=== PATIENT | male | born 1945 | race Caucasian/White ===

== ENCOUNTER 2024-01-11 08:04 | Outpatient (RCR) | payer MEDICARE, OTHER, SELFPAY | END 2024-02-11 10:26 | disposition home or self-care (01) | LOC: HO.WCC 08:04 | PROVIDERS: PCP Internal Medicine; Visit Provider Physician Assistant | DX: L97.811 Non-pressure chronic ulcer of other part of right lower leg limited to breakdown of skin (principal); I73.9 Peripheral vascular disease, unspecified; R73.03 Prediabetes; Z79.84 Long term (current) use of oral hypoglycemic drugs; Z92.3 Personal history of irradiation; Z87.891 Personal history of nicotine dependence; Z85.46 Personal history of malignant neoplasm of prostate | CPT/HCPCS: 97597; 97598; 97602; 99212 ==

== ENCOUNTER 2024-07-20 14:12 | Outpatient (AMB) | payer MEDICARE, OTHER, SELFPAY ==
--- NOTE | 2024-07-20 14:13 | MHC.OFFVIS ---
Intake Visit Reasons: Re-Ref for PAD Intake Note: Patient presents for PAD. He has left leg pain. No cramping , swelling or numbness. Accompanied by: Spouse Allergies No Known Allergies Allergy (Verified 07/20/24 14:15) [facility] HPI Re-Ref for PAD: Details: Very pleasant 71-year-old gentleman presents to us for follow-up regarding peripheral vascular disease. He would actually seen us back in 2018 in 2019. He had undergone an angiogram with us on 11/17/2017. At that time he had reasonable flow. He has been doing relatively well since that time in the interim he has been undergoing treatment for metastatic prostate carcinoma. In addition he has a history of a GI bleed. He was initially treated with brachytherapy. He has been now started on a chemo regimen by Dr. Conte. He is developed left lower extremity pain. He can barely walk about 100-200 feet and he notices pain in the left leg radiating down from his hip to the posterior aspect of his thigh. Of note he had this prior pain and it was treated with the brachytherapy and it appeared that the pain resolved. He does report on occasion the pain does improve with gabapentin. He has undergone noninvasive arterial testing at [facility] along with venous testing. Now presents to us for vascular follow-up. Review of Systems Const All systems reviewed & are unremarkable except as noted in HPI and below Reports no additional complaints ENT Reports Normal hearing present Card Denies chest pain, Denies chest pain at rest, Denies chest pain with activity and Denies pedal edema Resp Denies cough GI Denies abdominal pain Musc Denies abnormal gait, Denies muscle cramps and Denies radiating pain into limb Skin/Breast Denies skin ulcer and Denies wounds Neuro Reports Normal hearing present and Denies abnormal gait Psych Reports no additional complaints Physical Exam Const General: cooperative, healthy appearing and comfortable Orientation/consciousness: oriented to person, oriented to place and oriented to time HEENT Head: Yes normal to inspection Neck Neck: Yes normal visual inspection Carotids: no bruits Chest Chest palpation & inspection: normal inspection of the chest Resp Effort & Inspection: normal respiratory effort and able to speak in complete sentences Auscultation: clear to auscultation bilaterally, no crackles, no rales, no rhonchi and no wheezes Cardio Other: Right side palpable posterior tibial pulse left side DP signal only Rate: regular rate Rhythm: regular rhythm Heart sounds: S1 normal heart sound present and S2 normal heart sound present Bruits: no carotid bruits GI Inspection: Yes normal to inspection Skin Wounds: no wounds Hair: normal Neuro General: oriented to person, oriented to place and oriented to time Cranial nerves: Yes CN's II-XII intact bilaterally and Yes Normal hearing present Cognition (Neuro): normal cognition Motor exam (neuro): 5/5 motor strength present throughout Extrem Other: venous exam: No significant superficial varicosities or spider telangiectasias, minimal edema General: No clubbing, No cyanosis and No edema Psych Appearance: grossly normal Mental Status: mental status grossly normal Speech and movement: Normal speech and movement present Results Reviewed Results Reviewed: Arterial testing dated 07/05/2018 demonstrated an MAKSIM on the right of 1.01 and on the left of 0.69 done at [facility] written report and images were reviewed. Arterial testing dated 05/23/2024 demonstrates right leg popliteal disease. Written report reviewed from [facility] Venous testing dated 05/19/2024 was negative for DVT. Written report reviewed from [facility] Assessment & Plan Assessment & Plan (1) PAD (peripheral artery disease): Comment: 11/17/2017 - diagnostic angiogram Code(s): I73.9 - Peripheral vascular disease, unspecified Category: Medical Plan: In short patient has left leg claudication. I did review the pathophysiology of peripheral vascular disease with the patient. In addition we did discuss routine conservative measures including a healthy diet and the importance of exercise and ambulation. We did discuss risk factor modification. We will scheduled for a more detailed left leg arterial study.. Thank you for allowing us to participate in this patient's care. If there are any questions or concerns please do not hesitate to contact us. Orders: Orders US arterial duplex LE BI 1 Week I73.9 - Peripheral vascular disease, unspecified Coding Level of Care Code Est Pt Level 4 (75838) Diagnoses PAD (peripheral artery disease) I73.9
--- OUTSIDE RECORDS SUMMARY | 2024-07-20 17:59 | XMS_ITS ---
Author Organization [facility] Address [address] [place] [address] Care Team Providers Care Media Theorist And Author Of Name Role Phone Júnior Crawley MD Primary Care Provider Active Problems Problem Noted Date Diagnosed Date Prostate cancer 05/12/2017 Iron deficiency anemia due to chronic blood loss 05/12/2017 Current Oncology Plans [facility] LEUPROLIDE 22.5MG (ELIGARD) EVERY 3 MONTHS* Plan Start Date:02/08/2024 Plan Provider:Jeffrey Conte MD Linked Problems Prostate cancer (HCC)Iron de ficiency anemia due to chronic blood loss Treatment Medications leuprolide (ELIGARD) Past Plans ONCOLOGY INFUSION THERAPY Plan Name Start Date Discontinue Date Treatment Medications Discontinue Reason Plan Provider [facility] LE[facility]PR[facility] 22.5MG (ELIGARD) EVERY 3 MONTHS & [facility] DENOSUMAB 120MG (XGEVA) 02/24/2023 02/07/2024 denosumab (XGEVA)iron sucrose (VENOFER)leuprol walter (ELIGARD) Therapy Complete Jeffrey Conte MD Radiation Treatments * No radiation treatments are documented for this patient in [facility]. Treatments may have been administered in another system.
--- OUTSIDE RECORDS SUMMARY | 2024-07-20 17:59 | XMS_ITS | Clinical Summary ---
Author Organization [facility] Address [address] [place] [address] Care Team Providers Care Automation And Control Engineer Name Role Phone Júnior Crawley MD Primary Care Provider Allergies No known active allergies Medications Medication Sig Dispensed Refills Start Date End Date Status fenofibrate (TRIGLIDE) 160 MG tablet Take 1 tablet (160 mg total) by mouth daily. 0 Active lisinopril (PRINIVIL,ZESTRIL ) tablet 20 mg Take 1 tablet (20 mg total) by mouth daily. 0 Active METFORMIN HCL PO Take 250 mg by mouth daily. 0 Active omeprazole (PRILOSEC) 40 MG capsule Take 1 capsule (40 mg total) by mouth 2 (two) times a day. 0 Active simvastatin (ZOCOR) tablet 20 mg Take 1 tablet (20 mg total) by mouth every night at bedtime. 0 Active terazosin (HYTRIN) 5 MG capsule Take 1 capsule (5 mg total) by mouth every night at bedtime. 0 Active leuprolide (ELIGARD) 45 MG injection Inject 45 mg under the skin every 6 (six) months. 0 Active aspirin 81 MG tablet Take 1 tablet (81 mg total) by mouth daily. 0 Active oxyCODONE (ROXICODONE) 5 MG immediate release tablet Take 1 tablet (5 mg total) by mouth every 4 (four) hours as needed for pain. 30 tablet 0 02/03/2022 Active oxyCODONE HCl ER (OxyCONTIN) 10 MG T12A controlled release tablet Take 1 tablet (10 mg total) by mouth every 12 (twelve) hours. No Substitution 60 tablet 0 02/06/2022 Active enzalutamide (Xtandi) 40 MG capsuleIndication s:Malignant Neoplasm of Prostate Take 4 capsules (160 mg total) by mouth daily 120 capsule 11 11/02/2022 Active Calcium Carbonate-Vitamin D 600-5 MG-MCG TABS Take by mouth daily. 0 Active rosuvastatin (CRESTOR) tablet 20 mg Take 1 tablet (20 mg total) by mouth daily. 0 Active gabapentin (NEURONTIN) 300 MG capsule TAKE ONE CAPSULE BY MOUTH THREE TIMES A DAY 90 capsule 2 03/22/2024 Active Xtandi 80 MG TABSIndications:M alignant Neoplasm of Prostate Take 2 tablets by mouth daily. 1 tablet 0 04/17/2024 Active Active Problems Problem Noted Date Diagnosed Date Prostate cancer 05/12/2017 Iron deficiency anemia due to chronic blood loss 05/12/2017 Immunizations Name Administration Dates Next Due Covid-19 (Moderna 12+) 100mcg/0.5mL dosage 04/01 Influenza Quad (Afluria/Fluz one) 0.5mL >=6mon Vial (SD-IIV4) 04/01/2023 Pneumococcal Conjugate PCV20 03/31/2019 Zoster, Unspecified formulation 04/25/2021,01/16 Social History Tobacco Use Types Packs/Day Years Used Date Smoking Tobacco: Former Smokeless Tobacco: Never Alcohol Use Standard Drinks/Week Comments No 0 (1 standard drink = 0.6 oz pur e alcohol) Sex and Gender Information Value Date Recorded Sex Assigned at Male 03/30/2022 10:22 AM EDT Gender Identity Not on file Sexual Orientation Not on file Job Start Date Occupation Industry Not on file Not on file Not on file Last Filed Vital Signs Vital Sign Reading Time Taken Comments Blood Pressure 139/58 04/12/2024 2:44 PM EDT Pulse 71 04/12/2024 2:44 PM EDT Temperature 37 ??C (98.6 ??F) 04/12/2024 2:44 PM EDT Respiratory Rate 18 04/12/2024 2:44 PM EDT Oxygen Saturation 99% 04/12/2024 9:42 AM EDT Inhaled Oxygen Concentration - - Weight 88 kg (194 lb) 04/12/2024 9:42 AM EDT Height 165.1 cm (5' 5 ) 04/12/2024 9:42 AM EDT Body Mass Index 32.28 04/12/2024 9:42 AM EDT Plan of Treatment Health Maintenance Due Date Last Done Comments Hepatitis C Screening 1945 Depression Screening 1958 BMI Counseling 1964 Preventative Health Evaluation 1964 DTap / Tdap / Td (1 - Tdap) 1965 Shingrix-Zoster Vaccine (1 o f 2) 1965 04/25/2021, 01/16/2021 Fall Risk Assessment 2011 RSV Adult > 60+ Yrs or (1 - 1-dose 75+ series) 2021 COVID-19 Vaccine (2 - Modern a risk series) 04/29/2023 04/01/2023 Influenza Vaccine (#1) 2024 04/01/2023 Pneumococcal Vaccine Completed 03/31/2019 Hepatitis B Vaccines Aged Out No long er eligible based on patient's age to complete this topic RSV Ped < 20 months Aged Out No longe r eligible based on patient's age to complete this topic Care Teams Automation And Control Engineer Relationship Specialty Start Date End Date Júnior Crawley MD PCP - General Internal Medicine 05/12/17
--- OUTSIDE RECORDS SUMMARY | 2024-07-20 17:59 | XMS_ITS | Encounter Summary ---
Author Organization [facility] Address [address] [place] [address] Care Team Providers Care Trade Show Coordinator Name Role Phone Júnior Crawley MD Primary Care Provider [phone] Encounter Details Date Type Department Care Team Description 04/10/2024 Nurse Only [facility] Oncology Services [address] [place] [address] Lori Syed RN Social History Tobacco Use Types Packs/Day Years [...] file Not on file Not on file documented as of this encounter Progress Notes * Lori Syed RN - 04/10/2024 2:25 PM EDT Images from the original note were not included. - full report has been uploaded under media documented in this encounter Plan of Treatment Not on file documented as of this encounter Visit Diagnoses Not on filedocumented in this encounter Care Teams Trade Show Coordinator Relationship Specialty Start Date End Date Júnior Crawley MD PCP - General Internal Medicine 05/12/17 documented as of this encounter
--- OUTSIDE RECORDS SUMMARY | 2024-07-20 17:59 | XMS_ITS | Encounter Summary ---
Author Organization [facility] Address [address] [place] [address] Care Team Providers Care Planting Material Remover Name Role Phone Júnior Crawley MD Primary Care Provider [phone] Encounter Details Date Type Department Care Team Description 11/26/2021 Nurse Only [facility] Oncology Services [address] [place] [address] Lori Syed RN Social History Tobacco Use [...] file Not on file Not on file COVID-19 Exposure Response Date Recorded In the last 10 days, have yo u been in contact with someone who was confirmed or suspected to have Coronavirus/COVID-19? No / Unsure 11/27/2021 11:29 AM EDT documented as of this encounter Progress Notes * Lori Syed RN - 11/26/2021 1:57 PM EDT Order: [facility] Molecular Tumor Profiling on SP# [id number] Test request and clinicals submitted for processing. Testing Turnaround Time on average is 14 days but may take longer. Final Report will be scanned into [employer] when completed. documented in this encounter Plan of Treatment Not on file documented as of this encounter Visit Diagnoses Not on filedocumented in this encounter Care Teams Planting Material Remover Relationship Specialty Start Date End Date Júnior Crawley MD PCP - General Internal Medicine 05/12/17 documented as of this encounter
== END 2024-07-20 14:33 | disposition home or self-care (01) ==
PROVIDERS: PCP Internal Medicine; Visit Provider Surgery Vascular Surgery
DX: I73.9 Peripheral vascular disease, unspecified (principal)
CPT/HCPCS: 99214

== ENCOUNTER → 2024-07-20 14:12 | Outpatient (BNVA) | payer MEDICARE, OTHER, SELFPAY | PROVIDERS: PCP Internal Medicine; Visit Provider Surgery Vascular Surgery | DX: I73.9 Peripheral vascular disease, unspecified (principal) | CPT/HCPCS: 99212 ==

== ENCOUNTER 2024-09-07 14:06 | Outpatient (REF) | payer MEDICARE, OTHER, SELFPAY ==
--- NOTE | ~2024-09-07 | US_ITS ---
EXAMINATION: Noninvasive assessment of the bilateral lower extremities with ARTERIAL DUPLEX, ANKLE BRACHIAL INDICES (ABIs), and PULSE VOLUME RECORDINGS (PVRs). CLINICAL INFORMATION: Peripheral vascular disease. TECHNIQUE: Duplex Doppler techniques with waveform analysis and measurement of velocities in the bilateral common femoral, profunda femoris, superficial femoral, popliteal and tibial arteries were performed. Additionally, ankle pulse volume recordings, ankle pressure measurements and ankle brachial indices were obtained of the lower extremity arterial system bilaterally. The study was performed only at rest. COMPARISON: None FINDINGS: DIRECT DUPLEX DOPPLER FINDINGS: Calcified plaques throughout the interrogated vessels. Arrhythmic episodes. RIGHT LEG: Common femoral artery: 116 cm/s, phasicity: Biphasic. Profunda femoris artery: 87 cm/s, phasicity: Monophasic. Spectral broadening. Superficial femoral artery (proximal): 167 cm/s, phasicity: Triphasic. Superficial femoral artery (mid): 84 cm/s, phasicity: Triphasic. Superficial femoral artery (distal): 63 cm/s, phasicity: Triphasic. Popliteal artery: 78 cm/s, phasicity: Triphasic. Posterior tibial artery: 130 cm/s, phasicity: Triphasic. Peroneal artery: 49 cm/s, phasicity: Triphasic. Spectral broadening. Anterior tibial artery: 72 cm/s, phasicity: Triphasic. Spectral broadening. Dorsalis pedis artery: 56 cm/s, phasicity:Triphasic. Spectral broadening. LEFT LEG: Common femoral artery: 128 cm/s, phasicity: Biphasic. Profunda femoris artery: 121 cm/s, phasicity: Biphasic. Spectral broadening. Superficial femoral artery (proximal): 92 cm/s, phasicity: Biphasic. Superficial femoral artery (mid): 50 cm/s, phasicity: Triphasic. Superficial femoral artery (distal): 34 cm/s, phasicity: Triphasic. Popliteal artery: 141 cm/s, phasicity: Monophasic. Spectral broadening. Posterior tibial artery: 89 cm/s, phasicity: Monophasic. Spectral broadening. Peroneal artery: 23 cm/s, phasicity: Monophasic. Anterior tibial artery: 55 cm/s, phasicity: Monophasic. Spectral broadening. Dorsalis pedis artery: 36 cm/s, phasicity: Monophasic. Spectral broadening. BRACHIAL PRESSURES: Right: Disease proximal profundal artery. Left: popliteal, posterior and anterior tibialis arteries and dorsalis pedis artery. ANKLE PRESSURES: Right: PT , DP Left: PT , DP ANKLE-BRACHIAL INDEX: Right: Left: ANKLE PVR WAVEFORMS: Right: Left: US/US arterial duplex BI w/ MAKSIM IMPRESSION: Right leg: Left leg: MAKSIM Reference: - >1.4 = calcified vessels - 0.9 - 1.4 = normal - no significant arterial disease - 0.7 - 0.89 = mild peripheral arterial disease - 0.51 - 0.69 = moderate peripheral arterial disease - d 0.50 = severe peripheral arterial disease - < .30 = critical arterial disease Electronically signed by: Jeanmarie Kinsey MD 09/08/2024 11:07 AM EDT
--- OUTSIDE RECORDS SUMMARY | 2024-09-07 16:48 | XMS_ITS | Encounter Summary ---
Author Organization [facility] [address] Address [address] [place] [address] Care Team Providers Care Portrait Photographer Name Role Phone Júnior Crawley MD Primary Care Provider Encounter Details Date Type Department Care Team (Late st Contact Info) Description 08/29/2024 Telephone [facility] [address] [place] [address] [address] [place] [address] Layne Stauffer, NICOLE Social History Tobacco Use Types Packs/Day Years Used Date Smoking Tobacco: Former Cigarettes Q uit: 06/21/2012 Smokeless Tobacco: Never Alcohol Use Standard Drinks/Week Comments No 0 (1 standard drink = 0.6 oz pur e alcohol) Housing Instability Answer Date Recorde d Are you worried that in the next 2 months you may not have stable housing? No 08/05/2024 Food Access & Nutrition Answer Date Rec orded Do you have access to a vari ety of food including fruits and vegetables? Yes 08/05/2024 Health Literacy Answer Date Recorded How often do you need to hav e someone help you when you read instructions, pamphlets, or other written material from your doctor or pharmacy? Never 08/05/2024 Caregiver: How often do you need to have someone help you when you read instructions, pamphlets, or other written material from your doctor or pharmacy? Not on file 08/05/2024 Financial Risk Answer Date Recorded How hard is it for you to pa y for the very basics like food, housing, medical care, and air conditioning / heating? Not very hard 08/05/2024 Transportation Answer Date Recorded Has the lack of transportati on kept you from meetings, work, or from getting things needed for daily living? No Has the lack of transportati on kept you from medical appointments or from getting medications? No 08/05/2024 Social Isolation Answer Date Recorded How often do you feel lonely or isolated from th ose around you? Rarely 08/05/2024 Food Risk Answer Date Recorded Within the past 12 months we worried whether our food would run out before we got money to buy more. Never true 08/05/2024 Within the past 12 months th e food we bought just didn? t last and we didn? t have money to get more. Not on file 08/05/2024 Dependent Care Answer Date Recorded Do you need help finding or paying for care for your loved ones. For example, early childhood associate or elderly care for an older adult? No 08/05/2024 Education Answer Date Recorded Do you think completing more education or training, like finishing a GED, going to college, or learning a trade, would be helpful for you? No 08/05/2024 Employment and Income Answer Date Recor ded During the last four weeks, have you been actively looking for work? No 08/05/2024 Living Situation Answer Date Recorded What is your living situation? 0 08/05/2024 Interpersonal Safety Answer Date Record ed Physical Abuse 08/05/2024 Verbal Abuse 08/05/2024 Sex and Gender Information Value Date Recorded Sex Assigned at Male 07/03/2024 10:21 AM EST Legal Sex Male 1:21 AM EST Gender Identity Male 07/03/2024 10:21 AM EST Sexual Orientation Straight 07/03/2024 10 :21 AM EST documented as of this encounter Progress Notes * Layne Stauffer RN - 08/29/2024 12:00 PM EDT This RN received critical lab result on [place]er[place]. Lutz from hematology called this RN at 1146 to report critical WBC: 0.7. Obtained additional lab results- prelim anc: 0.16, hgb: 7.1, plts: 211. Critical WBC and hgb reported to Dr. Conte. Dr. Conte called this RN with orders to call pt and discuss neutropenic precautions. Orders obtained to transfuse 1 unit PRBCs tomorrow after MD ROBERTSON. This RN called and spoke to spouse, Sondra. Sondra denies that pt has experienced any fevers, chills,etc. She does however state that he has been tired and thinking he would need blood. Explained to spouse that pt will see Dr. Conte tomorrow and then come upstairs for a blood transfusion. Pt and spouse should monitor pt for any signs of fevers, chills, shaking, etc. If any symptoms arise before tomorrow's appt, pt is to go to ER. Encouraged spouse to be sure he performs good hand hygiene and stays away from anyone who may be sick. Spouse verbalized understanding and agrees to plan. documented in this encounter Plan of Treatment Upcoming Encounters Date Type Department Care Team (Late st Contact Info) Description 09/08/2024 8:00 AM EDT Appointment [facility] [address] [place] [phone] Jeffrey Conte MD [address] [place] [phone] 09/13/2024 9:30 AM EDT Office Visit [facility] On[facility] [address] [place] [phone] Jeffrey Conte MD [address] [place] [phone] 10/19/2024 9:00 AM EDT Appointment [facility] [address] [place] [phone] 02/20/2025 8:00 AM EDT Ancillary Procedure [facility] Cardiology [facility] [address] [place] [address] 03/01/2025 8:40 AM EDT Office Visit [facility] Cardiology [facility] [address] [facility] [address] [place] [phone] Marcela Chris NP [address] [place] [address] [address] [place] [address] documented as of this encounter Visit Diagnoses Not on filedocumented in this encounter Care Teams Portrait Photographer Relationship Specialty Start Date End Date Júnior Crawley MD [address] [place] [address] PCP - General Internal Medicine 05/02/24 documented as of this encounter
--- OUTSIDE RECORDS SUMMARY | 2024-09-07 16:48 | XMS_ITS | Encounter Summary ---
Author Organization [facility] Address [address] [place] [address] Care Team Providers Care Order Editor Name Role Phone Júnior Crawley MD Primary Care Provider Reason for Visit * Reason Comments Abdominal Pain Black or Bloody Stool * Auth/Cert Specialty Diagnoses / Procedures Referred By Contcamron t Referred To Contact Diagnoses Neutropenic sepsis (CMS/HCC) Procedures . Davin Madrid MD [address] [place] [address] Phone: tel: fax: [facility] [address] [place] [phone] Phone: tel: Referral ID Status Reason Start Date Expiration Date Visits Re quested Visits Authorized [id number] 1 1 Encounter Details Date Type Department Care Team (Latest Contact Info) Description 09/01/2024 3:36 PM EDT - 09/04/2024 12:33 PM EDT Hospital Encounter [facility] [address] [place] [address] Noemy Bergman DO [address] [place] [address] Davin Madrid MD [address] [place] [address] Carson Rodriguez MD [address] [place] [address] Axel Samson MD [address] [facility] [address] [place] [address] Neutropenic fever (CMS/HCC) (Primary Dx); Acute respiratory failure with hypoxia (CMS/HCC) Discharge Disposition: Home or Self Care Social History Tobacco Use Types Packs/Day Years Used Date Smoking Tobacco: Former Cigarettes Q uit: 06/21/2012 Smokeless Tobacco: Never Alcohol Use Standard Drinks/Week Comments No 0 (1 standard drink = 0.6 oz pur e alcohol) Housing Instability Answer Date Recorde d Are you worried that in the next 2 months you may not have stable housing? No 09/02/2024 Food Access & Nutrition Answer Date Rec orded Do you have access to a vari ety of food including fruits and vegetables? Yes 09/02/2024 Health Literacy Answer Date Recorded How often do you need to hav e someone help you when you read instructions, pamphlets, or other written material from your doctor or pharmacy? Never 09/02/2024 Caregiver: How often do you need to have someone help you when you read instructions, pamphlets, or other written material from your doctor or pharmacy? Not on file 09/02/2024 Financial Risk Answer Date Recorded How hard is it for you to pa y for the very basics like food, housing, medical care, and air conditioning / heating? Not very hard 09/02/2024 Transportation Answer Date Recorded Has the lack of transportati on kept you from meetings, work, or from getting things needed for daily living? No Has the lack of transportati on kept you from medical appointments or from getting medications? No 09/02/2024 Social Isolation Answer Date Recorded How often do you feel lonely or isolated from th ose around you? Rarely 09/02/2024 Food Risk Answer Date Recorded Within the past 12 months we worried whether our food would run out before we got money to buy more. Never true 09/02/2024 Within the past 12 months th e food we bought just didn't last and we didn't have money to get more. Never true 09/02/2024 Dependent Care Answer Date Recorded Do you need help finding or paying for care for your loved ones. For example, director of early childhood or elderly care for an older adult? No 09/02/2024 Education Answer Date Recorded Do you think completing more education or training, like finishing a GED, going to college, or learning a trade, would be helpful for you? No 09/02/2024 Employment and Income Answer Date Recor ded During the last four weeks, have you been actively looking for work? No 09/02/2024 Living Situation Answer Date Recorded What is your living situation? 0 09/02/2024 Interpersonal Safety Answer Date Record ed Physical Abuse 09/02/2024 Verbal Abuse 09/02/2024 Sex and Gender Information Value Date Recorded Sex Assigned at Male 07/03/2024 10:21 AM EST Legal Sex Male 1:21 AM EST Gender Identity Male 07/03/2024 10:21 AM EST Sexual Orientation Straight 07/03/2024 10 :21 AM EST documented as of this encounter Last Filed Vital Signs Vital Sign Reading Time Taken Comments Blood Pressure 112/52 09/04/2024 8:00 AM EDT Pulse 83 09/04/2024 8:00 AM EDT Temperature 36.5 ??C (97.7 ??F) 09/04/2024 8:00 AM ED T Respiratory Rate 18 09/04/2024 8:00 AM EDT Oxygen Saturation 93% 09/04/2024 8:00 AM EDT Inhaled Oxygen Concentration - - Weight 81.6 kg (180 lb) 09/01/2024 2:48 PM EDT Height 165.1 cm (5' 5 ) 09/01/2024 2:48 PM EDT Body Mass Index 29.95 09/01/2024 2:48 PM EDT documented in this encounter Discharge Summaries * Axel Samson MD - 09/04/2024 9:25 AM EDT Images from the original note were not included. [place] DISCHARGE SUMMARY Patient Information Luke Turpin : 1945 [79 y.o.] Admitting Provider Davin Madrid MD Discharge Provider Axel Samson MD, Axel Samson MD Primary Care Physician Júnior Crawley MD Admission Date 09/01/2024 Discharge Date 09/04/2024 Summary of Hospital Problems Primary Discharge Diagnosis: Neutropenic sepsis (CMS/HCC) Neutropenic fever without any clear etiology Discharge Destination: Home Code Status at Discharge: Full Code - Confirmed Hospital Course Summary 79-year-old gentleman with history of hypertension prostate gland followed by Dr. De Anda came in forfever was found to have neutropenia. Sepsis secondary to possibly neutropenic fever Temperature 100.4, blood pressure 85/48 on admission O2 sat of 85% on room air and 94 on 2 L. Currently on room air, no evidence of any pneumonia, UA negative blood cultures negative. Viral panel negative Blood cultures negative as of yet Chest x-ray shows bibasilar opacities versus atelectasis Received cefepime, discharged switch to Levaquin 500 mg daily for another 5 days to complete total course. 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 Conte, on docetaxel, with next infusion on 09/07 Spoke oncology patient will follow-up with their office in 1 week. Anemia of chronic disease History of AVM of gastrointestinal tract H&H dropped from 9.4/->7.2/23 Currently 8.0 at the time of discharge. Hyperlipidemia PAD continue fenofibrate, statin Severe aortic stenosis follows with Dr. Elizabeth Follow-Up Instructions and Recommendations Jeffrey Conte MD [address] [place] [phone] Discharge Procedure Orders Discharge Diet: Return to previous diet Order Specific Question Answer Comments General Instructions for your diet at home Return to previous diet No restrictions, resume your usual activities Provider: Order Specific Question Answer Comments Follow-Up in: 5 Follow-Up in: Days There are no outpatient Patient Instructions on file for this admission. Discharge Medications Your medication list START taking these medications Instructions Last Dose Given Next Dose Due levoFLOXacin 500 mg tablet Commonly known as: LEVAQUIN Take 1 tablet (500 mg total) by mouth 1 (one) time each day for 5 days. CONTINUE taking these medications Instructions Last Dose Given Next Dose Due cholecalciferol 25 mcg (1,000 unit) tablet Commonly known as: VITAMIN D-3 Take 1 tablet (1,000 Units total) by mouth 1 (one) time each day. DOCETAXEL IV Infuse into a venous catheter. Every 22 days ELIALEXIAD SUBQ Inject into the skin Every 3 Months. fenofibrate micronized 134 mg capsule Commonly known as: LOFIBRA Take 1 Capsule by mouth daily. folic acid 400 mcg tablet Commonly known as: FOLVITE Take 1 tablet (400 mcg total) by mouth 1 (one) time each day. gabapentin 600 mg tablet Commonly known as: NEURONTIN Take 1 tablet (600 mg total) by mouth 3 (three) times a day. lisinopriL 20 mg tablet Commonly known as: PRINIVIL,ZESTRIL Take 1 Tablet by mouth daily. metFORMIN 500 mg tablet Commonly known as: GLUCOPHAGE Take 0.5 tablets (250 mg total) by mouth 1 (one) time each day with breakfast. omeprazole [address] capsule Commonly known as: PriLOSEC Take 1 capsule (40 mg total) by mouth 2 (two) times a day. Do not crush or chew. predniSONE 5 mg tablet Commonly known as: DELTASONE Take 2 tablets (10 mg total) by mouth 1 (one) time each day. Start the day after IV chemotherapy. Take on days 2-21 of each cycle with food. prochlorperazine 10 mg tablet Commonly known as: COMPAZINE Take 1 tablet (10 mg total) by mouth every 6 (six) hours if needed for nausea or vomiting. rosuvastatin 20 mg tablet Commonly known as: CRESTOR Take 1 Tablet by mouth daily. terazosin 5 mg capsule Commonly known as: HYTRIN Take 1 Capsule by mouth at bedtime. Vitron-C 65 mg iron- 125 mg tablet,delayed release (DR/EC) Generic drug: iron,carbonyl-vitamin C Take 1 tablet by mouth 1 (one) time each day. STOP taking these medications trimethoprim-polymyxin b ophthalmic solution Commonly known as: POLYTRIM ASK your doctor about these medications Instructions Last Dose Given Next Dose Due Clenpiq 10 mg-3.5 gram- 12 gram/175 mL solution Generic drug: sod picosulf-mag ox-citric ac Take 175 mL by mouth 2 (two) times a day. Where to Get Your Medications These medications were sent to [id number] [place] [id number] levoFLOXacin 500 mg tablet Physical Exam at time of Discharge Physical Exam Constitutional: Appearance: Normal appearance. HENT: Head: Normocephalic and atraumatic. Mouth/Throat: Mouth: Mucous membranes are moist. Pharynx: Oropharynx is clear. Eyes: Extraocular Movements: Extraocular movements intact. Pupils: Pupils are equal, round, and reactive to light. Cardiovascular: Rate and Rhythm: Normal rate and regular rhythm. Pulses: Normal pulses. Heart sounds: Murmur heard. Pulmonary: Effort: Pulmonary effort is normal. Breath sounds: Normal breath sounds. Abdominal: General: Abdomen is flat. Bowel sounds are normal. There is no distension. Palpations: Abdomen is soft. Tenderness: There is no abdominal tenderness. Musculoskeletal: General: Normal range of motion. Cervical back: Normal range of motion and neck supple. Right lower leg: No edema. Left lower leg: No edema. Skin: Capillary Refill: Capillary refill takes less than 2 seconds. Neurological: General: No focal deficit present. Mental Status: He is alert and oriented to person, place, and time. Mental status is at baseline. Motor: No weakness. Gait: Gait normal. Psychiatric: Mood and Affect: Mood normal. Behavior: Behavior normal. Vitals Visit Vitals BP 112/52 Pulse 83 Temp 36.5 ??C (97.7 ??F) Resp 18 Temp (24hrs), Av.7 ??C (98 ??F), Min:36.3 ??C (97.3 ??F), Max:36.9 ??C (98.4 ??F) Body mass index is 29.95 kg/m??. No results found for: PTWT , PTHT Addendum lisinopril has been discontinued due to low blood pressure documented in this encounter Medications at Time of Discharge cholecalciferol (VITAMIN D-3) 25 mcg (1,000 unit) tablet Take 1 tablet (1,000 Units total) by mouth 1 (one) time each day. DOCETAXEL IV Infuse into a venous catheter. Every 22 days fenofibrate micronized (LOFIBRA) 134 mg capsule Take 1 Capsule by mouth daily. folic acid (FOLVITE) 400 mcg tablet Take 1 tablet (400 mcg total) by mouth 1 (one) time each day. gabapentin (NEURONTIN) 600 mg tablet Take 1 tablet (600 mg total) by mouth 3 (three) times a day. 90 each 2 07/13/2024 iron,carbonyl-vit bonilla C (Vitron-C) 65 mg iron- 125 mg tablet,delayed release (DR/EC) Take 1 tablet by mouth 1 (one) time each day. leuprolide acetate (ELIGARD SUBQ) Inject into the skin Every 3 Months. levoFLOXacin (LEVAQUIN) 500 mg tablet Take 1 tablet (500 mg total) by mouth 1 (one) time each day for 5 days. 5 each 09/04/2024 09/09/2024 metFORMIN (GLUCOPHAGE) 500 mg tablet Take 0.5 tablets (250 mg total) by mouth 1 (one) time each day with breakfast. omeprazole (PriLOSEC) [address] capsuleIndication s:Melena Take 1 capsule (40 mg total) by mouth 2 (two) times a day. Do not crush or chew. 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 Start the day after IV chemotherapy. Take on days 2-21 of each cycle with food. 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 60 tablet 3 07/06/2024 rosuvastatin (CRESTOR) 20 mg tablet Take 1 Tablet by mouth daily. sod picosulf-mag ox-citric ac (Clenpiq) 10 mg-3.5 gram- 12 gram/175 mL solutionIndicatio ns:Gastrointestin al bleeding,Melena,P roctitis Take 175 mL by mouth 2 (two) times a day. 350 mL 07/20/2024 terazosin (HYTRIN) 5 mg capsule Take 1 Capsule by mouth at bedtime. documented as of this encounter Ordered Prescriptions Prescription Sig Dispense Quantity Refills Last Filled Start Date End Date levoFLOXacin (LEVAQUIN) 500 mg tablet Take 1 tablet (500 mg total) by mouth 1 (one) time each day for 5 days. 5 each 09/04/2024 09/09/2024 documented in this encounter Discharge Disposition Disposition Code Departure Means Destination Comment s Home or Self Care Car documented in this encounter Progress Notes * Radha Herrera RN - 09/04/2024 12:34 PM EDT Medications and follow up appointments reviewed with patient and spouse. Port de-accessed. All questions answered at this time. Transport requested. * Axel Samson MD - 09/04/2024 12:33 PM EDT [facility] Provider Response Note PATIENT: LUKE TURPIN : 1945 ADMIT DATE: 09/01/2024 7:50 PM DISCH DATE: 09/04/2024 12:33 PM RESPONDING PROVIDER #: [id number] PROVIDER RESPONSE TEXT: The two conditions are due to or associated. QUERY TEXT: Please clarify in documentation the relationship, if any, between sepsis and OBEY. Such as: ED Provider Notes 09/01/24 Dr. Bergman 1944 Lab work was significant elevated creatinine of 1.92. Lactic acid is not elevated at this time. Patient does have signs of neutropenia. Patient does have a fever of 100.4 rectally. Vancomycin and IV cefepime given for his neutropenic fever. History 09/01/24 LIO Romero Sepsis Neutropenic fever He meets severe sepsis criteria with wbcc, temperature 100.4, bp <90,although no clear source at this time, awaiting ua Hypotension -became hypotensive after gave lisinopril and gabapentin, instructed to bring medication home,will avoid further gabapentin tonight, lisinopril on hold given obey, bp is improving after ivf OBEY -baseline cr 1, today is 1.92 -hold nephrotoxic agents/renally dose medication Thank you for your attention to this matter. 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 Reason for Visit: Spiritual/Emotional Support and Spiritual Assessment Time Spent: 20 Minutes Location: [address] [place] [address] Sacramental Encounters: Communion Given Indicator: Yes Sacrament of Sick-Anointing: Anointed Spiritual Distress Assessment: Spiritual Distress Assessment at beginning of visit Meaning - Overall Life Balance: No evidence of unmet spiritual need Transcendence: No evidence of unmet spiritual need Values - Acknowledgement: No evidence of unmet spiritual need Values - Control: No evidence of unmet spiritual need Spiritual Distress Assessment at end of visit Meaning - Overall Life Balance: No evidence of unmet spiritual need Transcendence: No evidence of unmet spiritual need Values - Acknowledgement: No evidence of unmet spiritual need Values - Control: No evidence of unmet spiritual need Psycho-Social Identity: No evidence of unmet spiritual need SDAT End of Visit Average Score: 0 Spiritual Assessment/Distress Spiritual Care Assessment: Assessment: Luke, was awake, alert, sitting and resting in the chair at the time of visit. His was present in the room. Shared health condition prior to admission. Happy and thankful for the progress and improvement. Looking forward to being discharged, returning home to normal daily. Drawing from his [place] origin, shared importance of [employer] [place]'s day celebration and how they celebrate as a family. Lara hindu is Mosque, expressed desire to receive anointing of the sick and Holy communion. His also received Holy communion. Prayed for good health. They voiced appreciationfor the visit and support. Intervention: NE Spiritual Care Interventions : provided support, explored hope, facilitate storytelling, listened empathically, and provided prayer Outcomes: expressed gratitude and expressed peace Plan of Care: Visit as needed *Reference: Spiritual Distress Assessment Tool: The SDAT is a clinical tool used by chaplains to identify unmet spiritual and emotional needs that can impact Goals of Care in the following categories: Spiritual Distress Assessment Legend Spiritual Needs Related Questions Meaning Are you having difficulties coping with what is happening to your now? Does your hospitalization have any repercussions on the way you live usually? Transcendence Do you have a particular hindu, lara, or spirituality? Is your hindu/spirituality/lara challenged by what is happening to you now? Values Do you think that the health professionals caring for you know you well enough? Do you feel that you are participating in the decisions made about your care? Psycho-Social Identity Do you have any worries or difficulties regarding your family or other persons close to you? Do you feel lonely? Do you have links to your lara community? SCALE 0= no evidence of unmet spiritual needs 1= some evidence of unmet spiritual needs 2= substantial evidence of unmet spiritual needs 3= evidence of severe unmet spiritual needs * Sandy Joseph RN - 09/04/2024 12:22 PM EDT 09/04/24 1222 Medication Coverage Has Med Coverage Under Insurance Plan Yes Medication Affordability No concerns related to payment for meds Anticipated Discharge Needs Discipline following for SNF placement [employer] Informed Choice Informed Choice Given? Yes Transportation Transportation at discharge Family What day is the transport expected? 09/04/24 Final Discharge Disposition Home or Self Care * Larry Espinal RN - 09/04/2024 7:50 AM EDT Goals: Identify possible barriers to meeting goals/advancing plan of care: + blood cultures results Stability of the patient: Moderately Stable - Low risk of patient condition declining or worsening End of Shift Summary: Pt rested and slept appropriately. VSS. Did not report any pain or discomfort. Pt is expecting to be d/c today in the morning but understands why they need to wait for the bloodculture results; so far the blood and urine cultures have shown no growth. * Santiago Mcrae RN - 09/03/2024 4:55 PM EDT Goals: Identify possible barriers to meeting goals/advancing plan of care: Dr. Rodriguez want's to wait to seethe results of the patient's blood cultures to be resulted on 09/04/2024. Stability of the patient: Moderately Stable - Low risk of patient condition declining or worsening End of Shift Summary: * Carson Rodriguez MD - 09/03/2024 11:10 AM EDT Images from the original note were not included. [facility] PROGRESS NOTE Date: 09/03/2024 Author: Carson Rodriguez MD Patient ID: Luke Turpin is a 79 y.o. male : 1945 MR#: [id number] SUBJECTIVE Subjective Patient seen and examined by bedside Vitals labs and images reviewed AFebrile overnight Creatinine improved to 1.45 (1.92 previously) Blood cultures negative as of yet, urine culture pending, respiratory viral panel negative H&H stable post PRBC transfusion Continue IV cefepime. Will downgrade from telemetry Allergies Patient has no known allergies. Current Medications: atorvastatin, 80 mg, oral, Nightly cefepime, 2 g, intravenous, q12h doxazosin, 4 mg, oral, Nightly fenofibrate, 145 mg, oral, Daily folic acid, 1,000 mcg, oral, Daily gabapentin, 300 mg, oral, q8h CHANG insulin lispro, 1-6 Units, subcutaneous, TID AC pantoprazole, 40 mg, intravenous, q12h sodium chloride, 10 mL, intravenous, BID PRN medications: acetaminophen, dextrose 50%, dextrose 50%, dextrose, dextrose, glucagon injection,ondansetron (ZOFRAN-ODT) disintegrating tablet OR ondansetron, prochlorperazine OR prochlorperazine OR prochlorperazine, [COMPLETED] Insert peripheral IV AND Maintain IV access AND [COMPLETED] Saline lock IV AND sodium chloride AND sodium chloride, sodium chloride OBJECTIVE Vitals: 09/02/24201009/03/24 0101 09/03/24 0346 09/03/24 0751 BP: 108/57 101/63 (!) 113/49 111/56 BP Location: Left arm Right arm Left arm Patient Position: Lying Sitting Lying Pulse: 86 89 92 89 Resp: 18 18 18 Temp: 37.3 ??C (99.1 ??F) 37.1 ??C (98.7 ??F) 37.1 ??C (98.7 ??F) 36.8 ??C (98.3 ??F) TempSrc: Temporal Temporal Temporal SpO2: 94% 92% 94% 93% Weight: Height: Physical Exam General : Pt lying in bed in no acute distress Head : NC/AT Resp : CTA B/L CVS : RRR, no audible murmurs GI : Abd Soft, NT, ND, +BS Neuro : Alert and oriented x 3, follows commands LABS HEMATOLOGY Lab Results Component Value Date WBC 3.8 (L) 09/03/2024 HGB 7.9 (L) 09/03/2024 HCT 25.0 (L) 09/03/2024 MCV 100.4 (H) 09/03/2024 PLT 193 09/03/2024 CHEMISTRY Lab Results Component Value Date GLUCOSE 88 09/03/2024 NA 140 09/03/2024 K 4.3 09/03/2024 CO2 24 09/03/2024 CL 107 09/03/2024 BUN 31 (H) 09/03/2024 CREATININE 1.45 (H) 09/03/2024 EGFR 49 (L) 09/03/2024 CALCIUM 8.0 (L) 09/03/2024 MG 2.3 08/06/2024 ANIONGAP 9 09/03/2024 Imaging: XR Chest 2 Views Narrative: EXAMINATION: CHEST CLINICAL INFORMATION: Shortness of breath. Pain. COMPARISON: Frontal view 08/05/2024 TECHNIQUE: Sitting frontal and lateral views of the chest FINDINGS: Right-sided vascular catheter with an associated reservoir. Calcified aortic arch. No change in cardiac size. The left hilum is within normal limits. No definite change in the right hilum with a few reticular opacities in the right infrahilar region. There isvolume loss in the left retrocardiac region and there is some vague density in the left lateral cost ophrenic sulcus region. Lung volumes are low. There is no pneumothorax. There are some rib irregularities laterally on the left. Impression: Hypoinflation with bibasilar opacities which could be atelectasis. There is no pneumothorax or definite evidence of pneumoperitoneum -------- FINAL REPORT -------- Dictated By: Albino Haines Dictated Date: 09/01/2024 17:30 ET Assigned Physician: Albino Haines Reviewed and Electronically Signed By: Albino Haines Signed Date: 09/01/2024 17:34 ET Workstation ID: [id number] Transcribed By: Self Edit Transcribed Date: 09/01/2024 17:[address] Abdomen Pelvis w Contrast Narrative: INDICATION: Abdominal pain, acute, nonlocalized CT abdomen and pelvis with contrast Comparison: None Findings: Heart is enlarged. Small bilateral pleural effusion. The liver is normal in size without suspicious focal hepatic lesions. There is a cyst in the caudate lobe. No intrahepatic or extrahepatic ductal dilatation is seen. The hepatic and portal veins are patent. No calcified gallstones in the gallbladder. The spleen is unremarkable. There is a hypodense lesion in the tail of the pancreas with calcification. 5.6 x 6.2 cm right adrenal mass. There are multiple small left adrenal nodules. No suspicious focal lesion of the kidneys. There are multiple bilateral renal cysts. No hydronephrosis or calculi. The abdominal aorta demonstrates no evidence of aneurysmal dilatation or dissection. Severe Atherosclerosis calcification of the aorta and at the origin of the major branches. The colon is normal in appearance and without wall thickening or inflammatory change. Colonic diverticulosis. No evidence of bowel obstruction. Appendix is normal. Bladder is unremarkable. Status post seed implant of the prostate gland. Small ascites. Loculated fluid along the greater curvature of the stomach. 4.3 x 3.4 cm left pelvic lymph node axial image 152. Lytic bony lesion of the left acetabulum and sacrum. Impression: Large mass of the right adrenal gland and enlarged left pelvic lymph node are concerning for metastasis. 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 Indeterminate hypodense lesion in the tail of the pancreas. Severe Atherosclerosis calcification of the aorta and at the origin of the major branches. Stenoses cannot be excluded. Small ascites. Additional findings as above. This document has been electronically signed by: Reji Monsivais MD on 09/01/2024 17:36:51 ASSESSMENT & PLAN Sepsis secondary to possibly neutropenic fever Temperature 100.4, blood pressure 85/48 on admission O2 sat of 85% on room air and 94 on 2 L. 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 Conte, on docetaxel, with next infusion on 09/07 Oncology evaluation pending Anemia of chronic disease History of AVM of gastrointestinal tract H&H dropped from 9.4/29->7.2/ Continue IV PPI twice daily Monitor H&H and transfuse if hemoglobin falls below 8 Type 2 diabetes mellitus ISS Hyperlipidemia PAD continue fenofibrate, statin Severe aortic stenosis He was seen by Dr. Elizabeth in March, he has been relatively asymptomatic, there was plan for echo 6 months after his visit DAILY CARE CHECKLIST Length of Stay: 01d 09h 35m VTE Prophylaxis: SCD Resuscitation: Full Code - Confirmed PCP: Júnior Crawley MD Disposition: Possible discharge 09/04 if blood cultures remain negative and no febrile episode health care proxy with phone number : dominique Amaro, This dictation was performed using voice recognition software. Word substitution may have occurred and may have gone unnoticed and uncorrected. * Santiago Mcrae RN - 09/02/2024 7:57 PM EDT Goals: Identify possible barriers to meeting goals/advancing plan of care: Patient's hgb dropped to 7.2. Received 1 unit of PRBC. Stability of the patient: Moderately Stable - Low risk of patient condition declining or worsening End of Shift Summary: Patient received blood transfusion. Patient was taken off of oxygen and is currently on room air. * Carson Rodriguez MD - 09/02/2024 3:23 PM EDT Images from the original note were not included. SANIYA PROGRESS NOTE Date: 09/02/2024 Author: Carson Rodriguez MD Patient ID: Luke Turpin is a 79 y.o. male : 1945 MR#: [id number] SUBJECTIVE Subjective Patient seen and examined by bedside Vitals labs and images reviewed H&H dropped to 7. 2/23. Will transfuse PRBC Continue IV cefepime. Blood cultures negative as of yet Allergies Patient has no known allergies. Current Medications: atorvastatin, 80 mg, oral, Nightly cefepime, 2 g, intravenous, q12h doxazosin, 4 mg, oral, Nightly fenofibrate, 145 mg, oral, Daily folic acid, 1,000 mcg, oral, Daily gabapentin, 300 mg, oral, q8h CHANG insulin lispro, 1-6 Units, subcutaneous, TID AC pantoprazole, 40 mg, intravenous, q12h sodium chloride, 10 mL, intravenous, BID lactated Ringer's, 100 mL/hr, Last Rate: 100 mL/hr (09/02/24 0534) PRN medications: acetaminophen, dextrose 50%, dextrose 50%, dextrose, dextrose, glucagon injection,ondansetron (ZOFRAN-ODT) disintegrating tablet OR ondansetron, prochlorperazine OR prochlorperazine OR prochlorperazine, [COMPLETED] Insert peripheral IV AND Maintain IV access AND [COMPLETED] Saline lock IV AND sodium chloride AND sodium chloride, sodium chloride OBJECTIVE Vitals: 09/02/24 1021 09/02/24 1048 09/02/24 1124 09/02/24 1250 BP: 115/62 119/59 123/58 BP Location: Right arm Patient Position: Lying Pulse: 95 92 99 Resp: 20 18 18 18 Temp: 37.1 ??C (98.7 ??F) 36.9 ??C (98.5 ??F) 37.3 ??C (99.2 ??F) TempSrc: Temporal Temporal SpO2: 95% 98% 96% Weight: Height: Physical Exam General : Pt lying in bed in no acute distress Head : NC/AT Resp : CTA B/L, no audible wheezing CVS : RRR, no audible murmurs GI : Abd Soft, NT, ND, +BS Neuro : Alert and oriented x 3, follows commands LABS HEMATOLOGY Lab Results Component Value Date WBC 1.8 (LL) 09/02/2024 HGB 7.2 (L) 09/02/2024 HCT 23.0 (L) 09/02/2024 MCV 100.9 (H) 09/02/2024 PLT 181 09/02/2024 CHEMISTRY Lab Results Component Value Date GLUCOSE 110 (H) 09/02/2024 NA 138 09/02/2024 K 4.4 09/02/2024 CO2 25 09/02/2024 CL 108 09/02/2024 BUN 34 (H) 09/02/2024 CREATININE 1.59 (H) 09/02/2024 EGFR 44 (L) 09/02/2024 CALCIUM 7.6 (L) 09/02/2024 MG 2.3 08/06/2024 ANIONGAP 5 09/02/2024 Imaging: XR Chest 2 Views Narrative: EXAMINATION: CHEST CLINICAL INFORMATION: Shortness of breath. Pain. COMPARISON: Frontal view 08/05/2024 TECHNIQUE: Sitting frontal and lateral views of the chest FINDINGS: Right-sided vascular catheter with an associated reservoir. Calcified aortic arch. No change in cardiac size. The left hilum is within normal limits. No definite change in the right hilum with a few reticular opacities in the right infrahilar region. There isvolume loss in the left retrocardiac region and there is some vague density in the left lateral cost ophrenic sulcus region. Lung volumes are low. There is no pneumothorax. There are some rib irregularities laterally on the left. Impression: Hypoinflation with bibasilar opacities which could be atelectasis. There is no pneumothorax or definite evidence of pneumoperitoneum -------- FINAL REPORT -------- Dictated By: Albino Haines Dictated Date: 09/01/2024 17:30 ET Assigned Physician: Albino Haines Reviewed and Electronically Signed By: Albino Haines Signed Date: 09/01/2024 17:34 ET Workstation ID: [id number] Transcribed By: Self Edit Transcribed Date: 09/01/2024 17:[address] Abdomen Pelvis w Contrast Narrative: INDICATION: Abdominal pain, acute, nonlocalized CT abdomen and pelvis with contrast Comparison: None Findings: Heart is enlarged. Small bilateral pleural effusion. The liver is normal in size without suspicious focal hepatic lesions. There is a cyst in the caudate lobe. No intrahepatic or extrahepatic ductal dilatation is seen. The hepatic and portal veins are patent. No calcified gallstones in the gallbladder. The spleen is unremarkable. There is a hypodense lesion in the tail of the pancreas with calcification. 5.6 x 6.2 cm right adrenal mass. There are multiple small left adrenal nodules. No suspicious focal lesion of the kidneys. There are multiple bilateral renal cysts. No hydronephrosis or calculi. The abdominal aorta demonstrates no evidence of aneurysmal dilatation or dissection. Severe Atherosclerosis calcification of the aorta and at the origin of the major branches. The colon is normal in appearance and without wall thickening or inflammatory change. Colonic diverticulosis. No evidence of bowel obstruction. Appendix is normal. Bladder is unremarkable. Status post seed implant of the prostate gland. Small ascites. Loculated fluid along the greater curvature of the stomach. 4.3 x 3.4 cm left pelvic lymph node axial image 152. Lytic bony lesion of the left acetabulum and sacrum. Impression: Large mass of the right adrenal gland and enlarged left pelvic lymph node are concerning for metastasis. 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 Indeterminate hypodense lesion in the tail of the pancreas. Severe Atherosclerosis calcification of the aorta and at the origin of the major branches. Stenoses cannot be excluded. Small ascites. Additional findings as above. This document has been electronically signed by: Reji Monsivais MD on 09/01/2024 17:36:51 ASSESSMENT & PLAN Sepsis secondary to neutropenic fever Vitals are notable for temperature of 100.4, blood pressure in the 80s systolic and repeat 104/45, O2 sat of 85% on room air and 94 on 2 L. 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 Conte, on docetaxel, with next infusion on 09/07 Oncology evaluation pending Anemia of chronic disease History of AVM of gastrointestinal tract H&H dropped from 9.4/29-7.2/ Continue IV PPI twice daily Monitor H&H and transfuse if hemoglobin falls below 8 Type 2 diabetes mellitus ISS Hyperlipidemia PAD continue fenofibrate, statin Severe aortic stenosis He was seen by Dr. Elizabeth in March, he has been relatively asymptomatic, there was plan for echo 6 months after his visit DAILY CARE CHECKLIST Length of Stay: 13h 48m VTE Prophylaxis: SCD Resuscitation: Full Code - Confirmed PCP: Júnior Crawley MD Disposition: Pending clinical improvement Health care proxy with phone number : dominique Amaro, * Sandy Joseph RN - 09/02/2024 2:45 PM EDT 09/02/24 1444 Initial Transition Plan Initial Transition Plan Home Discharge Planning Living Arrangements Spouse/significant other Type of Residence Private residence Assistive Devices None Support Systems Spouse/significant other Medication Coverage Has Med Coverage Under Insurance Plan Yes Medication Affordability No concerns related to payment for meds Anticipated Discharge Needs Discipline following for SNF placement [employer] Informed Choice Informed Choice Given? Yes ICC met with patient and girlfriend at bedside, discharge plan is to home with no services when medically ready for discharge * Jimy Perez RN - 09/01/2024 10:37 PM EDT Patient's spouse stated that she gave him his home medications at the bedside. Stated that she gavethe patient his Omeprazole, Rosuvastatin, fenofibrate, tarazosyn, and lisinopril at 6pm. Patient's spouse stated that she also gave him his gabapentin at 9pm tonight. This RN educated the spouse thatshe should not be administering patient's home medication while in the hospital because we administer them for him. Patient also educated on risks of continuing home medications without RN/Provider approval due to potential status changes that require hospitalization. * Jimy Perez RN - 09/01/2024 10:07 PM EDT ED RN HANDOFF (All [place] Below Must Be Completed) Reason/Diagnosis for Admission: Neutropenic fever with positive GUIAC Type of Admission: [] Medsurg, [x] Telemetry Already in a Hospital Bed: [] Yes / [x] No Room Considerations/Precautions (ex: fever, diarrhea, or any infectious concerns): [x] Yes / [] No Neutropenic Melter Assistant: [x] Yes / [] No If YES, Cardiac Rhythm: [x] NSR, [] SB, [] ST, [] A-FIB, [] A-Flutter, [] Pacemaker, [] 1st Degree HB, [] 2nd Degree HB, [] 3rd Degree HB Reason for Melter Assistant: Sepsis VS: Visit Vitals BP (!) 104/45 Pulse 92 Temp 37.1 ??C (98.8 ??F) (Oral) Resp 20 Ht 1.651 m (65 ) Wt 81.6 kg (180 lb) SpO2 94% BMI 29.95 kg/m?? Smoking Status Former BSA 1.89 m?? Current Mental Status: A/O x [x]4, []3, []2, []1 Current Ambulation Status: Independent at baseline IV Access: [x] Yes / [] No Port on the right chest Field IV present: [] Yes / [x] No Hx of Violence: [] Yes / [x] No / [] Unknown Fall Risk:[x] Yes / [] No Yellow Bracelet Applied [x] Yes / [] No Yellow Socks Applied [x] Yes / [] No Patient Belongings inventoried and BL completed: [x] Yes / [] No Patient belongings stored in the security closet: [] Yes (If Yes please supply Security bag #): [x] No Patient Medications stored in Pharmacy: [] Yes (If Yes please supply Medication Security bag #): [x] No ED Summary of Care: Patient came into the Ed with complaints of lower abdominal pain, dark stools since yesterday. Does take an iron supplement. Denies any thinners. GUIAC test was positive. Patient placed on the monitor. Temperature in the ED was 100.4 and was given Tylennol. Temperature came downto 98.8. Medications given and bladder scan showed >294. Patient used urinal and peed about 50cc. States he does not feel as though he has to pee. Patient was 85-88% RA and has been placed on NC at 2L. Patient not on oxygen at baseline. WBC count 1.4 and on neutropenic precautions. Patient states he feels well sitting on the edge of the bed. Patient's blood pressure has been low, so we began to give more fluids and started albumin to bring up his blood pressure. Spouse is at the bedside. Submitted by and Phone Extension: [phone] * Sheyla Mcclain RN - 09/01/2024 2:47 PM EDT Pt presents from home, reported lower abdominal pain, onset yesterday - symptoms unchanged per. + Dry Heaves. Reported dark stools, denies blood thinners. Pale appearing in triage. Alert and orientedx 3 * Noemy Bergman DO - 09/01/2024 2:42 PM EDT Emergency Medicine Note Patient Name: Luke Turpin Initial Evaluation: 09/01/2024 : 1945 Patient's PCP: Júnior Crawley MD Emergency Physician: Noemy Bergman DO History of Present Illness Chief Complaint: Chief Complaint Patient presents with Abdominal Pain Black or Bloody Stool HPI: This is a 79-year-old male past medical history of metastatic carcinoma of the prostate with metastases to adrenal gland and spine presented ER today for evaluation of possible GI bleed. Patientis also complaining of cramping lower abdominal pain that started yesterday. Started spontaneously when he was driving yesterday. Denies any dysuria denies any signs of hematuria. He is not currently on any blood thinners at thistime. Patient is currently undergoing chemotherapy. He has been tolerating it well. Patient states that he does get frequent blood transfusion due to his anemia. Patient state he has EGD and colonoscopy performed in the past where bleeding vessels were addressed. He does take omeprazole twice a day. He denies any hematemesis. Does endorse some dark GI stool. He does take iron currently. ROS: I have performed a ROS with the pertinent positives and negatives documented in the history ofpresent illness. Previous History Past Medical History: Diagnosis Date Anemia DX:Anemia GERD (gastroesophageal reflux disease) DX:GERD (gastroesophageal reflux disease) Osteoarthritis DX:Osteoarthritis; COMMENT: INVOLVING MULTIPLE JOINTS Prostate cancer (CMS/HCC) DX:Prostate cancer (HCC) Prostate cancer (CMS/HCC) DX:Prostate cancer (HCC) Type 2 diabetes mellitus (CMS/HCC) DX:Type 2 diabetes mellitus (HCC) Past Surgical History: Procedure Laterality Date CHOLECYSTECTOMY COLONOSCOPY 07/06/2023 multiple large patchy angiobysplastic lesions-cauterized. COLONOSCOPY 05/10/2024 multiple non-bleeding colonic angioectasias, treated with bipolar cautery. TAx1 ESOPHAGOGASTRODUODENOSCOPY 07/06/2023 nonbleeding gastric ulcer ESOPHAGOGASTRODUODENOSCOPY 05/10/2024 erosive gastropathy without evidence of recent bleeding OTHER SURGICAL HISTORY 05/11/2023 capsule endoscopy. angioectasias OTHER SURGICAL HISTORY 05/11/2023 capsule endoscopy: angioectasias Social History Tobacco Use Smoking status: Former Current packs/day: 0.00 Types: Cigarettes Quit date: 06/21/2012 Years since quittin.2 Smokeless tobacco: Never Substance Use Topics Alcohol use: No Drug use: No No family history on file. has No Known Allergies. No current facility-administered medications on file prior to encounter. Current Outpatient Medications on File Prior to Encounter Medication Sig Dispense Refill cholecalciferol (VITAMIN D-3) 25 mcg (1,000 unit) tablet Take 1 tablet (1,000 Units total) by mouth1 (one) time each day. DOCETAXEL IV Infuse into a venous catheter. Every 22 days fenofibrate micronized (LOFIBRA) 134 mg capsule Take 1 Capsule by mouth daily. folic acid (FOLVITE) 400 mcg tablet Take 1 tablet (400 mcg total) by mouth 1 (one) time each day. gabapentin (NEURONTIN) 600 mg tablet Take 1 tablet (600 mg total) by mouth 3 (three) times a day. 90 each 2 iron,carbonyl-vitamin C (Vitron-C) 65 mg iron- 125 mg tablet,delayed release (DR/EC) Take 1 tablet by mouth 1 (one) time each day. leuprolide acetate (ELIGARD SUBQ) Inject into the skin Every 3 Months. lisinopriL (PRINIVIL,ZESTRIL) 20 mg tablet Take 1 Tablet by mouth daily. metFORMIN (GLUCOPHAGE) 500 mg tablet Take 0.5 tablets (250 mg total) by mouth 1 (one) time each daywith breakfast. omeprazole (PriLOSEC) [address] capsule Take 1 capsule (40 mg total) by mouth 2 (two) times a day. Do not crush or chew. 60 each 11 predniSONE (DELTASONE) 5 mg tablet Take 2 tablets (10 mg total) by mouth 1 (one) time each day. Start the day after IV chemotherapy. Take on days 2-21 of each cycle with food. 60 each 11 prochlorperazine (COMPAZINE) 10 mg tablet Take 1 tablet (10 mg total) by mouth every 6 (six) hours if needed for nausea or vomiting. 60 tablet 3 rosuvastatin (CRESTOR) 20 mg tablet Take 1 Tablet by mouth daily. sod picosulf-mag ox-citric ac (Clenpiq) 10 mg-3.5 gram- 12 gram/175 mL solution Take 175 mL by mouth 2 (two) times a day. 350 mL 0 terazosin (HYTRIN) 5 mg capsule Take 1 Capsule by mouth at bedtime. [] trimethoprim-polymyxin b (POLYTRIM) ophthalmic solution Administer 1 drop into both eyes 4 (four) times a day for 7 days. 10 mL 0 Physical Exam ED Triage Vitals [09/01/24 1448] Temp Heart Rate Resp BP 36.8 ??C (98.2 ??F) 103 20 (!) 120/41 SpO2 Temp Source Heart Rate Source Patient Position 93 % Oral -- Sitting BP Location FiO2 (%) Right arm -- General: Pleasant, no distress, interacting appropriately Head: Normacephalic, atraumatic ENT: oral mucosa moist, neck supple, no tracheal deviation Cardiovascular: regular rate, regular rhythm, no murmurs, rubbing, gallops Respiratory: CTAB, no wheeze, rales, rhonchi Gastrointestinal: Soft, non distended, patient has diffuse abdominal pain. More so in the epigastric area on palpation. : On rectal exam patient does have signs of external hemorrhoid. Patient does have dark stool. Fecal occult blood test was positive. Extremities: No limb pain or swelling, no calf tenderness Neurological: Awake and alert, no facial droop noted Skin: Warm and dry Psychiatric: Appropriate mood and thoughts Results Labs Reviewed COMPREHENSIVE METABOLIC PANEL - Abnormal Result Value Sodium 137 Potassium 4.6 Chloride 104 CO2 25 Anion Gap 8 Glucose 113 (*) BUN 34 (*) Creatinine 1.92 (*) eGFR 35 (*) BUN/Creatinine Ratio 17.7 Calcium 8.2 (*) AST (SGOT) 19 ALT (SGPT) 13 Alkaline Phosphatase 28 (*) Total Protein 5.6 (*) Albumin 2.5 (*) Total Bilirubin 0.9 CBC WITH AUTO DIFFERENTIAL - Abnormal WBC 1.4 (*) RBC 3.00 (*) Hemoglobin 9.4 (*) Hematocrit 29.5 (*) MCV 98.7 (*) MCH 31.4 MCHC 31.9 (*) RDW 20.5 (*) Platelets 235 MPV 10.4 NRBC 1.5 (*) NRBC Absolute 0.02 MANUAL DIFFERENTIAL - INSTRUMENT DIFFERENTIAL - Abnormal Neutrophils % 23.0 Bands % 11.0 Lymphocytes % 39.0 Monocytes % 22.0 Eosinophils % 0.0 Basophils % 4.0 Myelocytes % 1.0 (*) Neutrophils Absolute Manual 0.32 (*) Bands Absolute Manual 0.15 (*) Lymphocytes Absolute 0.55 (*) Monocytes Absolute Manual 0.31 Eosinophils Absolute Manual 0.00 Basophils Absolute Manual 0.06 Myelocytes Absolute Manual 0.01 (*) Rbc Morphology Consistent with indices Platelet Morphology - W[facility] Giant Platelets Seen (*) Polychromasia Present Present (*) Ovalocytes Present 5 - 10% (*) Pappenheimer Bodies Present Present (*) Schistocytes Present < 5% (*) Dohle Body Present Present (*) ACTIVATED PARTIAL THROMBOPLASTIN TIME - Normal aPTT 34.8 PROTHROMBIN TIME WITH INR - Normal Protime 13.6 INR 1.1 LACTATE - Normal Lactate 0.8 CULTURE BLOOD Culture, Blood Culture in progress CULTURE BLOOD Culture, Blood Culture in progress RESPIRATORY VIRUS PANEL MOLECULAR STUDY CBC AND DIFFERENTIAL Narrative: The following orders were created for panel order CBC and differential. Procedure Abnormality Status --------- ------ CBC auto differential[[id number]] Abnormal Final result Please view results for these tests on the individual orders. TYPE AND SCREEN ABO Group O Rh Type Positive Antibody Screen Negative URINALYSIS WITH REFLEX MICROSCOPIC AND CULTURE Narrative: The following orders were created for panel order Urinalysis with reflex microscopic and culture. Procedure Abnormality Status --------- ------ Urinalysis with reflex ...[[id number]] Carpenter urine culture tube[[id number]] Please view results for these tests on the individual orders. URINALYSIS WITH REFLEX MICROSCOPIC AND CULTURE Abnormal Labs Reviewed COMPREHENSIVE METABOLIC PANEL - Abnormal; Notable for the following components: Result Value Glucose 113 (*) BUN 34 (*) Creatinine 1.92 (*) eGFR 35 (*) Calcium 8.2 (*) Alkaline Phosphatase 28 (*) Total Protein 5.6 (*) Albumin 2.5 (*) All other components within normal limits CBC WITH AUTO DIFFERENTIAL - Abnormal; Notable for the following components: WBC 1.4 (*) RBC 3.00 (*) Hemoglobin 9.4 (*) Hematocrit 29.5 (*) MCV 98.7 (*) MCHC 31.9 (*) RDW 20.5 (*) NRBC 1.5 (*) All other components within normal limits MANUAL DIFFERENTIAL - INSTRUMENT DIFFERENTIAL - Abnormal; Notable for the following components: Myelocytes % 1.0 (*) Neutrophils Absolute Manual 0.32 (*) Bands Absolute Manual 0.15 (*) Lymphocytes Absolute 0.55 (*) Myelocytes Absolute Manual 0.01 (*) Platelet Morphology - WAM Giant Platelets Seen (*) Polychromasia Present Present (*) Ovalocytes Present 5 - 10% (*) Pappenheimer Bodies Present Present (*) Schistocytes Present < 5% (*) Dohle Body Present Present (*) All other components within normal limits XR Chest 2 Views Final Result Hypoinflation with bibasilar opacities which could be atelectasis. There is no pneumothorax or definite evidence of pneumoperitoneum -------- FINAL REPORT -------- Dictated By: Albino Haines Dictated Date: 09/01/2024 17:30 ET Assigned Physician: Albino Haines Reviewed and Electronically Signed By: Albino Haines Signed Date: 09/01/2024 17:34 ET Workstation ID: [id number] Transcribed By: Self Edit Transcribed Date: 09/01/2024 17:[address] Abdomen Pelvis w Contrast Final Result Large mass of the right adrenal gland and enlarged left pelvic lymph node are concerning for metastasis. 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 Indeterminate hypodense lesion in the tail of the pancreas. Severe Atherosclerosis calcification of the aorta and at the origin of the major branches. Stenoses cannot be excluded. Small ascites. Additional findings as above. This document has been electronically signed by: Reji Monsivais MD on 09/01/2024 17:36:51 I have discussed the incidental/abnormal imaging and/or lab abnormalities with the patient and haveinstructed them the need for further evaluation and workup with their primary care doctor. I have provided the patient with a paper copy of the abnormality. The laboratory results, imaging results and other diagnostic exam results were reviewed in the EMR. EKG Interpretation Critical Care Time None ? Medical Decision Making Medications vancomycin (VANCOCIN) 1,000 mg in sodium chloride 0.9 % 250 mL IVPB (1,000 mg intravenous New Bag 09/01/24 190) sodium chloride 0.9 % bolus 1,000 mL (has no administration in time range) ipratropium-albuteroL (DUONEB) 0.5-2.5 mg/3 mL nebulizer solution 3 mL (has no administration in time range) pantoprazole (PROTONIX) injection 80 mg (80 mg intravenous Given 09/01/24 164) sodium chloride 0.9 % bolus 1,000 mL (1,000 mL intravenous New Bag 09/01/24 164) sodium chloride 0.9 % flush 10 mL (10 mL intravenous Given 09/01/241657) iopamidoL (ISOVUE-370) 370 mg iodine /mL (76 %) injection 100 mL (90 mL intravenous Given 09/01/241657) cefepime (MAXIPIME) 2 g in sterile water 20 mL IV syringe (2 g intravenous Given 09/01/24 182) acetaminophen (TYLENOL) tablet 1,000 mg (1,000 mg oral Given 09/01/24 184) ED Course as of 09/01/241947Sep 01, 2024 1634 This is a 79-year-old male history of metastatic prostate cancer presented ER today for evaluation of abdominal pain and signs of GI bleed. Will plan to give patient some IV Protonix here for GI bleed. Patient fecal occult blood test was positive. Will plan to check his hemoglobin status and blood level. Patient chart. Patient does have signs of neutropenia. Will obtain lactic acid and blood culture atthis time assess for any signs of sepsis. Will obtain a UA for the patient as well. CT abdomen pelvis will be obtained to assess for any other occult cause of his abdominal pain. Will plan to give patient IV fluid as well. [TC] 1944 Lab work was significant elevated creatinine of 1.92. Lactic acid is not elevated at this time. Patient does have signs of neutropenia. Patient does have a fever of 100.4 rectally. Patient does have signs of hypoxia 88% on room air. Placed on supplemental O2. DuoNeb will be givento the patient at this time. I reviewed patient CT imaging he does have a right adrenal mass that is known to home with no signs of metastases. And severe atherosclerosis of the aorta. This was notedon his previous imaging as well. Patient also has trace ascites on his CT imaging. UA is currently pending at this time. Vancomycin and IV cefepime given for his neutropenic fever. Patient will be admitted to the hospital [TC] ED Course User Index [TC] Noemy Bergman DO Clinical Impressions as of 09/01/241947 Neutropenic fever (CMS/HCC) Acute respiratory failure with hypoxia (CMS/HCC) Procedures Procedures Diagnosis 1. Neutropenic fever (CMS/HCC) 2. Acute respiratory failure with hypoxia (CMS/HCC) Disposition Admit to Inpatient ED Prescriptions None Physician Attestation Noemy Bergman, 09/01/24 1557 Noemy Bergman DO 09/01/24 1634 Noemy Bergman DO 09/01/241947 documented in this encounter H&P Notes * LIO Anderson - 09/01/2024 8:05 PM EDT Images from the original note were not included. [facility]ISTORY [facility] PHYS[facility] Please contact author [LIO Anderson] via [employer]. Patient: Luke Turpin Admission Date/Time: 09/01/2024 3:36 PM : 1945 [79 y.o.] Patient's PCP: Júnior Crawley MD Attending Provider: Davin Madrid MD CHIEF COMPLAINT Abdominal pain, dark stool HISTORY OF PRESENT ILLNESS Mr. 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 Patient reports this started earlier yesterday. He states that he was in the car driving when he experienced sudden abdominal pain. His states that he had such severe pain he started dry heaving. He denied any chest pain, shortness of breath, Productive cough,nausea, vomiting, dysuria or increased frequency, leg swelling or pain. He does endorse that he had melena earlier today. He did have endoscopy/colonoscopy on 08/03 which showed angioectasias which were treated with APC. He is on iron supplementation. He is not on blood thinners currently. He has had blood transfusion before due to his anemia. In review of patient's record he had hemoglobin as low as 6 in the beginning of July but on average was 7-8. He is on omeprazole and outpatient. He has close follow-up with Dr. Conte and reports they touch base with the infusion center earlier today and was referred to the ER. He is on docetaxel with next dose due on 09/07. Of note patient's blood pressure dropped to 80 systolic and endorse that she gave the patient has omeprazole rosuvastatin fenofibrate terazosin and lisinopril at 6 PM. The nurse instructed the not to give him his home medications in the hospital. She proceeded to give him gabapentin from home at 9 PM and his blood pressure dropped again to 80s systolic. Vitals are as follows: temperature of 36.8, pulse of 103, rr 20, bp 120/41, 93%ra, and following 85% and 94 on 2L. Repeat blood pressure in 80s systolic. Labs are notable for Creatinine of 1.92, BUN of 34, lactic of 0.8, white blood cell count of 1.4, hemoglobin of 9.4, hematocrit 29.5, platelets of 235, absolute neutrophil count of 320. INR of 1.1. CT of the abdomen pelvis showed large mass of the right adrenal gland and enlarged left pelvic lymph node are concerning for mets with lytic bony lesion of the left acetabulum and sacrum concerning for bony mets, indeterminant hypodense lesions inthe tail of the pancreas, severe atherosclerotic calcification of the aorta and the origin of the major branches, stenosis cannot be excluded, small ascites, additional findings as described above. Chest x-ray showed hypoinflation with bibasilar opacities which could be atelectasis, there is no pneumothorax or definite evidence of pneumoperitoneum. Blood cultures ordered and pending. EKG was 95 bpm normal sinus rhythm. Patient was given Tylenol, cefepime, DuoNeb, pantoprazole, 2 L of normal saline and vancomycin in the ED. Patient will be transferred to the care of [facility] staff for further management of their neutropenic fever. Review of Systems Review of Systems 10 point review of systems negative as otherwise stated in the HPI MEDICAL HISTORY Past Medical History Past Medical History: Diagnosis Date Anemia DX:Anemia GERD (gastroesophageal reflux disease) DX:GERD (gastroesophageal reflux disease) Osteoarthritis DX:Osteoarthritis; COMMENT: INVOLVING MULTIPLE JOINTS Prostate cancer (CMS/HCC) DX:Prostate cancer (HCC) Prostate cancer (CMS/HCC) DX:Prostate cancer (HCC) Type 2 diabetes mellitus (CMS/HCC) DX:Type 2 diabetes mellitus (HCC) Past Surgical History Past Surgical History: Procedure Laterality Date CHOLECYSTECTOMY COLONOSCOPY 07/06/2023 multiple large patchy angiobysplastic lesions-cauterized. COLONOSCOPY 05/10/2024 multiple non-bleeding colonic angioectasias, treated with bipolar cautery. TAx1 ESOPHAGOGASTRODUODENOSCOPY 07/06/2023 nonbleeding gastric ulcer ESOPHAGOGASTRODUODENOSCOPY 05/10/2024 erosive gastropathy without evidence of recent bleeding OTHER SURGICAL HISTORY 05/11/2023 capsule endoscopy. angioectasias OTHER SURGICAL HISTORY 05/11/2023 capsule endoscopy: angioectasias Social History reports that he quit smoking about 12 years ago. His smoking use included cigarettes. He has never used smokeless tobacco. He reports that he does not drink alcohol and does not use drugs. Ambulates with walker. Family History family history is not on file. Allergies has No Known Allergies. Home Medications No current facility-administered medications on file prior to encounter. Current Outpatient Medications on File Prior to Encounter Medication Sig Dispense Refill cholecalciferol (VITAMIN D-3) 25 mcg (1,000 unit) tablet Take 1 tablet (1,000 Units total) by mouth1 (one) time each day. DOCETAXEL IV Infuse into a venous catheter. Every 22 days fenofibrate micronized (LOFIBRA) 134 mg capsule Take 1 Capsule by mouth daily. folic acid (FOLVITE) 400 mcg tablet Take 1 tablet (400 mcg total) by mouth 1 (one) time each day. gabapentin (NEURONTIN) 600 mg tablet Take 1 tablet (600 mg total) by mouth 3 (three) times a day. 90 each 2 iron,carbonyl-vitamin C (Vitron-C) 65 mg iron- 125 mg tablet,delayed release (DR/EC) Take 1 tablet by mouth 1 (one) time each day. leuprolide acetate (ELIGARD SUBQ) Inject into the skin Every 3 Months. lisinopriL (PRINIVIL,ZESTRIL) 20 mg tablet Take 1 Tablet by mouth daily. metFORMIN (GLUCOPHAGE) 500 mg tablet Take 0.5 tablets (250 mg total) by mouth 1 (one) time each daywith breakfast. omeprazole (PriLOSEC) [address] capsule Take 1 capsule (40 mg total) by mouth 2 (two) times a day. Do not crush or chew. 60 each 11 predniSONE (DELTASONE) 5 mg tablet Take 2 tablets (10 mg total) by mouth 1 (one) time each day. Start the day after IV chemotherapy. Take on days 2-21 of each cycle with food. 60 each 11 prochlorperazine (COMPAZINE) 10 mg tablet Take 1 tablet (10 mg total) by mouth every 6 (six) hours if needed for nausea or vomiting. 60 tablet 3 rosuvastatin (CRESTOR) 20 mg tablet Take 1 Tablet by mouth daily. sod picosulf-mag ox-citric ac (Clenpiq) 10 mg-3.5 gram- 12 gram/175 mL solution Take 175 mL by mouth 2 (two) times a day. (Patient not taking: Reported on 09/01/2024) 350 mL 0 terazosin (HYTRIN) 5 mg capsule Take 1 Capsule by mouth at bedtime. [] trimethoprim-polymyxin b (POLYTRIM) ophthalmic solution Administer 1 drop into both eyes 4 (four) times a day for 7 days. 10 mL 0 OBJECTIVE Vitals Visit Vitals BP (!) 103/45 Pulse 92 Temp 37.1 ??C (98.8 ??F) (Oral) Resp 20 Temp (24hrs), Av.3 ??C (99.1 ??F), Min:36.8 ??C (98.2 ??F), Max:38 ??C (100.4 ??F) Body mass index is 29.95 kg/m??. No results found for: PTWT , PTHT Physical Examination Physical Exam General: older gentleman sitting upright in the stretcher, in no acute distress, calm Skin: Appropriate tone for ethnicity, warm, dry, no rashes or wounds HEENT: normocephalic, atraumatic, sclera nonicteric, EOMI CESAR,tongue protrudes midline, moist mucous membranes, uvula midline, Pulmonary: Lungs clear to auscultation in all lung escalona bilaterally. No wheezes railes or rhonchiappreciated, no respiratory distress, no accessory muscle use. Cardiac: S1 and S2 appreciated, 4/5 systolic murmur best heard at the sternal border, no rubs or gallops, no peripheral edema Abdomen: Soft, mild tenderness to palpation, nondistended, no guarding or rebound tenderness appreciated. Bowel sounds normoactive. MSK: Full range of motion in upper and lower extremities with strength 5/5 and equal bilaterally handgrip strength, dorsiflexion, plantar flexion. no drift noted to the extremities bilaterally. Neuro: Alert and oriented x4. Cranial nerves 2-12 intact. No focal neurological deficits appreciated. No facial droop. Psych: Normal affect. ECG: Was ECG Performed? Yes . Sinus Rhythm? Yes. Signs of acute ischemia? No Further Interpretation: 95bpm NSR LAB RESULTS (most recent) HEMATOLOGY Lab Results Component Value Date WBC 1.4 (LL) 09/01/2024 HGB 9.4 (L) 09/01/2024 HCT 29.5 (L) 09/01/2024 MCV 98.7 (H) 09/01/2024 PLT 235 09/01/2024 CHEMISTRY Lab Results Component Value Date GLUCOSE 113 (H) 09/01/2024 NA 137 09/01/2024 K 4.6 09/01/2024 CO2 25 09/01/2024 CL 104 09/01/2024 BUN 34 (H) 09/01/2024 CREATININE 1.92 (H) 09/01/2024 EGFR 35 (L) 09/01/2024 CALCIUM 8.2 (L) 09/01/2024 MG 2.3 08/06/2024 ANIONGAP 8 09/01/2024 Radiology XR Chest 2 Views Final Result Hypoinflation with bibasilar opacities which could be atelectasis. There is no pneumothorax or definite evidence of pneumoperitoneum -------- FINAL REPORT -------- Dictated By: Albino Haines Dictated Date: 09/01/2024 17:30 ET Assigned Physician: Albino Haines Reviewed and Electronically Signed By: Albino Haines Signed Date: 09/01/2024 17:34 ET Workstation ID: [id number] Transcribed By: Self Edit Transcribed Date: 09/01/2024 17:[address] Abdomen Pelvis w Contrast Final Result Large mass of the right adrenal gland and enlarged left pelvic lymph node are concerning for metastasis. 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 Indeterminate hypodense lesion in the tail of the pancreas. Severe Atherosclerosis calcification of the aorta and at the origin of the major branches. Stenoses cannot be excluded. Small ascites. Additional findings as above. This document has been electronically signed by: Reji Monsivais MD on 09/01/2024 17:36:51 ASSESSMENT & PLAN Sepsis Neutropenic fever -Patient was seen today for abdominal pain, melena -Vitals are notable for temperature of 100.4, blood pressure in the 80s systolic and repeat 104/45,O2 sat of 85% on room air and 94 on 2 L. - Labs are notable for Creatinine of 1.92, BUN of 34, lactic of 0.8, white blood cell count of 1.4,hemoglobin of 9.4, hematocrit 29.5, platelets of 235, absolute neutrophil count of 320. INR of 1.1. -CT of the abdomen pelvis showed large mass of the right adrenal gland and enlarged left pelvic lymph node are concerning for mets with lytic bony lesion of the left acetabulum and sacrum concerning for bony mets, indeterminant hypodense lesions in the tail of the pancreas, severe atherosclerotic ca lcification of the aorta and the origin of the major branches, stenosis cannot be excluded, small ascites, additional findings as described above. -Chest x-ray showed hypoinflation with bibasilar opacities which could be atelectasis, there is no pneumothorax or definite evidence of pneumoperitoneum. -Patient was given Tylenol, cefepime, DuoNeb, pantoprazole, 2 L of normal saline and vancomycin in the ED. -Continue with cefepime -Blood cultures ordered and pending. -He meets severe sepsis criteria with wbcc, temperature 100.4, bp <90,although no clear source at this time, awaiting ua -am labs Hypotension -became hypotensive after gave lisinopril and gabapentin, instructed to bring medication home,will avoid further gabapentin tonight, lisinopril on hold given obey, bp is improving after ivf OBEY -baseline cr 1, today is 1.92 -hold nephrotoxic agents/renally dose medication -recheck labs in am Prostate cancer with mets to adrenal gland and spine -follows with Dr. Conte, on docetaxel, with next infusion on 09/07 -I reached out to commercial production editor, Dr. Parikh via [facility] to see if he recommended filgrastim awaiting input Acute on chronic anemia Melena History of AVM of gastrointestinal tract -He just recently underwent colonoscopy and endoscopy with Dr. Zelaya and July and was found tohave angioectasias which were treated with APC -guaiac positive, dark stool, continue with IV ppi, trend H&H currently 9.4 above his baseline in jul 28 -d/w attending will hold off on GI consult given his sepsis/neutropenic fever Type 2 diabetes mellitus -hold metformin -low dose sliding scale -poc ac, diabetic neutropenic diet Hypertension -hold lisinopril given obey Hyperlipidemia -continue fenofibrate, statin Severe aortic stenosis -He was seen by Dr. Elizabeth in March, he has been relatively asymptomatic, there was plan for echo6 months after his visit PVD -scheduled to see Dr. Ott, continue with statin Admission checklist [x] Code status: Full Code - Confirmed [x] VTE Prophylaxis: SCD, hold lovenox given melena [x] Diet order on admission: Dietary Orders (From admission, onward) Start Ordered 09/01/241952 Adult diet [facility]; General; Neutropenic Diet effective now Question Answer Comment Location [facility] Diet Type (req) General General Diet Neutropenic 09/01/241951 [x] Lines, tubes, drains: IV access [x] Medication reconciliation Health Care proxy with Phone number His Sondra, Cosigned by Davin Madrid MD at 09/02/2024 7:36 AM EDT Associated attestation - Davin Madrid MD - 09/02/2024 7:36 AM EDT This is a split/shared visit with LIO Anderson. I personally performed the medical decision making (MDM) for the care of this patient on 09/01/2024 as documented below 79-year-old male with history of prostate carcinoma metastatic to the bone and adrenal glands on docetaxel + prednisone, peripheral artery disease, hypertension, hyperlipidemia, and recurrent gastrointestinal bleeding secondary to multiple AVMs presents with neutropenic sepsis complicated by acute kidney failure. After discussion with the ER provider, the patient will be admitted to the hospital. The patient isseverely neutropenic with an ANC of 320 /uL. He has received vancomycin and cefepime. His MRSA swabis negative. We will continue to treat him empirically with cefepime. Chest x-ray did not endorse pneumonia. CT of the abdomen pelvis did not show any nidus of infection. Urinalysis did not endorse urinary tract infection. We will follow his blood cultures. On review of his available records it is unclear if he receives colony-stimulating factors with his cycles of chemotherapy as he has been severely neutropenic previously. We will discuss administration of filgrastim with oncology. The patient's creatinine has risen to 1.92 mg/dL from his baseline of 0.9-1.2 mg/dL. We will fluid resuscitate the patient and follow his renal function expectantly. Electrolytes will be replaced as needed. The patient has a chronic anemia secondary to chronic gastrointestinal losses from multiple AVMs inhis gastrointestinal tract. While he does report some dark stool, he he does not appear to be overtly bleeding. He is currently not a good candidate for endoscopy until his sepsis is adequately treated. Management of additional chronic medical problems as below. Davin Madrid MD 09/02/24 7:31 AM EDT documented in this encounter Plan of Treatment Upcoming Encounters Date Type Department Care Team (Late st Contact Info) Description 09/08/2024 8:00 AM EDT Appointment [facility] [address] [place] [phone] Jeffrey Conte MD [address] [place] [phone] 09/13/2024 9:30 AM EDT Office Visit [facility] Hemat[facility] Oncology [address] [place] [phone] Jeffrey Conte MD [address] [place] [address] [place] [phone] 10/19/2024 9:00 AM EDT Appointment [facility] [address] [facility] [address] [place] [phone] 02/20/2025 8:00 AM EDT Ancillary Procedure [facility] [address] [place] [phone] 03/01/2025 8:40 AM EDT Office Visit [facility] [address] [place] [phone] Marcela Chris NP [address] [facility] [address] [place] [address] documented as of this encounter Procedures Procedure Name Priority Date/Time Associated Diagnosis Comments ECG ANNOTATED 09/05/2024 POCT GLUCOSE BLOOD Routine 09/04/2024 10 :53 AM EDT POCT GLUCOSE BLOOD Routine 09/04/2024 8: 22 AM EDT CBC WITH AUTO DIFFERENTIAL Timed 09/04/2024 6:32 AM EDT CBC AND DIFFERENTIAL Timed 09/04/2024 6:32 AM EDT BASIC METABOLIC PANEL Timed 09/04/2024 6:32 AM EDT POCT GLUCOSE BLOOD Routine 09/03/2024 4: 40 PM EDT OXYGEN THERAPY, ADULT Routine 09/03/2024 8:01 AM EDT POCT GLUCOSE BLOOD Routine 09/03/2024 7: 51 AM EDT CBC WITH AUTO DIFFERENTIAL Timed 09/03/2024 5:57 AM EDT CBC AND DIFFERENTIAL Timed 09/03/2024 5:57 AM EDT BASIC METABOLIC PANEL Timed 09/03/2024 5:57 AM EDT POCT GLUCOSE BLOOD Routine 09/02/2024 8: 12 PM EDT OXYGEN THERAPY, ADULT Routine 09/02/2024 8:01 PM EDT POCT GLUCOSE BLOOD Routine 09/02/2024 3: 40 PM EDT POCT GLUCOSE BLOOD Routine 09/02/2024 11 :25 AM EDT OXYGEN THERAPY, ADULT Routine 09/02/2024 11:07 AM EDT OXYGEN THERAPY, ADULT Routine 09/02/2024 11:07 AM EDT TRANSFUSE RED BLOOD CELLS Routine 09/02/2024 10:21 AM EDT PREPARE RBC Routine 09/02/2024 8:18 AM EDT POCT GLUCOSE BLOOD Routine 09/02/2024 7: 58 AM EDT CBC WITH AUTO DIFFERENTIAL Routine 09/02/2024 5:20 AM EDT CBC AND DIFFERENTIAL Routine 09/02/2024 5:20 AM EDT BASIC METABOLIC PANEL Routine 09/02/2024 5:20 AM EDT COMPLETE BLOOD COUNT Routine 09/01/2024 11:46 PM EDT URINALYSIS WITH REFLEX MICROSCOPIC AND CULTURE STAT 09/01/2024 9:49 PM EDT CARPENTER URINE CULTURE TUBE STAT 09/02/19 9:49 PM EDT URINALYSIS WITH REFLEX MICROSCOPIC AND CULTURE STAT 09/01/2024 9:49 PM EDT CULTURE URINE STAT 09/01/2024 9:49 PM EDT MRSA PCR STAT 09/01/2024 8:08 PM EDT RESPIRATORY VIRUS PANEL MOLECULAR STUDY STAT 09/01/2024 6:40 PM EDT CULTURE BLOOD STAT 09/01/2024 6:01 PM EDT ECG 12-LEAD STAT 09/01/2024 5:16 PM EDT XR CHEST 2 VIEWS STAT 09/01/2024 5:[address] ABDOMEN PELVIS W CONTRAST STAT 09/01/2024 5:00 PM EDT CULTURE BLOOD STAT 09/01/2024 4:47 PM EDT LACTATE STAT 09/01/2024 4:47 PM EDT MANUAL DIFFERENTIAL - SYSMEX WAM STAT 09/01/2024 3:57 PM EDT CBC WITH AUTO DIFFERENTIAL STAT 09/01/2024 3:57 PM EDT ACTIVATED PARTIAL THROMBOPLASTIN TIME STAT 09/01/2024 3:57 PM EDT PROTHROMBIN TIME WITH INR STAT 09/01/2024 3:57 PM EDT CBC AND DIFFERENTIAL STAT 09/01/2024 3:57 PM EDT TYPE AND SCREEN STAT 09/01/2024 3:57 PM EDT COMPREHENSIVE METABOLIC PANEL STAT 09/01/2024 3:57 PM EDT documented in this encounter Results * ECG-Annotated (09/05/2024) us Provider Onbase MD ECG ORDERABLES Final Result * (ABNORMAL) POCT Glucose, blood (09/04/2024 10:53 AM EDT) [facility] Signature Glucose POCT 107(H) 70 - 100 mg/dL 09/04/2024 10:53 AM EDT [facility] Blood Capillary blood specimen / Unknown 09/04/2024 10:53 AM EDT 09/04/2024 10:54 AM EDT us Axel Samson MD LAB POINT OF CARE TE ST DOCKED DEVICE UNSOLICITED RESULTS Final Result Performing Organization Address City/[facility]/ZIP Co de Phone Number [facility] [address] [place] [address], [place] [phone] * (ABNORMAL) POCT Glucose, blood (09/04/2024 8:22 AM EDT) [facility] Glucose POCT 106(H) 70 - 100 mg/dL 09/04/2024 8:22 AM EDT [facility] Blood Capillary blood specimen / Unknown 09/04/2024 8:22 AM EDT 09/04/2024 8:24 AM EDT us Axel Samson MD LAB POINT OF CARE TE ST DOCKED DEVICE UNSOLICITED RESULTS Final Result Performing Organization Address [facility] de Phone Number [facility] [address] [place] [address], [place] [phone] * (ABNORMAL) CBC auto differential (09/04/2024 6:32 AM EDT) [facility] WBC 3.6(L) 4.8 - 10.8 K/mcL LAB HEMETOLOGY METHOD 09/04/2024 7:35 AM EDT [facility] RBC 2.50(L) 4.50 - 5.50 M/mcL LAB HEMETOLOGY METHOD 09/04/2024 7:35 AM EDT [facility] Hemoglobin 8.0(L) 13.5 - 17.5 g/dL LAB HEMETOLOGY METHOD 09/04/2024 7:35 AM EDT [facility] Hematocrit 25.2(L) 42.0 - 54.0 % LAB HEMETOLOGY METHOD 09/04/2024 7:35 AM T [facility] MCV 99.2(H) 79.0 - 98.0 FL LAB HEMETOLOGY METHOD 09/04/2024 7:35 AM [facility] MCH 31.5 27.0 - 32.0 pcg LAB HEMETOLOGY METHOD 09/04/2024 7:35 AM [facility] MCHC 31.7(L) 32.0 - 37.0 g/dL LAB HEMETOLOGY METHOD 09/04/2024 7:35 AM [facility] RDW 20.2(H) 11.0 - 15.0 % LAB HEMETOLOGY METHOD 09/04/2024 7:35 AM [facility] Platelets 231 130 - 400 K/mcL LAB HEMETOLOGY METHOD 09/04/2024 7:35 AM [facility] MPV 11.1(H) 7.0 - 11.0 FL LAB HEMETOLOGY METHOD 09/04/2024 7:35 AM [facility] NRBC 0.0 <1.0 % LAB HEMETOLOGY METHOD 09/04/2024 7:35 AM [facility] NRBC Absolute 0.00 <0.10 K/mcL LAB HEMETOLOGY METHOD 09/04/2024 7:35 AM [facility] Neutrophils Relative 72.1 % LAB HEMETOLOGY METHOD 09/04/2024 7:35 AM [facility] Lymphocytes Relative 14.2 % LAB HEMETOLOGY METHOD 09/04/2024 7:35 AM [facility] Monocytes Relative 10.3 % LAB HEMETOLOGY METHOD 09/04/2024 7:35 AM [facility] Eosinophils Relative 0.3 % LAB HEMETOLOGY METHOD 09/04/2024 7:35 AM EDT [facility] Basophils Relative 1.7 % LAB HEMETOLOGY METHOD 09/04/2024 7:35 AM EDT [facility] Immature Granulocytes Relative 1.4 % LAB HEMETOLOGY METHOD 09/04/2024 7:35 AM EDT [facility] Neutrophils Absolute 2.60 1.50 - 7.00 K/mcL LAB HEMETOLOGY METHOD 09/04/2024 7:35 AM EDT [facility] Lymphocytes Absolute 0.51(L) 1.00 - 5.00 K/mcL LAB HEMETOLOGY METHOD 09/04/2024 7:35 AM EDT [facility] Monocytes Absolute 0.37 0.20 - 1.00 K/mcL LAB HEMETOLOGY METHOD 09/04/2024 7:35 AM EDT [facility] Eosinophils Absolute 0.01 0.00 - 0.50 K/mcL LAB HEMETOLOGY METHOD 09/04/2024 7:35 AM EDT [facility] Basophils Absolute 0.06 0.00 - 0.20 K/mcL LAB HEMETOLOGY METHOD 09/04/2024 7:35 AM EDT [facility] Immature Granulocytes Absolute 0.05(H) 0.00 - 0.03 K/mcL LAB HEMETOLOGY METHOD 09/04/2024 7:35 AM EDT [facility] Blood Venous blood specimen / Unknown Venipuncture / Unknown 09/04/2024 6:32 AM EDT 09/04/2024 6:52 AM EDT us Carson Rodriguez MD LAB BLOOD ORDERABLES Final Resul t [facility] [address] [place] [address], * (ABNORMAL) Basic metabolic panel (09/04/2024 6:32 AM EDT) Sodium 141 133 - 145 mmol/L LAB CHEMISTRY METHOD 09/04/2024 7:31 AM [facility] Potassium 3.8 3.5 - 5.5 mmol/L LAB CHEMISTRY METHOD 09/04/2024 7:31 AM [facility] Chloride 110 96 - 110 mmol/L LAB CHEMISTRY METHOD 09/04/2024 7:31 AM [facility] CO2 26 21 - 32 mmol/L LAB CHEMISTRY METHOD 09/04/2024 7:31 AM [facility] Anion Gap 5 3 - 11 LAB CHEMISTRY METHOD 09/04/2024 7:31 AM [facility] Glucose 89 70 - 100 mg/dL LAB CHEMISTRY METHOD 09/04/2024 7:31 AM [facility] BUN 25 5 - 25 mg/dL LAB CHEMISTRY METHOD 09/04/2024 7:31 AM [facility] Creatinine 1.28 0.70 - 1.30 mg/dL LAB CHEMISTRY METHOD 09/04/2024 7:31 AM [facility] eGFR 57(L) >=60 mL/min/1. 73m2 LAB CHEMISTRY METHOD 09/04/2024 7:31 AM [facility] Comment:Calculation based on the??Chronic Kidney Disease Epidemiology Collaboration (CKD-EPI) equation refit??without adjustment for race. BUN/Creatinine Ratio 19.5 LAB CHEMISTRY METHOD 09/04/2024 7:31 AM [facility] Calcium 8.3(L) 8.5 - 10.5 mg/dL LAB CHEMISTRY METHOD 09/04/2024 7:31 AM [facility] Blood Venous blood specimen / Unknown Venipuncture / Unknown 09/04/2024 6:32 AM EDT 09/04/2024 6:53 AM EDT us Casron Rodriguez MD LAB BLOOD ORDERABLES Final Resul t Performing Organization Address [facility]/ZIP Co de Phone Number [facility] [address] [place] [address], [place] [phone] * POCT Glucose, blood (09/03/2024 4:40 PM EDT) Glucose POCT 97 70 - 100 mg/dL 09/03/2024 4:40 PM EDT [facility] Blood Capillary blood specimen / Unknown 09/03/2024 4:40 PM EDT 09/03/2024 4:41 PM EDT us Carson Rodriguez MD LAB POINT OF CARE TE ST DOCKED DEVICE UNSOLICITED RESULTS Final Result Performing Organization Address [facility]/ZIP Co de Phone Number [facility] [address] [place] [address], [place] [phone] * POCT Glucose, blood (09/03/2024 7:51 AM EDT) Glucose POCT 88 70 - 100 mg/dL 09/03/2024 7:52 AM EDT [facility] Blood Capillary blood specimen / Unknown 09/03/2024 7:51 AM EDT 09/03/2024 7:53 AM EDT us Carson Rodriguez MD LAB POINT OF CARE TE ST DOCKED DEVICE UNSOLICITED RESULTS Final Result Performing Organization Address [facility]/ZIP Co de Phone Number [facility] [address] [place] [address], [place] [phone] * (ABNORMAL) CBC auto differential (09/03/2024 5:57 AM EDT) WBC 3.8(L) 4.8 - 10.8 K/mcL LAB HEMETOLOGY METHOD 09/03/2024 7:10 AM [facility] RBC 2.50(L) 4.50 - 5.50 M/mcL LAB HEMETOLOGY METHOD 09/03/2024 7:10 AM [facility] Hemoglobin 7.9(L) 13.5 - 17.5 g/dL LAB HEMETOLOGY METHOD 09/03/2024 7:10 AM [facility] Hematocrit 25.0(L) 42.0 - 54.0 % LAB HEMETOLOGY METHOD 09/03/2024 7:10 AM [facility] MCV 100.4(H) 79.0 - 98.0 FL LAB HEMETOLOGY METHOD 09/03/2024 7:10 AM [facility] MCH 31.7 27.0 - 32.0 pcg LAB HEMETOLOGY METHOD 09/03/2024 7:10 AM [facility] MCHC 31.6(L) 32.0 - 37.0 g/dL LAB HEMETOLOGY METHOD 09/03/2024 7:10 AM [facility] RDW 20.5(H) 11.0 - 15.0 % LAB HEMETOLOGY METHOD 09/03/2024 7:10 AM [facility] Platelets 193 130 - 400 K/mcL LAB HEMETOLOGY METHOD 09/03/2024 7:10 AM [facility] MPV 11.4(H) 7.0 - 11.0 FL LAB HEMETOLOGY METHOD 09/03/2024 7:10 AM [facility] NRBC 0.0 <1.0 % LAB HEMETOLOGY METHOD 09/03/2024 7:10 AM [facility] NRBC Absolute 0.00 <0.10 K/mcL LAB HEMETOLOGY METHOD 09/03/2024 7:10 AM [facility] Neutrophils Relative 72.0 % LAB HEMETOLOGY METHOD 09/03/2024 7:10 AM [facility] Lymphocytes Relative 11.8 % LAB HEMETOLOGY METHOD 09/03/2024 7:10 AM [facility] Monocytes Relative 14.1 % LAB HEMETOLOGY METHOD 09/03/2024 7:10 AM [facility] Eosinophils Relative 0.0 % LAB HEMETOLOGY METHOD 09/03/2024 7:10 AM [facility] Basophils Relative 1.6 % LAB HEMETOLOGY METHOD 09/03/2024 7:10 AM [facility] Immature Granulocytes Relative 0.5 % LAB HEMETOLOGY METHOD 09/03/2024 7:10 AM [facility] Neutrophils Absolute 2.75 1.50 - 7.00 K/mcL LAB HEMETOLOGY METHOD 09/03/2024 7:10 AM [facility] Lymphocytes Absolute 0.45(L) 1.00 - 5.00 K/mcL LAB HEMETOLOGY METHOD 09/03/2024 7:10 AM [facility] Monocytes Absolute 0.54 0.20 - 1.00 K/mcL LAB HEMETOLOGY METHOD 09/03/2024 7:10 AM [facility] Eosinophils Absolute 0.00 0.00 - 0.50 K/mcL LAB HEMETOLOGY METHOD 09/03/2024 7:10 AM [facility] Basophils Absolute 0.06 0.00 - 0.20 K/mcL LAB HEMETOLOGY METHOD 09/03/2024 7:10 AM [facility] Immature Granulocytes Absolute 0.02 0.00 - 0.03 K/mcL LAB HEMETOLOGY METHOD 09/03/2024 7:10 AM [facility] Blood Venous blood specimen / Unknown Venipuncture / Unknown 09/03/2024 5:57 AM EDT 09/03/2024 6:50 AM EDT us Carson Rodriguez MD LAB BLOOD ORDERABLES Final Resul t [facility] [address] [place] [address], [place] [phone] * (ABNORMAL) Basic metabolic panel (09/03/2024 5:57 AM EDT) Sodium 140 133 - 145 mmol/L LAB CHEMISTRY METHOD 09/03/2024 7:39 AM [facility] Potassium 4.3 3.5 - 5.5 mmol/L LAB CHEMISTRY METHOD 09/03/2024 7:39 AM [facility] Comment:Hemolysis present Chloride 107 96 - 110 mmol/L LAB CHEMISTRY METHOD 09/03/2024 7:39 AM [facility] CO2 24 21 - 32 mmol/L LAB CHEMISTRY METHOD 09/03/2024 7:39 AM [facility] Anion Gap 9 3 - 11 LAB CHEMISTRY METHOD 09/03/2024 7:39 AM [facility] Glucose 85 70 - 100 mg/dL LAB CHEMISTRY METHOD 09/03/2024 7:39 AM [facility] BUN 31(H) 5 - 25 mg/dL LAB CHEMISTRY METHOD 09/03/2024 7:39 AM [facility] Creatinine 1.45(H) 0.70 - 1.30 mg/dL LAB CHEMISTRY METHOD 09/03/2024 7:39 AM [facility] eGFR 49(L) >=60 mL/min/1. 73m2 LAB CHEMISTRY METHOD 09/03/2024 7:39 AM [facility] Comment:Calculation based on the??Chronic Kidney Disease Epidemiology Collaboration (CKD-EPI) equation refit??without adjustment for race. BUN/Creatinine Ratio 21.4 LAB CHEMISTRY METHOD 09/03/2024 7:39 AM [facility] Calcium 8.0(L) 8.5 - 10.5 mg/dL LAB CHEMISTRY METHOD 09/03/2024 7:39 AM EDT [facility] Blood Venous blood specimen / Unknown Venipuncture / Unknown 09/03/2024 5:57 AM EDT 09/03/2024 6:49 AM EDT us Carson Rodriguez MD LAB BLOOD ORDERABLES Final Resul t [facility] [address] [place] [address], [place] [phone] * POCT Glucose, blood (09/02/2024 8:12 PM EDT) Glucose POCT 99 70 - 100 mg/dL 09/02/2024 8:13 PM EDT [facility] Blood Capillary blood specimen / Unknown 09/02/2024 8:12 PM EDT 09/02/2024 8:14 PM EDT us Carson Rodriguez MD LAB POINT OF CARE TE ST DOCKED DEVICE UNSOLICITED RESULTS Final Result Performing Organization Address [facility]/ZIP Co de Phone Number [facility] [address] [place] [address], [place] [phone] * (ABNORMAL) POCT Glucose, blood (09/02/2024 3:40 PM EDT) Glucose POCT 101(H) 70 - 100 mg/dL 09/02/2024 3:40 PM EDT [facility] Blood Capillary blood specimen / Unknown 09/02/2024 3:40 PM EDT 09/02/2024 3:42 PM EDT us Carson Rodriguez MD LAB POINT OF CARE TE ST DOCKED DEVICE UNSOLICITED RESULTS Final Result [facility] [address] [place] [address], [place] [phone] * Transfuse RBC, Leukoreduced (09/02/2024 12:47 PM EDT) us Carson Rodriguez MD BLOOD TRANSFUSION ORDERABLES Fin al Result * Transfuse RBC: 1 Units, Leukoreduced (09/02/2024 12:47 PM EDT) us Carson Rodriugez MD BLOOD TRANSFUSION ORDERABLES Fin al Result * (ABNORMAL) POCT Glucose, blood (09/02/2024 11:25 AM EDT) Glucose POCT 110(H) 70 - 100 mg/dL 09/02/2024 11:25 AM EDT [facility] Blood Capillary blood specimen / Unknown 09/02/2024 11:25 AM EDT 09/02/2024 11:27 AM EDT us Carson Rodriguez MD LAB POINT OF CARE TE ST DOCKED DEVICE UNSOLICITED RESULTS Final Result Performing Organization Address [facility]/ZIP Co de Phone Number [facility] [address] [place] [address], [place] [phone] * Prepare RBC: 1 Units, Leukoreduced (09/02/2024 8:18 AM EDT) Product Code [id number] 09/02/2024 10:23 AM EDT [facility] Unit Number [id number] 09/03/19 10:23 AM EDT [facility] Crossmatch Compatible 09/02/2024 8:24 AM EDT [facility] Dispense Status Transfused 09/02/2024 10:23 AM EDT [facility] Unit ABO Rh ONEG 09/02/2024 10:23 AM EDT [facility] Unit Expiration Date Time [id number] 09/02/2024 10:23 AM EDT [facility] Unit Blood Type 9500 09/02/2024 10:23 AM EDT [facility] Blood Venous blood specimen / Unknown 09/02/2024 8:18 AM EDT 09/01/2024 4:08 PM EDT us Carson Rodriguez MD BLOOD BANK PRODUCT ORDERABLES Fi nal Result Performing Organization Address [facility]/State/ZIP Co de Phone Number [facility] [address] [place] [address], [place] [phone] * POCT Glucose, blood (09/02/2024 7:58 AM EDT) Glucose POCT 83 70 - 100 mg/dL 09/02/2024 7:59 AM EDT [facility] Blood Capillary blood specimen / Unknown 09/02/2024 7:58 AM EDT 09/02/2024 8:00 AM EDT us Carson Rodriguez MD LAB POINT OF CARE TE ST DOCKED DEVICE UNSOLICITED RESULTS Final Result Performing Organization Address [facility]/ZIP Co de Phone Number [facility] [address] [place] [address], [place] [phone] * (ABNORMAL) CBC auto differential (09/02/2024 5:20 AM EDT) WBC 1.8(LL) 4.8 - 10.8 K/mcL LAB HEMETOLOGY METHOD 09/02/2024 6:39 AM EDT [facility] RBC 2.30(L) 4.50 - 5.50 M/mcL LAB HEMETOLOGY METHOD 09/02/2024 6:39 AM EDT [facility] Hemoglobin 7.2(L) 13.5 - 17.5 g/dL LAB HEMETOLOGY METHOD 09/02/2024 6:39 AM [facility] Hematocrit 23.0(L) 42.0 - 54.0 % LAB HEMETOLOGY METHOD 09/02/2024 6:39 AM [facility] MCV 100.9(H) 79.0 - 98.0 FL LAB HEMETOLOGY METHOD 09/02/2024 6:39 AM [facility] MCH 31.6 27.0 - 32.0 pcg LAB HEMETOLOGY METHOD 09/02/2024 6:39 AM [facility] MCHC 31.3(L) 32.0 - 37.0 g/dL LAB HEMETOLOGY METHOD 09/02/2024 6:39 AM [facility] RDW 20.4(H) 11.0 - 15.0 % LAB HEMETOLOGY METHOD 09/02/2024 6:39 AM [facility] Platelets 181 130 - 400 K/mcL LAB HEMETOLOGY METHOD 09/02/2024 6:39 AM [facility] MPV 11.4(H) 7.0 - 11.0 FL LAB HEMETOLOGY METHOD 09/02/2024 6:39 AM [facility] NRBC 0.0 <1.0 % LAB HEMETOLOGY METHOD 09/02/2024 6:39 AM [facility] NRBC Absolute 0.00 <0.10 K/mcL LAB HEMETOLOGY METHOD 09/02/2024 6:39 AM [facility] Neutrophils Relative 59.1 % LAB HEMETOLOGY METHOD 09/02/2024 6:39 AM [facility] Lymphocytes Relative 19.0 % LAB HEMETOLOGY METHOD 09/02/2024 6:39 AM [facility] Monocytes Relative 19.6 % LAB HEMETOLOGY METHOD 09/02/2024 6:39 AM EDT [facility] Eosinophils Relative 0.0 % LAB HEMETOLOGY METHOD 09/02/2024 6:39 AM EDT [facility] Basophils Relative 1.7 % LAB HEMETOLOGY METHOD 09/02/2024 6:39 AM EDT [facility] Immature Granulocytes Relative 0.6 % LAB HEMETOLOGY METHOD 09/02/2024 6:39 AM EDT [facility] Neutrophils Absolute 1.06(L) 1.50 - 7.00 K/mcL LAB HEMETOLOGY METHOD 09/02/2024 6:39 AM EDT [facility] Lymphocytes Absolute 0.34(L) 1.00 - 5.00 K/mcL LAB HEMETOLOGY METHOD 09/02/2024 6:39 AM EDT [facility] Monocytes Absolute 0.35 0.20 - 1.00 K/mcL LAB HEMETOLOGY METHOD 09/02/2024 6:39 AM EDT [facility] Eosinophils Absolute 0.00 0.00 - 0.50 K/mcL LAB HEMETOLOGY METHOD 09/02/2024 6:39 AM EDT [facility] Basophils Absolute 0.03 0.00 - 0.20 K/mcL LAB HEMETOLOGY METHOD 09/02/2024 6:39 AM EDT [facility] Immature Granulocytes Absolute 0.01 0.00 - 0.03 K/mcL LAB HEMETOLOGY METHOD 09/02/2024 6:39 AM EDT [facility] Blood Venous blood specimen / Unknown Venipuncture / Unknown 09/02/2024 5:20 AM EDT 09/02/2024 6:07 AM EDT us Davin Madrid MD LAB BLOOD ORDERABLES Final Result [facility] [address] [place] [address], * (ABNORMAL) Basic metabolic panel (09/02/2024 5:20 AM EDT) Sodium 138 133 - 145 mmol/L LAB CHEMISTRY METHOD 09/02/2024 6:48 AM [facility] Potassium 4.4 3.5 - 5.5 mmol/L LAB CHEMISTRY METHOD 09/02/2024 6:48 AM [facility] Comment:Hemolysis present Chloride 108 96 - 110 mmol/L LAB CHEMISTRY METHOD 09/02/2024 6:48 AM [facility] CO2 25 21 - 32 mmol/L LAB CHEMISTRY METHOD 09/02/2024 6:48 AM [facility] Anion Gap 5 3 - 11 LAB CHEMISTRY METHOD 09/02/2024 6:48 AM [facility] Glucose 88 70 - 100 mg/dL LAB CHEMISTRY METHOD 09/02/2024 6:48 AM [facility] BUN 34(H) 5 - 25 mg/dL LAB CHEMISTRY METHOD 09/02/2024 6:48 AM [facility] Creatinine 1.59(H) 0.70 - 1.30 mg/dL LAB CHEMISTRY METHOD 09/02/2024 6:48 AM [facility] eGFR 44(L) >=60 mL/min/1. 73m2 LAB CHEMISTRY METHOD 09/02/2024 6:48 AM [facility] Comment:Calculation based on the??Chronic Kidney Disease Epidemiology Collaboration (CKD-EPI) equation refit??without adjustment for race. BUN/Creatinine Ratio 21.4 LAB CHEMISTRY METHOD 09/02/2024 6:48 AM [facility] Calcium 7.6(L) 8.5 - 10.5 mg/dL LAB CHEMISTRY METHOD 09/02/2024 6:48 AM [facility] Blood Venous blood specimen / Unknown Venipuncture / Unknown 09/02/2024 5:20 AM EDT 09/02/2024 6:07 AM EDT us Davin Madrid MD LAB BLOOD ORDERABLES Final Result [facility] [address] [place] [address], * (ABNORMAL) Complete blood count (09/01/2024 11:46 PM EDT) WBC 1.9(LL) 4.8 - 10.8 K/mcL LAB HEMETOLOGY METHOD 09/02/2024 12:38 AM EDT [facility] RBC 2.60(L) 4.50 - 5.50 M/mcL LAB HEMETOLOGY METHOD 09/02/2024 12:38 AM [facility] Hemoglobin 8.2(L) 13.5 - 17.5 g/dL LAB HEMETOLOGY METHOD 09/02/2024 12:38 AM [facility] Hematocrit 26.4(L) 42.0 - 54.0 % LAB HEMETOLOGY METHOD 09/02/2024 12:38 AM [facility] MCV 100.8(H) 79.0 - 98.0 FL LAB HEMETOLOGY METHOD 09/02/2024 12:38 AM [facility] MCH 31.3 27.0 - 32.0 pcg LAB HEMETOLOGY METHOD 09/02/2024 12:38 AM EDT [facility] MCHC 31.1(L) 32.0 - 37.0 g/dL LAB HEMETOLOGY METHOD 09/02/2024 12:38 AM [facility] RDW 20.7(H) 11.0 - 15.0 % LAB HEMETOLOGY METHOD 09/02/2024 12:38 AM [facility] Platelets 201 130 - 400 K/mcL LAB HEMETOLOGY METHOD 09/02/2024 12:38 AM EDT [facility] MPV 10.7 7.0 - 11.0 FL LAB HEMETOLOGY METHOD 09/02/2024 12:38 AM EDT [facility] NRBC 0.0 <1.0 % LAB HEMETOLOGY METHOD 09/02/2024 12:38 AM EDT [facility] NRBC Absolute 0.00 <0.10 K/mcL LAB HEMETOLOGY METHOD 09/02/2024 12:38 AM EDT [facility] Blood Venous blood specimen / Unknown Venipuncture / Unknown 09/01/2024 11:46 PM EDT 09/02/2024 12:15 AM EDT us Beatriz VACA LAB BLOOD ORDERABLES Final Re sult [facility] [address] [place] [address], [place] [phone] * Culture urine (09/01/2024 9:49 PM EDT) Culture, Urine No growth 09/03/2024 9:42 AM EDT [facility] Urine Urine specimen obtained by clean catch procedure / Unknown Non-blood Collection / Unknown 09/01/2024 9:49 PM EDT 09/01/2024 10:23 PM EDT us Noemy Bergman DO LAB MICROBIOLOGY - GENERA L ORDERABLES Final Result [facility] [address] [place] [address], [place] [phone] * Carpenter urine culture tube (09/01/2024 9:49 PM EDT) Extra Tube Hold for add-ons. 09/02/2024 12:02 AM EDT [facility] Comment:Auto resulted. Urine Urine specimen obtained by clean catch procedure / Unknown Non-blood Collection / Unknown 09/01/2024 9:49 PM EDT 09/01/2024 10:15 PM EDT us Noemy Bergman DO LAB URINE ORDERABLES Stefany l Result [facility] [address] [place] [address], [place] [phone] * (ABNORMAL) Urinalysis with reflex microscopic and culture (09/01/2024 9:49 PM EDT) Specific [place] Urine >1.045(H) 1.003 - 1.030 LAB URINALYSIS - AUTOMATED METHOD 09/01/2024 10:23 PM EDT [facility] pH, Urine 5.5 5.0 - 8.0 pH LAB URINALYSIS - AUTOMATED METHOD 09/01/2024 10:23 PM [facility] Leukocytes, Urine Trace(A) Negative LAB URINALYSIS - AUTOMATED METHOD 09/01/2024 10:23 PM [facility] Nitrite, Urine Negative Negative LAB URINALYSIS - AUTOMATED METHOD 09/01/2024 10:23 PM [facility] Protein, Urine Negative <=Trace mg/dL LAB URINALYSIS - AUTOMATED METHOD 09/01/2024 10:23 PM [facility] Glucose, Urine Negative Negative mg/dL LAB URINALYSIS - AUTOMATED METHOD 09/01/2024 10:23 PM [facility] Ketones, Urine Negative Negative mg/dL LAB URINALYSIS - AUTOMATED METHOD 09/01/2024 10:23 PM [facility] Urobilinogen , Urine 0.2 0.2 - 1.0 mg/dL LAB URINALYSIS - AUTOMATED METHOD 09/01/2024 10:23 PM [facility] Bilirubin, Urine Negative Negative LAB URINALYSIS - AUTOMATED METHOD 09/01/2024 10:23 PM EDT [facility] Blood, Urine Negative Negative LAB URINALYSIS - AUTOMATED METHOD 09/01/2024 10:23 PM T [facility] RBC, Urine 3.0 0 - 4 /HPF LAB URINALYSIS - AUTOMATED METHOD 09/01/2024 10:23 PM EDT [facility] WBC, Urine 5.0(H) 0 - 4 /HPF LAB URINALYSIS - AUTOMATED METHOD 09/01/2024 10:23 PM EDT [facility] Squamous Epithelial, Urine 35 0 - 60 /LPF LAB URINALYSIS - AUTOMATED METHOD 09/01/2024 10:23 PM [facility] Bacteria, Urine Negative Negative /HPF LAB URINALYSIS - AUTOMATED METHOD 09/01/2024 10:23 PM T [facility] Hyaline Casts, Urine 4.4(H) 0 - 3 /LPF LAB URINALYSIS - AUTOMATED METHOD 09/01/2024 10:23 PM T [facility] Urine Urine specimen obtained by clean catch procedure / Unknown Non-blood Collection / Unknown 09/01/2024 9:49 PM EDT 09/01/2024 10:15 PM EDT Rajiv Tommy Bergman DO LAB URINE ORDERABLES Stefany l Result [facility] [address] [place] [address], * MRSA molecular study (09/01/2024 8:08 PM EDT) [facility] MRSA Screen PCR Not Detected Not Detected LAB MICROBIOLOGY METHOD 09/01/2024 10:47 PM EDT [facility] Swab Both anterior nares / Unknown Non-blood Collection / Unknown 09/01/2024 8:08 PM EDT 09/01/2024 8:29 PM EDT us Davin Madrid MD LAB MICROBIOLOGY - GENERAL ORDERABLES Final Result [facility] [address] [place] [address], [place] [phone] * Respiratory virus panel molecular study (09/01/2024 6:40 PM EDT) Adenovirus Detection by PCR Not Detected Not Detected LAB MICROBIOLOGY METHOD 09/01/2024 8:03 PM EDT [facility] Influenza A PCR Not Detected Not Detected LAB MICROBIOLOGY METHOD 09/01/2024 8:03 PM EDT [facility] Influenza B PCR Not Detected Not Detected LAB MICROBIOLOGY METHOD 09/01/2024 8:03 PM EDT [facility] Coronavirus 229E Not Detected Not Detected LAB MICROBIOLOGY METHOD 09/01/2024 8:03 PM EDT [facility] Coronavirus HKU1 Not Detected Not Detected LAB MICROBIOLOGY METHOD 09/01/2024 8:03 PM EDT [facility] Coronavirus OC43 Not Detected Not Detected LAB MICROBIOLOGY METHOD 09/01/2024 8:03 PM EDT [facility] Coronavirus NL63 Not Detected Not Detected LAB MICROBIOLOGY METHOD 09/01/2024 8:03 PM EDT [facility] Parainfluenza Virus 1 Not Detected Not Detected LAB MICROBIOLOGY METHOD 09/01/2024 8:03 PM EDT [facility] Parainfluenza Virus 2 Not Detected Not Detected LAB MICROBIOLOGY METHOD 09/01/2024 8:03 PM EDT [facility] Parainfluenza Virus 3 Not Detected Not Detected LAB MICROBIOLOGY METHOD 09/01/2024 8:03 PM EDT [facility] Parainfluenza Virus 4 Not Detected Not Detected LAB MICROBIOLOGY METHOD 09/01/2024 8:03 PM EDT [facility] RSV PCR Not Detected Not Detected LAB MICROBIOLOGY METHOD 09/01/2024 8:03 PM EDT [facility] Human Metapneumovirus A and B Not Detected Not Detected LAB MICROBIOLOGY METHOD 09/01/2024 8:03 PM EDT [facility] Rhinovirus/Entero virus Not Detected Not Detected LAB MICROBIOLOGY METHOD 09/01/2024 8:03 PM EDT [facility] Bordetella pertussis Not Detected Not Detected LAB MICROBIOLOGY METHOD 09/01/2024 8:03 PM EDT [facility] Bordetella parapertussis Not Detected Not Detected LAB MICROBIOLOGY METHOD 09/01/2024 8:03 PM EDT [facility] Mycoplasma pneumo by PCR Not Detected Not Detected LAB MICROBIOLOGY METHOD 09/01/2024 8:03 PM EDT [facility] Chlamydia pneumoniae Not Detected Not Detected LAB MICROBIOLOGY METHOD 09/01/2024 8:03 PM EDT [facility] SARS COV-2 Not Detected Not Detected LAB MICROBIOLOGY METHOD 09/01/2024 8:03 PM EDT [facility] Swab Nasopharyngeal structure / Unknown Non-blood Collection / Unknown 09/01/2024 6:40 PM EDT 09/01/2024 7:04 PM EDT Narrative [facility] - 09/01/2024 8:03 PM EDT Testing was performed using the fos4Xe Respiratory Pathogen PCR Assay. All results must be correlated with the clinical findings. Results should not be used as the sole basis for diagnosis. False Negative results may occur from the presence of sequence variants in the region targeted by the assay or the presence of inhibitors. Results may be affected by concurrent antiviral/antimicrobial therapy or levels of organisms that are below the limit of detection. us Noemy Bergman DO LAB MICROBIOLOGY - GENERA L ORDERABLES Final Result [facility] [address] [place] [address], [place] [phone] * Blood culture (09/01/2024 6:01 PM EDT) Culture, Blood No growth at 5 days 09/06/2024 7:01 PM EDT [facility] Blood Venous blood specimen / Unknown Venipuncture / Unknown 09/01/2024 6:01 PM EDT 09/01/2024 6:16 PM EDT Rajivflori Sanders Miguel Bergman DO LAB MICROBIOLOGY - GENERA L ORDERABLES Final Result Performing Organization Address City/[facility]/ZIP Co de Phone Number [facility] [address] [place] [address], [place] [phone] * ECG 12 lead (09/01/2024 5:16 PM EDT) Ventricular Rate ECG 95 BPM GEMUSE Atrial Rate 95 BPM GEMUSE P-R Interval 160 ms GEMUSE QRS Duration 86 ms GEMUSE Q-T Interval 360 ms GEMUSE QTc 452 ms GEMUSE P Wave [place] 39 degrees GEMUSE R [place] -17 degrees GEMUSE T [place] 48 degrees GEMUSE ECG Interpretation Normal sinus rhythm Normal ECG When compared with ECG of 05-AUG-2024 09:08, No significant change was found Confirmed by Lisseth MONSIVAIS YUFENG ([id number]) on 09/01/2024 8:02:40 PM GEMUSE 09/01/2024 5:16 PM EDT 09/01/2024 8:02 PM EDT Noemy Sanders Miguel Bergman DO ECG ORDERABLES Final Res ult GEMUSE * XR Chest 2 Views (09/01/2024 5:10 PM EDT) Anatomical Region Laterality Modality Body Radiographic Luci ging 09/01/2024 5:30 PM EDT Impressions 09/01/2024 5:34 PM EDT Hypoinflation with bibasilar opacities which could be atelectasis. ??There is no pneumothorax or definite evidence of pneumoperitoneum -------- FINAL REPORT -------- Dictated By: Albino Haines Dictated Date: 09/01/2024 17:30 ET Assigned Physician: Albino Haines Reviewed and Electronically Signed By: Albino Haines Signed Date: 09/01/2024 17:34 ET Workstation ID: [id number] Transcribed By: Self Edit Transcribed Date: 09/01/2024 17:30 ET Narrative 09/01/2024 5:34 PM EDT EXAMINATION: CHEST CLINICAL INFORMATION: Shortness of breath. ??Pain. COMPARISON: Frontal view 08/05/2024 TECHNIQUE: Sitting frontal and lateral views of the chest FINDINGS: Right-sided vascular catheter with an associated reservoir. Calcified aortic arch. ??No change in cardiac size. ??The left hilum is within normal limits. ??No definite change in the right hilum with a few reticular opacities in the right infrahilar region. ??There is volume loss in the left retrocardiac region and there is some vague density in the left lateral costophrenic sulcus region. Lung volumes are low. ??There is no pneumothorax. There are some rib irregularities laterally on the left. Procedure Note Albino Haines MD - 09/01/2024 EXAMINATION: CHEST CLINICAL INFORMATION: Shortness of breath. Pain. COMPARISON: Frontal view 08/05/2024 TECHNIQUE: Sitting frontal and lateral views of the chest FINDINGS: Right-sided vascular catheter with an associated reservoir. Calcified aortic arch. No change in cardiac size. The left hilum iswithin normal limits. No definite change in the right hilum with a fewreticular opacities in the right infrahilar region. There is volume lossin the left retrocardiac region and there is some vague density in theleft lateral costophrenic sulcus region. Lung volumes are low. There is no pneumothorax. There are some rib irregularities laterally on the left. IMPRESSION: Hypoinflation with bibasilar opacities which could be atelectasis. Thereis no pneumothorax or definite evidence of pneumoperitoneum -------- FINAL REPORT -------- Dictated By: Albino Haines Dictated Date: 09/01/2024 17:30 ET Assigned Physician: Albino Haines Reviewed and Electronically Signed By: Albino Haines Signed Date: 09/01/2024 17:34 ET Workstation ID: [id number] Transcribed By: Self Edit Transcribed Date: 09/01/2024 17:30 ET us Noemy Bergman DO IMG XR PROCEDURES Final R esult * CT Abdomen Pelvis w Contrast (09/01/2024 5:00 PM EDT) Anatomical Region Laterality Modality Body Computed Tomogra phy 09/01/2024 5:36 PM EDT Impressions 09/01/2024 5:36 PM EDT Large mass of the right adrenal gland and enlarged left pelvic lymph node are concerning for metastasis. 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 Indeterminate hypodense lesion in the tail of the pancreas. Severe Atherosclerosis calcification of the aorta and at the origin of the major branches. Stenoses cannot be excluded. Small ascites. Additional findings as above. This document has been electronically signed by: Reji Monsivais MD on 09/01/2024 17:36:51 Narrative 09/01/2024 5:36 PM EDT INDICATION: Abdominal pain, acute, nonlocalized CT abdomen and pelvis with contrast Comparison: None Findings: Heart is enlarged. Small bilateral pleural effusion. The liver is normal in size without suspicious focal hepatic lesions. There is a cyst in the caudate lobe. No intrahepatic or extrahepatic ductal dilatation is seen. The hepatic and portal veins are patent. No calcified gallstones in the gallbladder. The spleen is unremarkable. There is a hypodense lesion in the tail of the pancreas with calcification. 5.6 x 6.2 cm right adrenal mass. There are multiple small left adrenal nodules. No suspicious focal lesion of the kidneys. There are multiple bilateral renal cysts. No hydronephrosis or calculi. The abdominal aorta demonstrates no evidence of aneurysmal dilatation or dissection. Severe Atherosclerosis calcification of the aorta and at the origin of the major branches. The colon is normal in appearance and without wall thickening or inflammatory change. Colonic diverticulosis. No evidence of bowel obstruction. Appendix is normal. Bladder is unremarkable. Status post seed implant of the prostate gland. Small ascites. Loculated fluid along the greater curvature of the stomach. 4.3 x 3.4 cm left pelvic lymph node axial image 152. Lytic bony lesion of the left acetabulum and sacrum. Procedure Note Reji Monsivais MD - 09/01/2024 INDICATION: Abdominal pain, acute, nonlocalized CT abdomen and pelvis with contrast Comparison: None Findings: Heart is enlarged. Small bilateral pleural effusion. The liver is normal in size without suspicious focal hepatic lesions. There is a cyst in the caudate lobe. No intrahepatic or extrahepatic ductal dilatation is seen. The hepatic and portal veins are patent. No calcified gallstones in the gallbladder. The spleen is unremarkable. There is a hypodense lesion in the tail ofthe pancreas with calcification. 5.6 x 6.2 cm right adrenal mass. There are multiple small left adrenal nodules. No suspicious focal lesion of the kidneys. There are multiple bilateral renal cysts. No hydronephrosis or calculi. The abdominal aorta demonstrates no evidence of aneurysmal dilatation or dissection. Severe Atherosclerosis calcification of the aorta and at the origin of the major branches. The colon is normal in appearance and without wall thickening or inflammatory change. Colonic diverticulosis. No evidence of bowel obstruction. Appendix is normal. Bladder is unremarkable. Status post seed implant of the prostate gland. Small ascites. Loculated fluid along the greater curvature of thestomach. 4.3 x 3.4 cm left pelvic lymph node axial image 152. Lytic bony lesion of the left acetabulum and sacrum. IMPRESSION: Large mass of the right adrenal gland and enlarged left pelvic lymphnode are concerning for metastasis. 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 Indeterminate hypodense lesion in the tail of the pancreas. Severe Atherosclerosis calcification of the aorta and at the origin ofthe major branches. Stenoses cannot be excluded. Small ascites. Additional findings as above. This document has been electronically signed by: Reji Monsivais MD on 09/01/2024 17:36:51 us Noemy Bergman DO IMG CT PROCEDURES Final R esult * Blood culture (09/01/2024 4:47 PM EDT) Culture, Blood No growth at 5 days 09/06/2024 6:01 PM EDT [facility] Blood Venous blood specimen / Unknown Venipuncture / Unknown 09/01/2024 4:47 PM EDT 09/01/2024 5:01 PM EDT Rajivflori Sanders Miguel Bergman DO LAB MICROBIOLOGY - GENERA L ORDERABLES Final Result Performing Organization Address [facility]/ZIP Co de Phone Number [facility] [address] [place] [address], [place] [phone] * Lactate (09/01/2024 4:47 PM EDT) [facility] Lactate 0.8 0.4 - 2.0 mmol/L LAB CHEMISTRY METHOD 09/01/2024 5:33 PM EDT [facility] Blood Venous blood specimen / Unknown Venipuncture / Unknown 09/01/2024 4:47 PM EDT 09/01/2024 5:00 PM EDT Noemy Bergman DO LAB BLOOD ORDERABLES Stefany l Result Performing Organization Address [facility] Co de Phone Number [facility] [address] [place] [address], [place] [phone] * (ABNORMAL) Manual differential (09/01/2024 3:57 PM EDT) [facility] Neutrophils % 23.0 % LAB HEMETOLOGY METHOD 09/01/2024 5:51 PM EDT [facility] Bands % 11.0 % LAB HEMETOLOGY METHOD 09/01/2024 5:51 PM EDT [facility] Lymphocytes % 39.0 % LAB HEMETOLOGY METHOD 09/01/2024 5:51 PM EDT [facility] Monocytes % 22.0 % LAB HEMETOLOGY METHOD 09/01/2024 5:51 PM EDT [facility] Eosinophils % 0.0 % LAB HEMETOLOGY METHOD 09/01/2024 5:51 PM EDT [facility] Basophils % 4.0 % LAB HEMETOLOGY METHOD 09/01/2024 5:51 PM [facility] Myelocytes % 1.0(H) % LAB HEMETOLOGY METHOD 09/01/2024 5:51 PM EDT [facility] Neutrophils Absolute Manual 0.32(L) 1.50 - 7.00 K/mcL LAB HEMETOLOGY METHOD 09/01/2024 5:51 PM [facility] Bands Absolute Manual 0.15(H) 0.00 - 0.00 K/mcL LAB HEMETOLOGY METHOD 09/01/2024 5:51 PM [facility] Lymphocytes Absolute 0.55(L) 1.00 - 5.00 K/mcL LAB HEMETOLOGY METHOD 09/01/2024 5:51 PM [facility] Monocytes Absolute Manual 0.31 0.20 - 1.00 K/mcL LAB HEMETOLOGY METHOD 09/01/2024 5:51 PM [facility] Eosinophils Absolute Manual 0.00 0.00 - 0.50 K/mcL LAB HEMETOLOGY METHOD 09/01/2024 5:51 PM [facility] Basophils Absolute Manual 0.06 0.00 - 0.20 K/mcL LAB HEMETOLOGY METHOD 09/01/2024 5:51 PM [facility] Myelocytes Absolute Manual 0.01(H) 0.00 - 0.00 K/mcL LAB HEMETOLOGY METHOD 09/01/2024 5:51 PM [facility] Rbc Morphology Consistent with indices Consistent with indices, Normal for [place] LAB HEMETOLOGY METHOD 09/01/2024 5:51 PM [facility] Platelet Morphology - WAM Giant Platelets Seen(A) Normal LAB HEMETOLOGY METHOD 09/01/2024 5:51 PM EDT [facility] Polychromasia Present Present(A) (none) LAB HEMETOLOGY METHOD 09/01/2024 5:51 PM EDT [facility] Ovalocytes Present 5 - 10%(A) (none) LAB HEMETOLOGY METHOD 09/01/2024 5:51 PM EDT [facility] Pappenheimer Bodies Present Present(A) (none) LAB HEMETOLOGY METHOD 09/01/2024 5:51 PM EDT [facility] Schistocytes Present < 5%(A) (none) LAB HEMETOLOGY METHOD 09/01/2024 5:51 PM EDT [facility] Dohle Body Present Present(A) (none) LAB HEMETOLOGY METHOD 09/01/2024 5:51 PM EDT [facility] Blood Venous blood specimen / Unknown Venipuncture / Unknown 09/01/2024 3:57 PM EDT 09/01/2024 4:08 PM EDT us Noemy Bergman DO LAB BLOOD ORDERABLES Stefany l Result [facility] [address] [place] [address], [place] [phone] * (ABNORMAL) CBC auto differential (09/01/2024 3:57 PM EDT) WBC 1.4(LL) 4.8 - 10.8 K/mcL LAB HEMETOLOGY METHOD 09/01/2024 5:51 PM EDT [facility] RBC 3.00(L) 4.50 - 5.50 M/mcL LAB HEMETOLOGY METHOD 09/01/2024 5:51 PM EDT [facility] Hemoglobin 9.4(L) 13.5 - 17.5 g/dL LAB HEMETOLOGY METHOD 09/01/2024 5:51 PM EDT [facility] Hematocrit 29.5(L) 42.0 - 54.0 % LAB HEMETOLOGY METHOD 09/01/2024 5:51 PM EDT [facility] MCV 98.7(H) 79.0 - 98.0 FL LAB HEMETOLOGY METHOD 09/01/2024 5:51 PM EDT [facility] MCH 31.4 27.0 - 32.0 pcg LAB HEMETOLOGY METHOD 09/01/2024 5:51 PM EDT [facility] MCHC 31.9(L) 32.0 - 37.0 g/dL LAB HEMETOLOGY METHOD 09/01/2024 5:51 PM EDT [facility] RDW 20.5(H) 11.0 - 15.0 % LAB HEMETOLOGY METHOD 09/01/2024 5:51 PM EDT [facility] Platelets 235 130 - 400 K/mcL LAB HEMETOLOGY METHOD 09/01/2024 5:51 PM EDT [facility] MPV 10.4 7.0 - 11.0 FL LAB HEMETOLOGY METHOD 09/01/2024 5:51 PM EDT [facility] NRBC 1.5(H) <1.0 % LAB HEMETOLOGY METHOD 09/01/2024 5:51 PM EDT [facility] NRBC Absolute 0.02 <0.10 K/mcL LAB HEMETOLOGY METHOD 09/01/2024 5:51 PM EDT [facility] Blood Venous blood specimen / Unknown Venipuncture / Unknown 09/01/2024 3:57 PM EDT 09/01/2024 4:08 PM EDT us Noemy Bergman DO LAB BLOOD ORDERABLES Stefany l Result [facility] [address] [place] [address], [place] [phone] * Protime-INR (09/01/2024 3:57 PM EDT) Pathologist [facility] Protime 13.6 10.6 - 13.9 sec LAB COAGULATION METHOD 09/01/2024 4:24 PM EDT [facility] INR 1.1 LAB COAGULATION METHOD 09/01/2024 4:24 PM EDT [facility] Blood Venous blood specimen / Unknown Venipuncture / Unknown 09/01/2024 3:57 PM EDT 09/01/2024 4:08 PM EDT Noemy Bergman LAB BLOOD ORDERABLES Stefany l Result Performing Organization Address [facility]/ZIP Co de Phone Number [facility] [address] [place] [address], [place] [phone] * APTT (09/01/2024 3:57 PM EDT) [facility] aPTT 34.8 24.1 - 39.3 sec LAB COAGULATION METHOD 09/01/2024 4:24 PM EDT [facility] Blood Venous blood specimen / Unknown Venipuncture / Unknown 09/01/2024 3:57 PM EDT 09/01/2024 4:08 PM EDT Noemy Bergman LAB BLOOD ORDERABLES Stefany l Result [facility] [address] [place] [address], [place] [phone] * Type and screen (09/01/2024 3:57 PM EDT) Pathologist [facility] ABO Group O 09/01/2024 4:58 PM EDT [facility] Rh Type Positive 09/01/2024 4:58 PM EDT [facility] Antibody Screen Negative 09/01/2024 4:58 PM EDT [facility] Blood Venous blood specimen / Unknown Venipuncture / Unknown 09/01/2024 3:57 PM EDT 09/01/2024 4:08 PM EDT Noemy Rivera Pacheco DO LAB BLOOD BANK TEST ORDER JUWAN Final Result [facility] [address] [place] [address], [place] [phone] * (ABNORMAL) Comprehensive metabolic panel (09/01/2024 3:57 PM EDT) Sodium 137 133 - 145 mmol/L LAB CHEMISTRY METHOD 09/01/2024 4:46 PM [facility] Potassium 4.6 3.5 - 5.5 mmol/L LAB CHEMISTRY METHOD 09/01/2024 4:46 PM [facility] Chloride 104 96 - 110 mmol/L LAB CHEMISTRY METHOD 09/01/2024 4:46 PM [facility] CO2 25 21 - 32 mmol/L LAB CHEMISTRY METHOD 09/01/2024 4:46 PM [facility] Anion Gap 8 3 - 11 LAB CHEMISTRY METHOD 09/01/2024 4:46 PM [facility] Glucose 113(H) 70 - 100 mg/dL LAB CHEMISTRY METHOD 09/01/2024 4:46 PM [facility] BUN 34(H) 5 - 25 mg/dL LAB CHEMISTRY METHOD 09/01/2024 4:46 PM [facility] Creatinine 1.92(H) 0.70 - 1.30 mg/dL LAB CHEMISTRY METHOD 09/01/2024 4:46 PM [facility] eGFR 35(L) >=60 mL/min/1. 73m2 LAB CHEMISTRY METHOD 09/01/2024 4:46 PM EDT [facility] Comment:Calculation based on the??Chronic Kidney Disease Epidemiology Collaboration (CKD-EPI) equation refit??without adjustment for race. BUN/Creatinine Ratio 17.7 LAB CHEMISTRY METHOD 09/01/2024 4:46 PM EDT [facility] Calcium 8.2(L) 8.5 - 10.5 mg/dL LAB CHEMISTRY METHOD 09/01/2024 4:46 PM EDT [facility] AST (SGOT) 19 10 - 42 unit/L LAB CHEMISTRY METHOD 09/01/2024 4:46 PM T [facility] ALT (SGPT) 13 10 - 60 unit/L LAB CHEMISTRY METHOD 09/01/2024 4:46 PM EDT [facility] Alkaline Phosphatase 28(L) 42 - 121 unit/L LAB CHEMISTRY METHOD 09/01/2024 4:46 PM EDT [facility] Total Protein 5.6(L) 6.0 - 8.0 g/dL LAB CHEMISTRY METHOD 09/01/2024 4:46 PM EDT [facility] Albumin 2.5(L) 3.2 - 5.0 g/dL LAB CHEMISTRY METHOD 09/01/2024 4:46 PM EDT [facility] Total Bilirubin 0.9 0.0 - 1.4 mg/dL LAB CHEMISTRY METHOD 09/01/2024 4:46 PM EDT [facility] Blood Venous blood specimen / Unknown Venipuncture / Unknown 09/01/2024 3:57 PM EDT 09/01/2024 4:08 PM EDT us Noemy Bergman DO LAB BLOOD ORDERABLES Stefany l Result [facility] [address] [place] [address], [place] [phone] documented in this encounter Visit Diagnoses Diagnosis Neutropenic sepsis (CMS/HCC)- Primary Neutropenic fever (CMS/HCC) Acute respiratory failure with hypoxia documented in this encounter Admitting Diagnoses Diagnosis Neutropenic sepsis (CMS/HCC) documented in this encounter Administered Medications Inactive Administered Medications - up to 3 most recent administrations Medication Order MAR Action Action Date Dose Rate Site acetaminophen (TYLENOL) tablet 1,000 mg 1,000 mg, oral, Once, On Wed09/01/24 at 1827, For 1 dose Given 09/01/2024 6:42 PM EDT 1,000 mg albumin human 25 % infusion 25 g 25 g, intravenous, Every 1 hour, First dose on Wed09/01/24 at 2236, For 3 doses, FOR HYPOVOLEMIC SHOCK: Infuse 5% Albumin as rapidly as tolerated (500 mL over 1 - 2 hr) or (250 mL over 30 - 60 min), as blood volume approaches normal then infusion rate should not exceed 1 mL/min. Infusing too rapidly may cause vascular overload which may lead to pulmonary edema or cardiac failure. ROUTINE REPLACEMENT: (non-critical) Infuse 5% or 25% Albumin @ 100 mL/hr for routine albumin replacement in non-critical situations. Faster infusion rates are appropriate for hypovolemic shock (see above). ADMINISTRATION NOTE: A 15-micron filter is only required for Buminate; however, filters are NOT required for all other brands (Albuked, Albuminar, Albuminex, AlbuRx, Albutein, Flexbumin, Kedbumin, Plasbumin). Do not exceed 1 mL/minute in patients with normal plasma volume; 3 mL/minute in patients with hypoproteinemia., Indications: hypotensionIndications:hypotensi on New Bag 09/01/2024 10:56 PM EDT 25 g albumin human 25 % infusion 25 g 25 g, intravenous, Once, On Wed09/02/24 at 0014, For 1 dose, FOR HYPOVOLEMIC SHOCK: Infuse 5% Albumin as rapidly as tolerated (500 mL over 1 - 2 hr) or (250 mL over 30 - 60 min), as blood volume approaches normal then infusion rate should not exceed 1 mL/min. Infusing too rapidly may cause vascular overload which may lead to pulmonary edema or cardiac failure. ROUTINE REPLACEMENT: (non-critical) Infuse 5% or 25% Albumin @ 100 mL/hr for routine albumin replacement in non-critical situations. Faster infusion rates are appropriate for hypovolemic shock (see above). ADMINISTRATION NOTE: A 15-micron filter is only required for Buminate; however, filters are NOT required for all other brands (Albuked, Albuminar, Albuminex, AlbuRx, Albutein, Flexbumin, Kedbumin, Plasbumin). Do not exceed 1 mL/minute in patients with normal plasma volume; 3 mL/minute in patients with hypoproteinemia., Indications: hypotensionIndications:hypotensi on New Bag 09/02/2024 12:26 AM EDT 25 g atorvastatin (LIPITOR) tablet 80 mg 80 mg, oral, Nightly, First dose on Wed09/01/24 at 2206 Given 09/03/2024 9:01 PM EDT 80 mg Given 09/02/2024 9:37 PM EDT 80 mg cefepime (MAXIPIME) 2 g in sterile water 20 mL IV syringe 2 g, intravenous, at 240 mL/hr, Administer over 5 Minutes, Once, On Wed09/01/24 at 1813, For 1 dose, Indication: Sepsis, Suspected source: urine Given 09/01/2024 6:29 PM EDT 2 g 240 mL/hr cefepime (MAXIPIME) 2 g in sterile water 20 mL IV syringe 2 g, intravenous, at 240 mL/hr, Administer over 5 Minutes, Every 12 hours, First dose (after last modification) on Wed09/02/24 at 0630, For 13 doses, Indication: Febrile Neutropenia Given 09/04/2024 6:37 AM EDT 2 g 240 mL/hr Given 09/03/2024 6:33 PM EDT 2 g 240 mL/hr Given 09/03/2024 5:48 AM EDT 2 g 240 mL/hr dextrose (D50W) 50% injection 12.5 g 12.5 g, intravenous, Every 15 min PRN, low blood sugar, moderate hypoglycemia *Patient is Unconscious, NPO, unable to swallow: BG 54 - 69 mg/dl*, Starting on Wed09/01/24 at 2311 dextrose (D50W) 50% injection 25 g 25 g, intravenous, Every 15 min PRN, low blood sugar, severe hypoglycemia *Patient is Unconscious, NPO, unable to swallow: BG LESS than 54 mg/dL*, Starting on Wed09/01/24 at 2311 dextrose 15 gram/60 mL oral solution 15 g 15 g, oral, Every 15 min PRN, low blood sugar, hypoglycemia *Patient conscious AND able to drink and swallow safely*, Starting on Wed09/01/24 at 2311 dextrose 15 gram/60 mL oral solution 30 g 30 g, oral, Every 15 min PRN, low blood sugar, hypoglycemia *Patient conscious AND able to drink and swallow safely*, Starting on Wed09/01/24 at 2311 doxazosin (CARDURA) tablet 4 mg 4 mg, oral, Nightly, First dose on Wed09/02/24 at 2100 Given 09/03/2024 9:02 PM EDT 4 mg Given 09/02/2024 11:30 PM EDT 4 mg enoxaparin (LOVENOX) injection 40 mg 40 mg, subcutaneous, Every 24 hours scheduled, First dose on Wed09/01/24 at 1953, Indication: VTE/PE Prophylaxis, On hold since Wed09/01/2024 at 2302 until manually unheld Given 09/01/2024 8:47 PM EDT 40 mg Ri ght Upper Abdomen fenofibrate (TRICOR) tablet 145 mg 145 mg, oral, Daily, First dose on Wed09/02/24 at 0900 Given 09/04/2024 9:26 AM EDT 145 mg Given 09/03/2024 8:47 AM EDT 145 mg Given 09/02/2024 8:55 AM EDT 145 mg folic acid (FOLVITE) tablet 1,000 mcg 1,000 mcg, oral, Daily, First dose on Wed09/02/24 at 0900 Given 09/04/2024 9:26 AM EDT 1,000 mcg Given 09/03/2024 8:48 AM EDT 1,000 mcg Given 09/02/2024 8:55 AM EDT 1,000 mcg gabapentin (NEURONTIN) capsule 300 mg 300 mg, oral, Every 8 hours scheduled, First dose on Wed09/01/24 at 2206 Given 09/04/2024 6:37 AM EDT 300 mg Given 09/03/2024 9:02 PM EDT 300 mg Given 09/03/2024 2:49 PM EDT 300 mg Glucagon HCl (rDNA) injection 1 mg 1 mg, intramuscular, Once as needed, low blood sugar, severe hypoglycemia, Starting on Wed09/01/24 at 2311, For 1 dose insulin lispro injection 1-6 Units 1-6 Units, subcutaneous, 3 times daily before meals, First dose on Wed09/02/24 at 0730, Indication: Total Daily Dose (TDD) LESS than 40 units Correction Scale: Low Dose Administer with meal and/or mealtime dose of insulin to correct high blood glucose If mealtime insulin dose not given (e.g. patient NPO or not eating), still administer correction factor for high blood glucose iopamidoL (ISOVUE-370) 370 mg iodine /mL (76 %) injection 100 mL 100 mL, intravenous, Once in imaging, Starting on Wed09/01/24 at 1654, For 1 dose Given 09/01/2024 4:58 PM EDT 90 mL ipratropium-albuteroL (DUONEB) 0.5-2.5 mg/3 mL nebulizer solution 3 mL 3 mL, nebulization, Once, On Wed09/01/24 at 1943, For 1 dose Given 09/01/2024 8:47 PM EDT 3 mL lactated Ringer's infusion 100 mL/hr, intravenous, Continuous, Starting on Wed09/01/24 at 1953, For 20 hours New Bag 09/02/2024 5:34 AM EDT 100 mL/hr 100 mL/hr Rate/Dose Verify 09/02/2024 12:12 AM EDT 100 mL/hr 100 mL /hr New Bag 09/01/2024 8:50 PM EDT 100 mL/hr 100 mL/hr ondansetron (PF) (ZOFRAN) injection 4 mg 4 mg, intravenous, Every 8 hours PRN, vomiting, nausea, Starting on Wed09/01/24 at 1952, -ONLY give IV if patient is unable to take orally. -If inadequate response within 30 minutes, proceed to next-line agent or contact provider if no further options ordered. ondansetron ODT (ZOFRAN-ODT) disintegrating tablet 4 mg 4 mg, oral, Every 8 hours PRN, vomiting, nausea, Starting on Wed09/01/24 at 1952, -Give IV if patient is unable to take orally. -If inadequate response within 30 minutes, proceed to next-line agent or contact provider if no further options ordered. For ODT tablets: -Do not remove from blister pack until just before administering. -Patient should allow tablet to dissolve on tongue. pantoprazole (PROTONIX) injection 40 mg 40 mg, intravenous, Administer over 2 Minutes, Every 12 hours, First dose on Wed09/02/24 at 0900, For 72 hours, Pantroprazole - IV push: Reconstitute powder for injection with 10 mL NS; final concentration: 4 mg/mL., Indication for IV Push Pantoprazole? EGD evidence of PUD with stigmata or Upper G.I. Bleed Given 09/04/2024 9:26 AM EDT 40 mg Given 09/03/2024 9:01 PM EDT 40 mg Given 09/03/2024 8:48 AM EDT 40 mg pantoprazole (PROTONIX) injection 80 mg 80 mg, intravenous, Administer over 2 Minutes, Once, On Wed09/01/24 at 1621, For 1 dose, Pantroprazole - IV push: Reconstitute powder for injection with 10 mL NS; final concentration: 4 mg/mL., Indication for IV Push Pantoprazole? EGD evidence of PUD with stigmata or Upper G.I. Bleed Given 09/01/2024 4:44 PM EDT 80 mg prochlorperazine (COMPAZINE) injection 10 mg 10 mg, intravenous, Every 6 hours PRN, nausea, vomiting, Starting on Wed09/01/24 at 195, 2nd Line Option: -ONLY give IV if patient is unable to take orally. -Give IM if patient does not have IV Access -If inadequate response within 30 minutes, proceed to next-line agent or contact provider if no further options ordered. prochlorperazine (COMPAZINE) suppository 25 mg 25 mg, rectal, Every 12 hours PRN, nausea, vomiting, Starting on Wed09/01/24 at 1952, 2nd Line Option: -ONLY give DC if patient is unable to take orally and cannot receive IV/IM. -If inadequate response within 30 minutes, proceed to next-line agent or contact provider if no further options ordered. prochlorperazine (COMPAZINE) tablet 10 mg 10 mg, oral, Every 6 hours PRN, nausea, vomiting, Starting on Wed09/01/24 at 1952, 2nd Line Option: -Give IV or IM if patient is unable to take orally. -If inadequate response within 30 minutes, proceed to next-line agent or contact provider if no further options ordered. sodium chloride 0.9 % bolus 1,000 mL 1,000 mL, intravenous, at 2,000 mL/hr, Administer over 30 Minutes, Once, On Wed09/01/24 at 1625, For 1 dose New Bag 09/01/2024 4:44 PM EDT 1,000 mL 2000 mL/hr sodium chloride 0.9 % bolus 1,000 mL 1,000 mL, intravenous, at 2,000 mL/hr, Administer over 30 Minutes, Once, On Wed09/01/24 at 1916, For 1 dose New Bag 09/01/2024 7:48 PM EDT 1,000 mL 2000 mL/hr sodium chloride 0.9 % bolus 500 mL 500 mL, intravenous, Once, On Wed09/01/24 at 2224, For 1 dose New Bag 09/01/2024 10:20 PM EDT 500 mL sodium chloride 0.9 % flush 10 mL 10 mL, intravenous, Once, On Wed09/01/24 at 1655, For 1 dose Given 09/01/2024 4:58 PM EDT 10 mL sodium chloride 0.9 % flush 10 mL 10 mL, intravenous, 2 times daily, First dose on Wed09/01/24 at 2100 Given 09/04/2024 9:26 AM EDT 10 mL Given 09/03/2024 9:02 PM EDT 10 mL Given 09/03/2024 8:48 AM EDT 10 mL sodium chloride 0.9 % flush 10 mL 10 mL, intravenous, As needed, line care, Starting on Wed09/01/24 at 1952 sodium chloride 0.9 % infusion 42 mL/hr, intravenous, As needed, pre-, and post- transfusion as needed for line flush purposes, in conjunction with blood product transfusion only, Starting on Wed09/02/24 at 0817, -Use only the amount required from a 250 mL bag of NS to adequately flush -A new NS bag is required with each new unit of blood administered vancomycin (VANCOCIN) 1,000 mg in sodium chloride 0.9 % 250 mL IVPB 1,000 mg, intravenous, at 250 mL/hr, Administer over 60 Minutes, Once, On Wed09/01/24 at 1813, For 1 dose, Indication: Sepsis, Suspected source: urine New Bag 09/01/2024 7:01 PM EDT 1,000 mg 250 mL/hr documented in this encounter Discontinued Medications Medication Sig Discontinue Reason Start Date End Da te lisinopriL (PRINIVIL,ZESTRIL) 20 mg tablet Take 1 Tablet by mouth daily. Stop Taking at Discharge 09/04/2024 trimethoprim-polymyxi n b (POLYTRIM) ophthalmic solution Administer 1 drop into both eyes 4 (four) times a day for 7 days. Stop Taking at Discharge 08/18/2024 09/04/2024 documented as of this encounter Active and Recently Administered Medications Times are shown in EDT. Scheduled Medication Order 09/02/2024 09/03/2024 09/04/2024 albumin human 25 % infusion 25 g (COMPLETED) 25 g, intravenous, Once, On 09/02/24 at 0014, For 1 dose, FOR HYPOVOLEMIC SHOCK: Infuse 5% Albumin as rapidly as tolerated (500 mL over 1 - 2 hr) or (250 mL over 30 - 60 min), as blood volume approaches normal then infusion rate should not exceed 1 mL/min. Infusing too rapidly may cause vascular overload which may lead to pulmonary edema or cardiac failure. ROUTINE REPLACEMENT: (non-critical) Infuse 5% or 25% Albumin @ 100 mL/hr for routine albumin replacement in non-critical situations. Faster infusion rates are appropriate for hypovolemic shock (see above). ADMINISTRATION NOTE: A 15-micron filter is only required for Buminate; however, filters are NOT required for all other brands (Albuked, Albuminar, Albuminex, AlbuRx, Albutein, Flexbumin, Kedbumin, Plasbumin). Do not exceed 1 mL/minute in patients with normal plasma volume; 3 mL/minute in patients with hypoproteinemia., Indications: hypotension 0026 (New Bag - Provider: Jimy Perez RN) atorvastatin (LIPITOR) tablet 80 mg 80 mg, oral, Nightly, First dose on Wed09/01/24 at 2206 2137 (Given - Provider: Lis Ruby, NICOLE) 2100 (Given - Provider: Larry Espinal RN) cefepime (MAXIPIME) 2 g in sterile water 20 mL IV syringe 2 g, intravenous, at 240 mL/hr, Administer over 5 Minutes, Every 12 hours, First dose (after last modification) on 09/02/24 at 0630, For 13 doses, Indication: Febrile Neutropenia 0530 (Given - Provider: Lis Ruby RN)1829 (Given - Provider: Lis Ruby RN) 0548 (Given - Provider: Lis Ruby RN)1833 (Given - Provider: Rosibel Devlin RN) 0637 (Given - Provider: Larry Espinal, NICOLE) doxazosin (CARDURA) tablet 4 mg 4 mg, oral, Nightly, First dose on 09/02/24 at 2100 2330 (Given - Provider: Lis Ruby RN - Comment: not loaded in pixes) 210 (Given - Provider: Larry Espinal, NICOLE) fenofibrate (TRICOR) tablet 145 mg 145 mg, oral, Daily, First dose on 09/02/24 at 0900 0855 (Given - Provider: Santiago Mcrae RN) 0847 (Given - Provider: Santiago Mcrae RN) 0926 (Given - Provider: Radha Herrera RN) folic acid (FOLVITE) tablet 1,000 mcg 1,000 mcg, oral, Daily, First dose on 09/02/24 at 0900 0855 (Given - Provider: Santiago Mcrae RN) 0848 (Given - Provider: Santiago Mcrae RN) 0926 (Given - Provider: Radha Herrera RN) gabapentin (NEURONTIN) capsule 300 mg 300 mg, oral, Every 8 hours scheduled, First dose on Wed09/01/24 at 2206 0531 (Given - Provider: Lis Ruby RN)1443 (Given - Provider: Santiago Mcrae RN)2137 (Given - Provider: Lis Ruby RN) 0548 (Given - Provider: Lis Ruby RN)1449 (Given - Provider: Santiago Mcrae RN)2102 (Given - Provider: Larry Espinal RN) 0637 (Given - Provider: Larry Espinal RN)1400 (Canceled Entry - Provider: Automatic Discharge Provider - Comment: Automatically canceled at discontinue of medication order) insulin lispro injection 1-6 Units 1-6 Units, subcutaneous, 3 times daily before meals, First dose on 09/02/24 at 0730, Indication: Total Daily Dose (TDD) LESS than 40 units Correction Scale: Low Dose Administer with meal and/or mealtime dose of insulin to correct high blood glucose If mealtime insulin dose not given (e.g. patient NPO or not eating), still administer correction factor for high blood glucose 0730 (Canceled Entry - Provider: Automatic Discharge Provider - Comment: Automatically canceled at discontinue of medication order)1302 (Not Given - Provider: Santiago Mcrae RN - Reason: Order parameters not met)1713 (Not Given - Provider: Santiago Mcrae RN - Reason: Order parameters not met) 0818 (Not Given - Provider: Santiago Mcrae RN - Reason: Order parameters not met)1226 (Not Given - Provider: Santiago Mcrae RN - Reason: Order parameters not met)1704 (Not Given - Provider: Santiago Mcrae RN - Reason: Order parameters not met) 0828 (Not Given - Provider: Radha Herrera RN - Reason: Order parameters not met)1139 (Not Given - Provider: Radha Herrera RN - Reason: Order parameters not met) pantoprazole (PROTONIX) injection 40 mg 40 mg, intravenous, Administer over 2 Minutes, Every 12 hours, First dose on 09/02/24 at 0900, For 72 hours, Pantroprazole - IV push: Reconstitute powder for injection with 10 mL NS; final concentration: 4 mg/mL., Indication for IV Push Pantoprazole? EGD evidence of PUD with stigmata or Upper G.I. Bleed 0855 (Given - Provider: Santiago Mcrae RN)2137 (Given - Provider: Lis Ruby RN) 0848 (Given - Provider: Santiago Mcrae RN)210 (Given - Provider: Larry Espinal RN) 0926 (Given - Provider: Radha Herrera RN) sodium chloride 0.9 % flush 10 mL(Linked Group 1) 10 mL, intravenous, 2 times daily, First dose on Wed09/01/24 at 2100 0855 (Given - Provider: Santiago Mcrae RN)213 (Given - Provider: Lis Ruby RN) 0848 (Given - Provider: Santiago Mcrae RN)210 (Given - Provider: Larry Espinal, RN) 0905 (Given - Provider: Radha Herrera RN) Continuous Medication Order 09/02/2024 09/03/2024 09/04/2024 lactated Ringer's infusion () 100 mL/hr, intravenous, Continuous, Starting on Wed09/01/24 at 1953, For 20 hours 0012 (Rate/Dose Verify - Provider: Maria C Vidal, NICOLE)0534 (New Bag - Provider: Lis Ruby RN) PRN Medication Order 09/02/2024 09/03/2024 09/04/2024 acetaminophen (TYLENOL) tablet 650 mg 650 mg, oral, Every 4 hours PRN, mild pain, headaches, fever - temperature GREATER than 38 C (100.4 F), Starting on Wed09/01/24 at 1952 dextrose (D50W) 50% injection 12.5 g 12.5 g, intravenous, Every 15 min PRN, low blood sugar, moderate hypoglycemia *Patient is Unconscious, NPO, unable to swallow: BG 54 - 69 mg/dl*, Starting on Wed09/01/24 at 2311 dextrose (D50W) 50% injection 25 g 25 g, intravenous, Every 15 min PRN, low blood sugar, severe hypoglycemia *Patient is Unconscious, NPO, unable to swallow: BG LESS than 54 mg/dL*, Starting on Wed09/01/24 at 2311 dextrose 15 gram/60 mL oral solution 15 g 15 g, oral, Every 15 min PRN, low blood sugar, hypoglycemia *Patient conscious AND able to drink and swallow safely*, Starting on Wed09/01/24 at 2311 dextrose 15 gram/60 mL oral solution 30 g 30 g, oral, Every 15 min PRN, low blood sugar, hypoglycemia *Patient conscious AND able to drink and swallow safely*, Starting on Wed09/01/24 at 2311 Glucagon HCl (rDNA) injection 1 mg 1 mg, intramuscular, Once as needed, low blood sugar, severe hypoglycemia, Starting on Wed09/01/24 at 2311, For 1 dose ondansetron (PF) (ZOFRAN) injection 4 mg(Linked Group 2) 4 mg, intravenous, Every 8 hours PRN, vomiting, nausea, Starting on Wed09/01/24 at 1951, -ONLY give IV if patient is unable to take orally. -If inadequate response within 30 minutes, proceed to next-line agent or contact provider if no further options ordered. ondansetron ODT (ZOFRAN-ODT) disintegrating tablet 4 mg(Linked Group 2) 4 mg, oral, Every 8 hours PRN, vomiting, nausea, Starting on Wed09/01/24 at 1951, -Give IV if patient is unable to take orally. -If inadequate response within 30 minutes, proceed to next-line agent or contact provider if no further options ordered. For ODT tablets: -Do not remove from blister pack until just before administering. -Patient should allow tablet to dissolve on tongue. prochlorperazine (COMPAZINE) injection 10 mg(Linked Group 3) 10 mg, intravenous, Every 6 hours PRN, nausea, vomiting, Starting on Wed09/01/24 at 1951, 2nd Line Option: -ONLY give IV if patient is unable to take orally. -Give IM if patient does not have IV Access -If inadequate response within 30 minutes, proceed to next-line agent or contact provider if no further options ordered. prochlorperazine (COMPAZINE) suppository 25 mg(Linked Group 3) 25 mg, rectal, Every 12 hours PRN, nausea, vomiting, Starting on Wed09/01/24 at 1951, 2nd Line Option: -ONLY give DC if patient is unable to take orally and cannot receive IV/IM. -If inadequate response within 30 minutes, proceed to next-line agent or contact provider if no further options ordered. prochlorperazine (COMPAZINE) tablet 10 mg(Linked Group 3) 10 mg, oral, Every 6 hours PRN, nausea, vomiting, Starting on Wed09/01/24 at 1951, 2nd Line Option: -Give IV or IM if patient is unable to take orally. -If inadequate response within 30 minutes, proceed to next-line agent or contact provider if no further options ordered. sodium chloride 0.9 % flush 10 mL(Linked Group 1) 10 mL, intravenous, As needed, line care, Starting on Wed09/01/24 at 1951 sodium chloride 0.9 % infusion 42 mL/hr, intravenous, As needed, pre-, and post- transfusion as needed for line flush purposes, in conjunction with blood product transfusion only, Starting on Wed09/02/24 at 0817, -Use only the amount required from a 250 mL bag of NS to adequately flush -A new NS bag is required with each new unit of blood administered Linked Groups Order Group 1: Insert peripheral IV (COMPLETED) STAT, Once, On Wed09/01/24 at 195, For 1 occurrence And Maintain IV access (CANCELED) Until discontinued, Starting on Wed09/01/24 at 1952, Until Specified And Saline lock IV (COMPLETED) Routine, Once, On Wed09/01/24 at 1952, For 1 occurrence And sodium chloride 0.9 % flush 10 mLJump to med 10 mL, intravenous, 2 times daily, First dose on Wed09/01/24 at 2100 And sodium chloride 0.9 % flush 10 mLJump to med 10 mL, intravenous, As needed, line care, Starting on Wed09/01/24 at 2 Group 2: ondansetron ODT (ZOFRAN-ODT) disintegrating tablet 4 mgJump to med 4 mg, oral, Every 8 hours PRN, vomiting, nausea, Starting on Wed09/01/24 at 1951, -Give IV if patient is unable to take orally. -If inadequate response within 30 minutes, proceed to next-line agent or contact provider if no further options ordered. For ODT tablets: -Do not remove from blister pack until just before administering. -Patient should allow tablet to dissolve on tongue. Or ondansetron (PF) (ZOFRAN) injection 4 mgJump to med 4 mg, intravenous, Every 8 hours PRN, vomiting, nausea, Starting on Wed09/01/24 at 1951, -ONLY give IV if patient is unable to take orally. -If inadequate response within 30 minutes, proceed to next-line agent or contact provider if no further options ordered. Group 3: prochlorperazine (COMPAZINE) tablet 10 mgJump to med 10 mg, oral, Every 6 hours PRN, nausea, vomiting, Starting on Wed09/01/24 at 1951, 2nd Line Option: -Give IV or IM if patient is unable to take orally. -If inadequate response within 30 minutes, proceed to next-line agent or contact provider if no further options ordered. Or prochlorperazine (COMPAZINE) injection 10 mgJump to med 10 mg, intravenous, Every 6 hours PRN, nausea, vomiting, Starting on Wed09/01/24 at 1951, 2nd Line Option: -ONLY give IV if patient is unable to take orally. -Give IM if patient does not have IV Access -If inadequate response within 30 minutes, proceed to next-line agent or contact provider if no further options ordered. Or prochlorperazine (COMPAZINE) suppository 25 mgJump to med 25 mg, rectal, Every 12 hours PRN, nausea, vomiting, Starting on Wed09/01/24 at 1952, 2nd Line Option: -ONLY give DC if patient is unable to take orally and cannot receive IV/IM. -If inadequate response within 30 minutes, proceed to next-line agent or contact provider if no further options ordered. documented in this encounter Orders Medications Ordered That Casa ht Not Have Been Administered Count Last Ordered Date First Ordered Date sodium chloride 0.9 % infusion 1 09/02/2024 acetaminophen (TYLENOL) tablet 650 mg 1 cefepime (MAXIPIME) 2 g in s terile water 20 mL IV syringe 1 09/01/2024 dextrose (D50W) 50% injection 12.5 g 1 08/19 dextrose (D50W) 50% injection 25 g 1 2024 dextrose 15 gram/60 mL oral solution 15 g 09/01/2024 dextrose 15 gram/60 mL oral solution 30 g 1 09/01/2024 Glucagon HCl (rDNA) injection 1 mg 1 2024 insulin lispro injection 1-6 Units 1 2024 ondansetron (PF) (ZOFRAN) injection 4 mg 1 09/01/2024 ondansetron ODT (ZOFRAN-ODT) disintegrating tablet 4 mg 1 09/01/2024 prochlorperazine (COMPAZINE) injection 10 mg 1 09/01/2024 prochlorperazine (COMPAZINE) suppository 25 mg 1 09/01/2024 prochlorperazine (COMPAZINE) tablet 10 mg 1 09/01/2024 sodium chloride 0.9 % flush 10 mL 1 025 Lab Orders Without Results Count Last Ordered D ate First Ordered Date POCT GLUCOSE, BLOOD 10 09/04/2024 09/03/19 Diet Count Last Ordered Date First Orde red Date ADULT DISCHARGE DIET 1 09/04/2024 Nursing Count Last Ordered Date First Orde red Date ACTIVITY 1 09/04/2024 FOLLOW UP WITH PROVIDER 1 09/04/2024 STRAIGHT CATH 1 09/01/2024 VITAL SIGNS 1 09/01/2024 Respiratory Care Count Last Ordered Date First Ordered Date OXYGEN THERAPY, ADULT 4 09/03/20242024 IV Count Last Ordered Date First Orde red Date INSERT PERIPHERAL IV 1 09/01/2024 SALINE LOCK IV 1 09/01/2024 Admission Count Last Ordered Date First Orde red Date ADMIT TO INPATIENT 1 09/01/2024 Transfer Count Last Ordered Date First Orde red Date TRANSFER PATIENT TO NEW UNIT 1 09/03/2024 ED TO FLOOR BED REQUEST 1 09/01/2024 Discharge Count Last Ordered Date First Orde red Date DISCHARGE PATIENT 1 09/04/2024 documented in this encounter Additional Health Concerns Infection Onset Date Last Indicated Resolved Time Respiratory Rule-Out 09/01/2024 09/01/2024 025 8:03 PM EDT COVID-19 Rule-Out 09/01/2024 09/01/2024 09/01/2024 8:03 PM EDT documented as of this encounter Care Teams Order Editor Relationship Specialty Start Date End Date Júnior Crawley MD [address] [place] [address] PCP - General Internal Medicine 05/02/24 documented as of this encounter
--- OUTSIDE RECORDS SUMMARY | 2024-09-07 16:48 | XMS_ITS | Encounter Summary ---
Author Organization [facility] Address [address] [place] [address] Care Team Providers Care Community Health Advocate Name Role Phone Júnior Crawley MD Primary Care Provider [phone] Encounter Details Date Type Department Care Team (Late st Contact Info) Description 08/29/2024 11:10 AM EDT Lab Draw Station - [facility] [place] [address] [facility] [address] [place] [phone] Malignant neoplasm of prostate (CMS/HCC); Iron deficiency anemia secondary to blood loss (chronic); Iron deficiency anemia due to chronic blood loss; Elevated prostate specific antigen (PSA) Social History Tobacco Use Types Packs/Day Years [...] care for your loved ones. For example, child and adolescent psychiatrist or elderly care for an older adult? [...] as of this encounter Progress Notes * LIO Ramirez - 08/29/2024 11:10 [address]. Dr. Conte's labs today. documented in this encounter Plan of Treatment Upcoming Encounters Date Type Department Care Team (Late st Contact Info) Description 09/08/2024 8:00 AM EDT Appointment [facility] [address] [place] [phone] Jeffrey Conte MD [address] [place] [phone] 09/13/2024 9:30 AM EDT Office Visit [facility] Hematology Oncology [address] [place] [phone] Jeffrey Conte MD [address] [place] [phone] 10/19/2024 9:00 AM EDT Appointment [facility] [address] [place] [phone] 02/20/2025 8:00 AM EDT Ancillary Procedure [facility] Cardiology [facility] [address] [place] [address] 03/01/2025 8:40 AM EDT Office Visit [facility] Cardiology [facility] [address] [place] [phone] Marcela Chris NP [address] [place] [address] [place] [address] documented as of this encounter Procedures Procedure Name Priority Date/Time Associated Diagnosis Comments PROSTATE SPECIFIC ANTIGEN DIAGNOSTIC Routine 08/29/2024 11:06 AM EDT Iron deficiency anemia due to chronic blood loss Elevated prostate specific antigen (PSA) CBC WITH AUTO DIFFERENTIAL Routine 08/29/2024 11:06 AM EDT Iron deficiency anemia due to chronic blood loss IRON AND TIBC Routine 08/29/2024 11:06 AM EDT Malignant neoplasm of prostate (CMS/HCC) Iron deficiency anemia secondary to blood loss (chronic) CBC AND DIFFERENTIAL Routine 08/29/2024 11:06 AM EDT Iron deficiency anemia due to chronic blood loss TYPE AND SCREEN Routine 08/29/2024 11:06 AM EDT Malignant neoplasm of prostate (CMS/HCC) Iron deficiency anemia secondary to blood loss (chronic) FERRITIN Routine 08/29/2024 11:06 AM EDT Malignant neoplasm of prostate (CMS/HCC) Iron deficiency anemia secondary to blood loss (chronic) COMPREHENSIVE METABOLIC PANEL Routine 08/29/2024 11:06 AM EDT Iron deficiency anemia due to chronic blood loss documented in this encounter Results * (ABNORMAL) CBC auto differential (08/29/2024 11:06 AM EDT) WBC 0.7(LL) 4.8 - 10.8 K/mcL LAB HEMETOLOGY METHOD 08/29/2024 12:22 PM [facility] RBC 2.20(L) 4.50 - 5.50 M/mcL LAB HEMETOLOGY METHOD 08/29/2024 12:22 PM [facility] Hemoglobin 7.1(L) 13.5 - 17.5 g/dL LAB HEMETOLOGY METHOD 08/29/2024 12:22 PM [facility] Hematocrit 22.8(L) 42.0 - 54.0 % LAB HEMETOLOGY METHOD 08/29/2024 12:22 PM [facility] MCV 101.8(H) 79.0 - 98.0 FL LAB HEMETOLOGY METHOD 08/29/2024 12:22 PM [facility] MCH 31.7 27.0 - 32.0 pcg LAB HEMETOLOGY METHOD 08/29/2024 12:22 PM [facility] MCHC 31.1(L) 32.0 - 37.0 g/dL LAB HEMETOLOGY METHOD 08/29/2024 12:22 PM [facility] RDW 18.9(H) 11.0 - 15.0 % LAB HEMETOLOGY METHOD 08/29/2024 12:22 PM [facility] Platelets 211 130 - 400 K/mcL LAB HEMETOLOGY METHOD 08/29/2024 12:22 PM [facility] MPV 11.0 7.0 - 11.0 FL LAB HEMETOLOGY METHOD 08/29/2024 12:22 PM [facility] NRBC 0.0 <1.0 % LAB HEMETOLOGY METHOD 08/29/2024 12:22 PM [facility] NRBC Absolute 0.00 <0.10 K/mcL LAB HEMETOLOGY METHOD 08/29/2024 12:22 PM [facility] Neutrophils Relative 22.5 % LAB HEMETOLOGY METHOD 08/29/2024 12:22 PM [facility] Comment:This is an appended report. These results have been appended to a previously preliminary verified report. Lymphocytes Relative 47.9 % LAB HEMETOLOGY METHOD 08/29/2024 12:22 PM [facility] Comment:This is an appended report. These results have been appended to a previously preliminary verified report. Monocytes Relative 25.4 % LAB HEMETOLOGY METHOD 08/29/2024 12:22 PM [facility] Comment:This is an appended report. These results have been appended to a previously preliminary verified report. Eosinophils Relative 1.4 % LAB HEMETOLOGY METHOD 08/29/2024 12:22 PM [facility] Comment:This is an appended report. These results have been appended to a previously preliminary verified report. Basophils Relative 1.4 % LAB HEMETOLOGY METHOD 08/29/2024 12:22 PM [facility] Comment:This is an appended report. These results have been appended to a previously preliminary verified report. Immature Granulocytes Relative 1.4 % LAB HEMETOLOGY METHOD 08/29/2024 12:22 PM [facility] Comment:This is an appended report. These results have been appended to a previously preliminary verified report. Neutrophils Absolute 0.16(L) 1.50 - 7.00 K/mcL LAB HEMETOLOGY METHOD 08/29/2024 12:22 PM [facility] Comment:This is an appended report. These results have been appended to a previously preliminary verified report. Lymphocytes Absolute 0.34(L) 1.00 - 5.00 K/mcL LAB HEMETOLOGY METHOD 08/29/2024 12:22 PM [facility] Comment:This is an appended report. These results have been appended to a previously preliminary verified report. Monocytes Absolute 0.18(L) 0.20 - 1.00 K/mcL LAB HEMETOLOGY METHOD 08/29/2024 12:22 PM [facility] Comment:This is an appended report. These results have been appended to a previously preliminary verified report. Eosinophils Absolute 0.01 0.00 - 0.50 K/mcL LAB HEMETOLOGY METHOD 08/29/2024 12:22 PM [facility] Comment:This is an appended report. These results have been appended to a previously preliminary verified report. Basophils Absolute 0.01 0.00 - 0.20 K/mcL LAB HEMETOLOGY METHOD 08/29/2024 12:22 PM [facility] Comment:This is an appended report. These results have been appended to a previously preliminary verified report. Immature Granulocytes Absolute 0.01 0.00 - 0.03 K/mcL LAB HEMETOLOGY METHOD 08/29/2024 12:22 PM [facility] Comment:This is an appended report. These results have been appended to a previously preliminary verified report. Blood Venous blood specimen / Unknown Venipuncture / Unknown 08/29/2024 11:06 AM EDT 08/29/2024 11:27 AM EDT us Jeffrey Conte MD LAB BLOOD ORDERABLES Final Res ult [facility] [address] [place] [address], * (ABNORMAL) Comprehensive metabolic panel (08/29/2024 11:06 AM EDT) Sodium 146(H) 133 - 145 mmol/L LAB CHEMISTRY METHOD 08/29/2024 12:23 PM [facility] Potassium 3.9 3.5 - 5.5 mmol/L LAB CHEMISTRY METHOD 08/29/2024 12:23 PM [facility] Chloride 112(H) 96 - 110 mmol/L LAB CHEMISTRY METHOD 08/29/2024 12:23 PM [facility] CO2 26 21 - 32 mmol/L LAB CHEMISTRY METHOD 08/29/2024 12:23 PM [facility] Anion Gap 8 3 - 11 LAB CHEMISTRY METHOD 08/29/2024 12:23 PM [facility] Glucose 138(H) 70 - 100 mg/dL LAB CHEMISTRY METHOD 08/29/2024 12:23 PM [facility] BUN 21 5 - 25 mg/dL LAB CHEMISTRY METHOD 08/29/2024 12:23 PM [facility] Creatinine 1.06 0.70 - 1.30 mg/dL LAB CHEMISTRY METHOD 08/29/2024 12:23 PM [facility] eGFR 72 >=60 mL/min/1. 73m2 LAB CHEMISTRY METHOD 08/29/2024 12:23 PM [facility] Comment:Calculation based on the??Chronic Kidney Disease Epidemiology Collaboration (CKD-EPI) equation refit??without adjustment for race. BUN/Creatinine Ratio 19.8 LAB CHEMISTRY METHOD 08/29/2024 12:23 PM EDT [facility] Calcium 8.2(L) 8.5 - 10.5 mg/dL LAB CHEMISTRY METHOD 08/29/2024 12:23 PM [facility] AST (SGOT) 20 10 - 42 unit/L LAB CHEMISTRY METHOD 08/29/2024 12:23 PM [facility] ALT (SGPT) 15 10 - 60 unit/L LAB CHEMISTRY METHOD 08/29/2024 12:23 PM [facility] Alkaline Phosphatase 35(L) 42 - 121 unit/L LAB CHEMISTRY METHOD 08/29/2024 12:23 PM [facility] Total Protein 5.8(L) 6.0 - 8.0 g/dL LAB CHEMISTRY METHOD 08/29/2024 12:23 PM [facility] Albumin 2.6(L) 3.2 - 5.0 g/dL LAB CHEMISTRY METHOD 08/29/2024 12:23 PM [facility] Total Bilirubin 0.4 0.0 - 1.4 mg/dL LAB CHEMISTRY METHOD 08/29/2024 12:23 PM [facility] Blood Venous blood specimen / Unknown Venipuncture / Unknown 08/29/2024 11:06 AM EDT 08/29/2024 11:27 AM EDT us Jeffrey Conte MD LAB BLOOD ORDERABLES Final Res ult [facility] [address] [place] [address], * (ABNORMAL) Prostate specific antigen diagnostic (08/29/2024 11:06 AM EDT) PSA 20.52(H) 0.00 - 4.00 ng/mL LAB CHEMISTRY METHOD 08/29/2024 12:17 PM EDT [facility] Blood Venous blood specimen / Unknown Venipuncture / Unknown 08/29/2024 11:06 AM EDT 08/29/2024 11:27 AM EDT Narrative [facility] - 08/29/2024 12:17 PM EDT The Siemens Advia Centaur Chemiluminescent Immunoassay is used. Results obtained with different assay methods or kits cannot be used interchangeably. Results cannot be interpreted as absolute evidence of the presence or absence of malignant disease. us Jeffrey Conte MD LAB BLOOD ORDERABLES Final Res ult Performing Organization Address [facility] Co de Phone Number [facility] [address] [place] [address], [place] [phone] * Type and screen (08/29/2024 11:06 AM EDT) ABO Group O 08/29/2024 12:44 PM EDT [facility] Rh Type Positive 08/29/2024 12:44 PM EDT [facility] Antibody Screen Negative 08/29/2024 12:44 PM EDT [facility] Blood Venous blood specimen / Unknown Venipuncture / Unknown 08/29/2024 11:06 AM EDT 08/29/2024 11:26 AM EDT us Jeffrey Conte MD LAB BLOOD BANK TEST ORDERABLES Final Result Performing Organization Address [facility]/ZIP Co de Phone Number [facility] [address] [place] [address], [place] [phone] * (ABNORMAL) Iron and TIBC (08/29/2024 11:06 AM EDT) Iron 65 50 - 160 mcg/dL LAB CHEMISTRY METHOD 08/29/2024 12:23 PM EDT [facility] TIBC 243(L) 250 - 450 mcg/dL LAB CHEMISTRY METHOD 08/29/2024 12:23 PM EDT [facility] Iron Saturation 27 20 - 50 % LAB CHEMISTRY METHOD 08/29/2024 12:23 PM EDT [facility] Blood Venous blood specimen / Unknown Venipuncture / Unknown 08/29/2024 11:06 AM EDT 08/29/2024 11:27 AM EDT us Jeffrey Conte MD LAB BLOOD ORDERABLES Final Res ult Performing Organization Address City/[facility]/ZIP Co de Phone Number [facility] [address] [place] [address], [place] [phone] * (ABNORMAL) Ferritin (08/29/2024 11:06 AM EDT) Ferritin 893(H) 26 - 388 ng/mL LAB CHEMISTRY METHOD 08/29/2024 12:23 PM EDT [facility] Blood Venous blood specimen / Unknown Venipuncture / Unknown 08/29/2024 11:06 AM EDT 08/29/2024 11:27 AM EDT us Jeffrey Conte MD LAB BLOOD ORDERABLES Final Res ult Performing Organization Address City/[facility]/ZIP Co de Phone Number [facility] [address] [place] [address], [place] [phone] documented in this encounter Visit Diagnoses Diagnosis Malignant neoplasm of prostate (CMS/HCC) Malignant neoplasm of prostate 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
--- OUTSIDE RECORDS SUMMARY | 2024-09-07 16:48 | XMS_ITS | Encounter Summary ---
Author Organization [facility] Address [address] [place] [address] Care Team Providers Care Tape Fastener Machine Operator Name Role Phone Júnior Crawley MD Primary Care Provider [phone] Reason for Visit * Reason Comments OP Infusion Blood transfusion Encounter Details Date Type Department Care Team (Latest Contact Info) Description 08/30/2024 10:08 AM EDT - 08/30/2024 11:59 PM EDT Hospital Encounter 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 For example, child welfare manager or elderly care for an older adult? [...] Sign Reading Time Taken Comments Blood Pressure 119/46 08/30/2024 1:55 PM EDT Pulse 72 08/30/2024 1:55 PM EDT Temperature 37.1 ??C (98.8 ??F) 08/30/2024 1:55 PM ED T Respiratory Rate 18 08/30/2024 1:55 PM EDT Oxygen Saturation 98% 08/30/2024 10:34 AM EDT Inhaled Oxygen Concentration - - Weight 83.9 kg (185 lb) 08/30/2024 10:34 AM EDT Height 165.1 cm (5' 5 ) 08/30/2024 10:34 AM EDT Body Mass Index 30.79 08/30/2024 10:34 AM EDT documented in this encounter Medications at Time [...] times a day. 90 each 2 07/13/2024 iron,carbonyl-vi tamin C (Vitron-C) 65 mg iron- 125 mg tablet,delayed release (DR/EC) Take 1 tablet by mouth 1 (one) time each day. leuprolide acetate (ELIGARD SUBQ) Inject into the skin Every 3 Months. metFORMIN (GLUCOPHAGE) 500 mg tablet Take 0.5 tablets (250 mg total) by mouth 1 (one) time each day with breakfast. omeprazole (PriLOSEC) [address] capsuleIndicatio ns:Melena Take 1 capsule (40 mg total) by mouth 2 (two) times a day. Do not crush or chew. 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 Start the day after IV chemotherapy. Take on days 2-21 of each cycle with food. 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 60 tablet 3 07/06/2024 rosuvastatin (CRESTOR) 20 mg tablet Take 1 Tablet by mouth daily. sod picosulf-mag ox-citric ac (Clenpiq) 10 mg-3.5 gram- 12 gram/175 mL solutionIndicati ons:Gastrointest inal bleeding,Melena, Proctitis Take 175 mL by mouth 2 (two) times a day. 350 mL 07/20/2024 terazosin (HYTRIN) 5 mg capsule Take 1 Capsule by mouth at bedtime. lisinopriL (PRINIVIL,ZESTRI L) 20 mg tablet Take 1 Tablet by mouth daily. 5 trimethoprim-swathi ymyxin b (POLYTRIM) ophthalmic solution Administer 1 drop into both eyes 4 (four) times a day for 7 days. 10 mL 08/18/2024 5 documented as of this encounter Discharge Disposition Disposition Code Departure Means Destination Home or Self Care documented in this encounter Progress Notes * Monet Huber RN - 08/30/2024 10:15 AM EDT Pat arrives ambulatory with steady gait for today's scheduled blood transfusion with Nara - he has been feeling - stable assessment completed. Today he will receive 1 unit PRBC for hgb 7.1. Consent signed - port in right chest accessed per protocol with no dificulty, +brisk blood return noted. Blood requested from blood bank. Patient resting comfortably in recliner with call singh in reach - no voiced needs currently - given hot coffee. 1143- 1 unit PRBC up on pump - verified with Claribel RIVERA. 1158 - 15 min vitals stable - no voiced needs. CTM. 1355 - Infusion completed - well tolerated - good appetite for lunch. Port flushed and deaccessed per protocol. Patient has next appt in place. Stable upon discharge. documented in this encounter Plan of Treatment Upcoming Encounters Date Type Department Care Team (Late st Contact Info) Description 09/08/2024 8:00 AM EDT Appointment [address] [phone] Jeffrey Conte MD [address] [place] [phone] 09/13/2024 9:30 AM EDT Office Visit [facility] Hematology Oncology [address] [place] [phone] Jeffrey Conte MD [address] [place] [phone] 10/19/2024 9:00 AM EDT Appointment [address] [phone] 02/20/2025 8:00 AM EDT Ancillary Procedure [facility] Cardiology [facility] [address] [facility] [address] [place] [phone] 03/01/2025 8:40 AM EDT Office Visit [facility] Cardiology [facility] [address] [place] [address] [address] [place] [phone] Marcela Chris NP [address] [place] [address] [address] [place] [address] documented as of this encounter Procedures Procedure Name Priority Date/Time Associated Diagnosis Comments TRANSFUSE RED BLOOD CELLS Routine 08/30/2024 11:43 AM EDT 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) Prostate cancer (CMS/HCC) PREPARE RBC Routine 08/30/2024 10:37 AM EDT 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) Prostate cancer (CMS/HCC) documented in this encounter Results * Transfuse RBC (08/30/2024 1:59 PM EDT) us Jeffrey Conte MD BLOOD TRANSFUSION ORDERABLES F inal Result * Transfuse RBC: 1 Units (08/30/2024 1:59 PM EDT) us Jeffrey Conte MD BLOOD TRANSFUSION ORDERABLES F inal Result * Prepare RBC: 1 Units (08/30/2024 10:37 AM EDT) Product Code [id number] 08/30/2024 11:45 AM EDT [facility] Unit Number [id number] 08/31/19 11:45 AM EDT [facility] Crossmatch Compatible 08/30/2024 10:38 AM EDT [facility] Dispense Status Transfused 08/30/2024 11:45 AM EDT [facility] Unit ABO Rh OPOS 08/30/2024 11:45 AM EDT [facility] Unit Expiration Date Time [id number] 08/30/2024 11:45 AM EDT [facility] Unit Blood Type 5100 08/30/2024 11:45 AM EDT [facility] Blood Venous blood specimen / Unknown 08/30/2024 10:37 AM EDT 08/29/2024 11:26 AM EDT us Jeffrey Conte MD BLOOD BANK PRODUCT ORDERABLES Final Result [facility] [address] [place] [address], documented in this encounter Visit Diagnoses Diagnosis 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
--- OUTSIDE RECORDS SUMMARY | 2024-09-07 16:48 | XMS_ITS | Encounter Summary ---
Author Organization [facility] Address [address] [place] [address] Care Team Providers Care Sustainability Communicator Name Role Phone Júnior Crawley MD Primary Care Provider [phone] Reason for Visit * Reason Comments Follow-up Encounter Details Date Type Department Care Team (Late st Contact Info) Description 08/30/2024 9:45 AM EDT Office Visit [facility] Hematology Oncology [address] [place] [address] Jeffrey Conte MD [address] [place] [address] Prostate cancer (CMS/HCC) (Primary Dx) Social History Tobacco Use Types Packs/Day Years Used Date Smoking Tobacco: Former Cigarettes Q uit: 06/21/2012 Smokeless Tobacco: Never Tobacco Cessation:Counseling Given: Not Answered Alcohol Use Standard Drinks/Week Comments No 0 [...] care for your loved ones. For example, children's court magistrate or elderly care for an older adult? [...] Sign Reading Time Taken Comments Blood Pressure 136/45 08/30/2024 9:33 AM EDT Pulse - - Temperature 36.5 ??C (97.7 ??F) 08/30/2024 9:33 AM ED T Respiratory Rate - - Oxygen Saturation 98% 08/30/2024 9:33 AM EDT Inhaled Oxygen Concentration - - Weight 83.9 kg (185 lb) 08/30/2024 9:33 AM EDT Height - - Body Mass Index 30.79 08/25/2024 9:54 AM EST documented in this encounter Progress Notes * Jeffrey Conte MD - 08/30/2024 9:45 AM EDT CHIEF COMPLAINT: Follow-up IDENTIFIER:Luke Turpin is a 79 y.o. male. HPI:Metastatic carcinoma prostate transitioning to docetaxel/prednisone with very good tolerance oftreatment. Metastatic carcinoma the prostate previously on Eligard enzalutamide.. Colonic AVM GI bleed Metastatic carcinoma the prostate currently on Eligard abiraterone prednisone.. Colonic AVM GI bleed Transition to therapy of docetaxel prednisone June 2024 Prior testing from [facility] demonstrates no tumor related somatic alterations MSI high not detected Clinically patient is doing well no ongoing acute complaints of pain appetite energy functional status all quite good. Demonstrates hemoglobin 9.3 PSA is at 30. 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 Kim Patient remains on ADT with Eligard per urology Originally seen in this clinic in August 2016 for iron deficiency anemia, now returns for evaluationof rising PSA. Mr. Turpin was initially identified on screening PSA in 1999 with biopsy demonstrating [place] 7; he was successfully treated with brachytherapy. More recently he is been on androgen deprivation therapy with leuprolide but no oral agent and his PSA has been rising. In May 2015 the PSA was 7.4 over the succeeding 2 years by 04/20/2017 the PSA was 13.7. In October 2018 patient had a PSA of 58 was subsequently started on therapy with enzalutamide continuing on Eligard PSA dropped to 30 over the course of next several months and thereafter has remained stable between 17 and 19. Subsequently patient had PSA approximately 30 which subsequently galen to 40 as of 05/13/2021. He was asymptomatic did not wish to transition treatment plan. He has routine follow-up with GI regardinghis prior AVM Prior GI evaluation opted to hold off on colonoscopy iron studies have been normal. Tolerated initiation of enzalutamide and Lupron. He had no constitutional difficulties he had recently returned from [place]. His laboratory data shows hemoglobin of 8.1 at this time. PSA 77. No acute complaints at the moment biopsy of soft tissue lesion taken from left acetabulum consistent with metastatic prostate cancer. As previously reviewed with radiology is considered to be some unusual metastatic pattern 11/04/2021 hemoglobin 8.4, PSA 87.5. There had been several days patient did not take any treatmentAs of 12/29/2021 WBC is 6.0 hemoglobin 7.5 platelet count 312,000 creatinine 1.07 PSA 67.9 normal LFTs. No actionable biomarker was noted on [facility] evaluation. MRI from 01/24/2022 metastatic disease involving left acetabulum as well as sacrum heterogeneous massleft pelvis enhancement of nerve roots neural foramina S2 soft tissue mass involving acetabular roof posterior aspect of left acetabulum. Reviewed laboratory data patient tolerated enzalutamide without difficulty. He has also tolerated RT his PSA was 22 he had no symptomatic complaints referable to his prior diagnosis of metastatic prostate cancer. Patient has had prior CBC with hemoglobin 7.3. He has known history of angiodysplasia of the colon.He has been followed closely by GI. He has intermittent need for intravenous iron as well as periodically transfusion of RBC. Tolerated colonoscopy. Demonstration of angiodysplasia Patient states he did not have capsule study He did have prior hemorrhoidal bleed and he has had prior cauterization of AVMs. He is followed by GI service Radiographic studies reviewed extensively with radiology. Adrenal lesion is prominent on PET. Adrenal biopsy ultimately demonstrating metastatic prostate cancer No ongoing difficulties of severe pain syndrome intermittent discomfort particularly involving lefthip. WBC 5.3 hemoglobin 7.1 platelet count 249,000 iron 123 ferritin 238 creatinine 1.2 PSA 22.6 no significant abnormality regarding LFTs. CT scan chest abdomen pelvis right adrenal metastasis [id number] mm 43 mm otherwise unchanged lesions within L4 and pelvis. Left hip pain improved no ongoing acute complaints with regard to respiratory status. No localizingsign or symptom of infection. Radiographically patient noted to have calcific tendinitis involving left hip. Patient states that he is feeling well. We have had lengthy discussion regarding his prior radiographic findings decision was made to hold off on further intervention pending repeat CT scan in November. Patient also had recent CBC 7.3 requiring transfusional therapy. He has been followed by Dr. Zelaya GI service. He has had prior cautery of vascular lesions. Tolerating therapy well. Intermittent difficulties of left-sided musculoskeletal discomfort. No weakness. Radiographic assessment stable pelvic disease, slight progression of adrenal lesion. PSA remains stable lytic metastasis left acetabulum mixed lytic blastic lesion left sacrum similar to prior studies soft tissue mass tracks into epidural space along sacral foramina. CT laboratory data reviewed concern regarding new lesions within the ribs on the left. Pain syndrome improved with gabapentin No acute complaints at the moment. Did have some gastrointestinal distress after Wednesday evening meal this is isolated episode. No persistent difficulties of febrile problems no difficulties of further diarrhea no nausea or vomiting. Patient has had weight loss of some 20+ pounds over the course of the last several months but this is with discontinuation of alcohol. Appetite remains intact otherwise. Previously reviewed radiographic findings from February. Patient candidate for institution of therapy docetaxel. 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 Following up with GI persistent difficulties of the occult GI blood loss with AVM. Transfused today. He did have prior difficulty with oral iron therapy. Overall doing well recent cautery with GI. Laboratory data most recent PSA 33, hemoglobin 7.3, LFTswithin normal limits. Patient is in good spirits he has no difficulty of pain no respiratory compromise. We have discussed the role of transitioning therapy he has had prior treatment of abiraterone as well as enzalutamide. CT scan reviewed further progression of disease. Follow-up evaluation repeat CBC hemoglobin less than 7 patient to be transfused 2 units. He is fully ambulatory symptomatic difficulties of left-sided musculoskeletal discomfort initiated with ambulation relieved at rest. Also discussed issue regarding L4. Difficulties of anemia. Patient followed by GI service noted to have vascular malformations with prior cautery. Overall doing reasonably well no acute complaints. States that he is feeling much better after transfusional therapy. He has had evaluation with Dr. Zelaya upper lower endoscopy. Evidence of AVM Tolerating docetaxel Overall doing well did have some neutropenia with current treatment. Repeat counts pending. Anticipate transfusional therapy today. PSA down to 20. Tolerating therapy remarkably well otherwise PAST MEDICAL HISTORY: Past Medical History: Diagnosis Date Anemia DX:Anemia [...] OTHER SURGICAL HISTORY 05/11/2023 capsule endoscopy: angioectasias SOCIAL HISTORY: Social History Tobacco Use Smoking status: Former Current packs/day: 0.00 Types: Cigarettes Quit date: 06/21/2012 Years since quittin.2 Smokeless tobacco: Never Substance Use Topics Alcohol use: No FAMILY HISTORY: No family history on file. No family status information on file. Current Outpatient Medications: cholecalciferol (VITAMIN D-3) 25 mcg (1,000 unit) tablet, Take 1 tablet (1,000 Units total) by mouth 1 (one) time each day., Disp: , Rfl: DOCETAXEL IV, Infuse into a venous catheter. Every 22 days, Disp: , Rfl: fenofibrate micronized (LOFIBRA) 134 mg capsule, Take 1 Capsule by mouth daily., Disp: , Rfl: folic acid (FOLVITE) 400 mcg tablet, Take 1 tablet (400 mcg total) by mouth 1 (one) time each day.,Disp: , Rfl: gabapentin (NEURONTIN) 600 mg tablet, Take 1 tablet (600 mg total) by mouth 3 (three) times a day.,Disp: 90 each, Rfl: 2 iron,carbonyl-vitamin C (Vitron-C) 65 mg iron- 125 mg tablet,delayed release (DR/EC), Take 1 tabletby mouth 1 (one) time each day., Disp: , Rfl: leuprolide acetate (ELIGARD SUBQ), Inject into the skin Every 3 Months., Disp: , Rfl: lisinopriL (PRINIVIL,ZESTRIL) 20 mg tablet, Take 1 Tablet by mouth daily., Disp: , Rfl: metFORMIN (GLUCOPHAGE) 500 mg tablet, Take 0.5 tablets (250 mg total) by mouth 1 (one) time each day with breakfast., Disp: , Rfl: omeprazole (PriLOSEC) [address] capsule, Take 1 capsule (40 mg total) by mouth 2 (two) times a day. Do not crush or chew., Disp: 60 each, Rfl: 11 predniSONE (DELTASONE) 5 mg tablet, Take 2 tablets (10 mg total) by mouth 1 (one) time each day. Start the day after IV chemotherapy. Take on days 2-21 of each cycle with food., Disp: 60 each, Rfl: 11 prochlorperazine (COMPAZINE) 10 mg tablet, Take 1 tablet (10 mg total) by mouth every 6 (six) hoursif needed for nausea or vomiting., Disp: 60 tablet, Rfl: 3 rosuvastatin (CRESTOR) 20 mg tablet, Take 1 Tablet by mouth daily., Disp: , Rfl: sod picosulf-mag ox-citric ac (Clenpiq) 10 mg-3.5 gram- 12 gram/175 mL solution, Take 175 mL by mouth 2 (two) times a day., Disp: 350 mL, Rfl: 0 terazosin (HYTRIN) 5 mg capsule, Take 1 Capsule by mouth at bedtime., Disp: , Rfl: No Known Allergies ROS: GENERAL: No malaise, significant weight loss or fever NECK: No lumps, goiter, pain or significant neck swelling RESPIRATORY: No cough, wheezing or shortness of breath CARDIOVASCULAR: No chest pain, leg swelling or palpitations GI: No abdominal discomfort, blood in stools or black stools MUSCULOSKELETAL: No joint pain or swelling, back pain, or muscle pain. HEMATOLOGY/LYMPHOLOGY No prolonged bleeding, easy bruisability or swollen nodes Other Systems review is non contributory PHYSICAL EXAM: Visit Vitals BP (!) 136/45 (BP Location: Left arm, Patient Position: Sitting, BP Cuff Size: Adult) Temp 36.5 ??C (97.7 ??F) (Temporal) Wt 83.9 kg (185 lb) SpO2 98% BMI 30.79 kg/m?? Smoking Status Former BSA 1.91 m?? @PAINSCOREFLOW@ APPEARANCE: Alert and in no acute distress EYES: PERRL, conjunctiva pink and sclera are Normal without icterus ORAL CAVITY: No erythema or exudates NECK: Neck supple, no adenopathy HEART: 3/6 systolic murmur LUNG: clear to auscultation bilaterally LYMPH NODES: No palpable superficial adenopathy ABDOMEN: Soft nontender no organomegaly EXTREMITIES: Extremities warm and well perfused without clubbing, cyanosis, rash or edema NEURO: Oriented X 3, no focal weakness; sensation is normal IMPRESSION: No diagnosis found. PLAN: Problem List Items Addressed This Visit None Reviewed neutropenic precautions discussed current tolerance of therapy PSA down to 20. Anticipate repeat CT scan in the next 6 weeks or so Transfuse RBC today Jeffrey Conte MD documented in this encounter Plan of Treatment Upcoming Encounters Date Type Department Care Team (Late st Contact Info) Description 09/08/2024 8:00 AM EDT Appointment [facility] [address] [place] [phone] Jeffrey Conte MD [address] [place] [phone] 09/13/2024 9:30 AM EDT Office Visit [facility] Hematology Oncology [address] [place] [phone] Jeffrey Conte MD [address] [place] [phone] 10/19/2024 9:00 AM EDT Appointment [facility] [address] [place] [phone] 02/20/2025 8:00 AM EDT Ancillary Procedure [facility] Cardiology [facility] [address] [place] [phone] 03/01/2025 8:40 AM EDT Office Visit [facility] [address] [place] [phone] Marcela Chris, SAL [address] [place] [address] [place] [address] documented as of this encounter Visit Diagnoses Diagnosis Prostate cancer (CMS/HCC)- Primary Malignant neoplasm of prostate documented in this encounter Care Teams Sustainability Communicator Relationship Specialty Start Date End Date Júnior Crawley MD [address] [place] [id number] PCP - General Internal Medicine 05/02/24 documented as of this encounter
--- OUTSIDE RECORDS SUMMARY | 2024-09-07 16:49 | XMS_ITS ---
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 There are 2 issues involved with this patient 1 is the fact that there may be metastatic prostate cancer which may limit his lifespan and he has had some significant anemia of unknown etiology. Initially a bit. They thought he might of had an ulcer but now it seems to be less of an issue. PET scan did show metabolic activity throughout the pelvis. And since he was not all that symptomatic the TAVR docs felt it was too soon to consider the possibility of a TAVR in TAVR may not be an indicated procedure in this patient or even open chest surgery given his problems. He is not can be a surgical candidate if the cause of his anemia is not found. Granted AV malformations can occur in patients with severe aortic stenosis there is always that possibility but they have not presented any type of anatomical pathology on this patient that would correlate with AV malformations. So the other issue is is that the patient's aortic valve may look worse due to high output situation given his anemia. For now no changes in therapy he is completely asymptomatic we discussed the signs and symptoms including shortness of breath chest discomfort syncope and edema and has had none of the he understands he needs to call us if they occur. In the meantime we will plan on an echocardiogram in 6 months Assessment & Plan (08/25/2024 5:37 PM EST): Patient is been seen by the TAVR team who do not feel that the AV malformations are secondary to the aortic stenosis. And the patient would need to be able to be on dual antiplatelet therapy post procedure. Which at this point he cannot with the recent bleed so organ to continue to monitor it does not appear that the aortic stenosis is causing any major issues. At this time the GI bleed is the more prominent problem so we will continue to monitor he has no symptoms MDAS no shortness of breath no chest pain no presyncope no significant edema. Again he is not a candidate for open surgery and at the present time is not a candidate for a TAVR. Will have him back in 6 months if he has had no bleeding in 6 months we can consider a trial of aspirin and Plavix to see if it stimulates any bleeding and if he were to tolerate that that we may be able to perform a TAVR Orders: Transthoracic echocardiogram (TTE) complete with PRN contrast, bubble, strain, and 3D order panel; Future Iron deficiency anemia due to chronic blood loss 05/12/2017 Assessment & Plan (07/20/2024 12:15 PM EST): Schedule patient for repeat colonoscopy and upper endoscopy with ERBE as soon as possible. Likely upper GI bleeding given history of melena. Continue omeprazole 40mg BID as directed Discussed addition of sucralfate, patient would like to hold off at this time. Discussed sucralfate enema for radiation proctitis, will defer at this time as well. No reports of BRBPR. Continue blood count monitoring with Dr. Conte, next CBC check on . Assessment & Plan (05/04/2024 12:07 PM EST): Book colonoscopy Continue blood count monitoring with Dr. Conte and blood transfusions as needed per Oncology recommendations Current Oncology Plans DOCEtaxel / PredniSONE* Plan Start Date:06/26/2024 Plan Provider:Jeffrey Conte MD Linked Problems Distant metastasis to bone b y neoplasm of prostate (pM1b) (CMS/HCC) Treatment Medications Current Day (Day 1 , Cycle 4 - Planned for 09/07/2024) Next Day (Day 2, Cycle 4 - Planned for 09/09/2024) DOCEtaxel (TAXOTERE)DOCEtaxe l (TAXOTERE) chemo IVPB 250 mL NS DOCEtaxel (TAXOTERE) 143 mg in sodium chloride (non-PVC) 257.15 mL chemo IVPB No medications scheduled. LEUPROLIDE ( ELIGARD SQ / LUPRON IM ) 22.5 MG EVERY 12 WEEKS* Plan Start Date: 05/02/2024 Plan Provider:Jeffrey Conte MD Linked Problems Distant metastasis to bone b y neoplasm of prostate (pM1b) (CMS/HCC)Prostate cancer (CMS/HCC) Treatment Medications leuprolide (ELIGARD) OUTPATIENT TRANSFUSION (PRN)* Plan Start Date:04/24/2024 Plan Provider:Jeffrey Conte MD Linked Problems Distant metastasis to bone b y neoplasm of prostate (pM1b) (CMS/HCC)Prostate cancer (CMS/HCC) Treatment Medications No medications scheduled. Past Plans No past plan information found. Radiation Treatments * No radiation treatments are documented for this patient in [facility]. Treatments may have been administered in another system. 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
--- OUTSIDE RECORDS SUMMARY | 2024-09-07 16:49 | XMS_ITS | Encounter Summary ---
Author Organization [facility] Address [address] [place] [address] Care Team Providers Care Finished Hardware Erector Name Role Phone Júnior Crawley MD Primary Care Provider [phone] Encounter Details Date Type Department Care Team (Late st Contact Info) Description 08/08/2024 Telephone [facility] Hematology Oncology [address] [place] [address] Jeffrey Conte MD [address] [place] [address] Social History Tobacco Use Types Packs/Day Years [...] for your loved ones. For example, child life therapist or elderly care for an older adult? [...] as of this encounter Progress Notes * Chica Avendano MA - 08/08/2024 2:06 PM EST advised patient no transfusion needed, he would be seen by 08/09/2024 * Monet Amezcua - 08/08/2024 8:39 AM EST Patient 's Sondra came in with spouse during blood work. Patient is scheduled for a blood transfusion 1 unit. He was seen in the ED this weekend and received 3 units. Asks if this is necessary tokeep. documented in this encounter Plan of Treatment Upcoming Encounters Date Type Department Care Team (Late st Contact Info) Description 09/08/2024 8:00 AM EDT Appointment [address] [phone] Jeffrey Conte MD [address] [place] [phone] 09/13/2024 9:30 AM EDT Office Visit [facility] Hematology Oncology [address] [place] [phone] Jeffrey Conte MD [address] [place] [phone] 10/19/2024 9:00 AM EDT Appointment [address] [phone] 02/20/2025 8:00 AM EDT Ancillary Procedure [facility] Cardiology [facility] [address] [facility] [address] [place] [phone] 03/01/2025 8:40 AM EDT Office Visit [facility] Cardiology [facility] [address] [place] [phone] Marcela Chris NP [address] [facility] [address] [place] [address] documented as of this encounter Visit Diagnoses Not on filedocumented in this encounter Care Teams Finished Hardware Erector Relationship Specialty Start Date End Date Júnior Crawley MD [address] [place] [address] PCP - General Internal Medicine 05/02/24 documented as of this encounter
--- OUTSIDE RECORDS SUMMARY | 2024-09-07 16:49 | XMS_ITS | Encounter Summary ---
Author Organization [facility] Address [address] [place] [address] Care Team Providers Care Crm Marketing Specialist Name Role Phone Júnior Crawley MD Primary Care Provider [phone] Encounter Details Date Type Department Care Team Description 11/26/2021 Nurse Only [facility] Oncology Services [address] [place] [address] Lori Syed RN Social History Tobacco Use [...] Order: [facility] Molecular Tumor Profiling on SP# [id number] Test request and clinicals submitted for processing. Testing Turnaround Time on average is 14 days but may take longer. Final Report will be scanned into 48domain when completed. documented in this encounter Plan of Treatment Not on file documented as of this encounter Visit Diagnoses Not on filedocumented in this encounter Care Teams Crm Marketing Specialist Relationship Specialty Start Date End Date Júnior Crawley MD PCP - General Internal Medicine 05/12/17 documented as of this encounter
--- OUTSIDE RECORDS SUMMARY | 2024-09-07 16:49 | XMS_ITS | Encounter Summary ---
Author Organization [facility] Address [address] [place] [address] Care Team Providers Care Hip Hop Performers Name Role Phone Júnior Crawley MD Primary Care Provider [phone] Reason for Visit * Reason Comments OP Infusion Blood transfusion Encounter Details Date Type Department Care Team (Latest Contact Info) Description 08/15/2024 11:09 AM EST - 08/15/2024 11:59 PM EST Hospital Encounter [facility] [address] [address] Jeffrey Conte MD [address] [place] [phone] Distant metastasis to bone by neoplasm of [...] care for your loved ones. For example, special needs child caregiver or elderly care for an older adult? [...] Sign Reading Time Taken Comments Blood Pressure 131/53 08/15/2024 2:12 PM EST Pulse 76 08/15/2024 2:12 PM EST Temperature 36.7 ??C (98 ??F) 08/15/2024 2:12 PM EST Respiratory Rate 18 08/15/2024 2:12 PM EST Oxygen Saturation 99% 08/15/2024 11:40 AM EST Inhaled Oxygen Concentration - - Weight - - Height - - Body Mass Index - - documented in this encounter Medications at Time of Discharge cholecalciferol (VITAMIN D-3) 25 mcg (1,000 unit) tablet Take 1 tablet (1,000 Units total) by mouth 1 (one) time each day. fenofibrate micronized (LOFIBRA) 134 mg capsule Take 1 Capsule by mouth daily. gabapentin (NEURONTIN) 600 mg tablet Take 1 tablet (600 mg total) by mouth 3 (three) times a day. 90 each 2 07/13/2024 leuprolide acetate (ELIGARD SUBQ) Inject into the [...] Take 1 Capsule by mouth at bedtime. folic acid (FOLVITE) 1 mg tablet Take by mouth 1 (one) time each day. 08/25/2024 lisinopriL (PRINIVIL,ZESTRIL ) 20 mg tablet Take 1 Tablet by mouth daily. 09/04/2024 documented as of this encounter Discharge Disposition Disposition Code Departure Means Destination Home or Self Care documented in this encounter Progress Notes * Melody Butler RN - 08/15/2024 11:30 AM ESTEncounter addended by: Melody Butler RN on: 09/04/2024 4:47 PM Actions taken: Charge Capture section accepted * Monet Huber RN - 08/15/2024 11:30 AM EST Pat arrives ambulatory with steady gait for today's scheduled blood transfusion with Sondra - he feels good - reporting some intermittent fatigue. Today he will receive 1 unit PRBC. Consent signed - port in right chest accessed per protocol with no dificulty, +brisk blood return noted. Blood requested from blood bank. Patient resting comfortably in recliner with call singh in reach - no voiced needs currently. 1215 - 1 unit PRBC up on pump - verified with Alyssa RIVERA. 1415- Infusion completed - well tolerated - good appetite for lunch - port flushed and deaccessed per protocol. Patient has next appt in place. Stable upon discharge. documented in this encounter Plan of Treatment Upcoming Encounters Date Type Department Care Team (Late st Contact Info) Description 09/08/2024 8:[address] [facility] [address] [address] Jeffrey Conte MD [address] [place] [phone] 09/13/2024 9:30 AM EDT Office Visit [facility] Hematology Oncology [address] [place] [phone] Jeffrey Conte MD [address] [place] [phone] 10/19/2024 9:[address] [facility] 271 [facility] 2nd [place] [phone] 02/20/2025 8:00 AM EDT Ancillary Procedure [facility] Cardiology [facility] [address] [place] [address] 03/01/2025 8:40 AM EDT Office Visit [facility] Cardiology [facility] [address] [place] [address] [address] [place] [address] Marcela Chris NP [address] [place] [address] [address] [place] [address] documented as of this encounter Procedures Procedure Name Priority Date/Time Associated Diagnosis Comments TRANSFUSE RED BLOOD CELLS Routine 08/15/2024 12:15 PM EST 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) Prostate cancer (CMS/HCC) documented in this encounter Results * Transfuse RBC (08/15/2024 2:36 PM EST) Jeffrey Conte MD BLOOD TRANSFUSION ORDERABLES F inal Result * Transfuse RBC: 1 Units (08/15/2024 2:36 PM EST) Jeffrey Conte MD BLOOD TRANSFUSION ORDERABLES F inal Result documented in this encounter Visit Diagnoses Diagnosis 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)- Primary Prostate cancer (CMS/HCC) Malignant neoplasm of prostate documented in this encounter Care Teams Hip Hop Performers Relationship Specialty Start Date End Date Júnior Crawley MD [address] [place] [id number] PCP - General Internal Medicine 05/02/24 documented as of this encounter
--- OUTSIDE RECORDS SUMMARY | 2024-09-07 16:49 | XMS_ITS | Encounter Summary ---
Author Organization [facility] Address [address] [place] [address] Care Team Providers Care Director Medicaid Name Role Phone Júnior Crawley MD Primary Care Provider [phone] Reason for Referral * Imaging (Routine) - Authorized Specialty Diagnoses / Procedures Referred By Socorro valladares Referred To Contact Cardiology Diagnoses Severe aortic stenosis Procedures Transthoracic echocardiogram (TTE) complete with PRN contrast, bubble, strain, and 3D order panel MD TTE W 2D IMAGE COMPLETE W DOPPLER ECHO & COLOR FLOW DOPPLER ECHO MD KALYN 2D COMPLETE W/CONTRAST OR W & WO CONTRAST WITH DOPPLER Jatinder Elizabeth MD [address] [place] [address] [address] [place] [address] Phone: tel: fax: [facility] Referral ID Status Reason Start Date Expiration Date V isits Requested Visits Authorized [id number] Authorized 08/25/2024 08/25/2025 1 1 Reason for Visit * Reason Comments Follow-up Encounter Details Date Type Department Care Team (Late st Contact Info) Description 08/25/2024 9:50 AM EST Office Visit [facility] Cardiology [address] [place] [address] Jatinder Elizabeth MD [address] [place] [address] [address] [place], [place] [phone] Severe aortic stenosis (Primary Dx) Social History Tobacco Use Types [...] care for your loved ones. For example, rn child or elderly care for an older adult? [...] Sign Reading Time Taken Comments Blood Pressure 120/68 08/25/2024 9:54 AM EST Pulse 83 08/25/2024 9:54 AM EST Temperature - - Respiratory Rate - - Oxygen Saturation 95% 08/25/2024 9:54 AM EST Inhaled Oxygen Concentration - - Weight 82.1 kg (181 lb) 08/25/2024 9:54 AM EST Height 165.1 cm (5' 5 ) 08/25/2024 9:54 AM EST Body Mass Index 30.12 08/25/2024 9:54 AM EST documented in this encounter Progress Notes * Jatinder Elizabeth MD - 08/25/2024 9:50 AM ESTAssociated Problem(s): Severe aortic stenosis Patient is been seen by the TAVR [...] not a candidate for open surgery and atthe present time is not a candidate for a TAVR. Will have him back in 6 months if he has had no bleeding in 6 months we can consider a trial of aspirin and Plavix to see if it stimulates any bleedingand if he were to tolerate that that we may be able to perform a TAVR Orders: Transthoracic echocardiogram (TTE) complete with PRN contrast, bubble, strain, and 3D order panel; Future * Jatinder Elizabeth MD - 08/25/2024 9:50 AM EST Images from the original note were not included. [facility] CONSULT REQUESTED BY: Dr Crawley PCP: Júnior Crawley MD HPI: Luke Turpin is a 79 y.o. old male with 79-year-old history of hypertension, hyperlipidemia, prostate cancer metastasis. He is status post brachytherapy with external beam radiation. Type 2 diabetes mellitus, peripheral vascular disease with known aortic stenosis. He has a PET scan with evidence of metabolic activity to L4 the right adrenal and left pelvic areas. Last echocardiogram in March 2024 patient had a 82 mmHg peak 49 mmHg mean gradient across the aortic valve with a VTI ratio 0.19 The patient went to the emergency room on 05 August. He had undergone an endoscopy and colonoscopy on 03 August he developed some chest discomfort and some shortness of breath. After getting homeappears the patient had some issues within intestinal bleeding with prior endoscopies and colonoscopies.. Patient to begin chronic transfusions every few months after starting chemotherapy. The chemotherapy started in June of this year. On the patient arrived in the emergency room his hemoglobin was 5.7 hematocrit was 18. His endoscopy at the time that showed a large angioectasias with bleeding in the ascending colon. We have referred the patient for TAVR evaluation but is felt that his bleeding needs to be better controlled he had slight elevation of troponin at the time of this most recent admission. He is on Crestor for hyperlipidemia he is on medical management for his hypertension and is followed by hematology oncology for his prostate cancer. Patient had no chest pain pressure shortness breath PND orthopn ea he did require another unit of blood after being discharged. He has trace edema in his right leg ACTIVE MEDICATIONS: Outpatient Medications Marked as Taking for the 08/25/24 encounter (Office Visit) with Jatinder Elizabeth MD Medication Sig Dispense Refill cholecalciferol (VITAMIN D-3) [...] tablet Take 1 Tablet by mouth daily. terazosin (HYTRIN) 5 mg capsule Take 1 Capsule by mouth at bedtime. trimethoprim-polymyxin b (POLYTRIM) ophthalmic solution Administer 1 drop into both eyes 4 (four) times a day for 7 days. 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 SOCIAL HISTORY: Social History Tobacco Use Smoking status: Former Current packs/day: 0.00 Types: Cigarettes Quit date: 06/21/2012 Years since quittin.1 Smokeless tobacco: Never Substance Use Topics Alcohol use: No REVIEW OF SYSTEMS: Review of Systems Constitutional: Negative. HENT: Negative. Eyes: Negative. Cardiovascular: Negative. Respiratory: Negative. Endocrine: Negative. Hematologic/Lymphatic: Negative. Skin: Negative. Musculoskeletal: Negative. Gastrointestinal: Negative. Genitourinary: Negative. Neurological: Negative. Psychiatric/Behavioral: Negative. Allergic/Immunologic: Negative. All other systems reviewed and are negative. PHYSICAL EXAM: Vitals: 08/25/24 0954 Pulse: 83 SpO2: 95% Weight: 82.1 kg (181 lb) Height: 1.651 m (65 ) Physical Exam Constitutional: Appearance: Normal appearance. HENT: Head: Normocephalic and atraumatic. Nose: Nose normal. Eyes: Extraocular Movements: Extraocular movements intact. Pupils: Pupils are equal, round, and reactive to light. Cardiovascular: Rate and Rhythm: Regular rhythm. Comments: 3/6 left ventricular outflow tract murmur consistent with aortic stenosis Pulmonary: Breath sounds: Normal breath sounds. Abdominal: General: Abdomen is flat. Bowel sounds are normal. Palpations: Abdomen is soft. Musculoskeletal: General: Normal range of motion. Cervical back: Normal range of motion and neck supple. Skin: General: Skin is warm and dry. Neurological: General: No focal deficit present. Mental Status: He is alert. Psychiatric: Mood and Affect: Mood normal. EKG: Encounter Date: 08/05/24 ECG 12 lead Result Value Ventricular Rate ECG 101 Atrial Rate 101 P-R Interval 196 QRS Duration 94 Q-T Interval 374 QTc 484 P Wave [place] 63 T [place] 52 ECG Interpretation Sinus tachycardia Otherwise normal ECG No previous ECGs available Confirmed by DUSTY ZARATE ([id number]) on 08/06/2024 6:11:36 PM *Note: Due to a large number of results and/or encounters for the requested time period, some results have not been displayed. A complete set of results can be found in Results Review. TESTING: ASSESSMENT/PLAN: Assessment & Plan Severe aortic stenosis Patient is been seen by the TAVR [...] not a candidate for open surgery and atthe present time is not a candidate for a TAVR. Will have him back in 6 months if he has had no bleeding in 6 months we can consider a trial of aspirin and Plavix to see if it stimulates any bleedingand if he were to tolerate that that we may be able to perform a TAVR Orders: Transthoracic echocardiogram (TTE) complete with PRN contrast, bubble, strain, and 3D order panel; Future The [facility] team will continue to co-manage this patient following the plan of care as established by my initial visit and as per AHA guidelines for ongoing management and surveillance of Valvular Heart Disease This will include medication titration, initiation of appropriate medications and further tit ration, and diagnostic studies to manage this disease process. documented in this encounter Plan of Treatment Upcoming Encounters Date Type Department Care Team (Late st Contact Info) Description 09/08/2024 8:00 AM EDT Appointment [facility] [address] [place] [phone] Jeffrey Conte MD [address] [place] [phone] 09/13/2024 9:30 AM EDT Office Visit [facility] Hematology Oncology [address] [place] [phone] Jeffrey Conte MD [address] [place] [phone] 10/19/2024 9:00 AM EDT Appointment [facility] [address] [place] [phone] 02/20/2025 8:00 AM EDT Ancillary Procedure [facility] Cardiology [facility] - [address] [place] [phone] 03/01/2025 8:40 AM EDT Office Visit [facility] Cardiology [facility] [address] [place] [address] Marcela Chris NP [address] [place] [address] [address] [place] [address] Scheduled Orders Name Type Priority Associated Diagnoses Order Schedule Transthoracic echocardiogram (TTE) complete with PRN contrast, bubble, strain, and 3D order panel Echocardiography Routine Severe aortic stenosis Expected: 02/25/2025, Expires: 08/25/2025 documented as of this encounter Visit Diagnoses Diagnosis Severe aortic stenosis- Primary Aortic valve disorders documented in this encounter Discontinued Medications Medication Sig Discontinue Reason Start Date End Da te folic acid (FOLVITE) 1 mg tablet Take by mouth 1 (one) time each day. Discontinued by another clinician 08/25/2024 documented as of this encounter Historical Medications * This list may reflect changes made after this encounter. DOCETAXEL IV Infuse into a venous catheter. Every 22 days folic acid (FOLVITE) 400 mcg tablet Take 1 tablet (400 mcg total) by mouth 1 (one) time each day. added in this encounter Care Teams Director Medicaid Relationship Specialty Start Date End Date Júnior Crawley MD [address] [place] [id number] PCP - General Internal Medicine 05/02/24 documented as of this encounter
--- OUTSIDE RECORDS SUMMARY | 2024-09-07 16:49 | XMS_ITS | Encounter Summary ---
Author Organization [facility] Address [address] [place] [address] Care Team Providers Care Carbon Rod Inserter Name Role Phone Unavailable Primary Care Provider Unavailabl e Encounter Details Date Type Department Care Team (Late st Contact Info) Description 04/12/2024 9:00 AM EDT Hospital Encounter TH HISTORIC ENCOUNTERS EASTERN CONVERSION ONLY Jeffrey Conte MD [address] [place] [address] Social History Tobacco Use Types [...] your loved ones. For example, early childhood education specialist or elderly care for an older adult? [...] AM EST documented as of this encounter Plan of Treatment Upcoming Encounters Date Type Department Care Team (Late st Contact Info) Description 09/08/2024 8:00 AM EDT Appointment [facility] [address] [phone] Jeffrey Conte MD [address] [place] [address] 09/13/2024 9:30 AM EDT Office Visit [facility] Hematology Oncology [address] [place] [address] Jeffrey Conte MD [address] [place] [address] 10/19/2024 9:00 AM EDT Appointment [facility]fusion Center 271 [facility] 2nd [place] [address] 02/20/2025 8:00 AM EDT Ancillary Procedure [facility] Cardiology [facility] [address] [place] [address] 03/01/2025 8:40 AM EDT Office Visit [facility] Cardiology [facility] [address] [facility] [place] [address] Marcela Chris NP [address] [place] [address] [address] [place] [address] documented as of this encounter Visit Diagnoses Not on filedocumented in this encounter Additional Health Concerns Infection Onset Date Last Indicated Resolved Time Respiratory Rule-Out 09/01/2024 09/01/2024 025 8:03 PM EDT COVID-19 Rule-Out 09/01/2024 09/01/2024 09/01/2024 8:03 PM EDT documented as of this encounter
--- OUTSIDE RECORDS SUMMARY | 2024-09-07 16:49 | XMS_ITS | Encounter Summary ---
Author Organization [facility] Address [address] [place] [address] Care Team Providers Care Management Professionals Name Role Phone Júnior Crawley MD Primary Care Provider [phone] Encounter Details Date Type Department Care Team (Latest Contact Info) Description 08/18/2024 1:00 PM EST Office Visit [facility] Hematology Oncology [address] [place] [phone] Hannah Mathew PA [address] [place] [address] Bacterial conjunctivitis (Primary Dx); Prostate cancer (CMS/HCC); Anemia due to GI blood loss Social History Tobacco Use Types Packs/Day Years [...] for your loved ones. For example, children's institution attendant or elderly care for an older adult? [...] AM EST documented as of this encounter Ordered Prescriptions Prescription Sig Dispense Quantity Refills Last Filled Start Date End Date trimethoprim-polym yxin b (POLYTRIM) ophthalmic solution Administer 1 drop into both eyes 4 (four) times a day for 7 days. 10 mL 08/18/2024 documented in this encounter Progress Notes * LIO Painting - 08/18/2024 1:00 PM EST Images from the original note were not included. Hematology/Oncology Consult Note Date of Consult: 08/18/2024 Patient's Primary Care Physician: Júnior Crawley MD Subjective History of Present Illness 79-year-old male with history of metastatic prostate cancer who is accompanied by his . He was seen in the infusion suite. I was asked by infusion nurse, Lucero, to see patient due to ophthalmic complaints. He is here for cycle 3 of Docetaxel. Patient reports that over the last week he has noticed right eye redness associated with yellowish crusty drainage. Yesterday he woke up with right eye stuck together and this morning he woke up withboth eyes stuck together. He has been applying warm compresses. He denies sick contacts. He denies any associated eyeball pain, periorbital edema, vision changes, headache, dizziness, no fever or chills. He also denies any recent illness. Otherwise, he has no newmedical complaints at this time. Past Medical History Past Medical History: Diagnosis [...] OTHER SURGICAL HISTORY 05/11/2023 capsule endoscopy: angioectasias Family History No family history on file. Personal and Social History Social History Tobacco Use Smoking Status Former Current packs/day: 0.00 Types: Cigarettes Quit date: 06/21/2012 Years since quittin.1 Smokeless Tobacco Never Social History Substance and Sexual Activity Alcohol Use No Social History Substance and Sexual Activity Drug Use No REVIEW OF SYSTEMS: Constitutional: No fevers, weight loss, nightsweats, chills, fatigue HEENT: + eye redness and drainage; No oral lesions Respiratory: No cough, shortness of breath Cardiac: No chest pain, palpitations GI: No nausea, vomiting, diarrhea, constipation, abdominal pain : No urinary complaints Skin: No rashes or ease of bruising Neuro: No headaches, dizziness, focal weakness, paresthesias Musculoskeletal: No bone pain, no joint pain. Hem/Lymph : No palpable lymph nodes, no bleeding or easy bruising Objective Medications Current Outpatient Medications: cholecalciferol (VITAMIN D-3) 25 mcg (1,000 unit) tablet, Take 1 tablet (1,000 Units total) by mouth 1 (one) time each day., Disp: , Rfl: fenofibrate micronized (LOFIBRA) 134 mg capsule, Take 1 Capsule by mouth daily., Disp: , Rfl: folic acid (FOLVITE) 1 mg tablet, Take by mouth 1 (one) time each day., Disp: , Rfl: gabapentin (NEURONTIN) 600 mg tablet, [...] , Rfl: metFORMIN (GLUCOPHAGE) 500 mg tablet, 0.5 tablets (250 mg total)., Disp: , Rfl: omeprazole (PriLOSEC) 40 mg [...] by mouth at bedtime., Disp: , Rfl: trimethoprim-polymyxin b (POLYTRIM) ophthalmic solution, Administer 1 drop into both eyes 4 (four) times a day for 7 days., Disp: 10 mL, Rfl: 0 No current facility-administered medications for this visit. Facility-Administered Medications Ordered in Other Visits: sodium chloride 0.9 % flush 10 mL, 10 mL, intravenous, PRN, Subramony Subramalea-MD Troy, 10 mL at08/18/24 0920 Allergies No Known Allergies Physical Exam General: well appearing, in no acute distress Eyes: right conjunctiva is mildly erythematous and sclera are without icterus, EOMI and PERRL, no periorbital edema Oral cavity: No erythema or exudates Neck Neck supple, no adenopathy, Resp: CTA; normal inspiratory effort, no wheezes, rhonchi or rales Cardio: RRR, no murmurs rubs or gallops Skin: warm, dry, no rashes Neuro: alert and oriented, normal speech, no obvious focal deficits Imaging Labs Lab Results Component Value Date WBC 6.6 08/18/2024 RBC 2.60 (L) 08/18/2024 HGB 7.8 (L) 08/18/2024 HCT 25.3 (L) 08/18/2024 MCV 99.2 (H) 08/18/2024 MCHC 30.8 (L) 08/18/2024 RDW 18.1 (H) 08/18/2024 PLT 376 08/18/2024 MPV 10.4 08/18/2024 NRBC 0.0 08/18/2024 DIFF Lab Results Component Value Date LYMPHOPCT 14.9 08/18/2024 NEUTROABS 4.88 08/18/2024 LYMPHSABS 0.98 (L) 08/18/2024 MONOABS 0.43 08/18/2024 EOSABS 0.05 08/18/2024 BASOSABS 0.12 08/18/2024 METAMYABS 0.01 (H) 08/08/2024 MYLEOCYABS 0.04 (H) 08/08/2024 PROMYABS 0.01 (H) 08/08/2024 IMMGRANABS 0.11 (H) 08/18/2024 Lab Results Component Value Date NA 141 08/14/2024 K 4.0 08/14/2024 CL 109 08/14/2024 CO2 24 08/14/2024 GLUCOSE 160 (H) 08/14/2024 BUN 19 08/14/2024 CREATININE 1.07 08/14/2024 CALCIUM 8.2 (L) 08/14/2024 PROT 5.8 (L) 08/14/2024 ALBUMIN 2.1 (L) 08/14/2024 BILITOT 0.3 08/14/2024 AST 21 08/14/2024 ALT 14 08/14/2024 MG 2.3 08/06/2024 ALKPHOS 54 08/14/2024 EGFR 71 08/14/2024 Assessment & Plan Metastatic prostate cancer; anemia due to blood loss - GI bleed: Cycle # 3 of docetaxel administered today Labs reviewed - anemic S/P transfusion of 1 U of PRBCs on 08/15/24 Followed by GI - Dr. Zelaya Recently underwent EGD - Findings: A single 3 mm angioectasia with bleeding was found in the thirdportion of the duodenum. Fulguration to ablate the lesion by argon plasma was successful Recently underwent colonoscopy - Findings: Multiple large angioectasias with bleeding were found in the ascending colon. Fulguration to ablate the lesion by argon plasma was successful. Continue close follow up of H&H Monitor PSA Followed by Dr. Dg OROPEZA with MD on 08/23/24; RTC sooner prn Bacterial conjunctivitis: Polymyxin B abx eye drop sent in Risk of transmission discussed Avoid rubbing eyes and Hang hygiene encouraged Please note, this note may have been created in part by using [employer] dictation software, and therefore, it may contain typographical and/or grammatical errors inherent in a voice recognition software program Sign: Hannah Mathew PA-C Hematology/Oncology [facility] [phone] Cosigned by Jeffrey Conte MD at 08/29/2024 8:19 AM EDT documented in this encounter Plan of Treatment Upcoming Encounters Date Type Department Care Team (Late st Contact Info) Description 09/08/2024 8:00 AM EDT Appointment [address] [phone] Jeffrey Conte MD [address] [place] [phone] 09/13/2024 9:30 AM EDT Office Visit [facility] Hematology Oncology [address] [place] [phone] Jeffrey Conte MD [address] [place] [phone] 10/19/2024 9:00 AM EDT Appointment [address] [phone] 02/20/2025 8:00 AM EDT Ancillary Procedure [facility] Cardiology [facility] [address] [facility] [address] [place] [phone] 03/01/2025 8:40 AM EDT Office Visit [facility] Cardiology [place] [address] [place] [phone] Marcela Chris NP [address] [place] [address] Dr [address] [place] [address] documented as of this encounter Visit Diagnoses Diagnosis Bacterial conjunctivitis- Primary Other mucopurulent conjunctivitis Prostate cancer (CMS/HCC) Malignant neoplasm of prostate Anemia due to GI blood loss Iron deficiency anemia secondary to blood loss (chronic) documented in this encounter Care Teams Management Professionals Relationship Specialty Start Date End Date Júnior Crawley MD [address] [place] [address] PCP - General Internal Medicine 05/02/24 documented as of this encounter
--- OUTSIDE RECORDS SUMMARY | 2024-09-07 16:49 | XMS_ITS | Encounter Summary ---
Author Organization [facility] Address [address] [place] [address] Care Team Providers Care Engineering Documentation Specialist Name Role Phone Júnior Crawley MD Primary Care Provider [phone] Reason for Visit * Reason Onset Date Comments neutrapenic precautions 08/08/2024 Encounter Details Date Type Department Care Team (Late st Contact Info) Description 08/08/2024 Telephone [facility] Infusion Center [address] [facility] 2nd [place] [phone] Mary Urias RN neutrapenic precautions Social History Tobacco Use Types Packs/Day Years [...] for your loved ones. For example, children's lunchroom supervisor or elderly care for an older adult? [...] as of this encounter Progress Notes * Mary Urias RN - 08/08/2024 2:16 PM EST Critical WBC: 1.3 with prelim ANC: 0.26. Hgb: 8.5 Hct: 27.3 plt: 327. Dr Conte aware. Spoke with partner Sondar- Pt had 3 units PRBC over the weekend while admitted in hospital after EGD/Colonoscopy with BRBPR after and Chest pain. Per Dr Conte no need for PRBC 08/09- will cancel apt in infusion room. MD ROBERTSON only at 914. Called Sondra and discussed neutrapenic precautions and when to call for fevers/chills, temp >100.4. Agrees to plan. documented in this encounter Plan of Treatment Upcoming Encounters Date Type Department Care Team (Late st Contact Info) Description 09/08/2024 8:00 AM EDT Appointment [facility] [address] [place] [phone] Jeffrey Conte MD [address] [place] [phone] 09/13/2024 9:30 AM EDT Office Visit [facility] Hematology Oncology [address] [place] [phone] Jeffrey Conte MD [address] [place] [phone] 10/19/2024 9:00 AM EDT Appointment [facility] [address] [place] [phone] 02/20/2025 8:00 AM EDT Ancillary Procedure [facility] Cardiology [facility] [address] [phone] 03/01/2025 8:40 AM EDT Office Visit [facility] Cardiology [facility] [address] [place] [phone] Marcela Chris NP [address] [facility] [address] [place] [address] documented as of this encounter Visit Diagnoses Not on filedocumented in this encounter Care Teams Engineering Documentation Specialist Relationship Specialty Start Date End Date Júnior Crawley MD [address] [place] [address] PCP - General Internal Medicine 05/02/24 documented as of this encounter
--- OUTSIDE RECORDS SUMMARY | 2024-09-07 16:49 | XMS_ITS | Encounter Summary ---
Author Organization [facility] Address [address] [place] [address] Care Team Providers Care Oliving Machine Operator Name Role Phone Júnior Crawley MD Primary Care Provider [phone] Reason for Visit * Reason Comments OP Infusion Blood transfusion Encounter Details Date Type Department Care Team (Latest Contact Info) Description 08/22/2024 12:48 PM EST - 08/22/2024 11:59 PM EST Hospital Encounter [facility] Infusion Center [address] [phone] Jeffrey Conte MD [address] [place] [phone] Distant metastasis to bone by neoplasm of [...] for your loved ones. For example, child protective investigator or elderly care for an older adult? [...] Sign Reading Time Taken Comments Blood Pressure 120/51 08/22/2024 3:30 PM EST Pulse 82 08/22/2024 3:30 PM EST Temperature 37 ??C (98.6 ??F) 08/22/2024 3:30 PM EST Respiratory Rate 18 08/22/2024 3:30 PM EST Oxygen Saturation 98% 08/22/2024 1:04 PM EST Inhaled Oxygen Concentration - - Weight [...] Do not crush or chew. 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 Start the day after IV chemotherapy. Take on days 2-21 of each cycle with food. 60 each 07/07/2024 6 prochlorperazine (COMPAZINE) 10 mg tabletIndication [...] by mouth 1 (one) time each day. 5 lisinopriL (PRINIVIL,ZESTRI L) 20 mg tablet Take 1 Tablet by mouth daily. trimethoprim-swathi ymyxin b (POLYTRIM) ophthalmic solution Administer 1 drop into both eyes 4 (four) times a day for 7 days. 10 mL 08/18/2024 5 documented as of this encounter Discharge Disposition Disposition Code Departure Means Destination Home or Self Care documented in this encounter Progress Notes * Monet Huber RN - 08/22/2024 1:00 PM EST Pat arrives ambulatory with steady gait for today's scheduled blood transfusion - he has been feeling ok - reporting some intermittent fatigue. Today he will receive 1 unit PRBC for hgb 7.6. Consent signed - port in right chest accessed per protocol with no dificulty, +brisk blood return noted. Blood requested from blood bank. Patient resting comfortably in recliner with call singh in reach - no voiced needs currently - given hot coffee. 1340 - 1 unit PRBC up on pump - verified with Anastasiya RIVERA. 1530 - Infusion completed - well tolerated - port flushed and deaccessed per protocol. Patient has next appt in place. Stable upon discharge. documented in this encounter Plan of Treatment Upcoming Encounters Date Type Department Care Team (Late st Contact Info) Description 09/08/2024 8:00 AM EDT Appointment [facility] Infusion Center [address] [place] [address] [address] [place] [phone] Jeffrey Conte MD [address] [place] [phone] 09/13/2024 9:30 AM EDT Office Visit [facility] Hematology Oncology [address] [place] [phone] Jeffrey Conte MD [address] [place] [phone] 10/19/2024 9:00 AM EDT Appointment [facility] Infusion Center [address] [facility] 2nd [place] [phone] 02/20/2025 8:00 AM EDT Ancillary Procedure [facility] Cardiology [facility] [address] [place] [phone] 03/01/2025 8:40 AM EDT Office Visit [facility] Cardiology [facility] [address] [place] [phone] Marcela Chris NP [address] [place] [address] Dr [address] [place] [address] documented as of this encounter Procedures Procedure Name Priority Date/Time Associated Diagnosis Comments TRANSFUSE RED BLOOD CELLS Routine 08/22/2024 1:40 PM EST 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) Prostate cancer ([facility]/HCC) documented in this encounter Results * Transfuse RBC: 1 Units (08/22/2024 3:39 PM EST) Jeffrey Conte MD BLOOD TRANSFUSION ORDERABLES F inal Result * Transfuse RBC (08/22/2024 3:39 PM EST) Jeffrey Conte MD BLOOD TRANSFUSION ORDERABLES F inal Result documented in this encounter Visit Diagnoses Diagnosis 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
--- OUTSIDE RECORDS SUMMARY | 2024-09-07 16:49 | XMS_ITS | Encounter Summary ---
Author Organization [facility] Address [address] [place] [address] Care Team Providers Care Manager Delivery Name Role Phone Júnior Crawley MD Primary Care Provider + [phone] Reason for Visit * Reason Comments Follow-up Encounter Details Date Type Department Care Team (Late st Contact Info) Description 08/09/2024 9:15 AM EST Office Visit [facility] Hematology Oncology [address] [place] [address] Jeffrey Conte MD [address] [place] [address] Iron deficiency anemia due to chronic blood loss (Primary Dx); Elevated prostate specific antigen (PSA) Social History [...] for your loved ones. For example, children's aide or elderly care for an older adult? [...] Sign Reading Time Taken Comments Blood Pressure 127/55 08/09/2024 9:09 AM EST Pulse 102 08/09/2024 9:09 AM EST Temperature 36.7 ??C (98.1 ??F) 08/09/2024 9:09 AM ES T Respiratory Rate - - Oxygen Saturation 95% 08/09/2024 9:09 AM EST Inhaled Oxygen Concentration - - Weight 82.6 kg (182 lb) 08/09/2024 9:09 AM EST Height - - Body Mass Index 30.29 08/05/2024 7:13 AM EST documented in this encounter Progress Notes * Jeffrey Conte MD - 08/09/2024 9:15 AM EST CHIEF COMPLAINT: Follow-up IDENTIFIER:Luke Turpin is a 79 y.o. male. HPI: Metastatic carcinoma prostate transitioning to docetaxel/prednisone with very good tolerance of treatment. Metastatic carcinoma the prostate previously on Eligard enzalutamide.. [place] AVM GI bleed Metastatic carcinoma the prostate currently on Eligard abiraterone prednisone.. [place] AVM GI bleed Transition to therapy of docetaxel prednisone June 2024 Prior testing from [place] demonstrates no tumor related somatic alterations MSI [...] screening PSA in 1999 with biopsy demonstrating [place] 7; he was successfully treated with brachytherapy. [...] constitutional difficulties he had recently returned from [place]. 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 Following up [...] lower endoscopy. Evidence of AVM Tolerating docetaxel PAST MEDICAL HISTORY: Past Medical History: Diagnosis [...] times a day.,Disp: 90 each, Rfl: 2 leuprolide acetate (ELIGARD SUBQ), Inject into the [...] non contributory PHYSICAL EXAM: Visit Vitals BP 127/55 (BP Location: Left arm, Patient Position: Sitting) Pulse 102 Temp 36.7 ??C (98.1 ??F) Wt 82.6 kg (182 lb) SpO2 95% BMI 30.29 kg/m?? Smoking Status Former BSA 1.9 m?? @PAINSCOREFLOW@ APPEARANCE: Alert and in no acute distress EYES: PERRL, conjunctiva pink and sclera are Normal without icterus NECK: Neck supple, no adenopathy HEART: RRR with normal S1 and S2, no murmurs, no gallops, no JVD appreciated LUNG: clear to auscultation bilaterally LYMPH NODES: No palpable superficial adenopathy ABDOMEN: Bowel sounds normoactive, no bruits, soft, non-tender, without organomegaly or palpable masses EXTREMITIES: Extremities warm and well perfused without clubbing, cyanosis, rash or edema NEURO: Oriented X 3, no focal weakness; sensation is normal IMPRESSION: 1. Iron deficiency anemia due to chronic blood loss 2. Elevated prostate specific antigen (PSA) PLAN: Problem List Items Addressed This Visit Iron deficiency anemia due to chronic blood loss - Primary Relevant Orders CBC and differential Comprehensive metabolic panel Prostate specific antigen diagnostic Comprehensive metabolic panel CBC and differential Other Visit Diagnoses Elevated prostate specific antigen (PSA) Relevant Orders Prostate specific antigen diagnostic Patient tolerating therapy of docetaxel rather well. PSA 33. Followed up with GI. Consideration of initiation of sucralfate per Dr. Zelaya. Continue close follow-up H&H. No difficulty of pain. Did review issues regarding neutropenia. PSA testosterone with next visit Jeffrey Conte MD documented in this encounter Plan of Treatment Upcoming Encounters Date Type Department Care Team (Late st Contact Info) Description 09/08/2024 8:00 AM EDT Appointment [address] [phone] Jeffrey Conte MD [address] [place] [phone] 09/13/2024 9:30 AM EDT Office Visit [facility] Hematology Oncology [address] [place] [phone] Jeffrey Conte MD [address] [place] [phone] 10/19/2024 9:[address] [facility] [address] [place] [phone] 02/20/2025 8:00 AM EDT Ancillary Procedure [facility] Cardiology [facility] [address] [place] [phone] 03/01/2025 8:40 AM EDT Office Visit [facility] Cardiology [facility] [address] [place] [phone] Marcela Chris NP [address] [place] [address] [place] [address] Scheduled Orders Name Type Priority Associated Diagnoses Orde r Schedule CBC and differential Lab Routine Iron deficiency anemia due to chronic blood loss 1 Occurrences starting 08/09/2024 until 08/09/2025 Comprehensive metabolic panel Lab Routine Iron deficiency anemia due to chronic blood loss Every 12 weeks for 99 Occurrences starting 08/09/2024 until 08/09/2025 Prostate specific antigen diagnostic Lab Routine Iron deficiency anemia due to chronic blood loss Elevated prostate specific antigen (PSA) Every 8 weeks for 6 Occurrences starting 08/09/2024 until 08/09/2025, 2 completed Comprehensive metabolic panel Lab Routine Iron deficiency anemia due to chronic blood loss Every 8 weeks for 6 Occurrences starting 08/09/2024 until 08/09/2025, 2 completed CBC and differential Lab Routine Iron deficiency anemia due to chronic blood loss Every 8 weeks for 6 Occurrences starting 08/09/2024 until 08/09/2025, 2 completed documented as of this encounter Results * (ABNORMAL) Comprehensive metabolic panel (09/07/2024 10:37 AM EDT) Sodium 146(H) 133 - 145 mmol/L LAB CHEMISTRY METHOD 09/07/2024 12:12 PM [facility] Potassium 3.9 3.5 - 5.5 mmol/L LAB CHEMISTRY METHOD 09/07/2024 12:12 PM [facility] Chloride 112(H) 96 - 110 mmol/L LAB CHEMISTRY METHOD 09/07/2024 12:12 PM [facility] CO2 29 21 - 32 mmol/L LAB CHEMISTRY METHOD 09/07/2024 12:12 PM [facility] Anion Gap 5 3 - 11 LAB CHEMISTRY METHOD 09/07/2024 12:12 PM [facility] Glucose 108(H) 70 - 100 mg/dL LAB CHEMISTRY METHOD 09/07/2024 12:12 PM [facility] BUN 20 5 - 25 mg/dL LAB CHEMISTRY METHOD 09/07/2024 12:12 PM [facility] Creatinine 1.14 0.70 - 1.30 mg/dL LAB CHEMISTRY METHOD 09/07/2024 12:12 PM [facility] eGFR 66 >=60 mL/min/1. 73m2 LAB CHEMISTRY METHOD 09/07/2024 12:12 PM [facility] Comment:Calculation based on the??Chronic Kidney Disease Epidemiology Collaboration (CKD-EPI) equation refit??without adjustment for race. BUN/Creatinine Ratio 17.5 LAB CHEMISTRY METHOD 09/07/2024 12:12 PM [facility] Calcium 8.4(L) 8.5 - 10.5 mg/dL LAB CHEMISTRY METHOD 09/07/2024 12:12 PM [facility] AST (SGOT) 21 10 - 42 unit/L LAB CHEMISTRY METHOD 09/07/2024 12:12 PM [facility] ALT (SGPT) 15 10 - 60 unit/L LAB CHEMISTRY METHOD 09/07/2024 12:12 PM [facility] Alkaline Phosphatase 49 42 - 121 unit/L LAB CHEMISTRY METHOD 09/07/2024 12:12 PM [facility] Total Protein 5.8(L) 6.0 - 8.0 g/dL LAB CHEMISTRY METHOD 09/07/2024 12:12 PM [facility] Albumin 2.5(L) 3.2 - 5.0 g/dL LAB CHEMISTRY METHOD 09/07/2024 12:12 PM [facility] Total Bilirubin 0.4 0.0 - 1.4 mg/dL LAB CHEMISTRY METHOD 09/07/2024 12:12 PM [facility] Blood Venous blood specimen / Unknown Venipuncture / Unknown 09/07/2024 10:37 AM EDT 09/07/2024 11:21 AM EDT Jeffrey Conte MD LAB BLOOD ORDERABLES Final Res ult [facility] [address] [place] [address], * (ABNORMAL) Prostate specific antigen diagnostic (09/07/2024 10:37 AM EDT) PSA 27.01(H) 0.00 - 4.00 ng/mL LAB CHEMISTRY METHOD 09/07/2024 12:12 PM EDT [facility] Blood Venous blood specimen / Unknown Venipuncture / Unknown 09/07/2024 10:37 AM EDT 09/07/2024 11:21 AM EDT Narrative [facility] - 09/07/2024 12:12 PM EDT The Siemens Advia AT [employer] Chemiluminescent Immunoassay is used. Results obtained with different assay methods or kits cannot be used interchangeably. Results cannot be interpreted as absolute evidence of the presence or absence of malignant disease. Jeffrey Conte MD LAB BLOOD ORDERABLES Final Res ult Performing Organization Address [facility]/ZIP Co de Phone Number [facility] [address] [place] [address], * (ABNORMAL) Comprehensive metabolic panel (08/29/2024 11:06 AM EDT) Sodium 146(H) 133 - 145 mmol/L LAB CHEMISTRY METHOD 08/29/2024 12:23 PM EDT [facility] Potassium 3.9 3.5 - 5.5 mmol/L LAB CHEMISTRY METHOD 08/29/2024 12:23 PM EDT [facility] Chloride 112(H) 96 - 110 mmol/L LAB CHEMISTRY METHOD 08/29/2024 12:23 PM EDT [facility] CO2 26 21 - 32 mmol/L LAB CHEMISTRY METHOD 08/29/2024 12:23 PM EDT [facility] Anion Gap 8 3 - 11 LAB CHEMISTRY METHOD 08/29/2024 12:23 PM [facility] Glucose 138(H) 70 - 100 mg/dL LAB CHEMISTRY METHOD 08/29/2024 12:23 PM [facility] BUN 21 5 - 25 mg/dL LAB CHEMISTRY METHOD 08/29/2024 12:23 PM [facility] Creatinine 1.06 0.70 - 1.30 mg/dL LAB CHEMISTRY METHOD 08/29/2024 12:23 PM [facility] eGFR 72 >=60 mL/min/1. 73m2 LAB CHEMISTRY METHOD 08/29/2024 12:23 PM [facility] Comment:Calculation based on the??Chronic Kidney Disease Epidemiology Collaboration (CKD-EPI) equation refit??without adjustment for race. BUN/Creatinine Ratio 19.8 LAB CHEMISTRY METHOD 08/29/2024 12:23 PM [facility] Calcium 8.2(L) 8.5 - 10.5 mg/dL LAB CHEMISTRY METHOD 08/29/2024 12:23 PM [facility] AST (SGOT) 20 10 - 42 unit/L LAB CHEMISTRY METHOD 08/29/2024 12:23 PM [facility] ALT (SGPT) 15 10 - 60 unit/L LAB CHEMISTRY METHOD 08/29/2024 12:23 PM [facility] Alkaline Phosphatase 35(L) 42 - 121 unit/L LAB CHEMISTRY METHOD 08/29/2024 12:23 PM [facility] Total Protein 5.8(L) 6.0 - 8.0 g/dL LAB CHEMISTRY METHOD 08/29/2024 12:23 PM [facility] Albumin 2.6(L) 3.2 - 5.0 g/dL LAB CHEMISTRY METHOD 08/29/2024 12:23 PM [facility] Total Bilirubin 0.4 0.0 - 1.4 mg/dL LAB CHEMISTRY METHOD 08/29/2024 12:23 PM EDT [facility] Blood Venous blood specimen / Unknown Venipuncture / Unknown 08/29/2024 11:06 AM EDT 08/29/2024 11:27 AM EDT us Jeffrey Conte MD LAB BLOOD ORDERABLES Final Res ult Performing Organization Address [facility] Co de Phone Number [facility] [address] [place] [address], [place] [phone] * (ABNORMAL) Prostate specific antigen diagnostic (08/29/2024 11:06 AM EDT) PSA 20.52(H) 0.00 - 4.00 ng/mL LAB CHEMISTRY METHOD 08/29/2024 12:17 PM EDT [facility] Blood Venous blood specimen / Unknown Venipuncture / Unknown 08/29/2024 11:06 AM EDT 08/29/2024 11:27 AM EDT Narrative [facility] - 08/29/2024 12:17 PM EDT The Siemens Advia Centaur Chemiluminescent Immunoassay is used. Results obtained with different assay methods or kits cannot be used interchangeably. Results cannot be interpreted as absolute evidence of the presence or absence of malignant disease. us Jeffrey Conte MD LAB BLOOD ORDERABLES Final Res ult Performing Organization Address [facility] Co de Phone Number [facility] [address] [place] [address], [place] [phone] documented in this encounter Visit Diagnoses Diagnosis Iron deficiency anemia due to chronic blood loss- Primary Iron deficiency anemia secondary to blood loss (chronic) Elevated prostate specific antigen (PSA) documented in this encounter Care Teams Manager Delivery Relationship Specialty Start Date End Date Júnior Crawley MD [address] [place] [address] PCP - General Internal Medicine 05/02/24 documented as of this encounter
--- OUTSIDE RECORDS SUMMARY | 2024-09-07 16:49 | XMS_ITS | Encounter Summary ---
Author Organization [facility] Address [address] [place] [address] Care Team Providers Care Electric Trucker Name Role Phone Júnior Crawley MD Primary Care Provider [phone] Encounter Details Date Type Department Care Team (Late st Contact Info) Description 08/08/2024 Telephone [facility] Cardiology [address] [place] [phone] Jatinder Elizabeth MD [address] [place] [address] [address] [place], [place] [phone] Social History Tobacco Use Types Packs/Day Years [...] for your loved ones. For example, child study team director or elderly care for an older adult? [...] as of this encounter Progress Notes * Loida Lutz - 08/10/2024 9:56 AM EST Hospital follow up appointment scheduled with Dr Elizabeth on Sunday, August 25, 2024 at 9;50 AM. I spoke with patients partner Sondra. Appointment reminder mailed. * Giovanni Pan - 08/08/2024 1:53 PM EST Hospital Follow Up Diagnosis:Iron deficiency anemia due to chronic blood loss Hospital:[facility] Consulted by: N/A Discharged on: 08/06/24 Care team: Dr Elizabeth/ Marcela Chris documented in this encounter Plan of Treatment Upcoming Encounters Date Type Department Care Team (Late st Contact Info) Description 09/08/2024 8:00 AM EDT Appointment [address] [phone] Jeffrey Conte MD [address] [place] [phone] 09/13/2024 9:30 AM EDT Office Visit [facility] Hematology Oncology [address] [place] [phone] Jeffrey Conte MD [address] [place] [phone] 10/19/2024 9:00 AM EDT Appointment [address] [phone] 02/20/2025 8:00 AM EDT Ancillary Procedure [facility] Cardiology [facility] [address] [place] [phone] 03/01/2025 8:40 AM EDT Office Visit [facility] [address] [place] [address] [address] [place] [phone] Marcela Chris, SAL [address] [place] [address] [address] [place] [address] documented as of this encounter Visit Diagnoses Not on filedocumented in this encounter Care Teams Electric Trucker Relationship Specialty Start Date End Date Júnior Crawley MD [address] [place] [phone] PCP - General Internal Medicine 05/02/24 documented as of this encounter
--- OUTSIDE RECORDS SUMMARY | 2024-09-07 16:49 | XMS_ITS | Encounter Summary ---
Author Organization [facility] Address [address] [place] [address] Care Team Providers Care Passenger Locomotive Engineer Name Role Phone Unavailable Primary Care Provider Unavailabl e Encounter Details Date Type Department Care Team (Late st Contact Info) Description 04/12/2024 8:44 AM EDT Hospital Encounter TH HISTORIC ENCOUNTERS EASTERN CONVERSION ONLY Jfefrey Conte MD [address] [place] [address] Social History Tobacco Use Types [...] loved ones. For example, child and adolescent therapist or elderly care for an older [...] Sign Reading Time Taken Comments Blood Pressure - - Pulse - - Temperature - - Respiratory Rate - - Oxygen Saturation - - Inhaled Oxygen Concentration - - Weight 88 kg (194 lb) 04/12/2024 9:04 AM EDT Height 165.1 cm (5' 5 ) 12/14/2023 10:50 AM EDT Body Mass Index 31.79 02/15/2024 9:13 AM EDT documented in this encounter Progress Notes * Jeffrey Conte MD - 04/12/2024 9:00 AM EDT CHIEF COMPLAINT: No chief complaint on file. IDENTIFIER:Luke Turpin is a 78 y.o. male. HPI:Metastatic carcinoma the prostate??previously??on Eligard enzalutamide..??Colonic AVM GI bleed Metastatic carcinoma the prostate currently on Eligard??abiraterone prednisone..??Colonic AVM GI bleed ?? Prior testing from [facility]??360??demonstrates no tumor related somatic alterations MSI high not detected Clinically patient is doing well no ongoing acute complaints of pain appetite energy functional status all quite good. ??Demonstrates hemoglobin 9.3 PSA is at 30. ??Has been reviewed no clear evidence of significant GI bleed as noted previously he does have evidence of colonic AVMs he has been followed previously by Dr. Kim? Patient remains on ADT with Eligard per urology Originally??seen in this clinic in August 2016 for iron deficiency anemia, now returns for evaluation of rising PSA. Mr. Turpin was initially identified on screening PSA in 1999 with biopsy demonstrating Gamaliel 7; he was successfully treated with brachytherapy. More recently he is been on androgen deprivation therapy with leuprolide but no oral agent and his PSA has been rising. In May 2015 the PSA was 7.4 over the succeeding 2 years by 04/20/2017 the PSA was 13.7. ?? In October 2018 patient had a PSA of 58 was subsequently started on therapy with enzalutamide continuing on Eligard PSA dropped to 30 over the course of next several months and thereafter has remained stable between 17 and 19. ?? Subsequently patient ??had PSA approximately 30 which subsequently galen to 40 as of 05/13/2021. ??He??was??asymptomatic did??not wish to transition treatment plan. ??He has routine??follow-up with GIregarding his prior AVM ?? Prior GI evaluation opted to hold off on colonoscopy iron studies have been normal. Tolerated??initiation of??enzalutamide and Lupron. He had??no constitutional difficulties he had??recently returned from [place]. ??His laboratory data shows hemoglobin of 8.1 at this time. ??PSA ??77. No acute complaints at the moment biopsy of soft tissue lesion taken from left acetabulum consistent with metastatic prostate cancer. ??As previously reviewed with radiology is considered to be some unusual metastatic pattern 11/04/2021 hemoglobin 8.4, PSA 87.5. ??There had been several days patient did not take any treatmentAs of 12/29/2021 WBC is 6.0 hemoglobin 7.5 platelet count 312,000 creatinine 1.07 PSA 67.9 normal LFTs. ??No actionable biomarker was noted on [facility] evaluation. ?? MRI from 01/24/2022 metastatic disease involving left acetabulum as well as sacrum heterogeneous massleft pelvis enhancement of nerve roots neural foramina S2 soft tissue mass involving acetabular roof posterior aspect of left acetabulum.?? Reviewed laboratory data patient ??tolerated enzalutamide without difficulty. ??He has also tolerated RT his PSA was??22 he had??no symptomatic complaints referable to his prior diagnosis of metastatic prostate cancer. ?? Patient has had prior CBC with hemoglobin 7.3. ??He has known history of angiodysplasia of the colon. He has been followed closely by GI. ??He has intermittent need for intravenous iron as well as periodically transfusion of RBC. Tolerated colonoscopy. ??Demonstration of angiodysplasia Patient??states he??did not have capsule study He did have prior hemorrhoidal bleed and??he has had prior cauterization of AVMs. ??He is followed by GI service ?? Radiographic studies reviewed extensively with radiology. ??Adrenal lesion is prominent on PET. ?? Adrenal biopsy ultimately demonstrating metastatic prostate cancer ?? No ongoing difficulties of severe pain syndrome intermittent discomfort particularly involving lefthip. WBC 5.3 hemoglobin 7.1 platelet count 249,000 iron 123 ferritin 238 creatinine 1.2 PSA 22.6 no significant abnormality regarding LFTs. ??CT scan chest abdomen pelvis right adrenal metastasis previously 33 mm 43 mm otherwise unchanged lesions within L4 and pelvis. Left hip pain improved no ongoing acute complaints with regard to respiratory status. ??No localizing sign or symptom of infection. ??Radiographically patient noted to have calcific tendinitis involving left hip. Patient states that he is feeling well. ??We have had lengthy discussion regarding his prior radiographic findings decision was made to hold off on further intervention pending repeat CT scan in November. Patient also had recent CBC 7.3 requiring transfusional therapy. He has been followed by Dr. Zelaya GI service. ??He has had prior cautery of vascular lesions. Tolerating therapy well. ??Intermittent difficulties of left-sided musculoskeletal discomfort. ??Noweakness. Radiographic assessment stable pelvic disease, slight progression of adrenal lesion. ??PSA remains stable lytic metastasis left acetabulum mixed [...] his primary care physician as well as healthcare management consultant in chart traveling for vacation. Following up with GI persistent difficulties of the occult GI blood loss with AVM. Transfused today. He did have prior difficulty with oral iron therapy. May need to consider further iron replacementbut monitoring these values on a regular basis. PAST MEDICAL HISTORY: Past Medical History: Diagnosis Date ??? Prostate cancer (HCC) History reviewed. No pertinent surgical history. SOCIAL HISTORY: Social History Tobacco Use ??? Smoking status: Former ??? Smokeless tobacco: Never Substance Use Topics ??? Alcohol use: No FAMILY HISTORY: History reviewed. No pertinent family history. No family status information on file. Current Outpatient Medications: ??? aspirin 81 MG tablet, Take 1 tablet (81 mg total) by mouth daily., Disp: , Rfl: ??? Calcium Carbonate-Vitamin D 600-5 MG-MCG TABS, Take by mouth daily., Disp: , Rfl: ??? enzalutamide (Xtandi) 40 MG capsule, Take 4 capsules (160 mg total) by mouth daily, Disp: 120 capsule, Rfl: 11 ??? Enzalutamide (Xtandi) 80 MG TABS, Take 2 tablets by mouth daily., Disp: 60 tablet, Rfl: 11 ??? fenofibrate (TRIGLIDE) 160 MG tablet, Take 1 tablet (160 mg total) by mouth daily., Disp: , Rfl: ??? gabapentin (NEURONTIN) 300 MG capsule, TAKE ONE CAPSULE BY MOUTH THREE TIMES A DAY, Disp: 90 capsule, Rfl: 2 ??? leuprolide (ELIGARD) 45 MG injection, Inject 45 mg under the skin every 6 (six) months., Disp: , Rfl: ??? lisinopril (PRINIVIL,ZESTRIL) tablet 20 mg, Take 1 tablet (20 mg total) by mouth daily., Disp: , Rfl: ??? METFORMIN HCL PO, Take 250 mg by mouth daily., Disp: , Rfl: ??? omeprazole (PRILOSEC) 40 MG capsule, Take 1 capsule (40 mg total) by mouth 2 (two) times a day., Disp: , Rfl: ??? oxyCODONE (ROXICODONE) 5 MG immediate release tablet, Take 1 tablet (5 mg total) by mouth every4 (four) hours as needed for pain., Disp: 30 tablet, Rfl: 0 ??? oxyCODONE HCl ER (OxyCONTIN) 10 MG T12A controlled release tablet, Take 1 tablet (10 mg total) by mouth every 12 (twelve) hours. No Substitution, Disp: 60 tablet, Rfl: 0 ??? rosuvastatin (CRESTOR) tablet 20 mg, Take 1 tablet (20 mg total) by mouth daily., Disp: , Rfl: ??? simvastatin (ZOCOR) tablet 20 mg, Take 1 tablet (20 mg total) by mouth every night at bedtime.,Disp: , Rfl: ??? terazosin (HYTRIN) 5 MG capsule, Take 1 capsule (5 mg total) by mouth every night at bedtime., Disp: , Rfl: You are allergic to the following Date Reviewed: 04/12/2024 No active allergies ROS: GENERAL: No malaise, significant weight loss [...] Systems review is non contributory PHYSICAL EXAM: BP 146/52 Pulse 79 Temp 97.5 ??F (36.4 ??C) Wt 88 kg (194 lb) SpO2 99% BMI 32.28 kg/m?? Verbal Pain Score: 0 (04/12/2024 9:42 AM) APPEARANCE: Alert and in no acute distress EYES: PERRL, conjunctiva pink and sclera are Normal without icterus NECK: Neck supple, no adenopathy HEART: RRR with normal S1 and S2, no murmurs, no gallops, no JVD appreciated LUNG: clear to auscultation bilaterally LYMPH NODES: No palpable superficial adenopathy ABDOMEN: Soft nontender EXTREMITIES: Extremities warm and well perfused without clubbing, cyanosis, rash or edema NEURO: Oriented X 3, no focal weakness; sensation is normal IMPRESSION: SNOMED CT(R) 1. Prostate cancer (HCC) MALIGNANT TUMOR OF PROSTATE PLAN: Patient to have echocardiogram within the next week. Traveling for vacation thereafter. Will be seen back here for follow-up discussion regarding institution of docetaxel therapy. Based on radiographic findings from February 2024. Did review [facility] findings primary finding related to androgen receptor. Patient also following up with primary care. He has had some significant weight loss since discontinuing alcohol use. Weight loss of some 20 pounds. Appetite remains intact. Jeffrey Conte MD documented in this encounter Plan of Treatment Upcoming Encounters Date Type Department Care Team (Late st Contact Info) Description 09/08/2024 8:00 AM EDT Appointment [facility] [address] [place] [address] [phone] Jeffrey Conte MD [address] [place] [address] [phone] 09/13/2024 9:30 AM EDT Office Visit [facility] Hematology Oncology [address] [place] [address] [phone] Jeffrey Conte MD [address] [place] [address] [phone] 10/19/2024 9:00 AM EDT Appointment [facility] [address] [place] [address] 02/20/2025 8:00 AM EDT Ancillary Procedure [facility] Cardiology [facility] [address] [place] [address] 03/01/2025 8:40 AM EDT Office Visit [facility] [address] [place] [address] Marcela Chris, SAL [address] [place] [address] [address] [place] [address] documented as of this encounter Procedures Procedure Name Priority Date/Time Associated Diagnosis Comments HISTORICAL CONVERSION 04/12/2024 ..MISCELLANEOUS REFERENCE LAB TEST 04/12/2024 EXTERNAL CLINICAL LAB 04/12/2024 documented in this encounter Results * Historical Conversion (04/12/2024) us Provider Onbase MD AMB HISTORICAL CONV PROCEDURE S Final Result * External clinical lab (04/12/2024) us Provider Onbase MD LAB BLOOD ORDERABLES Final Re sult * Miscellaneous reference lab test (04/12/2024) us Provider Onbase MD LAB BLOOD ORDERABLES Final Re sult documented in this encounter Visit Diagnoses Not on filedocumented in this encounter Additional Health Concerns Infection Onset Date Last Indicated Resolved Time Respiratory Rule-Out 09/01/2024 09/01/2024 025 8:03 PM EDT COVID-19 Rule-Out 09/01/2024 09/01/2024 09/01/2024 8:03 PM EDT documented as of this encounter
--- OUTSIDE RECORDS SUMMARY | 2024-09-07 16:49 | XMS_ITS | Clinical Summary ---
Author Organization [facility] Address [address] [place] [address] Care Team Providers Care Body And Fender Worker Name Role Phone Júnior Crawley MD Primary [...] age to complete this topic Care Teams Body And Fender Worker Relationship Specialty Start Date End Date Júnior Crawley MD PCP - General Internal Medicine 05/12/17
--- OUTSIDE RECORDS SUMMARY | 2024-09-07 16:49 | XMS_ITS | Encounter Summary ---
Author Organization [facility] Address [address] [place] [address] Care Team Providers Care Atomic Welder Name Role Phone Júnior Crawley MD Primary Care Provider [phone] Encounter Details Date Type Department Care Team (Late st Contact Info) Description 08/14/2024 Telephone [facility] Hematology Oncology [address] [place] [address] Jeffrey Conte MD [address] [place] [address] Social History Tobacco Use Types [...] for your loved ones. For example, child care lead teacher or elderly care for an older adult? [...] as of this encounter Progress Notes * Venessa Brizuela RN - 08/14/2024 11:32 AM EST Patient's ultrasound has not been read yet. That is why it is not showing up in the patients portal. I called ultrasound to check on the status. The turn around time is usually 1 week but the [facility] dept is behind on reading. Patient's is aware. She will continue to check the patients portal. Patient also continues with dark stools. Denies CP. Denies SOB. Denies dizziness. Reports feeling okay. Patient came in for labs today - results pending. Patient is scheduled for a blood transfusion this 08/17. * Aida Justice - 08/14/2024 11:05 AM EST Pt wants the results for the U/S done last week they can't find it on pt portal Pt here doing labs today he is having dark stools seems to feel okay Pt has chemo Wednesday documented in this encounter Plan of Treatment Upcoming Encounters Date Type Department Care Team (Late st Contact Info) Description 09/08/2024 8:00 AM EDT Appointment [facility] Center [address] [place] [phone] Jeffrey Conte MD [address] [place] [address] [phone] 09/13/2024 9:30 AM EDT Office Visit [facility] Hematology Oncology [address] [place] [phone] Jeffrey Conte MD [address] [place] [phone] 10/19/2024 9:00 AM EDT Appointment [facility] [address] [place] [phone] 02/20/2025 8:00 AM EDT Ancillary Procedure [facility] - [address] [place] [phone] 03/01/2025 8:40 AM EDT Office Visit [facility] [address] [place] [address] Marcela Chris NP [address] [place] [address] documented as of this encounter Visit Diagnoses Not on filedocumented in this encounter Care Teams Atomic Welder Relationship Specialty Start Date End Date Júnior Crawley MD [address] [place] [phone] PCP - General Internal Medicine 05/02/24 documented as of this encounter
--- OUTSIDE RECORDS SUMMARY | 2024-09-07 16:49 | XMS_ITS | Encounter Summary ---
Author Organization [facility] Address [address] [place] [address] Care Team Providers Care Fuel Tank Sealer And Tester Name Role Phone Júnior Crawley MD Primary Care Provider [phone] Encounter Details Date Type Department Care Team (Late Contact Info) Description 07/01/2024 Treatment [facility] Hematology Oncology [address] [place] [phone] Jeffrey Conte MD [address] [place] [address] Social History Tobacco Use Types Packs/Day Years Used Date Smoking Tobacco: Former Cigarettes Q uit: 06/21/2012 Smokeless Tobacco: Never Alcohol Use Standard Drinks/Week Comments No 0 (1 standard drink = 0.6 oz pur e alcohol) Interpersonal Safety Answer Date Record ed Physical Abuse 05/10/2024 Verbal Abuse 05/10/2024 Sex and Gender Information Value Date Recorded Sex Assigned at Male 07/03/2024 10:21 AM EST Legal Sex Male 1:21 AM EST Gender Identity Male 07/03/2024 10:21 AM EST Sexual Orientation Straight 07/03/2024 10 :21 AM EST documented as of this encounter Plan of Treatment Upcoming Encounters Date Type Department Care Team (Late Contact Info) Description 09/08/2024 8:00 AM EDT Appointment [facility] Center [address] [phone] Jeffrey Conte MD [address] [place] [phone] 09/13/2024 9:30 AM EDT Office Visit [facility] Hematology Oncology [address] [place] [phone] Jeffrey Conte MD [address] [place] [phone] 10/19/2024 9:00 AM EDT Appointment [facility] [address] [facility] 2[address] [place] [phone] 02/20/2025 8:00 AM EDT Ancillary Procedure [facility] Cardiology [facility] [address] [place] [phone] 03/01/2025 8:40 AM EDT Office Visit [facility] Card[facility] [address] [place] [address] Marcela Chris NP [address] [place] [address] [address] [place] [address] documented as of this encounter Visit Diagnoses Not on filedocumented in this encounter Additional Health Concerns Infection Onset Date Last Indicated Resolved Time Respiratory Rule-Out 09/01/2024 09/01/2024 025 8:03 PM EDT COVID-19 Rule-Out 09/01/2024 09/01/2024 09/01/2024 8:03 PM EDT documented as of this encounter Care Teams Fuel Tank Sealer And Tester Relationship Specialty Start Date End Date Júnior Crawley MD [address] [place] [phone] PCP - General Internal Medicine 05/02/24 documented as of this encounter
--- OUTSIDE RECORDS SUMMARY | 2024-09-07 16:49 | XMS_ITS | Clinical Summary ---
Author Organization [facility] Address [address] [place] [address] Phone Care Team Providers Care Training And Quality Manager Name Role Phone Júnior Crawley MD Primary Care Provider [phone] Allergies No known active allergies Medications fenofibrate micronized (LOFIBRA) 134 mg capsule Take 1 Capsule by mouth daily. Active leuprolide acetate (ELIGARD SUBQ) Inject into the skin Every 3 Months. Active metFORMIN (GLUCOPHAGE) 500 mg tablet Take 0.5 tablets (250 mg total) by mouth 1 (one) time each day with breakfast. Active rosuvastatin (CRESTOR) 20 mg tablet Take 1 Tablet by mouth daily. Active terazosin (HYTRIN) 5 mg capsule Take 1 Capsule by mouth at bedtime. Active omeprazole (PriLOSEC) [address] capsuleIndicat ions:Melena Take 1 capsule (40 mg total) by mouth 2 (two) times a day. Do not crush or chew. 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 Start the day after IV chemotherapy. Take on days 2-21 of each cycle with food. 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 60 tablet 3 5 Active gabapentin (NEURONTIN) 600 mg tablet Take 1 tablet (600 mg total) by mouth 3 (three) times a day. 90 each 2 5 Active cholecalcifero l (VITAMIN D-3) 25 mcg (1,000 unit) tablet Take 1 tablet (1,000 Units total) by mouth 1 (one) time each day. Active sod picosulf-mag ox-citric ac (Clenpiq) 10 mg-3.5 gram- 12 gram/175 mL solutionIndica tions:Gastroin testinal bleeding,Melen a,Proctitis Take 175 mL by mouth 2 (two) times a day. 350 mL 5 Active Additional Information Patient not taking.Reported on 09/01/2024 iron,carbonyl- vitamin C (Vitron-C) 65 mg iron- 125 mg tablet,delayed release (DR/EC) Take 1 tablet by mouth 1 (one) time each day. Active folic acid (FOLVITE) 400 mcg tablet Take 1 tablet (400 mcg total) by mouth 1 (one) time each day. Active DOCETAXEL IV Infuse into a venous catheter. Every 22 days Active levoFLOXacin (LEVAQUIN) 500 mg tablet Take 1 tablet (500 mg total) by mouth 1 (one) time each day for 5 days. 5 each 5 025 Active lisinopriL (PRINIVIL,ZEST RIL) 20 mg tablet Take 1 Tablet by mouth daily. 025 Discontinu ed(Stop Taking at Discharge) folic acid (FOLVITE) 1 mg tablet Take by mouth 1 (one) time each day. 025 Discontinu ed(Discont inued by another clinician) trimethoprim-p olymyxin b (POLYTRIM) ophthalmic solution Administer 1 drop into both eyes 4 (four) times a day for 7 days. 10 mL 5 025 Discontinu ed(Stop Taking at Discharge) Active Problems Problem Noted Date Diagnosed Date [...] blood transfusions as needed per Oncology recommendations Resolved Problems Problem Noted Date Diagnosed Date Resolved Date Symptomatic anemia 08/05/2024 5 DM type 2 with diabetic amyotrophy 05/04/2024 05/04/2024 Encounters Date Type Department Care Team Description 09/01/2024 3:36 PM EDT - 09/04/2024 12:33 PM EDT Hospital Encounter [facility] Medical Surgical Unit [address] [place] [phone] Noemy Bergman DO Jones, Christopher, MD Rasul, Yar M, MD Alam, Aroosa, MD Neutropenic fever (CMS/HCC) (Primary Dx); Acute respiratory failure with hypoxia (CMS/HCC) Discharge Disposition: Home or Self Care 08/30/2024 10:08 AM EDT - 08/30/2024 11:59 PM EDT Hospital Encounter [facility] Infusion Center [address] [place] [phone] Jeffrey Conte MD 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) (Primary Dx); Prostate cancer (CMS/HCC) Discharge Disposition: Home or Self Care 08/30/2024 9:45 AM EDT Office Visit [facility] Hematology Oncology [address] [place] [phone] Jeffrey Conte MD Prostate cancer (CMS/HCC) (Primary Dx) 08/29/2024 11:10 AM EDT Lab Draw Station - [address] [phone] Malignant neoplasm of prostate ([facility]/HCC); Iron deficiency anemia secondary to blood loss (chronic); Iron deficiency anemia due to chronic blood loss; Elevated prostate specific antigen (PSA) 08/29/[address] [phone] Layne Stauffer RN 08/25/2024 9:50 AM EST Office Visit [facility] Cardiology [address] [place] [phone] Jatinder Elizabeth MD Severe aortic stenosis (Primary Dx) 08/22/2024 12:48 PM EST - 08/22/2024 11:59 PM EST Hospital Encounter [address] [phone] Jeffrey Conte MD 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) (Primary Dx); Prostate cancer (CMS/HCC) Discharge Disposition: Home or Self Care 08/21/2024 11:05 AM EST Lab Draw Station - [address] [phone] Malignant neoplasm of prostate ([facility]/HCC); Iron deficiency anemia secondary to blood loss (chronic) 08/18/2024 1:00 PM EST Office Visit [facility] Hematology Oncology [address] [place] [phone] Hannah Mathew PA Bacterial conjunctivitis (Primary Dx); Prostate cancer (CMS/HCC); Anemia due to GI blood loss 08/18/2024 8:43 AM EST - 08/18/2024 11:59 PM EST Hospital Encounter [facility] Infusion Center [address] [place] [phone] Jeffrey Conte MD 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) (Primary Dx); Prostate cancer (CMS/HCC) Discharge Disposition: Home or Self Care 08/15/2024 11:09 AM EST - 08/15/2024 11:59 PM EST Hospital Encounter [facility] Infusion Center [address] [place] [phone] Jeffrey Conte MD 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) (Primary Dx); Prostate cancer ([facility]/HCC) Discharge Disposition: Home or Self Care 08/14/2024 Telephone [facility] Hematology Oncology [address] [place] [phone] Jeffrey Conte MD 08/09/2024 9:15 AM EST Office Visit [facility] Hematology Oncology [address] [place] [phone] Jeffrey Conte MD Iron deficiency anemia due to chronic blood loss (Primary Dx); Elevated prostate specific antigen (PSA) 08/08/2024 7:39 AM EST - 08/08/2024 11:59 PM EST Hospital Encounter [facility] Ultrasound [address] [place] [phone] Pain of upper abdomen Discharge Disposition: Home or Self Care 08/08/2024 Telephone [facility] Infusion Center [address] [place] [phone] Mary Urias RN neutrapenic precautions 08/08/2024 Telephone [facility] [address] [place] [phone] Jatinder Elizabeth MD 08/08/2024 Telephone [facility] Hematology Oncology [address] [place] [phone] Jeffrey Conte MD 08/05/2024 7:22 AM EST - 08/06/2024 2:37 PM EST Hospital Encounter [facility] Intermediate Care Unit B [address] [place] [phone] Jeffery Ramos MD Flores, Carlos M, MD Zipagan, James T, MD Iron deficiency anemia due to chronic blood loss (Primary Dx); Stable angina pectoris (CMS/HCC); Chest pain due to myocardial ischemia, unspecified ischemic chest pain type Discharge Disposition: Home or Self Care 08/03/2024 7:31 AM EST Anesthesia Event [facility] Endoscopy [address] [place] [phone] Dm Rodas MD 08/03/2024 6:41 AM EST - 08/03/2024 11:59 PM EST Hospital Encounter [facility] Endoscopy [address] [place] [phone] Héctor Zelaya MD Dusza, Sara, CRNA Korobkov, Vitaliy, DO Gastrointestinal bleeding; Melena; Proctitis Discharge Disposition: Home or Self Care 08/01/2024 8:00 AM EST - 08/01/2024 11:59 PM EST Hospital Encounter [facility] Infusion Center [address] [place] [phone] Jeffrey Conte MD Prostate cancer (CMS/HCC) (Primary Dx); 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) ([facility]/HCC) Discharge Disposition: Home or Self Care 07/31/2024 [facility] Infusion Center [address] [place] [phone] Josefa Kam RN 07/28/2024 9:50 AM EST - 07/28/2024 11:59 PM EST Hospital Encounter [facility] Xray [address] [place] [phone] Discharge Disposition: Home or Self Care 07/28/2024 9:48 AM EST - 07/28/2024 11:59 PM EST Hospital Encounter [facility] Xray [address] [place] [phone] Discharge Disposition: Home or Self Care 07/28/2024 8:26 AM EST - 07/28/2024 11:59 PM EST Hospital Encounter [facility] Infusion Center [address] [place] [phone] Jeffrey Conte MD 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) (Primary Dx); Prostate cancer (CMS/HCC) Discharge Disposition: Home or Self Care 07/27/2024 8:33 AM EST - 07/27/2024 11:59 PM EST Hospital Encounter [address] [phone] Jeffrey Conte MD 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) (Primary Dx); Prostate cancer (CMS/HCC) Discharge Disposition: Home or Self Care 07/20/2024 8:20 AM EST Office Visit Gastroenterology - [address] [phone] Roseanna Bray PA Iron deficiency anemia due to chronic blood loss (Primary Dx) 07/20/2024 Telephone Gastroenterology - [address] [phone] Héctor Zelaya MD 07/19/2024 8:00 AM EST - 07/19/2024 11:59 PM EST Hospital Encounter [facility] Infusion Center [address] [place] [phone] Jeffrey Conte MD 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) (Primary Dx); Prostate cancer (CMS/HCC) Discharge Disposition: Home or Self Care 07/18/2024 Telephone [facility] Infusion Center [address] [place] [phone] Mary Urias RN 07/12/2024 11:00 AM EST Office Visit [facility] Hematology Oncology [address] [place] [phone] Jeffrey Conte MD Prostate cancer (CMS/HCC) (Primary Dx) 07/12/2024 10:48 AM EST - 07/12/2024 11:59 PM EST Hospital Encounter [facility] Infusion Center [address] [place] [phone] Jeffrey Conte MD 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) (Primary Dx); Prostate cancer (CMS/HCC) Discharge Disposition: Home or Self Care 07/11/2024 12:05 PM EST Lab Draw Station - [address] [phone] Malignant neoplasm of prostate ([facility]/HCC); Iron deficiency anemia secondary to blood loss (chronic) 07/11/2024 Telephone [facility] Hematology Oncology [address] [place] [phone] Jeffrey Conte MD 07/06/2024 10:08 AM EST - 07/06/2024 11:59 PM EST Hospital Encounter [address] [phone] Jeffrey Conte MD Prostate cancer (CMS/HCC) (Primary Dx); 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) ([facility]/HCC) Discharge Disposition: Home or Self Care 07/04/2024 7:32 AM EST - 07/04/2024 11:59 PM EST Hospital Encounter [facility] Interventional Radiology [address] [place] [phone] Prostate cancer ([facility]/HCC) Discharge Disposition: Home or Self Care 07/01/2024 Treatment [facility] Hematology Oncology [address] [place] [phone] Jeffrey Conte MD 06/28/2024 8:48 AM EST - 06/28/2024 11:59 PM EST Hospital Encounter [facility] Infusion Center [address] [place] [phone] Jeffrey Conte MD 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) (Primary Dx); Prostate cancer (CMS/HCC) Discharge Disposition: Home or Self Care 06/27/2024 9:30 AM EST Office Visit [facility] Hematology Oncology [address] [place] [phone] Jeffrey Conte MD Prostate cancer (CMS/HCC) (Primary Dx) 06/16/2024 9:23 AM EST - 06/16/2024 11:59 PM EST Hospital Encounter [facility] CT Scan [address] [place] [phone] Prostate cancer (CMS/HCC) Discharge Disposition: Home or Self Care from Last 3 Months Surgical History Surgery Date Site/Laterality Comments COLONOSCOPY 07/06/2023 multiple large patchy angiobysplastic lesions-cauterized. ESOPHAGOGASTRODUODENOSCOPY 07/06/2023 nonbleeding gastric ulcer OTHER SURGICAL HISTORY 05/11/2023 capsule endoscopy. angioectasias ESOPHAGOGASTRODUODENOSCOPY 05/10/2024 erosive gastropathy without evidence of recent bleeding COLONOSCOPY 05/10/2024 multiple non-bleeding colonic angioectasias, treated with bipolar cautery. TAx1 CHOLECYSTECTOMY OTHER SURGICAL HISTORY 05/11/2023 capsule endoscopy: angioectasias Medical History Medical History Date Comments GERD (gastroesophageal reflux disease) DX:GERD (gastroesophageal reflux disease) Type 2 diabetes mellitus DX:Type 2 diabetes mellitus (HCC) Anemia DX:Anemia Prostate cancer (CMS/HCC) DX:Pro state cancer (HCC) Osteoarthritis DX:Osteoarthriti s; COMMENT: INVOLVING MULTIPLE JOINTS Prostate cancer (CMS/HCC) DX:Pro state cancer (HCC) Social History Tobacco Use Types Packs/Day Years [...] for your loved ones. For example, children's program coordinator or elderly care for an older adult? [...] Orientation Straight 07/03/2024 10 :21 AM EST Obstetrics History Last Filed Vital Signs Vital Sign Reading [...] Mass Index 29.95 09/01/2024 2:48 PM EDT Plan of Treatment Upcoming Encounters Date Type Department Care Team (Late st Contact Info) Description 09/08/2024 8:00 AM EDT Appointment [address] [phone] Jeffrey Conte MD [address] [place] [phone] 09/13/2024 9:30 AM EDT Office Visit [facility] Hematology Oncology [address] [place] [phone] Jeffrey Conte MD [address] [place] [phone] 10/19/2024 9:00 AM EDT Appointment [facility] Infusion [address] [phone] 02/20/2025 8:00 AM EDT Ancillary Procedure [facility] Cardiology [facility] [address] [facility] [address] [place] [phone] 03/01/2025 8:40 AM EDT Office Visit [facility] [address] [facility] [address] [place] [phone] Marcela Chris NP [address] [place] [address] [address] [place] [address] Health Maintenance Due Date Last Done Comments Diabetes: Annual Foot Exam 1956 Diabetes: Annual Retina Eye Exam 1955 DTaP,Tdap,and Td Vaccines (1 - Tdap) 1965 RSV Immunization Patients 60+ Years Old (1 - 1-dose 75+ series) 2021 Cholesterol Screening (Lipid Panel) 05/28/2022 Depression Screening 05/28/2022 Hepatitis C Screening 05/28/2022 Medicare Annual Wellness Visit 12/25/2023 12/24/2022 Diabetes: Annual Urine Albumin-Creatinine Ratio (uACR) 05/04/2024 Diabetes: Blood Sugar Control Test (HGBA1C) 05/04/2024 Social Influencers of Health Screening 09/02/2025 09/02/2024 Falls Risk Assessment 09/04/2025 09/04/2024 Diabetes: Annual GFR (Glomerular Filtration Rate) 09/07/2025 09/07/2024, 09/04/2024, 09/03/2024, Additional history exists Hypertension/CHF/CAD Annual BMP Blood Test 09/07/2025 09/07/2024, 09/04/2024, 09/03/2024, Additional history exists Pneumococcal Vaccine: 50+ Years Completed 04/12/2020, 03/31/2019, 07/24/2016 Zoster Vaccines Completed 04/25/2021, 01/16/2021 Influenza Vaccine Completed 04/03/2024, , 04/14/2022, Additional history exists COVID-19 Vaccine Completed 06/30/2024, 05/2023, 04/01/2022, Additional history exists Colorectal Cancer Screening: Colonoscopy Discontinued 08/03/2024, 05/10/2024, 07/06/2023 HIB Vaccines Aged Out No longer eligi ble based on patient's age to complete this topic HPV Vaccines Aged Out No longer eligi ble based on patient's age to complete this topic Hepatitis A Vaccines Aged Out No long er eligible based on patient's age to complete this topic Hepatitis B Vaccines Aged Out No long er eligible based on patient's age to complete this topic IPV Vaccines Aged Out No longer eligi ble based on patient's age to complete this topic MMR Vaccines Aged Out No longer eligi ble based on patient's age to complete this topic Meningococcal ACWY Vaccine Aged Out N o longer eligible based on patient's age to complete this topic Meningococcal B Vacine Aged Out No lo nger eligible based on patient's age to complete this topic RSV Immunization Patients Under 20 months Aged Out No longer eligible based on patient's age to complete this topic Varicella Vaccines Aged Out No longer eligible based on patient's age to complete this topic Medical Devices Implanted Type Area Buffer Chrome Device Identifier Shelf Expiration Date Model / Serial / Lot Port Pwr Isp Attach 6f Interm Purnima - [id number] - [id number] Implanted:Qty: 1 on 07/04/2024 at [facility] Central/Precious pheral Catheters and Ports Right: Chest Wall CR [employer] [id number] 04/20/2025 [id number] / [id number] / [id number] Procedures Procedure Name Priority Date/Time Associated Diagnosis Comments CBC WITH AUTO DIFFERENTIAL Routine 09/07/2024 10:37 AM EDT Iron deficiency anemia due to chronic blood loss CBC AND DIFFERENTIAL Routine 09/07/2024 10:37 AM EDT Iron deficiency anemia due to chronic blood loss COMPREHENSIVE METABOLIC PANEL Routine 09/07/2024 10:37 AM EDT Iron deficiency anemia due to chronic blood loss PROSTATE SPECIFIC ANTIGEN DIAGNOSTIC Routine 09/07/2024 10:37 AM EDT Iron deficiency anemia due to chronic blood loss Elevated prostate specific antigen (PSA) TYPE AND SCREEN Routine 09/07/2024 10:37 AM EDT Malignant neoplasm of prostate (CMS/HCC) Iron deficiency anemia secondary to blood loss (chronic) IRON AND TIBC Routine 09/07/2024 10:37 AM EDT Malignant neoplasm of prostate (CMS/HCC) Iron deficiency anemia secondary to blood loss (chronic) FERRITIN Routine 09/07/2024 10:37 AM EDT Malignant neoplasm of prostate (CMS/HCC) Iron deficiency anemia secondary to blood loss (chronic) ECG ANNOTATED 09/05/2024 POCT GLUCOSE BLOOD Routine 09/04/2024 10 :53 AM EDT POCT GLUCOSE BLOOD Routine 09/04/2024 8: 22 AM EDT CBC WITH AUTO DIFFERENTIAL Timed 09/04/2024 6:32 AM EDT BASIC METABOLIC PANEL Timed 09/04/2024 6:32 AM EDT CBC AND DIFFERENTIAL Timed 09/04/2024 6:32 AM EDT POCT GLUCOSE BLOOD Routine 09/03/2024 4: 40 PM EDT OXYGEN THERAPY, ADULT Routine 09/03/2024 8:01 AM EDT POCT GLUCOSE BLOOD Routine 09/03/2024 7: 51 AM EDT CBC WITH AUTO DIFFERENTIAL Timed 09/03/2024 5:57 AM EDT BASIC METABOLIC PANEL Timed 09/03/2024 5:57 AM EDT CBC AND DIFFERENTIAL Timed 09/03/2024 5:57 AM EDT POCT GLUCOSE [...] BLOOD COUNT Routine 09/01/2024 11:46 PM EDT CARPENTER URINE CULTURE TUBE STAT 09/02/19 9:49 PM EDT URINALYSIS WITH REFLEX MICROSCOPIC AND CULTURE STAT 09/01/2024 9:49 PM EDT URINALYSIS WITH REFLEX MICROSCOPIC [...] W CONTRAST STAT 09/01/2024 5:00 PM EDT LACTATE STAT 09/01/2024 4:47 PM EDT CULTURE BLOOD STAT 09/01/2024 4:47 PM EDT MANUAL DIFFERENTIAL - SYSMEX WAM STAT 09/01/2024 3:57 PM EDT CBC WITH AUTO DIFFERENTIAL STAT 09/01/2024 3:57 PM EDT PROTHROMBIN TIME WITH INR STAT 09/01/2024 3:57 PM EDT ACTIVATED PARTIAL THROMBOPLASTIN TIME STAT 09/01/2024 3:57 PM EDT TYPE AND SCREEN STAT 09/01/2024 3:57 PM EDT COMPREHENSIVE METABOLIC PANEL STAT 09/01/2024 3:57 PM EDT CBC AND DIFFERENTIAL STAT 09/01/2024 3:57 PM EDT TRANSFUSE RED BLOOD CELLS Routine 08/30/2024 11:43 AM EDT 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) Prostate cancer (CMS/HCC) PREPARE RBC Routine 08/30/2024 10:37 AM EDT 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) Prostate cancer (CMS/HCC) CBC WITH AUTO DIFFERENTIAL Routine 08/29/2024 11:06 AM EDT Iron deficiency anemia due to chronic blood loss CBC AND DIFFERENTIAL Routine 08/29/2024 11:06 AM EDT Iron deficiency anemia due to chronic blood loss COMPREHENSIVE METABOLIC PANEL Routine 08/29/2024 11:06 AM EDT Iron deficiency anemia due to chronic blood loss PROSTATE SPECIFIC ANTIGEN DIAGNOSTIC Routine 08/29/2024 11:06 AM EDT Iron deficiency anemia due to chronic blood loss Elevated prostate specific antigen (PSA) TYPE AND SCREEN Routine 08/29/2024 11:06 AM EDT Malignant neoplasm of prostate (CMS/HCC) Iron deficiency anemia secondary to blood loss (chronic) IRON AND TIBC Routine 08/29/2024 11:06 AM EDT Malignant neoplasm of prostate (CMS/HCC) Iron deficiency anemia secondary to blood loss (chronic) FERRITIN Routine 08/29/2024 11:06 AM EDT Malignant neoplasm of prostate (CMS/HCC) Iron deficiency anemia secondary to blood loss (chronic) TRANSFUSE RED BLOOD CELLS Routine 08/22/2024 1:40 PM EST 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) Prostate cancer (CMS/HCC) PREPARE RBC Routine 08/22/2024 12:07 PM EST 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) Prostate cancer (CMS/HCC) MANUAL DIFFERENTIAL - SYSMEX WAM Routine 08/21/2024 11:03 AM EST Malignant neoplasm of prostate (CMS/HCC) Iron deficiency anemia secondary to blood loss (chronic) CBC WITH AUTO DIFFERENTIAL Routine 08/21/2024 11:03 AM EST Malignant neoplasm of prostate (CMS/HCC) Iron deficiency anemia secondary to blood loss (chronic) TYPE AND SCREEN Routine 08/21/2024 11:03 AM EST Malignant neoplasm of prostate (CMS/HCC) Iron deficiency anemia secondary to blood loss (chronic) IRON AND TIBC Routine 08/21/2024 11:03 AM EST Malignant neoplasm of prostate (CMS/HCC) Iron deficiency anemia secondary to blood loss (chronic) PROSTATE SPECIFIC ANTIGEN DIAGNOSTIC Routine 08/21/2024 11:03 AM EST Malignant neoplasm of prostate (CMS/HCC) Iron deficiency anemia secondary to blood loss (chronic) FERRITIN Routine 08/21/2024 11:03 AM EST Malignant neoplasm of prostate (CMS/HCC) Iron deficiency anemia secondary to blood loss (chronic) CBC AND DIFFERENTIAL Routine 08/21/2024 11:03 AM EST Malignant neoplasm of prostate (CMS/HCC) Iron deficiency anemia secondary to blood loss (chronic) COMPREHENSIVE METABOLIC PANEL Routine 08/21/2024 11:03 AM EST Malignant neoplasm of prostate (CMS/HCC) Iron deficiency anemia secondary to blood loss (chronic) TYPE AND SCREEN STAT 08/18/2024 9:33 AM EST Prostate cancer (CMS/HCC) CBC WITH AUTO DIFFERENTIAL Routine 08/18/2024 9:33 AM EST 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) CBC AND DIFFERENTIAL Routine 08/18/2024 9:33 AM EST 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) TRANSFUSE RED BLOOD CELLS Routine 08/15/2024 12:15 PM EST 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) Prostate cancer (CMS/HCC) PREPARE RBC Routine 08/15/2024 8:43 AM EST 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) Prostate cancer (CMS/HCC) CBC WITH AUTO DIFFERENTIAL Routine 08/14/2024 11:05 AM EST Malignant neoplasm of prostate (CMS/HCC) Iron deficiency anemia secondary to blood loss (chronic) TYPE AND SCREEN Routine 08/14/2024 11:05 AM EST Malignant neoplasm of prostate (CMS/HCC) Iron deficiency anemia secondary to blood loss (chronic) IRON AND TIBC Routine 08/14/2024 11:05 AM EST Malignant neoplasm of prostate (CMS/HCC) Iron deficiency anemia secondary to blood loss (chronic) PROSTATE SPECIFIC ANTIGEN DIAGNOSTIC Routine 08/14/2024 11:05 AM EST Malignant neoplasm of prostate (CMS/HCC) Iron deficiency anemia secondary to blood loss (chronic) FERRITIN Routine 08/14/2024 11:05 AM EST Malignant neoplasm of prostate (CMS/HCC) Iron deficiency anemia secondary to blood loss (chronic) CBC AND DIFFERENTIAL Routine 08/14/2024 11:05 AM EST Malignant neoplasm of prostate (CMS/HCC) Iron deficiency anemia secondary to blood loss (chronic) COMPREHENSIVE METABOLIC PANEL Routine 08/14/2024 11:05 AM EST Malignant neoplasm of prostate (CMS/HCC) Iron deficiency anemia secondary to blood loss (chronic) US ABDOMEN COMPLETE Routine 08/08/2024 8 :41 AM EST Pain of upper abdomen MANUAL DIFFERENTIAL - SYSMEX WAM Routine 08/08/2024 8:37 AM EST Malignant neoplasm of prostate (CMS/HCC) Iron deficiency anemia secondary to blood loss (chronic) CBC WITH AUTO DIFFERENTIAL Routine 08/08/2024 8:37 AM EST Malignant neoplasm of prostate (CMS/HCC) Iron deficiency anemia secondary to blood loss (chronic) TYPE AND SCREEN Routine 08/08/2024 8:37 AM EST Malignant neoplasm of prostate (CMS/HCC) Iron deficiency anemia secondary to blood loss (chronic) IRON AND TIBC Routine 08/08/2024 8:37 AM EST Malignant neoplasm of prostate (CMS/HCC) Iron deficiency anemia secondary to blood loss (chronic) PROSTATE SPECIFIC ANTIGEN DIAGNOSTIC Routine 08/08/2024 8:37 AM EST Malignant neoplasm of prostate (CMS/HCC) Iron deficiency anemia secondary to blood loss (chronic) FERRITIN Routine 08/08/2024 8:37 AM EST Malignant neoplasm of prostate (CMS/HCC) Iron deficiency anemia secondary to blood loss (chronic) CBC AND DIFFERENTIAL Routine 08/08/2024 8:37 AM EST Malignant neoplasm of prostate (CMS/HCC) Iron deficiency anemia secondary to blood loss (chronic) COMPREHENSIVE METABOLIC PANEL Routine 08/08/2024 8:37 AM EST Malignant neoplasm of prostate (CMS/HCC) Iron deficiency anemia secondary to blood loss (chronic) ECG ANNOTATED 08/07/2024 HEMOGLOBIN AND HEMATOCRIT Routine 08/06/2024 12:37 PM EST POCT GLUCOSE BLOOD Routine 08/06/2024 12 :05 PM EST TRANSFUSE RED BLOOD CELLS Routine 08/06/2024 5:56 AM EST PREPARE RBC Routine 08/06/2024 5:09 AM EST MANUAL DIFFERENTIAL - SYSMEX WAM Routine 08/06/2024 4:35 AM EST CBC WITH AUTO DIFFERENTIAL Routine 08/06/2024 4:35 AM EST CBC AND DIFFERENTIAL Routine 08/06/2024 4:35 AM EST MAGNESIUM Routine 08/06/2024 4:35 AM EST BASIC METABOLIC PANEL Routine 08/06/2024 4:35 AM EST TRANSFUSE RED BLOOD CELLS Routine 08/05/2024 9:31 PM EST POCT GLUCOSE BLOOD Routine 08/05/2024 7: 36 PM EST PREPARE RBC Routine 08/05/2024 6:44 PM EST POCT GLUCOSE BLOOD Routine 08/05/2024 5: 45 PM EST HEMOGLOBIN AND HEMATOCRIT Timed 08/05/2024 5:43 PM EST TROPONIN I HIGH SENSITIVITY Timed 08/05/2024 3:02 PM EST POCT GLUCOSE BLOOD Routine 08/05/2024 1: 02 PM EST PREPARE RBC STAT 08/05/2024 9:51 AM EST ECG 12-LEAD STAT 08/05/2024 9:08 AM EST TROPONIN I HIGH SENSITIVITY STAT 08/05/2024 8:59 AM EST XR CHEST 2 VIEWS STAT 08/05/2024 8:00 AM EST MANUAL DIFFERENTIAL - SYSMEX WAM STAT 08/05/2024 7:16 AM EST TYPE AND SCREEN STAT 08/05/2024 7:16 AM EST PROTHROMBIN TIME WITH INR STAT 08/05/2024 7:16 AM EST ACTIVATED PARTIAL THROMBOPLASTIN TIME STAT 08/05/2024 7:16 AM EST CBC WITH AUTO DIFFERENTIAL STAT 08/05/2024 7:16 AM EST B-TYPE NATRIURETIC PEPTIDE STAT 08/05/2024 7:16 AM EST MAGNESIUM STAT 08/05/2024 7:16 AM EST LIPASE STAT 08/05/2024 7:16 AM EST COMPREHENSIVE METABOLIC PANEL STAT 08/05/2024 7:16 AM EST CBC AND DIFFERENTIAL STAT 08/05/2024 7:16 AM EST TROPONIN I HIGH SENSITIVITY STAT 08/05/2024 7:16 AM EST ECG 12-LEAD STAT 08/05/2024 7:01 AM EST IRON AND TIBC Routine 08/03/2024 9:59 AM EST Malignant neoplasm of prostate (CMS/HCC) Iron deficiency anemia secondary to blood loss (chronic) PROSTATE SPECIFIC ANTIGEN DIAGNOSTIC Routine 08/03/2024 9:59 AM EST Malignant neoplasm of prostate (CMS/HCC) Iron deficiency anemia secondary to blood loss (chronic) FERRITIN Routine 08/03/2024 9:59 AM EST Malignant neoplasm of prostate (CMS/HCC) Iron deficiency anemia secondary to blood loss (chronic) COMPREHENSIVE METABOLIC PANEL Routine 08/03/2024 9:59 AM EST Malignant neoplasm of prostate (CMS/HCC) Iron deficiency anemia secondary to blood loss (chronic) MANUAL DIFFERENTIAL - S[employer] WAM Routine 08/03/2024 9:47 AM EST Iron deficiency anemia due to chronic blood loss PATHOLOGIST REVIEW BLOOD SMEAR Routine 08/03/2024 9:47 AM EST Iron deficiency anemia due to chronic blood loss CBC WITH AUTO DIFFERENTIAL Routine 08/03/2024 9:47 AM EST Iron deficiency anemia due to chronic blood loss CBC AND DIFFERENTIAL Routine 08/03/2024 9:47 AM EST Iron deficiency anemia due to chronic blood loss TYPE AND SCREEN Routine 08/03/2024 9:47 AM EST 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) Prostate cancer (CMS/HCC) EGD Routine 08/03/2024 8:14 AM EST Gastrointestinal bleeding Melena Proctitis COLONOSCOPY Routine 08/03/2024 8:14 AM EST Gastrointestinal bleeding Melena Proctitis TRANSFUSE RED BLOOD CELLS Routine 08/01/2024 12:28 PM EST Prostate cancer (CMS/HCC) 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) TRANSFUSE RED BLOOD CELLS Routine 08/01/2024 10:12 AM EST Prostate cancer (CMS/HCC) 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) PREPARE RBC Routine 08/01/2024 9:04 AM EST Prostate cancer (CMS/HCC) 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) CBC WITH AUTO DIFFERENTIAL STAT 08/01/2024 8:40 AM EST Prostate cancer (CMS/HCC) TYPE AND SCREEN STAT 08/01/2024 8:40 AM EST Prostate cancer (CMS/HCC) CBC AND DIFFERENTIAL STAT 08/01/2024 8:40 AM EST Prostate cancer (CMS/HCC) XR FINGERS 2+ VIEWS LEFT Routine 07/28/2024 10:36 AM EST Prostate cancer (CMS/HCC) XR RIBS W CHEST 3+ VIEWS RIGHT Routine 07/28/2024 10:35 AM EST Prostate cancer (CMS/HCC) TRANSFUSE RED BLOOD CELLS Routine 07/27/2024 1:10 PM EST 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) Prostate cancer (CMS/HCC) TRANSFUSE RED BLOOD CELLS Routine 07/27/2024 10:50 AM EST 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) Prostate cancer (CMS/HCC) PREPARE RBC Routine 07/27/2024 9:29 AM EST 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) Prostate cancer (CMS/HCC) MANUAL DIFFERENTIAL - [facility] WAM Routine 07/27/2024 8:51 AM EST 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) PROSTATE SPECIFIC ANTIGEN DIAGNOSTIC Routine 07/27/2024 8:51 AM EST Malignant neoplasm of prostate (CMS/HCC) Iron deficiency anemia secondary to blood loss (chronic) CBC WITH AUTO DIFFERENTIAL Routine 07/27/2024 8:51 AM EST 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) TYPE AND SCREEN STAT 07/27/2024 8:51 AM EST Prostate cancer (CMS/HCC) COMPREHENSIVE METABOLIC PANEL Routine 07/27/2024 8:51 AM EST 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) CBC AND DIFFERENTIAL Routine 07/27/2024 8:51 AM EST 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) TRANSFUSE RED BLOOD CELLS Routine 07/19/2024 11:45 AM EST 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) Prostate cancer (CMS/HCC) TRANSFUSE RED BLOOD CELLS Routine 07/19/2024 9:38 AM EST 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) Prostate cancer (CMS/HCC) PREPARE RBC Routine 07/19/2024 8:30 AM EST 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) Prostate cancer (CMS/HCC) MANUAL DIFFERENTIAL - [facility] WAM Routine 07/18/2024 1:00 PM EST Malignant neoplasm of prostate (CMS/HCC) Iron deficiency anemia secondary to blood loss (chronic) CBC WITH AUTO DIFFERENTIAL Routine 07/18/2024 1:00 PM EST Malignant neoplasm of prostate (CMS/HCC) Iron deficiency anemia secondary to blood loss (chronic) TYPE AND SCREEN Routine 07/18/2024 1:00 PM EST Malignant neoplasm of prostate (CMS/HCC) Iron deficiency anemia secondary to blood loss (chronic) IRON AND TIBC Routine 07/18/2024 1:00 PM EST Malignant neoplasm of prostate (CMS/HCC) Iron deficiency anemia secondary to blood loss (chronic) PROSTATE SPECIFIC ANTIGEN DIAGNOSTIC Routine 07/18/2024 1:00 PM EST Malignant neoplasm of prostate (CMS/HCC) Iron deficiency anemia secondary to blood loss (chronic) FERRITIN Routine 07/18/2024 1:00 PM EST Malignant neoplasm of prostate (CMS/HCC) Iron deficiency anemia secondary to blood loss (chronic) CBC AND DIFFERENTIAL Routine 07/18/2024 1:00 PM EST Malignant neoplasm of prostate (CMS/HCC) Iron deficiency anemia secondary to blood loss (chronic) COMPREHENSIVE METABOLIC PANEL Routine 07/18/2024 1:00 PM EST Malignant neoplasm of prostate (CMS/HCC) Iron deficiency anemia secondary to blood loss (chronic) TRANSFUSE RED BLOOD CELLS Routine 07/12/2024 1:45 PM EST 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) Prostate cancer (CMS/HCC) TRANSFUSE RED BLOOD CELLS Routine 07/12/2024 11:30 AM EST 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) Prostate cancer (CMS/HCC) PREPARE RBC Routine 07/12/2024 6:26 AM EST 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) Prostate cancer (CMS/HCC) CBC WITH AUTO DIFFERENTIAL Routine 07/11/2024 12:03 PM EST Malignant neoplasm of prostate (CMS/HCC) Iron deficiency anemia secondary to blood loss (chronic) COMPREHENSIVE METABOLIC PANEL Routine 07/11/2024 12:03 PM EST Malignant neoplasm of prostate (CMS/HCC) Iron deficiency anemia secondary to blood loss (chronic) CBC AND DIFFERENTIAL Routine 07/11/2024 12:03 PM EST Malignant neoplasm of prostate (CMS/HCC) Iron deficiency anemia secondary to blood loss (chronic) FERRITIN Routine 07/11/2024 12:03 PM EST Malignant neoplasm of prostate (CMS/HCC) Iron deficiency anemia secondary to blood loss (chronic) PROSTATE SPECIFIC ANTIGEN DIAGNOSTIC Routine 07/11/2024 12:03 PM EST Malignant neoplasm of prostate (CMS/HCC) Iron deficiency anemia secondary to blood loss (chronic) IRON AND TIBC Routine 07/11/2024 12:03 PM EST Malignant neoplasm of prostate (CMS/HCC) Iron deficiency anemia secondary to blood loss (chronic) TYPE AND SCREEN Routine 07/11/2024 12:03 PM EST Malignant neoplasm of prostate (CMS/HCC) Iron deficiency anemia secondary to blood loss (chronic) CBC WITH AUTO DIFFERENTIAL STAT 07/06/2024 10:53 AM EST Prostate cancer (CMS/HCC) COMPREHENSIVE METABOLIC PANEL STAT 07/06/2024 10:53 AM EST Prostate cancer (CMS/HCC) CBC AND DIFFERENTIAL STAT 07/06/2024 10:53 AM EST Prostate cancer (CMS/HCC) IR INSERT TUNNELED CVAD W SUBQ PORT MORE 5YRS RIGHT Routine 07/04/2024 9:48 AM EST Prostate cancer (CMS/HCC) PREPARE RBC Routine 06/28/2024 1:26 PM EST 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) Prostate cancer (CMS/HCC) PREPARE RBC Routine 06/28/2024 10:50 AM EST 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) Prostate cancer (CMS/HCC) PREPARE RBC Routine 06/28/2024 9:26 AM EST 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) Prostate cancer (CMS/HCC) CBC WITH AUTO DIFFERENTIAL Routine 06/26/2024 1:20 PM EST Malignant neoplasm of prostate (CMS/HCC) Iron deficiency anemia secondary to blood loss (chronic) TYPE AND SCREEN Routine 06/26/2024 1:20 PM EST Malignant neoplasm of prostate (CMS/HCC) Iron deficiency anemia secondary to blood loss (chronic) IRON AND TIBC Routine 06/26/2024 1:20 PM EST Malignant neoplasm of prostate (CMS/HCC) Iron deficiency anemia secondary to blood loss (chronic) PROSTATE SPECIFIC ANTIGEN DIAGNOSTIC Routine 06/26/2024 1:20 PM EST Malignant neoplasm of prostate (CMS/HCC) Iron deficiency anemia secondary to blood loss (chronic) FERRITIN Routine 06/26/2024 1:20 PM EST Malignant neoplasm of prostate (CMS/HCC) Iron deficiency anemia secondary to blood loss (chronic) CBC AND DIFFERENTIAL Routine 06/26/2024 1:20 PM EST Malignant neoplasm of prostate (CMS/HCC) Iron deficiency anemia secondary to blood loss (chronic) COMPREHENSIVE METABOLIC PANEL Routine 06/26/2024 1:20 PM EST Malignant neoplasm of prostate (CMS/HCC) Iron deficiency anemia secondary to blood loss (chronic) CT CHEST/ABDOMEN/PELVIS W CONTRAST Routine 06/16/2024 9:45 AM EST Prostate cancer (CMS/HCC) CBC WITH AUTO DIFFERENTIAL Routine 06/15/2024 9:21 AM EST Malignant neoplasm of prostate (CMS/HCC) Iron deficiency anemia secondary to blood loss (chronic) TYPE AND SCREEN Routine 06/15/2024 9:21 AM EST Malignant neoplasm of prostate (CMS/HCC) Iron deficiency anemia secondary to blood loss (chronic) IRON AND TIBC Routine 06/15/2024 9:21 AM EST Malignant neoplasm of prostate (CMS/HCC) Iron deficiency anemia secondary to blood loss (chronic) PROSTATE SPECIFIC ANTIGEN DIAGNOSTIC Routine 06/15/2024 9:21 AM EST Malignant neoplasm of prostate (CMS/HCC) Iron deficiency anemia secondary to blood loss (chronic) FERRITIN Routine 06/15/2024 9:21 AM EST Malignant neoplasm of prostate (CMS/HCC) Iron deficiency anemia secondary to blood loss (chronic) CBC AND DIFFERENTIAL Routine 06/15/2024 9:21 AM EST Malignant neoplasm of prostate (CMS/HCC) Iron deficiency anemia secondary to blood loss (chronic) COMPREHENSIVE METABOLIC PANEL Routine 06/15/2024 9:21 AM EST Malignant neoplasm of prostate (CMS/HCC) Iron deficiency anemia secondary to blood loss (chronic) from Last 3 Months Results * (ABNORMAL) Prostate specific antigen diagnostic (09/07/2024 10:37 AM EDT) Only the most recent of11 resultswithin the time period is included. PSA 27.01(H) 0.00 - 4.00 ng/mL LAB CHEMISTRY METHOD 09/07/2024 12:12 PM EDT [facility] Blood Venous blood specimen / Unknown Venipuncture / Unknown 09/07/2024 10:37 AM EDT 09/07/2024 11:21 AM EDT Narrative [facility] - 09/07/2024 12:12 PM EDT The Siemens Advia Centaur Chemiluminescent Immunoassay is used. Results obtained with different assay methods or kits cannot be used interchangeably. Results cannot be interpreted as absolute evidence of the presence or absence of malignant disease. us Jeffrey Conte MD LAB BLOOD ORDERABLES Final Res ult [facility] [address] [place] [address], * (ABNORMAL) CBC auto differential (09/07/2024 10:37 AM EDT) Only the most recent of20 resultswithin the time period is included. [facility] WBC 6.7 4.8 - 10.8 K/mcL LAB HEMETOLOGY METHOD 09/07/2024 11:53 AM EDT [facility] RBC 2.70(L) 4.50 - 5.50 M/mcL LAB HEMETOLOGY METHOD 09/07/2024 11:53 AM EDT [facility] Hemoglobin 8.3(L) 13.5 - 17.5 g/dL LAB HEMETOLOGY METHOD 09/07/2024 11:53 AM [facility] Hematocrit 27.8(L) 42.0 - 54.0 % LAB HEMETOLOGY METHOD 09/07/2024 11:53 AM T [facility] MCV 104.1(H) 79.0 - 98.0 FL LAB HEMETOLOGY METHOD 09/07/2024 11:53 AM EDT [facility] MCH 31.1 27.0 - 32.0 pcg LAB HEMETOLOGY METHOD 09/07/2024 11:53 AM [facility] MCHC 29.9(L) 32.0 - 37.0 g/dL LAB HEMETOLOGY METHOD 09/07/2024 11:53 AM [facility] RDW 20.4(H) 11.0 - 15.0 % LAB HEMETOLOGY METHOD 09/07/2024 11:53 AM [facility] Platelets 281 130 - 400 K/mcL LAB HEMETOLOGY METHOD 09/07/2024 11:53 AM [facility] MPV 10.8 7.0 - 11.0 FL LAB HEMETOLOGY METHOD 09/07/2024 11:53 AM [facility] NRBC 0.0 <1.0 % LAB HEMETOLOGY METHOD 09/07/2024 11:53 AM [facility] NRBC Absolute 0.00 <0.10 K/mcL LAB HEMETOLOGY METHOD 09/07/2024 11:53 AM [facility] Neutrophils Relative 77.6 % LAB HEMETOLOGY METHOD 09/07/2024 11:53 AM [facility] Lymphocytes Relative 11.1 % LAB HEMETOLOGY METHOD 09/07/2024 11:53 AM [facility] Monocytes Relative 6.7 % LAB HEMETOLOGY METHOD 09/07/2024 11:53 AM [facility] Eosinophils Relative 0.4 % LAB HEMETOLOGY METHOD 09/07/2024 11:53 AM [facility] Basophils Relative 1.2 % LAB HEMETOLOGY METHOD 09/07/2024 11:53 AM [facility] Immature Granulocytes Relative 3.0 % LAB HEMETOLOGY METHOD 09/07/2024 11:53 AM [facility] Neutrophils Absolute 5.23 1.50 - 7.00 K/mcL LAB HEMETOLOGY METHOD 09/07/2024 11:53 AM EDT [facility] Lymphocytes Absolute 0.75(L) 1.00 - 5.00 K/mcL LAB HEMETOLOGY METHOD 09/07/2024 11:53 AM EDT [facility] Monocytes Absolute 0.45 0.20 - 1.00 K/mcL LAB HEMETOLOGY METHOD 09/07/2024 11:53 AM EDT [facility] Eosinophils Absolute 0.03 0.00 - 0.50 K/mcL LAB HEMETOLOGY METHOD 09/07/2024 11:53 AM EDT [facility] Basophils Absolute 0.08 0.00 - 0.20 K/mcL LAB HEMETOLOGY METHOD 09/07/2024 11:53 AM EDT [facility] Immature Granulocytes Absolute 0.20(H) 0.00 - 0.03 K/mcL LAB HEMETOLOGY METHOD 09/07/2024 11:53 AM EDT [facility] Blood Venous blood specimen / Unknown Venipuncture / Unknown 09/07/2024 10:37 AM EDT 09/07/2024 11:21 AM EDT us Jeffrey Conte MD LAB BLOOD ORDERABLES Final Res ult [facility] [address] [place] [address], * (ABNORMAL) Iron and TIBC (09/07/2024 10:37 AM EDT) Only the most recent of10 resultswithin the time period is included. Iron 58 50 - 160 mcg/dL LAB CHEMISTRY METHOD 09/07/2024 12:12 PM EDT [facility] TIBC 163(L) 250 - 450 mcg/dL LAB CHEMISTRY METHOD 09/07/2024 12:12 PM EDT [facility] Iron Saturation 36 20 - 50 % LAB CHEMISTRY METHOD 09/07/2024 12:12 PM EDT [facility] Blood Venous blood specimen / Unknown Venipuncture / Unknown 09/07/2024 10:37 AM EDT 09/07/2024 11:21 AM EDT us Jeffrey Conte MD LAB BLOOD ORDERABLES Final Res ult Performing Organization Address [facility] Co de Phone Number [facility] [address] [place] [address], [place] [phone] * Type and screen (09/07/2024 10:37 AM EDT) Only the most recent of15 resultswithin the time period is included. ABO Group O 09/07/2024 1:41 PM EDT [facility] Rh Type Positive 09/07/2024 1:41 PM EDT [facility] Antibody Screen Negative 09/07/2024 1:41 PM EDT [facility] Blood Venous blood specimen / Unknown Venipuncture / Unknown 09/07/2024 10:37 AM EDT 09/07/2024 11:30 AM EDT us Jeffrey Conte MD LAB BLOOD BANK TEST ORDERABLES Final Result Performing Organization Address [facility]/ZIP Co de Phone Number [facility] [address] [place] [address], [place] [phone] * (ABNORMAL) Ferritin (09/07/2024 10:37 AM EDT) Only the most recent of10 resultswithin the time period is included. Ferritin 1,196(H) 26 - 388 ng/mL LAB CHEMISTRY METHOD 09/07/2024 12:23 PM EDT [facility] Blood Venous blood specimen / Unknown Venipuncture / Unknown 09/07/2024 10:37 AM EDT 09/07/2024 11:21 AM EDT us Jeffrey Conte MD LAB BLOOD ORDERABLES Final Res ult [facility] [address] [place] [address], [place] [phone] * (ABNORMAL) Comprehensive metabolic panel (09/07/2024 10:37 AM EDT) Only the most recent of14 resultswithin the time period is included. Sodium 146(H) 133 - 145 mmol/L LAB CHEMISTRY METHOD 09/07/2024 12:12 PM [facility] Potassium 3.9 3.5 - 5.5 mmol/L LAB CHEMISTRY METHOD 09/07/2024 12:12 PM [facility] Chloride 112(H) 96 - 110 mmol/L LAB CHEMISTRY METHOD 09/07/2024 12:12 PM [facility] CO2 29 21 - 32 mmol/L LAB CHEMISTRY METHOD 09/07/2024 12:12 PM [facility] Anion Gap 5 3 - 11 LAB CHEMISTRY METHOD 09/07/2024 12:12 PM [facility] Glucose 108(H) 70 - 100 mg/dL LAB CHEMISTRY METHOD 09/07/2024 12:12 PM [facility] BUN 20 5 - 25 mg/dL LAB CHEMISTRY METHOD 09/07/2024 12:12 PM [facility] Creatinine 1.14 0.70 - 1.30 mg/dL LAB CHEMISTRY METHOD 09/07/2024 12:12 PM [facility] eGFR 66 >=60 mL/min/1. 73m2 LAB CHEMISTRY METHOD 09/07/2024 12:12 PM [facility] Comment:Calculation based on the??Chronic Kidney Disease Epidemiology Collaboration (CKD-EPI) equation refit??without adjustment for race. BUN/Creatinine Ratio 17.5 LAB CHEMISTRY METHOD 09/07/2024 12:12 PM EDT [facility] Calcium 8.4(L) 8.5 - 10.5 mg/dL LAB CHEMISTRY METHOD 09/07/2024 12:12 PM [facility] AST (SGOT) 21 10 - 42 unit/L LAB CHEMISTRY METHOD 09/07/2024 12:12 PM [facility] ALT (SGPT) 15 10 - 60 unit/L LAB CHEMISTRY METHOD 09/07/2024 12:12 PM [facility] Alkaline Phosphatase 49 42 - 121 unit/L LAB CHEMISTRY METHOD 09/07/2024 12:12 PM [facility] Total Protein 5.8(L) 6.0 - 8.0 g/dL LAB CHEMISTRY METHOD 09/07/2024 12:12 PM [facility] Albumin 2.5(L) 3.2 - 5.0 g/dL LAB CHEMISTRY METHOD 09/07/2024 12:12 PM [facility] Total Bilirubin 0.4 0.0 - 1.4 mg/dL LAB CHEMISTRY METHOD 09/07/2024 12:12 PM [facility] Blood Venous blood specimen / Unknown Venipuncture / Unknown 09/07/2024 10:37 AM EDT 09/07/2024 11:21 AM EDT us Jeffrey Conte MD LAB BLOOD ORDERABLES Final Res ult [facility] [address] [place] [address], * ECG-Annotated (09/05/2024) Only the most recent of2 resultswithin the time period is included. us Provider Onbase ECG ORDERABLES Final Result * (ABNORMAL) POCT Glucose, blood (09/04/2024 10:53 AM EDT) Only the most recent of12 resultswithin the time period is included. [facility] Glucose POCT 107(H) 70 - 100 mg/dL 09/04/2024 10:53 AM EDT [facility] Blood Capillary blood specimen / Unknown 09/04/2024 10:53 AM EDT 09/04/2024 10:54 AM EDT Ginny Franklin MD LAB POINT OF CARE TE ST DOCKED DEVICE UNSOLICITED RESULTS Final Result [facility] [address] [place] [address], [place] [phone] * (ABNORMAL) Basic metabolic panel (09/04/2024 6:32 AM EDT) Only the most recent of4 resultswithin the time period is included. [facility] Sodium 141 133 - 145 mmol/L LAB CHEMISTRY METHOD 09/04/2024 7:31 AM [facility] Potassium 3.8 3.5 - 5.5 mmol/L LAB CHEMISTRY METHOD 09/04/2024 7:31 AM [facility] Chloride 110 96 - 110 mmol/L LAB CHEMISTRY METHOD 09/04/2024 7:31 AM [facility] CO2 26 21 - 32 mmol/L LAB CHEMISTRY METHOD 09/04/2024 7:31 AM [facility] Anion Gap 5 3 - 11 LAB CHEMISTRY METHOD 09/04/2024 7:31 AM [facility] Glucose 89 70 - 100 mg/dL LAB CHEMISTRY METHOD 09/04/2024 7:31 AM [facility] BUN 25 5 - 25 mg/dL LAB CHEMISTRY METHOD 09/04/2024 7:31 AM [facility] Creatinine 1.28 0.70 - 1.30 mg/dL LAB CHEMISTRY METHOD 09/04/2024 7:31 AM EDT [facility] eGFR 57(L) >=60 mL/min/1. 73m2 LAB CHEMISTRY METHOD 09/04/2024 7:31 AM EDT [facility] Comment:Calculation based on the??Chronic Kidney Disease Epidemiology Collaboration (CKD-EPI) equation refit??without adjustment for race. BUN/Creatinine Ratio 19.5 LAB CHEMISTRY METHOD 09/04/2024 7:31 AM EDT [facility] Calcium 8.3(L) 8.5 - 10.5 mg/dL LAB CHEMISTRY METHOD 09/04/2024 7:31 AM EDT [facility] Blood Venous blood specimen / Unknown Venipuncture / Unknown 09/04/2024 6:32 AM EDT 09/04/2024 6:53 AM EDT us Carson Rodriguez MD LAB BLOOD ORDERABLES Final Resul t [facility] [address] [place] [address], [place] [phone] * Transfuse RBC, Leukoreduced (09/02/2024 12:47 PM EDT) Only the most recent of16 resultswithin the time period is included. us Carson Rodriguez MD BLOOD TRANSFUSION ORDERABLES Fin al Result * Prepare RBC: 1 Units, Leukoreduced (09/02/2024 8:18 AM EDT) Only the most recent of14 resultswithin the time period is included. Product Code [id number] 09/02/2024 10:23 AM EDT [facility] Unit Number [id number] 09/03/19 10:23 AM EDT [facility] Crossmatch Compatible 09/02/2024 8:24 AM EDT [facility] Dispense Status Transfused 09/02/2024 10:23 AM EDT [facility] Unit ABO Rh ONEG 09/02/2024 10:23 AM EDT [facility] Unit Expiration Date Time [id number] 09/02/2024 10:23 AM EDT [facility] Unit Blood Type 9500 09/02/2024 10:23 AM EDT [facility] Blood Venous blood specimen / Unknown 09/02/2024 8:18 AM EDT 09/01/2024 4:08 PM EDT us Carson Rodriguez MD BLOOD BANK PRODUCT ORDERABLES Fi nal Result [facility] [address] [place] [address], [place] [phone] * (ABNORMAL) Complete blood count (09/01/2024 11:46 PM EDT) WBC 1.9(LL) 4.8 - 10.8 K/mcL LAB HEMETOLOGY METHOD 09/02/2024 12:38 AM [facility] RBC 2.60(L) 4.50 - 5.50 M/mcL LAB HEMETOLOGY METHOD 09/02/2024 12:38 AM [facility] Hemoglobin 8.2(L) 13.5 - 17.5 g/dL LAB HEMETOLOGY METHOD 09/02/2024 12:38 AM EDT [facility] Hematocrit 26.4(L) 42.0 - 54.0 % LAB HEMETOLOGY METHOD 09/02/2024 12:[facility] MCV 100.8(H) 79.0 - 98.0 FL LAB HEMETOLOGY METHOD 09/02/2024 12:38 AM [facility] MCH 31.3 27.0 - 32.0 pcg LAB HEMETOLOGY METHOD 09/02/2024 12:38 AM EDT [facility] MCHC 31.1(L) 32.0 - 37.0 g/dL LAB HEMETOLOGY METHOD 09/02/2024 12:38 AM EDT [facility] RDW 20.7(H) 11.0 - 15.0 % LAB HEMETOLOGY METHOD 09/02/2024 12:38 AM EDT [facility] Platelets 201 130 - 400 K/mcL LAB HEMETOLOGY METHOD 09/02/2024 12:38 AM EDT [facility] MPV 10.7 7.0 - 11.0 FL LAB HEMETOLOGY METHOD 09/02/2024 12:38 AM EDT [facility] NRBC 0.0 <1.0 % LAB HEMETOLOGY METHOD 09/02/2024 12:38 AM EDT [facility] NRBC Absolute 0.00 <0.10 K/mcL LAB HEMETOLOGY METHOD 09/02/2024 12:38 AM T [facility] Blood Venous blood specimen / Unknown Venipuncture / Unknown 09/01/2024 11:46 PM EDT 09/02/2024 12:15 AM EDT us Beatriz VACA LAB BLOOD ORDERABLES Final Re sult [facility] [address] [place] [address], * (ABNORMAL) Urinalysis with reflex microscopic and culture (09/01/2024 9:49 PM EDT) Specific [place] Urine >1.045(H) 1.003 - 1.030 LAB URINALYSIS - AUTOMATED METHOD 09/01/2024 10:23 PM EDT [facility] pH, Urine 5.5 5.0 - 8.0 pH LAB URINALYSIS - AUTOMATED METHOD 09/01/2024 10:23 PM [facility] Leukocytes, Urine Trace(A) Negative LAB URINALYSIS - AUTOMATED METHOD 09/01/2024 10:23 PM [facility] Nitrite, Urine Negative Negative LAB URINALYSIS - AUTOMATED METHOD 09/01/2024 10:23 PM [facility] Protein, Urine Negative <=Trace mg/dL LAB URINALYSIS - AUTOMATED METHOD 09/01/2024 10:23 PM [facility] Glucose, Urine Negative Negative mg/dL LAB URINALYSIS - AUTOMATED METHOD 09/01/2024 10:23 PM [facility] Ketones, Urine Negative Negative mg/dL LAB URINALYSIS - AUTOMATED METHOD 09/01/2024 10:23 PM [facility] Urobilinogen , Urine 0.2 0.2 - 1.0 mg/dL LAB URINALYSIS - AUTOMATED METHOD 09/01/2024 10:23 PM [facility] Bilirubin, Urine Negative Negative LAB URINALYSIS - AUTOMATED METHOD 09/01/2024 10:23 PM [facility] Blood, Urine Negative Negative LAB URINALYSIS - AUTOMATED METHOD 09/01/2024 10:23 PM [facility] RBC, Urine 3.0 0 - 4 /HPF LAB URINALYSIS - AUTOMATED METHOD 09/01/2024 10:23 PM [facility] WBC, Urine 5.0(H) 0 - 4 /HPF LAB URINALYSIS - AUTOMATED METHOD 09/01/2024 10:23 PM [facility] Squamous Epithelial, Urine 35 0 - 60 /LPF LAB URINALYSIS - AUTOMATED METHOD 09/01/2024 10:23 PM [facility] Bacteria, Urine Negative Negative /HPF LAB URINALYSIS - AUTOMATED METHOD 09/01/2024 10:23 PM [facility] Hyaline Casts, Urine 4.4(H) 0 - 3 /LPF LAB URINALYSIS - AUTOMATED METHOD 09/01/2024 10:23 PM EDT [facility] Urine Urine specimen obtained by clean catch procedure / Unknown Non-blood Collection / Unknown 09/01/2024 9:49 PM EDT 09/01/2024 10:15 PM EDT us Vanceflori Tommy Miguel Bergman LAB URINE ORDERABLES Stefany l Result Performing Organization Address [facility] Co de Phone Number [facility] [address] [place] [address], [place] [phone] * Carpenter urine culture tube (09/01/2024 9:49 PM EDT) Extra Tube Hold for add-ons. 09/02/2024 12:02 AM EDT [facility] Comment:Auto resulted. Urine Urine specimen obtained by clean catch procedure / Unknown Non-blood Collection / Unknown 09/01/2024 9:49 PM EDT 09/01/2024 10:15 PM EDT us Noemy Bergman DO LAB URINE ORDERABLES Stefany l Result Performing Organization Address [facility] Co de Phone Number [facility] [address] [place] [address], [place] [phone] * Culture urine (09/01/2024 9:49 PM EDT) Culture, Urine No growth 09/03/2024 9:42 AM EDT [facility] Urine Urine specimen obtained by clean catch procedure / Unknown Non-blood Collection / Unknown 09/01/2024 9:49 PM EDT 09/01/2024 10:23 PM EDT us Salguero Tommy Miguel Bergman DO LAB MICROBIOLOGY - GENERA L ORDERABLES Final Result Performing Organization Address City/[facility]/ZIP Co de Phone Number [facility] [address] [place] [address], [place] [phone] * MRSA molecular study (09/01/2024 8:08 PM EDT) [facility] MRSA Screen PCR Not Detected Not Detected LAB MICROBIOLOGY METHOD 09/01/2024 10:47 PM EDT [facility] Swab Both anterior nares / Unknown Non-blood Collection / Unknown 09/01/2024 8:08 PM EDT 09/01/2024 8:29 PM EDT Davin Madrid MD LAB MICROBIOLOGY - GENERAL ORDERABLES Final Result [facility] [address] [place] [address], [place] [phone] * Respiratory virus panel molecular study (09/01/2024 6:40 PM EDT) [facility] Adenovirus Detection by PCR Not Detected Not Detected LAB MICROBIOLOGY METHOD 09/01/2024 8:03 PM EDT [facility] Influenza A PCR Not Detected Not Detected LAB MICROBIOLOGY METHOD 09/01/2024 8:03 PM EDT [facility] Influenza B PCR Not Detected Not Detected LAB MICROBIOLOGY METHOD 09/01/2024 8:03 PM EDT [facility] Coronavirus 229E Not Detected Not Detected LAB MICROBIOLOGY METHOD 09/01/2024 8:03 PM EDT [facility] Coronavirus HKU1 Not Detected Not Detected LAB MICROBIOLOGY METHOD 09/01/2024 8:03 PM EDT [facility] Coronavirus OC43 Not Detected Not Detected LAB MICROBIOLOGY METHOD 09/01/2024 8:03 PM EDT [facility] Coronavirus NL63 Not Detected Not Detected LAB MICROBIOLOGY METHOD 09/01/2024 8:03 PM EDT [facility] Parainfluenza Virus 1 Not Detected Not Detected LAB MICROBIOLOGY METHOD 09/01/2024 8:03 PM EDT [facility] Parainfluenza Virus 2 Not Detected Not Detected LAB MICROBIOLOGY METHOD 09/01/2024 8:03 PM EDT [facility] Parainfluenza Virus 3 Not Detected Not Detected LAB MICROBIOLOGY METHOD 09/01/2024 8:03 PM EDT [facility] Parainfluenza Virus 4 Not Detected Not Detected LAB MICROBIOLOGY METHOD 09/01/2024 8:03 PM EDT [facility] RSV PCR Not Detected Not Detected LAB MICROBIOLOGY METHOD 09/01/2024 8:03 PM EDT [facility] Human Metapneumovirus A and B Not Detected Not Detected LAB MICROBIOLOGY METHOD 09/01/2024 8:03 PM EDT [facility] Rhinovirus/Entero virus Not Detected Not Detected LAB MICROBIOLOGY METHOD 09/01/2024 8:03 PM EDT [facility] Bordetella pertussis Not Detected Not Detected LAB MICROBIOLOGY METHOD 09/01/2024 8:03 PM EDT [facility] Bordetella parapertussis Not Detected Not Detected LAB MICROBIOLOGY METHOD 09/01/2024 8:03 PM EDT [facility] Mycoplasma pneumo by PCR Not Detected Not Detected LAB MICROBIOLOGY METHOD 09/01/2024 8:03 PM EDT [facility] Chlamydia pneumoniae Not Detected Not Detected LAB MICROBIOLOGY METHOD 09/01/2024 8:03 PM EDT [facility] SARS COV-2 Not Detected Not Detected LAB MICROBIOLOGY METHOD 09/01/2024 8:03 PM EDT [facility] Swab Nasopharyngeal structure / Unknown Non-blood Collection / Unknown 09/01/2024 6:40 PM EDT 09/01/2024 7:04 PM EDT [facility] - 09/01/2024 8:03 PM EDT Testing was performed using the [employer] Respiratory Pathogen PCR Assay. All results must [...] that are below the limit of detection. Rajiv Tommy Rivera [facility] MICROBIOLOGY - GENERA L ORDERABLES Final Result Performing Organization Address [facility] de Phone Number [facility] [address] [place] [address], [place] [phone] * Blood culture (09/01/2024 6:01 PM EDT) Only the most recent of2 resultswithin the time period is included. [facility] Culture, Blood No growth at 5 days 09/06/2024 7:01 PM EDT [facility] Blood Venous blood specimen / Unknown Venipuncture / Unknown 09/01/2024 6:01 PM EDT 09/01/2024 6:16 PM EDT Rajiv Tommy Bergman [facility] MICROBIOLOGY - GENERA L ORDERABLES Final Result Performing Organization Address [facility] de Phone Number [facility] [address] [place] [address], [place] [phone] * ECG 12 lead (09/01/2024 5:16 PM EDT) Only the most recent of3 resultswithin the time period is included. [facility] Signature Ventricular Rate ECG 95 BPM GEMUSE Atrial Rate 95 BPM GEMUSE P-R Interval 160 ms GEMUSE QRS Duration 86 ms GEMUSE Q-T Interval 360 ms GEMUSE QTc 452 ms GEMUSE P Wave [place] 39 degrees GEMUSE R [place] -17 degrees GEMUSE T [place] 48 degrees GEMUSE ECG Interpretation Normal sinus rhythm Normal ECG When compared with ECG of 05-AUG-2024 09:08, No significant change was found Confirmed by Lisseth MONSIVAIS YUFENG ([id number]) on 09/01/2024 8:02:40 PM GEMUSE 09/01/2024 5:16 PM EDT 09/01/2024 8:02 PM EDT us Noemy Bergman DO ECG ORDERABLES Final Res ult GEMUSE * XR Chest 2 Views (09/01/2024 5:10 PM EDT) Only the most recent of2 resultswithin the time period is included. Anatomical Region Laterality Modality Body Radiographic Luci [...] Signed Date: 09/01/2024 17:34 ET Workstation ID: [id number] Transcribed By: Self Edit Transcribed Date: 09/01/2024 [...] Signed Date: 09/01/2024 17:34 ET Workstation ID: [id number] Transcribed By: Self Edit Transcribed Date: 09/01/2024 [...] IMG CT PROCEDURES Final R esult * Lactate (09/01/2024 4:47 PM EDT) [facility] Lactate 0.8 0.4 - 2.0 mmol/L LAB CHEMISTRY METHOD 09/01/2024 5:33 PM EDT [facility] Blood Venous blood specimen / Unknown Venipuncture / Unknown 09/01/2024 4:47 PM EDT 09/01/2024 5:00 PM EDT Noemy Bergman DO LAB BLOOD ORDERABLES Stefany l Result [facility] [address] [place] [address], [place] [phone] * (ABNORMAL) Manual differential (09/01/2024 3:57 PM EDT) Only the most recent of8 resultswithin the time period is included. [facility] Neutrophils % 23.0 % LAB HEMETOLOGY METHOD 09/01/2024 5:51 PM EDT [facility] Bands % 11.0 % LAB HEMETOLOGY METHOD 09/01/2024 5:51 PM EDT [facility] Lymphocytes % 39.0 % LAB HEMETOLOGY METHOD 09/01/2024 5:51 PM EDT [facility] Monocytes % 22.0 % LAB HEMETOLOGY METHOD 09/01/2024 5:51 PM EDT [facility] Eosinophils % 0.0 % LAB HEMETOLOGY METHOD [facility]24 [facility] Basophils % 4.0 % LAB HEMETOLOGY METHOD 09/01/2024 5:51 PM [facility] Myelocytes % 1.0(H) % LAB HEMETOLOGY METHOD 09/01/2024 5:51 PM EDT [facility] Neutrophils Absolute Manual 0.32(L) 1.50 - 7.00 K/mcL LAB HEMETOLOGY METHOD 09/01/2024 5:[facility] Bands Absolute Manual 0.15(H) 0.00 - 0.00 K/mcL LAB HEMETOLOGY METHOD 09/01/2024 5:[facility] Lymphocytes Absolute 0.55(L) 1.00 - 5.00 K/mcL LAB HEMETOLOGY METHOD 09/01/2024 5:[facility] Monocytes Absolute Manual 0.31 0.20 - 1.00 K/mcL LAB HEMETOLOGY METHOD 09/01/2024 5:51 PM [facility] Eosinophils Absolute Manual 0.00 0.00 - 0.50 K/mcL LAB HEMETOLOGY METHOD 09/01/2024 5:51 PM [facility] Basophils Absolute Manual 0.06 0.00 - 0.20 K/mcL LAB HEMETOLOGY METHOD 09/01/2024 5:51 PM [facility] Myelocytes Absolute Manual 0.01(H) 0.00 - 0.00 K/mcL LAB HEMETOLOGY METHOD 09/01/2024 5:51 PM [facility] Rbc Morphology Consistent with indices Consistent with indices, Normal for LAB HEMETOLOGY METHOD 09/01/2024 5:51 PM EDT [facility] Platelet Morphology - WAM Giant Platelets Seen(A) Normal LAB HEMETOLOGY METHOD 09/01/2024 5:51 PM EDT [facility] Polychromasia Present Present(A) (none) LAB HEMETOLOGY METHOD 09/01/2024 5:51 PM EDT [facility] Ovalocytes Present 5 - 10%(A) (none) LAB HEMETOLOGY METHOD 09/01/2024 5:51 PM EDT [facility] Pappenheimer Bodies Present Present(A) (none) LAB HEMETOLOGY METHOD 09/01/2024 5:51 PM EDT [facility] Schistocytes Present < 5%(A) (none) LAB HEMETOLOGY METHOD 09/01/2024 5:51 PM EDT [facility] Dohle Body Present Present(A) (none) LAB HEMETOLOGY METHOD 09/01/2024 5:51 PM EDT [facility] Blood Venous blood specimen / Unknown Venipuncture / Unknown 09/01/2024 3:57 PM EDT 09/01/2024 4:08 PM EDT us Noemy Bergman DO LAB BLOOD ORDERABLES Stefany l Result [facility] [address] [place] [address], [place] [phone] * APTT (09/01/2024 3:57 PM EDT) Only the most recent of2 resultswithin the time period is included. aPTT 34.8 24.1 - 39.3 sec LAB COAGULATION METHOD 09/01/2024 4:24 PM EDT [facility] Blood Venous blood specimen / Unknown Venipuncture / Unknown 09/01/2024 3:57 PM EDT 09/01/2024 4:08 PM EDT us Noemy Bergman LAB BLOOD ORDERABLES Stefany l Result Performing Organization Address [facility]/ZIP Co de Phone Number [facility] [address] [place] [address], [place] [phone] * Protime-INR (09/01/2024 3:57 PM EDT) Only the most recent of2 resultswithin the time period is included. Protime 13.6 10.6 - 13.9 sec LAB COAGULATION METHOD 09/01/2024 4:24 PM EDT [facility] INR 1.1 LAB COAGULATION METHOD 09/01/2024 4:24 PM EDT [facility] Blood Venous blood specimen / Unknown Venipuncture / Unknown 09/01/2024 3:57 PM EDT 09/01/2024 4:[address] [address] BLOOD ORDERABLES Stefany l Result Performing Organization Address [facility]/ZIP Co de Phone Number [facility] [address] [place] [address], [place] [phone] * US Abdomen Complete (08/08/2024 8:41 AM EST) Anatomical Region Laterality Modality Body Ultrasound 08/14/2024 4:33 PM EST Impressions 08/14/2024 4:41 PM EST Impression: 1. 6.8 cm partially cystic mass in the right upper quadrant, possibly corresponding to the known adrenal metastasis reported previously. 2. New trace ascites. 3. No evidence of cholelithiasis or biliary obstruction. 4. Bilateral renal cysts again noted. Telerad LIO ([id number]) -------- FINAL REPORT -------- Dictated By: Enedina Oliveros Dictated Date: 08/14/2024 16:33 ET Assigned Physician: Enedina Oliveros Reviewed and Electronically Signed By: Enedina Oliveros Signed Date: 08/14/2024 16:41 ET Workstation ID: [id number] Transcribed By: Self Edit Transcribed Date: 08/14/2024 16:33 ET Narrative 08/14/2024 4:41 PM EST History: Abdominal pain. Metastatic prostate carcinoma. Comparison: Renal ultrasound 03/08/06, CT abdomen/pelvis 06/16/24 Findings: Real-time imaging of the abdomen was performed. The hepatic echotexture is normal. No masses are identified. The portal vein was not interrogated. The gallbladder is physiologically distended and without evidence of calculus or wall thickening. The common duct is normal in caliber, measuring 2 mm at the level of the hepatic artery and portal vein. Spleen is normal in size, measuring 11.9 cm in length. A trace amount of ascites is new from the May, CT. The pancreas is largely obscured by bowel gas shadowing; the visualized portions of the neck appear normal. The kidneys are normal in position and size. No hydronephrosis is identified. Bilateral renal cortical cysts are again seen. A partially cystic mass is seen in the right upper quadrant, measuring 6.8 x 3.3 x 6.5 cm, possibly corresponding to the known right adrenal metastasis described on the CT, although the relationship to the right kidney is not demonstrated on this study. No abdominal aortic aneurysm is identified. The visualized portions of the IVC appear unremarkable. Procedure Note Enedina Oliveros MD - 08/14/2024 History: Abdominal pain. Metastatic prostate carcinoma. Comparison: Renal ultrasound 03/08/06, CT abdomen/pelvis 06/16/24 Findings: Real-time imaging of the abdomen was performed. The hepatic echotexture is normal. No masses are identified. The portalvein was not interrogated. The gallbladder is physiologically distended and without evidence ofcalculus or wall thickening. The common duct is normal in caliber,measuring 2 mm at the level of the hepatic artery and portal vein. Spleen is normal in size, measuring 11.9 cm in length. A trace amount ofascites is new from the May, CT. The pancreas is largely obscured by bowel gas shadowing; the visualizedportions of the neck appear normal. The kidneys are normal in position and size. No hydronephrosis isidentified. Bilateral renal cortical cysts are again seen. A partially cystic mass is seen in the right upper quadrant, measuring 6.8x 3.3 x 6.5 cm, possibly corresponding to the known right adrenalmetastasis described on the CT, although the relationship to the rightkidney is not demonstrated on this study. No abdominal aortic aneurysm is identified. The visualized portions of theIVC appear unremarkable. IMPRESSION: Impression: 1. 6.8 cm partially cystic mass in the right upper quadrant, possiblycorresponding to the known adrenal metastasis reported previously. 2. New trace ascites. 3. No evidence of cholelithiasis or biliary obstruction. 4. Bilateral renal cysts again noted. Telerad PA ([id number]) -------- FINAL REPORT -------- Dictated By: Enedina Oliveros Dictated Date: 08/14/2024 16:33 ET Assigned Physician: Enedina Oliveros Reviewed and Electronically Signed By: Enedina Oliveros Signed Date: 08/14/2024 16:41 ET Workstation ID: [id number] Transcribed By: Self Edit Transcribed Date: 08/14/2024 16:33 ET Jeffrey Conte MD [facility] US PROCEDURES Final Result * (ABNORMAL) Hemoglobin and hematocrit (08/06/2024 12:37 PM EST) Only the most recent of2 resultswithin the time period is included. Hemoglobin 7.8(L) 13.5 - 17.5 g/dL LAB HEMETOLOGY METHOD 08/06/2024 1:20 PM EST [facility] Hematocrit 23.6(L) 42.0 - 54.0 % LAB HEMETOLOGY METHOD 08/06/2024 1:20 PM EST [facility] Blood Venous blood specimen / Unknown Venipuncture / Unknown 08/06/2024 12:37 PM EST 08/06/2024 1:20 PM EST Jatinder Molina MD LAB BLOOD ORDERABLES Final Re sult [facility] [address] [place] [address], [place] [phone] * Magnesium (08/06/2024 4:35 AM EST) Only the most recent of2 resultswithin the time period is included. [facility] Magnesium 2.3 1.9 - 2.6 mg/dL LAB CHEMISTRY METHOD 08/06/2024 5:12 AM EST [facility] Blood Venous blood specimen / Unknown Venipuncture / Unknown 08/06/2024 4:35 AM EST 08/06/2024 4:40 AM EST Jj Ledbetter MD LAB BLOOD ORDERABLES Final Re sult Performing Organization Address [facility]/ZIP Co de Phone Number [facility] [address] [place] [address], * (ABNORMAL) Troponin I high sensitivity (08/05/2024 3:02 PM EST) Only the most recent of3 resultswithin the time period is included. [facility] High Sensitivity Troponin I 194(HH) <=79 ng/L LAB CHEMISTRY METHOD 08/05/2024 3:55 PM EST [facility] Blood Venous blood specimen / Unknown Venipuncture / Unknown 08/05/2024 3:02 PM EST 08/05/2024 3:09 PM EST Narrative [facility] - 08/05/2024 3:55 PM EST High levels of biotin in samples may falsely decrease hsTroponin values. ??Use caution when interpreting hsTroponin results in patients taking biotin who exhibit renal impairment (eGFR <60) or in patients taking more than 20 mg/day of biotin. us Crystal VACA LAB BLOOD ORDERABLES Final Resul t Performing Organization Address [facility]/ZIP Co de Phone Number [facility] [address] [place] [address], * (ABNORMAL) B-type natriuretic peptide (08/05/2024 7:16 AM EST) BNP 163(H) <=100 pcg/mL LAB CHEMISTRY METHOD 08/05/2024 8:42 AM EST [facility] Blood Venous blood specimen / Unknown Venipuncture / Unknown 08/05/2024 7:16 AM EST 08/05/2024 7:27 AM EST Kelley James MD LAB BLOOD ORDERABLES Fin al Result Performing Organization Address City/[facility]/ZIP Co de Phone Number [facility] [address] [place] [address], [place] [phone] * (ABNORMAL) Lipase (08/05/2024 7:16 AM EST) Pathologist [facility] Lipase 197(H) 13 - 75 unit/L LAB CHEMISTRY METHOD 08/05/2024 8:04 AM EST [facility] Blood Venous blood specimen / Unknown Venipuncture / Unknown 08/05/2024 7:16 AM EST 08/05/2024 7:27 AM EST Kelley James MD LAB BLOOD ORDERABLES Fin al Result Performing Organization Address [facility] Co de Phone Number [facility] [address] [place] [address], [place] [phone] * Pathology review, blood smear (08/03/2024 9:47 AM EST) Pathologist [facility] Pathologist Review Blood Smear Normocytic anemia with prominent anisocytosis (post transfusion); smear not diagnostic of etiology. (See note.) Many hyposegmented neutrophils, including occasional [id number] forms - consider medication/toxin- related changes (including docetaxel), myelodysplasia or other etiologies. Note: ??Prior to the patient's recent transfusions, the patient's red blood cells were mildly macrocytic, a finding that can be associated with medication/treatm ent effects, nutritional deficiency, liver disease, myelodysplasia, hypothyroidism, or other causes. 08/03/2024 4:24 PM EST [facility] ([facility]) [facility] Blood Venous blood specimen / Unknown Venipuncture / Unknown 08/03/2024 9:47 AM EST 08/03/2024 11:21 AM EST us Héctor Zelaya MD LAB BLOOD ORDERABLES Final Resu lt [facility] [address] [place] [address], * COLONOSCOPY Anesthesia - MAC; [facility] ENDOSCOPY (08/03/2024 8:14 AM EST) Anatomical Region Laterality Modality Endoscopy 08/03/2024 7:45 AM EST Impressions 08/03/2024 8:16 AM EST - Preparation of the colon was fair. ? - Multiple bleeding colonic angioectasias. Treated ? with argon plasma coagulation (APC). Multiple ? telangectasias, and ectasias. Some quite large, about ? 2-3 cm. Three were bleeding and these were treated ? with ERBE successfully. I was hesitant to treat the ? really large ones. Also the prep in this area as the ? entire colon, was weak, could not fully visualize. ? - The examination was otherwise normal. ? - No specimens collected. Recommendation: ?- Patient has a contact number available for ? emergencies. The signs and symptoms of potential ? delayed complications were discussed with the patient. ? Return to normal activities tomorrow. Written ? discharge instructions were provided to the patient. ? - Resume previous diet. ? - Continue present medications. Narrative 08/03/2024 8:16 AM EST [facility] GI Patient Name: Luke Turpin Procedure Date: 08/03/2024 7:45 AM Date of : 1945 Age: 79 Gender: Male Note Status: Finalized Attending MD: Héctor Zelaya MD, Procedure Date No Time: 08/03/2024 Procedure: ? Colonoscopy Indications: ? Gastrointestinal occult blood loss Providers: ? Héctor Zelaya MD Referring MD: ?Héctor Zelaya MD Medicines: ? Propofol per Anesthesia Complications: ? No immediate complications. Estimated Blood Loss: ? Estimated blood loss was minimal. Procedure: ? After I obtained informed consent, the scope was ? passed under direct vision. Throughout the procedure, ? the patient's blood pressure, pulse, and oxygen ? saturations were monitored continuously. The ? Colonoscope was introduced through the anus and ? advanced to the cecum, identified by appendiceal ? orifice and ileocecal valve. The colonoscopy was ? performed without difficulty. The patient tolerated ? the procedure well. The quality of the bowel ? preparation was fair. I persisted in getting to the ? cecum just because I was seeing more and more blood, ? ultimately some fresh blood in right colon. This was ? not adequate to rule out polyps, but I did find the ? sources of active bleeding and treated them.. Another ? issue we encountered was that his blood pressure ? dipped, and hesitant to give him more anesthesia/prop. Findings: ?Multiple large angioectasias with bleeding were found ? in the ascending colon. Fulguration to ablate the ? lesion by argon plasma was successful. ? The exam was otherwise without abnormality. Procedure Code(s): ? --- Professional --- ? 11566, Colonoscopy, flexible; with control of ? bleeding, any method Diagnosis Code(s): ? --- Professional --- ? K55.21, Angiodysplasia of colon with hemorrhage ? R19.5, Other fecal abnormalities CPT copyright 2020 [employer] [employer]. All rights reserved. The codes documented in this report are preliminary and upon bander hand review may be revised to meet current compliance requirements. MD Héctor Malhotra MD 08/03/2024 8:16:43 AM This report has been signed electronically.Héctor Zelaya MD Number of Addenda: 0 Note Initiated On: 08/03/2024 7:45 AM Scope In: Scope Out: ? Endoscopy Department at [facility] - [address] [place] [address], ? [place] [id number] Procedure Note Héctor Zelaya MD - 08/03/2024 [facility] GI Patient Name: Luke Turpin Procedure Date: 08/03/2024 7:45 AM Date of : 1945 Age: 79 Gender: Male Note Status: Finalized Attending MD: Héctor Zelaya MD, Procedure Date No Time: 08/03/2024 Procedure: Colonoscopy Indications: Gastrointestinal occult blood loss Providers: Héctor Zelaya MD Referring MD: Héctor Zelaya MD Medicines: Propofol per Anesthesia Complications: No immediate complications. Estimated Blood Loss: Estimated blood loss was minimal. Procedure: After I obtained informed consent, the scope was passed under direct vision. Throughout theprocedure, the patient's blood pressure, pulse, and oxygen saturations were monitored continuously. The Colonoscope was introduced through the anus and advanced to the cecum, identified by appendiceal orifice and ileocecal valve. The colonoscopy was performed without difficulty. The patient tolerated the procedure well. The quality of the bowel preparation was fair. I persisted in getting to the cecum just because I was seeing more and moreblood, ultimately some fresh blood in right colon. Thiswas not adequate to rule out polyps, but I did find the sources of active bleeding and treated them..Another issue we encountered was that his blood pressure dipped, and hesitant to give him moreanesthesia/prop. Findings: Multiple large angioectasias with bleeding werefound in the ascending colon. Fulguration to ablate the lesion by argon plasma was successful. The exam was otherwise without abnormality. Procedure Code(s): --- Professional --- 63528, Colonoscopy, flexible; with control of bleeding, any method Diagnosis Code(s): --- Professional --- K55.21, Angiodysplasia of colon with hemorrhage R19.5, Other fecal abnormalities CPT copyright 2020 [employer] [employer]. All rights reserved. The codes documented in this report are preliminary and upon bander hand reviewmay be revised to meet current compliance requirements. MD Héctor Malhotra MD 08/03/2024 8:16:43 AM This report has been signed electronically.Héctor Zelaya MD Number of Addenda: 0 Note Initiated On: 08/03/2024 7:45 AM Scope In: Scope Out: Endoscopy Department at [facility] - [address] [place] [id number] IMPRESSION: - Preparation of the colon was fair. - Multiple bleeding colonic angioectasias. Treated with argon plasma coagulation (APC). Multiple telangectasias, and ectasias. Some quite large,about 2-3 cm. Three were bleeding and these were treated with ERBE successfully. I was hesitant to treat the really large ones. Also the prep in this area asthe entire colon, was weak, could not fullyvisualize. - The examination was otherwise normal. - No specimens collected. Recommendation: - Patient has a contact number available for emergencies. The signs and symptoms of potential delayed complications were discussed with thepatient. Return to normal activities tomorrow. Written discharge instructions were provided to thepatient. - Resume previous diet. - Continue present medications. us Héctor Zelaya MD GI~PROCEDURE ORDERABLES Final R esult * EGD Anesthesia - [facility]; [facility] ENDOSCOPY (08/03/2024 8:14 AM EST) Anatomical Region Laterality Modality Endoscopy 08/03/2024 7:31 AM EST Impressions 08/03/2024 8:18 AM EST - A single bleeding angioectasia in the duodenum. ? Treated with argon plasma coagulation (APC). ? - The examination was otherwise normal. ? - No specimens collected. Recommendation: ?- Patient has a contact number available for ? emergencies. The signs and symptoms of potential ? delayed complications were discussed with the patient. ? Return to normal activities tomorrow. Written ? discharge instructions were provided to the patient. ? - Resume previous diet. ? - Continue present medications. Narrative 08/03/2024 8:18 AM EST [facility] GI Patient Name: Luke Turpin Procedure Date: 08/03/2024 7:31 AM Date of : 1945 Age: 79 Gender: Male Note Status: Finalized Attending MD: Héctor Zelaya MD, Procedure Date No Time: 08/03/2024 Procedure: ? Upper GI endoscopy Indications: ? Iron deficiency anemia secondary to chronic blood loss Providers: ? Héctor Zelaya MD Referring MD: ?Héctor Zelaya MD Medicines: ? Monitored Anesthesia Care Complications: ? No immediate complications. Estimated Blood Loss: ? Estimated blood loss: none. Procedure: ? After obtaining informed consent, the endoscope was ? passed under direct vision. Throughout the procedure, ? the patient's blood pressure, pulse, and oxygen ? saturations were monitored continuously.The Endoscope ? was introduced through the mouth, and advanced to the ? third part of duodenum. The upper GI endoscopy was ? accomplished without difficulty. The patient tolerated ? the procedure well. Findings: ?A single 3 mm angioectasia with bleeding was found in ? the third portion of the duodenum. Fulguration to ? ablate the lesion by argon plasma was successful. ? The exam was otherwise without abnormality. Procedure Code(s): ? --- Professional --- ? 07499, Esophagogastroduodenoscopy, flexible, ? transoral; with control of bleeding, any method Diagnosis Code(s): ? --- Professional --- ? K31.811, Angiodysplasia of stomach and duodenum with ? bleeding ? 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 All rights reserved. The codes documented in this report are preliminary and upon bander hand review may be revised to meet current compliance requirements. MD Héctor Malhotra MD 08/03/2024 8:18:08 AM This report has been signed electronically.Héctor Zelaya MD Number of Addenda: 0 Note Initiated On: 08/03/2024 7:31 AM Scope In: Scope Out: ? Endoscopy Department at [facility] - [address] [place] [address], ? 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 Estimated Blood Loss: Estimated blood loss: none. Procedure: After obtaining informed consent, the endoscope was passed under direct vision. Throughout theprocedure, the patient's blood pressure, pulse, and oxygen saturations were monitored continuously.TheEndoscope was introduced through the mouth, and advanced tothe third part of duodenum. The upper GI endoscopy was accomplished without difficulty. The patienttolerated the procedure well. Findings: A single 3 mm angioectasia with bleeding was foundin the third portion of the duodenum. Fulguration to ablate the lesion by argon plasma was successful. The exam was otherwise without abnormality. 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 All rights reserved. The codes documented in this report are preliminary and upon bander hand reviewmay be revised to meet current compliance requirements. MD Héctor Malhotra MD 08/03/2024 8:18:08 AM This report has been signed electronically.Héctor Zelaya MD Number of Addenda: 0 Note Initiated On: 08/03/2024 7:31 AM Scope In: Scope Out: Endoscopy Department at [facility] - [address] [place] [phone] IMPRESSION: - A single bleeding angioectasia in the duodenum. Treated with argon plasma coagulation (APC). - The examination was otherwise normal. - No specimens collected. Recommendation: - Patient has a contact number available for emergencies. The signs and symptoms of potential delayed complications were discussed with thepatient. Return to normal activities tomorrow. Written discharge instructions were provided to thepatient. - Resume previous diet. - Continue present medications. us Héctor Zelaya MD GI~PROCEDURE ORDERABLES Final R esult * XR Fingers 2+ Views Left (07/28/2024 10:36 AM EST) Anatomical Region Laterality Modality Upper Extremities, Fingers Left Radio graphic Imaging 07/28/2024 11:1 6 AM EST Impressions 07/28/2024 11:18 AM EST No fracture, dislocation, or other acute findings. There is bony demineralization. Multiple metallic foreign bodies are present dorsal to the metacarpals consistent with previous shrapnel injury. Code 31965 -------- FINAL REPORT -------- Dictated By: Alek Figueroa Dictated Date: 07/28/2024 11:16 ET Assigned Physician: Alek Figueroa Reviewed and Electronically Signed By: Alek Figueroa Signed Date: 07/28/2024 11:18 ET Workstation ID: [id number] Transcribed By: Self Edit Transcribed Date: 07/28/2024 11:16 ET Narrative 07/28/2024 11:18 AM EST HISTORY: The patient is a 71-year-old male with pain in the left third finger following a fall. FINDINGS: AP radiograph of the left hand, along with coned-down oblique and lateral views of the left third finger, are obtained. The study demonstrates bony demineralization. There is no fracture, dislocation, or arthritic change. Multiple tiny metallic foreign bodies are present predominantly dorsal to the metacarpals consistent with previous shrapnel injury. Procedure Note Alek Figueroa MD - 07/28/2024 HISTORY: The patient is a 71-year-old male with pain in the left thirdfinger following a fall. FINDINGS: AP radiograph of the left hand, along with coned-down obliqueand lateral views of the left third finger, are obtained. The studydemonstrates bony demineralization. There is no fracture, dislocation, orarthritic change. Multiple tiny metallic foreign bodies are present predominantly dorsal tothe metacarpals consistent with previous shrapnel injury. IMPRESSION: No fracture, dislocation, or other acute findings. There is bonydemineralization. Multiple metallic foreign bodies are present dorsal tothe metacarpals consistent with previous shrapnel injury. Code 20273 -------- FINAL REPORT -------- Dictated By: Alek Figueroa Dictated Date: 07/28/2024 11:16 ET Assigned Physician: Alek Figueroa Reviewed and Electronically Signed By: Alek Figueroa Signed Date: 07/28/2024 11:18 ET Workstation ID: [id number] Transcribed By: Self Edit Transcribed Date: 07/28/2024 11:16 ET Jeffrey Conte MD IMG XR PROCEDURES Final Result * XR Ribs w Chest 3+ Views Right (07/28/2024 10:35 AM EST) Anatomical Region Laterality Modality Body Right Radiographic Luci ging 07/28/2024 11:0 8 AM EST Impressions 07/28/2024 11:11 AM EST No acute pulmonary disease. There is no pneumothorax, pleural fluid, or right rib fracture. Code 00155 -------- FINAL REPORT -------- Dictated By: Alek Figueroa Dictated Date: 07/28/2024 11:08 ET Assigned Physician: Alek Figueroa Reviewed and Electronically Signed By: Alek Figueroa Signed Date: 07/28/2024 11:11 ET Workstation ID: [id number] Transcribed By: Self Edit Transcribed Date: 07/28/2024 11:08 ET Narrative 07/28/2024 11:11 AM EST HISTORY: The patient is a 71-year-old male with right-sided chest pain following a fall. Information provided with prior studies indicates that the patient has a history of prostate carcinoma. FINDINGS: PA radiograph the chest, along with oblique views of the right ribs, are obtained. The study demonstrates that a right internal jugular Port-A-Cath has been placed since the prior examination performed 01/03/2024, in good position with the tip at the lower superior vena cava. There are degenerative changes of the thoracic spine. The bony structures are otherwise of normal appearance. Specifically, no right rib fracture is seen. The cardiac silhouette remains at the upper limits of normal. The aortic knob is calcified. The lungs and costophrenic angles are clear. There is no pneumothorax or pleural fluid. Procedure Note Alek Figueroa MD - 07/28/2024 HISTORY: The patient is a 71-year-old male with right-sided chest painfollowing a fall. Information provided with prior studies indicates thatthe patient has a history of prostate carcinoma. FINDINGS: PA radiograph the chest, along with oblique views of the rightribs, are obtained. The study demonstrates that a right internal ldgdwhbHpof-M-Vhev has been placed since the prior examination performed01/03/2024, in good position with the tip at the lower superior vena cava.There are degenerative changes of the thoracic spine. The bony structuresare otherwise of normal appearance. Specifically, no right rib fracture isseen. The cardiac silhouette remains at the upper limits of normal. Theaortic knob is calcified. The lungs and costophrenic angles are clear.There is no pneumothorax or pleural fluid. IMPRESSION: No acute pulmonary disease. There is no pneumothorax, pleural fluid, orright rib fracture. Code 46068 -------- FINAL REPORT -------- Dictated By: Alek Figueroa Dictated Date: 07/28/2024 11:08 ET Assigned Physician: Alek Figueroa Reviewed and Electronically Signed By: Alek Figueroa Signed Date: 07/28/2024 11:11 ET Workstation ID: [id number] Transcribed By: Self Edit Transcribed Date: 07/28/2024 11:08 ET Jeffrey Conte MD IMG XR PROCEDURES Final Result * IR Insert Tunneled CVAD w Subq Port More 5yrs Right (07/04/2024 9:48 AM EST) Anatomical Region Laterality Modality Right Interventional R adiology 07/04/2024 3:56 PM EST Impressions 07/04/2024 3:56 PM EST Port-A-Cath placement. -------- FINAL REPORT -------- Dictated By: Sam Das Dictated Date: 07/04/2024 15:56 ET Assigned Physician: Sam Das Reviewed and Electronically Signed By: Sam Das Signed Date: 07/04/2024 15:56 ET Workstation ID: [id number] Transcribed By: Self Edit Transcribed Date: 07/04/2024 15:56 ET Narrative 07/04/2024 3:56 PM EST INDICATION: Prostate carcinoma PROCEDURE: Power injectable Port-A-Cath placement under moderate sedation. MEDICATIONS: Local anesthesia: 20 cc of 1% buffered lidocaine administered subcutaneously during the procedure. Sedation: ??Moderate intravenous sedation was initiated and maintained for 45 minutes while the patient was independently monitored by the radiology nurse under the supervision of the interventional radiologist. A total of 2 mg of Versed and 100 mcg of fentanyl administered during the procedure. Total patient dose (air kerma): 5 mGy ? TECHNIQUE: After informed consent was obtained the patient was placed supine on the angiographic table and the right ??lower neck and upper chest were draped and prepped using maximum sterile barrier. Moderate sedation initiated and then local anesthetic administered. Intravenous access was obtained under real-time ultrasound guidance into the internal jugular vein using a micropuncture set. The microwire was then exchanged for a 0.035 Amplatz wire which was advanced under fluoroscopy into the inferior vena cava. Attention was then turned to the upper chest wall where the appropriate region was localized and anesthetized. A horizontal incision was made approximately 3 cm in length. Using blunt dissection a subcutaneous pocket was formed for placement of the port. A subcutaneous tunnel was then performed from the pocket to the initial venous access site. The catheter was advanced through the tunnel. After hemostasis was achieved the port was attached to the catheter and placed within the pocket. An 8 [place] peel-away sheath with a hemostatic valve placed at the initial venous access site. The catheter was then cut to length and advanced through the peel-away sheath. The peel-away sheath was removed and position of the catheter was checked under fluoroscopy. The catheter was then flushed and heparinized as per protocol. The port pocket was closed with subcutaneous 3-0 Vicryl sutures. Dermabond applied along the initial venous access site and over the port incision site. The patient tolerated the procedure well and left the department in stable condition without immediate complications. FINDINGS: Single ultrasound image demonstrates patent right internal jugular vein. Single fluoroscopic image of the chest shows newly placed Port-A-Cath with tip near the distal superior vena cava. Procedure Note Sam Das MD - 07/04/2024 INDICATION: Prostate carcinoma PROCEDURE: Power injectable Port-A-Cath placement under moderatesedation. MEDICATIONS: Local anesthesia: 20 cc of 1% buffered lidocaine administeredsubcutaneously during the procedure. Sedation: Moderate intravenous sedation was initiated and maintained for45 minutes while the patient was independently monitored by the radiologynurse under the supervision of the interventional radiologist. A total of2 mg of Versed and 100 mcg of fentanyl administered during theprocedure. Total patient dose (air kerma): 5 mGy TECHNIQUE: After informed consent was obtained the patient was placedsupine on the angiographic table and the right lower neck and upper chestwere draped and prepped using maximum sterile barrier. Moderate sedationinitiated and then local anesthetic administered. Intravenous access was obtained under real-time ultrasound guidance intothe internal jugular vein using a micropuncture set. The microwire wasthen exchanged for a 0.035 Amplatz wire which was advanced underfluoroscopy into the inferior vena cava. Attention was then turned to the upper chest wall where the appropriateregion was localized and anesthetized. A horizontal incision was madeapproximately 3 cm in length. Using blunt dissection a subcutaneous pocketwas formed for placement of the port. A subcutaneous tunnel was thenperformed from the pocket to the initial venous access site. The catheterwas advanced through the tunnel. After hemostasis was achieved the portwas attached to the catheter and placed within the pocket. An 8 Frenchpeel-away sheath with a hemostatic valve placed at the initial venousaccess site. The catheter was then cut to length and advanced through thepeel-away sheath. The peel-away sheath was removed and position of thecatheter was checked under fluoroscopy. The catheter was then flushed and heparinized as per protocol. The portpocket was closed with subcutaneous 3-0 Vicryl sutures. Dermabond appliedalong the initial venous access site and over the port incision site. The patient tolerated the procedure well and left the department in stablecondition without immediate complications. FINDINGS: Single ultrasound image demonstrates patent right internaljugular vein. Single fluoroscopic image of the chest shows newly placed Port-A-Cath withtip near the distal superior vena cava. IMPRESSION: Port-A-Cath placement. -------- FINAL REPORT -------- Dictated By: Sam Das Dictated Date: 07/04/2024 15:56 ET Assigned Physician: Sam Das Reviewed and Electronically Signed By: Sam Das Signed Date: 07/04/2024 15:56 ET Workstation ID: [id number] Transcribed By: Self Edit Transcribed Date: 07/04/2024 15:56 ET us Jeffrey Conte MD IMG IR PROCEDURES Final Result * CT Chest/Abdomen/Pelvis w Contrast (06/16/2024 9:45 AM EST) Anatomical Region Laterality Modality Body Computed Tomogra phy 06/19/2024 2:45 PM EST Impressions 06/19/2024 3:24 PM EST Impression: 1. Developing 12 mm juxtapleural right upper lobe nodule concerning for malignancy, either primary or metastatic. 2. Further increase in size of a now 8 cm right adrenal mass, consistent with metastatic disease. 3. New 3 cm soft tissue mass in the left upper quadrant, above the adrenal gland and abutting the posterior wall of the proximal stomach, possibly a serosal or peritoneal soft tissue metastasis, with penetrating gastric ulcer felt to be less likely. 4. No significant change in a bulky jodi mass involving the left pelvic sidewall. 5. Osseous metastatic disease, reported previously, with further worsening of the anterior epidural soft tissue mass at L4 resulting in severe central spinal stenosis. 6. New pathologic fracture of the left transverse process of L4. [place] ([id number]) -------- FINAL REPORT -------- Dictated By: Enedina Oliveros Dictated Date: 06/19/2024 14:45 ET Assigned Physician: Enedina Oliveros Reviewed and Electronically Signed By: Enedina Oliveros Signed Date: 06/19/2024 15:24 ET Workstation ID: [id number] Transcribed By: Self Edit Transcribed Date: 06/19/2024 14:45 ET Narrative 06/19/2024 3:24 PM EST History: Prostate carcinoma, metastatic. Comparison: 03/09/24, 11/22/23, 09/01/23, 10/17/21, PET/CT 05/18/23 Technique: Helical volumetric imaging of the chest, abdomen and pelvis was performed following oral contrast and during the uneventful intravenous administration of 90 cc Isovue-370. DLP: 1934.09 mGy/cm [employer] [email or web address] VCT Iterative reconstruction technique Findings: Chest: The trachea and central bronchial tree remain patent. Centrilobular and paraseptal emphysema are again noted. There is a large peripheral thin-walled bulla in the right lower lobe, unchanged. There is a 12 mm solid, noncalcified juxtapleural nodule in the right upper lobe which abuts the posterolateral pleura and the major fissure (image 97 series 3). The margins of the lesion appear slightly spiculated on the coronal reformatted images. This lesion is new from the 2021 exam and is not identified with certainty on the 2022 PET/CT, but has minimally increased in size compared to the 2023 exams. Calcified pleural plaques are again seen bilaterally. No pleural or pericardial effusions are identified. Mild multichamber cardiomegaly is again seen, with three-vessel coronary artery calcification. There is severe atherosclerotic calcification of the thoracic aorta, including the arch vessel origins. Occlusion of the left subclavian artery origin is not excluded. The vessel can be confirmed as patent beginning just distal to its origin. Subcentimeter mediastinal and hilar lymph nodes are without significant change. No developing thoracic lymphadenopathy is seen. Included portions of the thyroid gland show no suspicious nodule. Abdomen/pelvis: The hepatic configuration remains abnormal, with relative enlargement of the left and caudate lobes and a lobulated surface contour, suggesting chronic hepatocellular disease. A 7 mm circumscribed round hypoattenuating lesion in the subcapsular right hepatic lobe is unchanged from the previous studies, most likely a cyst. Sub-5 mm hypoattenuating lesions in the left lobe are unchanged and may represent ducts. The portal and hepatic veins are patent. The gallbladder is physiologically distended. No evidence of biliary obstruction is seen. The spleen is normal in size. A group of coarse calcifications is again seen within the pancreas at the junction of the body and tail, accompanied by a 10 mm low-attenuation lesion, possibly focal duct dilatation versus a cystic lesion. A 10 mm cystic lesion within the pancreatic uncinate process is also unchanged. The known solid right adrenal mass has further increased in size, now 7.7 x 7.2 cm in maximum axial dimensions compared to 6.0 x 6.3 cm on the most recent study, consistent with metastatic disease. A bilobed hypoattenuating left adrenal nodule is unchanged from priors, most likely an adenoma. The kidneys are normal in position and size, with symmetric, intact nephrograms and no evidence of hydronephrosis. Bilateral circumscribed round hypoattenuating renal masses with imperceptible champagne are compatible with cysts, unchanged. There is severe atherosclerotic calcification of the abdominal aorta and its branches, with possible occlusion of the superior mesenteric artery at its origin, reconstituted distally, unchanged. No abdominal aortic aneurysm is identified. There is no ascites. A bulky jodi mass is again seen along the left pelvic sidewall, abutting the posterior margin of the left external iliac vein and measuring approximately 6.2 x 4.6 cm in maximum axial dimensions, without significant change. New from the previous studies is a poorly defined soft tissue nodule with central lucency in the left upper quadrant, cephalad to the adrenal gland and abutting the posterior wall of the stomach (image 110 series 4), measuring approximately 3 x 2 x 1.7 cm, possibly a soft tissue metastasis. A penetrating gastric ulcer would be unusual in this location. There are multiple retained prostate brachytherapy seeds. The bladder wall is diffusely thickened, suggesting chronic bladder outlet obstruction. No evidence of bowel obstruction is seen; enteric contrast given for the study has reached the rectum. Diverticulosis of the colon is present without specific findings of diverticulitis. The appendix is normal in caliber in the right lower quadrant. No abnormal perienteric or pericolonic fat stranding is seen. Musculoskeletal: Osseous metastatic disease, extensive possibly involving the sacrum, left ilium and lumbar spine at the L4 level is again seen, with all of these lesions accompanied by soft tissue masses. The sacral neural foramina are filled with abnormal soft tissue bilaterally. There is been further worsening of the anterior epidural soft tissue mass at the level of L4 which compresses the thecal sac resulting in severe central spinal stenosis. There is a relatively acute fracture of the left transverse process of L4, presumably secondary to metastatic disease. Healed fractures of multiple left anterior ribs are noted. Procedure Note Enedina Oliveros MD - 06/19/2024 History: Prostate carcinoma, metastatic. Comparison: 03/09/24, 11/22/23, 09/01/23, 10/17/21, PET/CT 05/18/23 Technique: Helical volumetric imaging of the chest, abdomen and pelvis wasperformed following oral contrast and during the uneventful intravenousadministration of 90 cc Isovue-370. 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 Centrilobular andparaseptal emphysema are again noted. There is a large peripheralthin-walled bulla in the right lower lobe, unchanged. There is a 12 mm solid, noncalcified juxtapleural nodule in the rightupper lobe which abuts the posterolateral pleura and the major fissure(image 97 series 3). The margins of the lesion appear slightly spiculatedon the coronal reformatted images. This lesion is new from the 2021 examand is not identified with certainty on the 2022 PET/CT, but has minimallyincreased in size compared to the 2023 exams. Calcified pleural plaques are again seen bilaterally. No pleural orpericardial effusions are identified. Mild multichamber cardiomegaly is again seen, with three-vessel coronaryartery calcification. There is severe atherosclerotic calcification of thethoracic aorta, including the arch vessel origins. Occlusion of the leftsubclavian artery origin is not excluded. The vessel can be confirmed aspatent beginning just distal to its origin. Subcentimeter mediastinal andhilar lymph nodes are without significant change. No developing thoraciclymphadenopathy is seen. Included portions of the thyroid gland show nosuspicious nodule. Abdomen/pelvis: The hepatic configuration remains abnormal, with relative enlargement ofthe left and caudate lobes and a lobulated surface contour, suggestingchronic hepatocellular disease. A 7 mm circumscribed round hypoattenuatinglesion in the subcapsular right hepatic lobe is unchanged from theprevious studies, most likely a cyst. Sub-5 mm hypoattenuating lesions inthe left lobe are unchanged and may represent ducts. The portal andhepatic veins are patent. The gallbladder is physiologically distended. Noevidence of biliary obstruction is seen. The spleen is normal in size. A group of coarse calcifications is againseen within the pancreas at the junction of the body and tail, accompaniedby a 10 mm low-attenuation lesion, possibly focal duct dilatation versus acystic lesion. A 10 mm cystic lesion within the pancreatic uncinateprocess is also unchanged. The known solid right adrenal mass has further increased in size, now 7.7x 7.2 cm in maximum axial dimensions compared to 6.0 x 6.3 cm on the mostrecent study, consistent with metastatic disease. A bilobedhypoattenuating left adrenal nodule is unchanged from priors, most likelyan adenoma. The kidneys are normal in position and size, with symmetric, intactnephrograms and no evidence of hydronephrosis. Bilateral circumscribedround hypoattenuating renal masses with imperceptible champagne are compatiblewith cysts, unchanged. There is severe atherosclerotic calcification of the abdominal aorta andits branches, with possible occlusion of the superior mesenteric artery atits origin, reconstituted distally, unchanged. No abdominal aorticaneurysm is identified. There is no ascites. A bulky jodi mass is again seen along the left pelvic sidewall, abuttingthe posterior margin of the left external iliac vein and measuringapproximately 6.2 x 4.6 cm in maximum axial dimensions, withoutsignificant change. New from the previous studies is a poorly defined soft tissue nodule withcentral lucency in the left upper quadrant, cephalad to the adrenal glandand abutting the posterior wall of the stomach (image 110 series 4),measuring approximately 3 x 2 x 1.7 cm, possibly a soft tissue metastasis.A penetrating gastric ulcer would be unusual in this location. There are multiple retained prostate brachytherapy seeds. The bladder braulio diffusely thickened, suggesting chronic bladder outlet obstruction. No evidence of bowel obstruction is seen; enteric contrast given for thestudy has reached the rectum. Diverticulosis of the colon is presentwithout specific findings of diverticulitis. The appendix is normal incaliber in the right lower quadrant. No abnormal perienteric orpericolonic fat stranding is seen. Musculoskeletal: Osseous metastatic disease, extensive possibly involving the sacrum, leftilium and lumbar spine at the L4 level is again seen, with all of theselesions accompanied by soft tissue masses. The sacral neural foramina arefilled with abnormal soft tissue bilaterally. There is been furtherworsening of the anterior epidural soft tissue mass at the level of [id number] compresses the thecal sac resulting in severe central spinalstenosis. There is a relatively acute fracture of the left transverseprocess of L4, presumably secondary to metastatic disease. Healedfractures of multiple left anterior ribs are noted. IMPRESSION: Impression: 1. Developing 12 mm juxtapleural right upper lobe nodule concerning formalignancy, either primary or metastatic. 2. Further increase in size of a now 8 cm right adrenal mass, consistentwith metastatic disease. 3. New 3 cm soft tissue mass in the left upper quadrant, above the adrenalgland and abutting the posterior wall of the proximal stomach, possibly aserosal or peritoneal soft tissue metastasis, with penetrating gastriculcer felt to be less likely. 4. No significant change in a bulky jodi mass involving the left pelvicsidewall. 5. Osseous metastatic disease, reported previously, with further worseningof the anterior epidural soft tissue mass at L4 resulting in severecentral spinal stenosis. 6. New pathologic fracture of the left transverse process of L4. 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 Health Care Decision (hx) 07/02/2023 HE ALTH CARE PROXY Health Care Decision (hx) 07/02/2023 HE ALTH CARE PROXY Health Care Decision (hx) 07/02/2023 HE ALTH CARE PROXY Health Care Decision (hx) 07/02/2023 HE ALTH CARE PROXY Health Care Decision (hx) 07/02/2023 HE ALTH CARE PROXY Health Care Decision (hx) 07/02/2023 HE ALTH CARE PROXY Health Care Decision (hx) 07/02/2023 HE ALTH CARE PROXY Health Care Decision (hx) 07/02/2023 HE ALTH CARE PROXY Health Care Decision (hx) 07/02/2023 HE ALTH CARE PROXY Health Care Decision (hx) 07/02/2023 HE ALTH CARE PROXY Health Care Decision (hx) 07/02/2023 HE ALTH CARE PROXY Health Care Decision (hx) 07/02/2023 HE ALTH CARE PROXY Health Care Decision (hx) 07/02/2023 HE ALTH CARE PROXY Health Care Decision (hx) 07/02/2023 HE ALTH CARE PROXY Health Care Decision (hx) 07/02/2023 HE ALTH CARE PROXY Health Care Decision (hx) 07/02/2023 HE ALTH CARE PROXY Health Care Decision (hx) 07/02/2023 HE ALTH CARE PROXY Health Care Decision (hx) 07/02/2023 HE ALTH CARE PROXY Health Care Decision (hx) 07/02/2023 HE ALTH CARE PROXY Health Care Decision (hx) 07/02/2023 HE ALTH CARE PROXY Health Care Decision (hx) 07/02/2023 HE ALTH CARE PROXY Health Care Decision (hx) 07/02/2023 HE ALTH CARE PROXY Health Care Decision (hx) 07/02/2023 HE ALTH CARE PROXY Health Care Decision (hx) 07/02/2023 HE ALTH CARE PROXY Health Care Decision (hx) 07/02/2023 HE ALTH CARE PROXY Health Care Decision (hx) 07/02/2023 HE ALTH CARE PROXY Health Care Decision (hx) 07/02/2023 HE ALTH CARE PROXY Health Care Decision (hx) 07/02/2023 HE ALTH CARE PROXY * Full Code - Confirmed (Latest Code Status on File) Date Activated Date Inactivated Comments 09/01/2024 9:25 PM 09/04/2024 3:[address] atus was ascertained in the following way: Code status discussion: discussion with patient and /hcp at bedside. To update the patient's code status, place a code status order. Do not modify or discontinue any currently active code status orders. * Full Code - Default Date Activated Date Inactivated Comments 09/01/2024 7:52 PM 09/01/2024 9:25 PM This is orde r is used when code status has not been discussed with the patient, or code status is otherwise unknown/unconfirmed To update the patient's code status, place a code status order. Do not modify or discontinue any currently active code status orders. * Full Code - Default Date Activated Date Inactivated Comments 08/05/2024 11:36 AM 08/06/2024 4:43 PM This is ord er is used when code status has not been discussed with the patient, or code status is otherwise unknown/unconfirmed To update the patient's code status, place a code status order. Do not modify or discontinue any currently active code status orders. Care Teams Training And Quality Manager Relationship Specialty Start Date End Date Júnior Crawley MD [address] [place] [address] PCP - General Internal Medicine 05/02/24
--- OUTSIDE RECORDS SUMMARY | 2024-09-07 16:49 | XMS_ITS | Encounter Summary ---
Author Organization [place] [address] Care Team Providers Care Environmental Emergencies Planner Name Role Phone Unavailable Primary Care Provider Unavailabl e Encounter Details Date Type Department Care Team (Latest Contact Info) Description 04/12/2024 9:30 AM EDT Hospital Encounter TH HISTORIC ENCOUNTERS EASTERN CONVERSION ONLY Iron deficiency anemia secondary to blood loss (chronic) Social History Tobacco Use Types Packs/Day Years [...] care for your loved ones. For example, childcare center administrator or elderly care for an older adult? [...] Mass Index 32.28 04/12/2024 9:42 AM EDT documented in this encounter Progress Notes * Historical, Notes Results - 04/12/2024 9:30 AM EDT Pat arrives ambulatory??with steady gait??for??blood transfusion today here with Sondra - had labs drawn yesterday, which resulted in a hgb of??7.0??--??per MD Conte??- order??to give patient 2 units PRBC. Patient aware of lab results and in agreement with plan for 2 units today.?Patient reports mild fatigue, no real issues I feel fine honestly - he is pale appearing at this time. Stableassessment completed. IV placed to??right arm without any difficulty, +brisk blood return noted.?Consent signed. Patient resting in recliner with call singh in reach.??Coffee??provided. No other current voiced needs. 1030??- First unit RBC up on pump??per hospital protocol??- patient with no voiced needs.?? 1222 -??First unit RBC completed - patient tolerated with no issues noted.??Patient up ambulatory to bathroom.?? 1235??-??Second unit RBC up on pump - patient resting.??Had good appetite for lunch. 1444 -??Transfusion completed - patient tolerated with no issues noted. Patient denies any complaints. IV flushed and removed intact. VSS. Patient has next appt in place. Stable upon discharge.?? documented in this encounter Plan of Treatment Upcoming Encounters Date Type Department Care Team (Late st Contact Info) Description 09/08/2024 8:00 AM EDT Appointment [facility] [address] [place] [phone] Jeffrey Conte MD [address] [place] [phone] 09/13/2024 9:30 AM EDT Office Visit [facility] Hematology Oncology [address] [place] [phone] Jeffrey Conte MD [address] [place] [phone] 10/19/2024 9:00 AM EDT Appointment [facility] [address] [place] [phone] 02/20/2025 8:00 AM EDT Ancillary Procedure [facility] Cardiology [facility] [address] [place] [address] 03/01/2025 8:40 AM EDT Office Visit [facility] [address] [place] [phone] Marcela Chris NP [address] [place] [address] [address] [place] [address] documented as of this encounter Visit Diagnoses Diagnosis Iron deficiency anemia secondary to blood loss (chronic) documented in this encounter Additional Health Concerns Infection Onset Date Last Indicated Resolved Time Respiratory Rule-Out 09/01/2024 09/01/2024 025 8:03 PM EDT COVID-19 Rule-Out 09/01/2024 09/01/2024 09/01/2024 8:03 PM EDT documented as of this encounter
--- OUTSIDE RECORDS SUMMARY | 2024-09-07 16:49 | XMS_ITS | Encounter Summary ---
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) Jeffrey Conte MD [address] [place] [phone] Phone: tel: fax: [facility] [address] [place] [phone] Phone: tel: fax: Referral ID Status Reason Start Date Expiration Date V isits Requested Visits Authorized [id number] Authorized 07/01/2024 07/01/2025 1 12 Encounter Details Date Type Department Care Team (Latest Contact Info) Description 08/18/2024 8:43 AM EST - 08/18/2024 11:59 PM EST Hospital Encounter [facility] Infusion Center [address] [place] [phone] Jeffrey Conte MD [address] [place] [address] Distant metastasis to bone by neoplasm of [...] loved ones. For example, early childhood associate teacher or elderly care for an older [...] Sign Reading Time Taken Comments Blood Pressure 113/45 08/18/2024 8:51 AM EST Pulse - - Temperature 36.4 ??C (97.5 ??F) 08/18/2024 8:51 AM ES T Respiratory Rate 20 08/18/2024 8:51 AM EST Oxygen Saturation 98% 08/18/2024 8:51 AM EST Inhaled Oxygen Concentration - - Weight 83 kg (182 lb 14.4 oz) 08/18/2024 8:51 AM EST Height - - Body Mass Index 30.44 08/05/2024 7:13 AM EST documented in this encounter Medications at Time [...] with breakfast. omeprazole (PriLOSEC) [address] Lorraineo ns:Melena Take 1 capsule (40 mg total) by mouth 2 (two) times a day. Do not crush or chew. 60 each 11 05/04/2024 5 predniSONE (DELTASONE) 5 mg tabletIndication [...] documented in this encounter Progress Notes * Lucero Tong RN - 08/18/2024 9:00 AM Dianne addended by: Lucero Tong RN on: 08/18/2024 4:48 PM Actions taken: Flowsheet accepted * Lucero Tong RN - 08/18/2024 9:00 AM EST Pt arrives for C3 with . Pt assessed and reports I feel good today , I had blood on Wednesday and it helped. Pt reports he continues to have right rib/abd pain . Pt states I had an ultra soundand was told things are okay. I've been putting a heating pad on it at home and that has helped . Pt denies shortness of breath . Labs reviewed - okay to treat pt today . Hgb will be rechecked again today . Pt does have c/o crust and some discomfort in his right eye. Sclera pink in some areas. Callto Carie VACA to assess- reports she will be up to chair side to evaluate. Tiarra cath accessed and hgb drawn . Pt medicated with pre meds. Call singh in reach . Chemo infused without issue. Carie at chair side to assess pt - Carie will prescribe antibiotic eyedrops for 7 days. Tiarra cath flushed and deaccessed. Pt tolerated well. Pt discharged with . Ptand his aware of appointment next week . [facility] documented in this encounter Plan of Treatment Upcoming Encounters Date Type Department Care Team (Late st Contact Info) Description 09/08/2024 8:00 AM EDT Appointment [facility] [address] [place] [phone] Jeffrey Conte MD [address] [place] [phone] 09/13/2024 9:30 AM EDT Office Visit [facility] Hematology Oncology [address] [place] [phone] Jeffrey Conte MD [address] [place] [phone] 10/19/2024 9:00 AM EDT Appointment [facility] [address] [place] [address] 02/20/2025 8:00 AM EDT Ancillary Procedure [facility] Cardiology [facility] [address] [place] [address] 03/01/2025 8:40 AM EDT Office Visit [facility] [address] [facility] [place] [address] [place] [address] Marcela Chris, SAL [address] [place] [address] [address] [place] [address] documented as of this encounter Procedures Procedure Name Priority Date/Time Associated Diagnosis Comments CBC WITH AUTO DIFFERENTIAL Routine 08/18/2024 9:33 AM EST 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) CBC AND DIFFERENTIAL Routine 08/18/2024 9:33 AM EST 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) TYPE AND SCREEN STAT 08/18/2024 9:33 AM EST Prostate cancer (CMS/HCC) documented in this encounter Results * Type and screen (08/18/2024 9:33 AM EST) ABO Group O 08/18/2024 10:40 AM EST [facility] Rh Type Positive 08/18/2024 10:40 AM EST [facility] Antibody Screen Negative 08/18/2024 10:40 AM EST [facility] Blood Blood sample taken from central line / Unknown Existing Catheter / Unknown 08/18/2024 9:33 AM EST 08/18/2024 9:40 AM EST Jeffrey Conte MD LAB BLOOD BANK TEST ORDERABLES Final Result [facility] [address] [place] [address], * (ABNORMAL) CBC auto differential (08/18/2024 9:33 AM EST) [facility] WBC 6.6 4.8 - 10.8 K/mcL LAB HEMETOLOGY METHOD 08/18/2024 10:14 AM [facility] RBC 2.60(L) 4.50 - 5.50 M/mcL LAB HEMETOLOGY METHOD 08/18/2024 10:14 AM [facility] Hemoglobin 7.8(L) 13.5 - 17.5 g/dL LAB HEMETOLOGY METHOD 08/18/2024 10:14 AM [facility] Hematocrit 25.3(L) 42.0 - 54.0 % LAB HEMETOLOGY METHOD 08/18/2024 10:14 AM [facility] MCV 99.2(H) 79.0 - 98.0 FL LAB HEMETOLOGY METHOD 08/18/2024 10:14 AM [facility] MCH 30.6 27.0 - 32.0 pcg LAB HEMETOLOGY METHOD 08/18/2024 10:14 AM [facility] MCHC 30.8(L) 32.0 - 37.0 g/dL LAB HEMETOLOGY METHOD 08/18/2024 10:14 AM [facility] RDW 18.1(H) 11.0 - 15.0 % LAB HEMETOLOGY METHOD 08/18/2024 10:14 AM [facility] Platelets 376 130 - 400 K/mcL LAB HEMETOLOGY METHOD 08/18/2024 10:14 AM [facility] MPV 10.4 7.0 - 11.0 FL LAB HEMETOLOGY METHOD 08/18/2024 10:14 AM [facility] NRBC 0.0 <1.0 % LAB HEMETOLOGY METHOD 08/18/2024 10:14 AM [facility] NRBC Absolute 0.00 <0.10 K/mcL LAB HEMETOLOGY METHOD 08/18/2024 10:14 AM [facility] Neutrophils Relative 74.3 % LAB HEMETOLOGY METHOD 08/18/2024 10:14 AM [facility] Lymphocytes Relative 14.9 % LAB HEMETOLOGY METHOD 08/18/2024 10:14 AM [facility] Monocytes Relative 6.5 % LAB HEMETOLOGY METHOD 08/18/2024 10:14 AM [facility] Eosinophils Relative 0.8 % LAB HEMETOLOGY METHOD 08/18/2024 10:14 AM [facility] Basophils Relative 1.8 % LAB HEMETOLOGY METHOD 08/18/2024 10:14 AM [facility] Immature Granulocytes Relative 1.7 % LAB HEMETOLOGY METHOD 08/18/2024 10:14 AM [facility] Neutrophils Absolute 4.88 1.50 - 7.00 K/mcL LAB HEMETOLOGY METHOD 08/18/2024 10:14 AM [facility] Lymphocytes Absolute 0.98(L) 1.00 - 5.00 K/mcL LAB HEMETOLOGY METHOD 08/18/2024 10:14 AM [facility] Monocytes Absolute 0.43 0.20 - 1.00 K/mcL LAB HEMETOLOGY METHOD 08/18/2024 10:14 AM [facility] Eosinophils Absolute 0.05 0.00 - 0.50 K/mcL LAB HEMETOLOGY METHOD 08/18/2024 10:14 AM [facility] Basophils Absolute 0.12 0.00 - 0.20 K/mcL LAB HEMETOLOGY METHOD 08/18/2024 10:14 AM [facility] Immature Granulocytes Absolute 0.11(H) 0.00 - 0.03 K/mcL LAB HEMETOLOGY METHOD 08/18/2024 10:14 AM EST [facility] Blood Blood sample taken from central line / Unknown Existing Catheter / Unknown 08/18/2024 9:33 AM EST 08/18/2024 9:40 AM EST Subramisabella Peñaloza MD LAB BLOOD ORDERABLE S Final Result [facility] [address] [place] [address], [place] [phone] documented in this encounter Visit Diagnoses Diagnosis 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 1.91 m2 Treatment Plan BSA from Recorded weight), intravenous, at 257.2 mL/hr, Administer over 60 Minutes, Once, On Wed08/18/24 at 1000, For 1 dose, DOCEtaxel is an irritant. This agent should be prepared either in glass or non-PVC containers and administered through non-PVC tubing. HAZARDOUS Drug Precautions - High Risk (Category C/NIOSH Group 1) Antineoplastic: - Double pair of ASTM standard D6978 certified chemotherapy gloves - Chemotherapy gown - Closed-System Transfer Device (CSTD) recommended - Eye protection (goggles or face shield) required only with a potential for facial contact (i.e. 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 iron,carbonyl-vit bonilla C (Vitron-C) 65 mg iron- 125 mg tablet,delayed release (DR/EC) Take 1 tablet by mouth 1 (one) time each day. added in this encounter Orders Nursing Count Last Ordered Date First Orde red Date NCCN PARAMETERS 1 08/18/2024 NCCN PARAMETERS - DOCETAXEL 1 08/18/2024 ONC NURSING COMMUNICATION 2 08/18/2024 ONC NURSING COMMUNICATION 11 1 08/18/2024 ONC NURSING COMMUNICATION 2 1 08/18/2024 ONC NURSING COMMUNICATION 3 1 08/18/2024 TREATMENT CONDITIONS 1 08/18/2024 TREATMENT CONDITIONS 3 1 08/18/2024 documented in this encounter Care Teams Watch Assembly Inspector Relationship Specialty Start Date End Date Júnior Crawley MD [address] [place] [address] PCP - General Internal Medicine 05/02/24 documented as of this encounter
--- OUTSIDE RECORDS SUMMARY | 2024-09-07 16:49 | XMS_ITS | Encounter Summary ---
Author Organization [facility] Address [address] [place] [address] Care Team Providers Care Airline Manager Name Role Phone Júnior Crawley MD Primary Care Provider Encounter Details Date Type Department Care Team (Late st Contact Info) Description 08/21/2024 11:05 AM EST Lab Draw Station - [facility] [place] [address] [facility] [address] [place] [address] Malignant neoplasm of prostate (CMS/HCC); [...] your loved ones. For example, early childhood teacher or elderly care for an older [...] encounter Progress Notes * LIO Ramirez - 08/21/2024 11:05 AM EST SALRenée Mr. Turpin's recent labs ordered by Dr. Conte documented in this encounter Plan of Treatment Upcoming Encounters Date Type Department Care Team (Late st Contact Info) Description 09/08/2024 8:00 AM EDT Appointment [facility] Infusion Center [address] [place] [phone] Jeffrey Conte MD [address] [place] [phone] 09/13/2024 9:30 AM EDT Office Visit [facility] Hematology Oncology [address] [place] [phone] Jeffrey Conte MD [address] [place] [phone] 10/19/2024 9:00 AM EDT Appointment [facility] [address] [place] [phone] 02/20/2025 8:00 AM EDT Ancillary Procedure [facility] [address] [place] [address] 03/01/2025 8:40 AM EDT Office Visit [facility] [address] [place] [address] Marcela Chris NP [address] [place] [address] Dr [address] [place] [address] documented as of this encounter Procedures Procedure Name Priority Date/Time Associated Diagnosis Comments MANUAL DIFFERENTIAL - SYSMEX WAM Routine 08/21/2024 [...] blood loss (chronic) documented in this encounter Results * (ABNORMAL) Manual differential (08/21/2024 11:03 AM EST) Neutrophils % 89.0 % LAB HEMETOLOGY METHOD 08/21/2024 2:11 PM [facility] Lymphocytes % 9.0 % LAB HEMETOLOGY METHOD 08/21/2024 2:11 PM [facility] Monocytes % 0.0 % LAB HEMETOLOGY METHOD 08/21/2024 2:11 PM [facility] Eosinophils % 2.0 % LAB HEMETOLOGY METHOD 08/21/2024 2:11 PM [facility] Basophils % 0.0 % LAB HEMETOLOGY METHOD 08/21/2024 2:11 PM [facility] Neutrophils Absolute Manual 2.14 1.50 - 7.00 K/mcL LAB HEMETOLOGY METHOD 08/21/2024 2:11 PM [facility] Lymphocytes Absolute 0.22(L) 1.00 - 5.00 K/mcL LAB HEMETOLOGY METHOD 08/21/2024 2:11 PM EST [facility] Monocytes Absolute Manual 0.00(L) 0.20 - 1.00 K/[facility] HEMETOLOGY METHOD 08/21/2024 2:11 PM EST [facility] Eosinophils Absolute Manual 0.05 0.00 - 0.50 K/mcL LAB HEMETOLOGY METHOD 08/21/2024 2:11 PM EST [facility] Basophils Absolute Manual 0.00 0.00 - 0.20 K/[facility] LAB HEMETOLOGY METHOD 08/21/2024 2:11 PM EST [facility] Rbc Morphology Consistent with indices Consistent with indices, Normal for [place] LAB HEMETOLOGY METHOD 08/21/2024 2:11 PM [facility] Platelet Morphology - WAM See Note(A) Normal LAB HEMETOLOGY METHOD 08/21/2024 2:11 PM EST [facility] Comment:PLT: Normal Blood Venous blood specimen / Unknown Venipuncture / Unknown 08/21/2024 11:03 AM EST 08/21/2024 12:36 PM EST Jeffrey Conte MD LAB BLOOD ORDERABLES Final Res ult [facility] [address] [place] [address], * (ABNORMAL) CBC auto differential (08/21/2024 11:03 AM EST) WBC 2.4(L) 4.8 - 10.8 K/mcL LAB HEMETOLOGY METHOD 08/21/2024 2:11 PM EST [facility] RBC 2.40(L) 4.50 - 5.50 M/mcL LAB HEMETOLOGY METHOD 08/21/2024 2:11 PM EST [facility] Hemoglobin 7.6(L) 13.5 - 17.5 g/dL LAB HEMETOLOGY METHOD 08/21/2024 2:11 PM [facility] Hematocrit 24.9(L) 42.0 - 54.0 % LAB HEMETOLOGY METHOD 08/21/2024 2:11 PM [facility] MCV 102.9(H) 79.0 - 98.0 FL LAB HEMETOLOGY METHOD 08/21/2024 2:11 PM [facility] MCH 31.4 27.0 - 32.0 pcg LAB HEMETOLOGY METHOD 08/21/2024 2:11 PM [facility] MCHC 30.5(L) 32.0 - 37.0 g/dL LAB HEMETOLOGY METHOD 08/21/2024 2:11 PM [facility] RDW 18.6(H) 11.0 - 15.0 % LAB HEMETOLOGY METHOD 08/21/2024 2:11 PM [facility] Platelets 189 130 - 400 K/mcL LAB HEMETOLOGY METHOD 08/21/2024 2:11 PM [facility] MPV 12.2(H) 7.0 - 11.0 FL LAB HEMETOLOGY METHOD 08/21/2024 2:11 PM [facility] NRBC 0.0 <1.0 % LAB HEMETOLOGY METHOD 08/21/2024 2:11 PM [facility] NRBC Absolute 0.00 <0.10 K/mcL LAB HEMETOLOGY METHOD 08/21/2024 2:11 PM [facility] Blood Venous blood specimen / Unknown Venipuncture / Unknown 08/21/2024 11:03 AM EST 08/21/2024 12:36 PM EST us Jeffrey Conte MD LAB BLOOD ORDERABLES Final Res ult [facility] [address] [place] [address], [place] [phone] * Type and screen (08/21/2024 11:03 AM EST) ABO Group O 08/21/2024 1:43 PM EST [facility] Rh Type Positive 08/21/2024 1:43 PM EST [facility] Antibody Screen Negative 08/21/2024 1:43 PM EST [facility] Blood Venous blood specimen / Unknown Venipuncture / Unknown 08/21/2024 11:03 AM EST 08/21/2024 12:35 PM EST us Jeffrey Conte MD LAB BLOOD BANK TEST ORDERABLES Final Result Performing Organization Address [facility]/ZIP Co de Phone Number [facility] [address] [place] [address], [place] [phone] * (ABNORMAL) Iron and TIBC (08/21/2024 11:03 AM EST) Iron 220(H) 50 - 160 mcg/dL LAB CHEMISTRY METHOD 08/21/2024 1:47 PM EST [facility] Comment:Results verified by repeat testing TIBC 232(L) 250 - 450 mcg/dL LAB CHEMISTRY METHOD 08/21/2024 1:47 PM [facility] Iron Saturation 95(H) 20 - 50 % LAB CHEMISTRY METHOD 08/21/2024 1:47 PM [facility] Blood Venous blood specimen / Unknown Venipuncture / Unknown 08/21/2024 11:03 AM EST 08/21/2024 12:38 PM EST us Jeffrey Conte MD LAB BLOOD ORDERABLES Final Res ult Performing Organization Address City/[facility]/ZIP Co de Phone Number [facility] [address] [place] [address], [place] [phone] * (ABNORMAL) Prostate specific antigen diagnostic (08/21/2024 11:03 AM EST) Pathologist [facility] PSA 27.43(H) 0.00 - 4.00 ng/mL LAB CHEMISTRY METHOD 08/21/2024 5:40 PM EST [facility] Blood Venous blood specimen / Unknown Venipuncture / Unknown 08/21/2024 11:03 AM EST 08/21/2024 12:38 PM EST Narrative [facility] - 08/21/2024 5:40 PM EST The Siemens Advia Molecular Sensingaur Chemiluminescent Immunoassay is used. Results obtained with different assay methods or kits cannot be used interchangeably. Results cannot be interpreted as absolute evidence of the presence or absence of malignant disease. us Jeffrey Conte MD LAB BLOOD ORDERABLES Final Res ult Performing Organization Address [facility]/ZIP Co de Phone Number [facility] [address] [place] [address], [place] [phone] * (ABNORMAL) Ferritin (08/21/2024 11:03 AM EST) [facility] Ferritin 1,338(H) 26 - 388 ng/mL LAB CHEMISTRY METHOD 08/21/2024 1:20 PM EST [facility] Blood Venous blood specimen / Unknown Venipuncture / Unknown 08/21/2024 11:03 AM EST 08/21/2024 12:38 PM EST us Jeffrey Conte MD LAB BLOOD ORDERABLES Final Res ult [facility] [address] [place] [address], [place] [phone] * (ABNORMAL) Comprehensive metabolic panel (08/21/2024 11:03 AM EST) [facility] Sodium 143 133 - 145 mmol/L LAB CHEMISTRY METHOD 08/21/2024 1:47 PM EST [facility] Potassium 4.5 3.5 - 5.5 mmol/L LAB CHEMISTRY METHOD 08/21/2024 1:47 PM [facility] Chloride 111(H) 96 - 110 mmol/L LAB CHEMISTRY METHOD 08/21/2024 1:47 PM [facility] CO2 24 21 - 32 mmol/L LAB CHEMISTRY METHOD 08/21/2024 1:47 PM [facility] Anion Gap 8 3 - 11 LAB CHEMISTRY METHOD 08/21/2024 1:47 PM [facility] Glucose 87 70 - 100 mg/dL LAB CHEMISTRY METHOD 08/21/2024 1:47 PM [facility] BUN 34(H) 5 - 25 mg/dL LAB CHEMISTRY METHOD 08/21/2024 1:47 PM [facility] Comment:Results verified by repeat testing Creatinine 0.97 0.70 - 1.30 mg/dL LAB CHEMISTRY METHOD 08/21/2024 1:47 PM [facility] eGFR 80 >=60 mL/min/1. 73m2 LAB CHEMISTRY METHOD 08/21/2024 1:47 PM [facility] Comment:Calculation based on the??Chronic Kidney Disease Epidemiology Collaboration (CKD-EPI) equation refit??without adjustment for race. BUN/Creatinine Ratio 35.1 LAB CHEMISTRY METHOD 08/21/2024 1:47 PM [facility] Calcium 7.8(L) 8.5 - 10.5 mg/dL LAB CHEMISTRY METHOD 08/21/2024 1:47 PM [facility] AST (SGOT) 28 10 - 42 unit/L LAB CHEMISTRY METHOD 08/21/2024 1:47 PM [facility] ALT (SGPT) 11 10 - 60 unit/L LAB CHEMISTRY METHOD 08/21/2024 1:47 PM [facility] Alkaline Phosphatase 42 42 - 121 unit/L LAB CHEMISTRY METHOD 08/21/2024 1:47 PM [facility] Total Protein 5.7(L) 6.0 - 8.0 g/dL LAB CHEMISTRY METHOD 08/21/2024 1:47 PM EST [facility] Albumin 2.4(L) 3.2 - 5.0 g/dL LAB CHEMISTRY METHOD 08/21/2024 1:47 PM EST [facility] Total Bilirubin 0.4 0.0 - 1.4 mg/dL LAB CHEMISTRY METHOD 08/21/2024 1:47 PM EST [facility] Blood Venous blood specimen / Unknown Venipuncture / Unknown 08/21/2024 11:03 AM EST 08/21/2024 12:38 PM EST Jeffrey Conte MD LAB BLOOD ORDERABLES Final Res ult [facility] [address] [place] [address], documented in this encounter Visit Diagnoses Diagnosis Malignant neoplasm of prostate (CMS/HCC) Malignant neoplasm of prostate Iron deficiency anemia secondary to blood loss (chronic) documented in this encounter Care Teams Airline Manager Relationship Specialty Start Date End Date Júnior Crawley MD [address] [place] [phone] PCP - General Internal Medicine 05/02/24 documented as of this encounter
--- OUTSIDE RECORDS SUMMARY | 2024-09-07 16:49 | XMS_ITS | Encounter Summary ---
Author Organization [facility] [place] [address] Care Team Providers Care Relations Coordinator Name Role Phone Unavailable Primary Care Provider Unavailabl e Encounter Details Date Type Department Care Team (Latest Contact Info) Description 04/04/2024 8:30 AM EDT Hospital Encounter TH HISTORIC ENCOUNTERS [...] for your loved ones. For example, children's choir director or elderly care for an older [...] - Inhaled Oxygen Concentration - - Weight 86.2 kg (190 lb) 03/22/2024 9:17 AM EDT Height 165.1 cm (5' 5 ) 12/14/2023 10:50 AM EDT Body Mass Index 31.14 02/15/2024 9:13 AM EDT documented in this encounter Progress Notes * Historical, Notes Results - 04/04/2024 8:30 AM EDT Pat arrives ambulatory??with steady gait??for??blood transfusion today here with Sondra - had labs drawn yesterday, which resulted in a hgb of 6.3 --??per MD Conte??- order??to give patient 2 units PRBC - also will give 20mg Lasix in between the units of blood. Patient aware of lab results and in agreement with plan for 2 units today.?Patient reports mild fatigue, no real issues I feel fine honestly - he is pale appearing at this time. Stable assessment completed. IV placed to right arm without any difficulty, +brisk blood return noted.?Consent signed. Patient resting in recliner with call singh in reach.??Coffee??provided. No other current voiced needs. 0945??- First unit RBC up on pump??per hospital protocol??- patient with no voiced needs.?? 1143 -??First unit RBC completed - patient tolerated with no issues noted.?? 1202 - Lasix 20mg IVP given to patient as ordered.?Patient up ambulatory to bathroom.?? 1210 -??Second unit RBC up on pump - patient resting.??Had good appetite for lunch. 1404 -??Transfusion completed - patient tolerated with no issues noted. Patient denies any complaints. IV flushed and removed intact. VSS. Patient has next appt in place. Stable upon discharge.?? documented in this encounter Plan of Treatment Upcoming Encounters Date Type Department Care Team (Late st Contact Info) Description 09/08/2024 8:00 AM EDT Appointment [facility] [address] [place] [phone] Jeffrey Conte MD [address] [place] [address] 09/13/2024 9:30 AM EDT Office Visit [facility] Hematology Oncology [address] [place] [address] Jeffrey Conte MD [address] [place] [phone] 10/19/2024 9:00 AM EDT Appointment [facility] [address] 2nd [place] [phone] 02/20/2025 8:00 AM EDT Ancillary Procedure [facility] [address] [place] [phone] 03/01/2025 8:40 AM EDT Office Visit [facility] Cardiology [facility] [address] [place] [phone] Marcela Chris NP [address] [place] [address] [address] [place] [address] documented as of this encounter Procedures Procedure Name Priority Date/Time Associated Diagnosis Comments ..MISCELLANEOUS REFERENCE LAB TEST 04/04/2024 documented in this encounter Results * Miscellaneous reference lab test (04/04/2024) us Provider Onbase MD LAB BLOOD ORDERABLES Final Re sult documented in this encounter Visit Diagnoses Diagnosis Iron deficiency anemia secondary to blood loss (chronic) documented in this encounter Additional Health Concerns Infection Onset Date Last Indicated Resolved Time Respiratory Rule-Out 09/01/2024 09/01/2024 025 8:03 PM EDT COVID-19 Rule-Out 09/01/2024 09/01/2024 09/01/2024 8:03 PM EDT documented as of this encounter
--- OUTSIDE RECORDS SUMMARY | 2024-09-07 16:49 | XMS_ITS | Encounter Summary ---
Author Organization [facility] Address [address] [place] [address] Care Team Providers Care Electronic Security Technician Name Role Phone Unavailable Primary Care Provider Unavailabl e Encounter Details Date Type Department Care Team (Late st Contact Info) Description 03/22/2024 9:06 AM EDT Hospital Encounter TH HISTORIC ENCOUNTERS EASTERN CONVERSION ONLY Jeffrey Conte MD [address] [place] [address] Social History Tobacco Use Types [...] Sign Reading Time Taken Comments Blood Pressure 121/43 03/22/2024 9:17 AM EDT Pulse 71 03/22/2024 9:17 AM EDT Temperature - - Respiratory Rate - - Oxygen Saturation - - Inhaled Oxygen Concentration - - Weight 86.2 kg (190 lb) 03/22/2024 9:17 AM EDT Height 165.1 cm (5' 5 ) 12/14/2023 10:50 AM EDT Body Mass Index 31.14 02/15/2024 9:13 AM EDT documented in this encounter Progress Notes * Jeffrey Conte MD - 03/22/2024 9:30 AM EDT CHIEF COMPLAINT: No chief complaint on file. IDENTIFIER:Luke Turpin is a 78 y.o. male. HPI:Metastatic carcinoma the prostate??previously??on Eligard enzalutamide..??Colonic AVM GI bleed Metastatic carcinoma the prostate currently on Eligard??abiraterone prednisone..??Colonic AVM GI bleed ?? [facility]demonstrates no tumor related somatic alterations MSI high [...] screening PSA in 1999 with biopsy demonstrating Roderick 7; he was successfully treated with brachytherapy. [...] had??no constitutional difficulties he had??recently returned from [place]. ??His laboratory data shows hemoglobin of 8.1 [...] left. Pain syndrome improved with gabapentin No other acute complaints at this time overall spirits are good PAST MEDICAL HISTORY: Past Medical History: Diagnosis [...] by mouth daily., Disp: , Rfl: ??? leuprolide (ELIGARD) 45 MG injection, Inject [...] every night at bedtime., Disp: , Rfl: ??? gabapentin (NEURONTIN) 300 MG capsule, TAKE ONE CAPSULE BY MOUTH THREE TIMES A DAY, Disp: 90 capsule, Rfl: 2 You are allergic to the following Date Reviewed: 03/22/2024 No active allergies ROS: GENERAL: No malaise, [...] review is non contributory PHYSICAL EXAM: BP 121/43 Pulse 71 Temp 97.2 ??F (36.2 ??C) Wt 86.2 kg (190 lb) SpO2 99% BMI 31.62 kg/m??Verbal Pain Score: 0 (03/22/2024 9:17 AM) APPEARANCE: Alert and in no acute [...] cancer (HCC) MALIGNANT TUMOR OF PROSTATE PLAN: Consistent difficulties with anemia followed by GI service. 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 Return to therapy of iron at least a low-dose as well as folic acid replacement. CT scan reviewed in detail discussed possibility of transitioning treatment. Will check on NGS MSI,HRR. Patient is aware that we may be transitioning to systemic therapy of docetaxel 75 mg/m?? with prednisone 5 mg daily, day 1-21 cycle Recheck of CBC within next 2 weeks possible transfusion Gabapentin to 600 mg twice daily Jeffrey Conte MD documented in this encounter Plan of Treatment Upcoming Encounters Date Type Department Care Team (Late st Contact Info) Description 09/08/2024 8:00 AM EDT Appointment [facility] Infusion Center [address] [place] [phone] Jeffrey Conte MD [address] [place] [phone] 09/13/2024 9:30 AM EDT Office Visit [facility] Hematology Oncology [address] [place] [phone] Jeffrey Conte MD [address] [place] [phone] 10/19/2024 9:00 AM EDT Appointment [facility] Center [address] [place] [phone] 02/20/2025 8:00 AM EDT Ancillary Procedure [facility] [address] [place] [phone] 03/01/2025 8:40 AM EDT Office Visit [facility] [address] [place] [address] Marcela Chris NP [address] [place] [address] [address] [place] [address] documented as of this encounter Procedures Procedure Name Priority Date/Time Associated Diagnosis Comments HISTORICAL IMAGING SCAN RESULT 03/22/2024 ..MISCELLANEOUS REFERENCE LAB TEST 03/22/2024 ..MISCELLANEOUS REFERENCE LAB TEST 03/22/2024 documented in this encounter Results * Miscellaneous reference lab test (03/22/2024) us Provider Onbase MD LAB BLOOD ORDERABLES Final Re sult * Miscellaneous reference lab test (03/22/2024) us Provider Onbase MD LAB BLOOD ORDERABLES Final Re sult * HISTORICAL IMAGING SCAN RESULT (03/22/2024) Anatomical Region Laterality Modality Ultrasound us Provider Onbase MD IMG US PROCEDURES Final Resul t documented in this encounter Visit Diagnoses Not on filedocumented in this encounter Additional Health Concerns Infection Onset Date Last Indicated Resolved Time Respiratory Rule-Out 09/01/2024 09/01/2024 025 8:03 PM EDT COVID-19 Rule-Out 09/01/2024 09/01/2024 09/01/2024 8:03 PM EDT documented as of this encounter
--- OUTSIDE RECORDS SUMMARY | 2024-09-07 16:49 | XMS_ITS | Encounter Summary ---
Author Organization [facility] Address [address] [place] [address] Care Team Providers Care Group Home Worker Name Role Phone Júnior Crawley MD Primary Care Provider [phone] Reason for Referral * Imaging (Routine) - Closed Specialty Diagnoses / Procedures Referred By Socorro valladares Referred To Contact Radiology Diagnoses Pain of upper abdomen Procedures US Abdomen Complete Jeffrey Conte MD [address] [place] [address] Phone: tel: fax: [facility] Referral ID Status Reason Start Date Expiration Date Visits Re quested Visits Authorized [id number] Closed 08/01/2024 08/01/2025 1 1 Reason for Visit * Imaging (Routine) - Closed Specialty Diagnoses / Procedures Referred By Socorro valladares Referred To Contact Radiology Diagnoses Pain of upper abdomen Procedures US Abdomen Complete Jeffrey Conte MD [address] [place] [address] Phone: tel: fax: [facility] Referral ID Status Reason Start Date Expiration Date Visits Re quested Visits Authorized [id number] Closed 08/01/2024 08/01/2025 1 1 Encounter Details Date Type Department Care Team (Latest Contact Info) Description 08/08/2024 7:39 AM EST - 08/08/2024 11:59 PM EST Hospital Encounter [facility] Ultrasound [address] [place] [address] Pain of upper abdomen Discharge Disposition: Home or Self Care Social [...] your loved ones. For example, child care counselor or elderly care for an older adult? [...] AM EST documented as of this encounter Medications at Time of Discharge [...] not crush or chew. 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 Start the day after IV chemotherapy. Take on days 2-21 of each cycle with food. 60 each 07/07/2024 07/07/2025 prochlorperazine (COMPAZINE) 10 mg tabletIndications [...] in this encounter Progress Notes * LIO Ramirez - 08/08/2024 8:30 AM EST Wanted to discuss this patient with you. You recently completed double for chronic GI blood loss. Pmhx malignant prostate cancer. He was recently in hospital for chest pain, I guess there was a question of ascites at the time too, seems that it still an issue. I did not order this ultrasound, just cc'd given careteam member. Wanted to discuss when you have a minute. Thanks. documented in this encounter Plan of Treatment Upcoming Encounters Date Type Department Care Team (Late st Contact Info) Description 09/08/2024 8:00 AM EDT Appointment [facility] Infusion Center [address] [place] [phone] Jeffrey Conte MD [address] [place] [phone] 09/13/2024 9:30 AM EDT Office Visit [facility] Hematology Oncology [address] [place] [phone] Jeffrey Conte MD [address] [place] [phone] 10/19/2024 9:00 AM EDT Appointment [facility] Infusion Center [address] [facility] 2nd [place] [phone] 02/20/2025 8:00 AM EDT Ancillary Procedure [facility] Cardiology [facility] [address] [place] [phone] 03/01/2025 8:40 AM EDT Office Visit [facility] [address] [place] [phone] Marcela Chris, SAL [address] [facility] [address] [place] [address] documented as of this encounter Procedures Procedure Name Priority Date/Time Associated Diagnosis Comments US ABDOMEN COMPLETE Routine 08/08/2024 8 :41 AM EST Pain of upper abdomen documented in this encounter Results * US Abdomen Complete (08/08/2024 8:41 AM [...] Bilateral renal cysts again noted. Telerad LIO ([id number]) -------- FINAL REPORT -------- Dictated By: Enedina Oliveros Dictated Date: 08/14/2024 16:33 ET Assigned Physician: Enedina Oliveros Reviewed and Electronically Signed By: Enedina Oliveros Signed Date: 08/14/2024 16:41 ET Workstation ID: [id number] Transcribed By: Self Edit Transcribed Date: 08/14/2024 [...] Bilateral renal cysts again noted. Telerad PA ([id number]) -------- FINAL REPORT -------- Dictated By: Enedina Oliveros Dictated Date: 08/14/2024 16:33 ET Assigned Physician: Enedina Oliveros Reviewed and Electronically Signed By: Enedina Oliveros Signed Date: 08/14/2024 16:41 ET Workstation ID: [id number] Transcribed By: Self Edit Transcribed Date: 08/14/2024 16:33 ET us Jeffrey Conte MD IMG US PROCEDURES Final Result documented in this encounter Visit Diagnoses Diagnosis Pain of upper abdomen documented in this encounter Care Teams Group Home Worker Relationship Specialty Start Date End Date Júnior Crawley MD [address] [place] [phone] PCP - General Internal Medicine 05/02/24 documented as of this encounter
--- OUTSIDE RECORDS SUMMARY | 2024-09-07 16:50 | XMS_ITS | Encounter Summary ---
Author Organization [facility] Address [address] [place] [address] Care Team Providers Care Production Line Worker Name Role Phone Júnior Crawley MD Primary Care Provider Encounter Details Date Type Department Care Team Description 04/10/2024 Nurse Only [facility] Oncology Services [address] [place] [address] Lori Syed RN Social History Tobacco Use [...] on filedocumented in this encounter Care Teams Production Line Worker Relationship Specialty Start Date End Date Júnior Crawley MD PCP - General Internal Medicine 05/12/17 documented as of this encounter
--- OUTSIDE RECORDS SUMMARY | 2024-09-07 16:50 | XMS_ITS ---
Author Organization [facility] Address [address] [place] [address] Care Team Providers Care Buffing Machine Tender Name Role Phone Júnior Crawley MD Primary Care Provider Active Problems Problem Noted Date Diagnosed Date Prostate cancer 05/12/2017 Iron deficiency anemia due to chronic blood loss 05/12/2017 Current Oncology Plans BCN LEUPROLIDE 22.5MG (ELIGARD) EVERY 3 MONTHS* Plan Start Date:02/08/2024 Plan Provider:Jeffrey Conte MD Linked Problems Prostate cancer (HCC)Iron de ficiency anemia due to chronic blood loss Treatment Medications leuprolide (ELIGARD) Past Plans ONCOLOGY INFUSION THERAPY Plan Name Start Date Discontinue Date Treatment Medications Discontinue Reason [facility]ELIGARD) EVERY 3 MONTHS & BCN DENOSUMAB 120MG (XGEVA) 02/24/2023 02/07/2024 denosumab (XGEVA)iron sucrose (VENOFER)leuprol walter (ELIGARD) Therapy Complete Jeffrey Conte MD Radiation Treatments * No radiation treatments are documented for this patient in [facility]. Treatments may have been administered in another system.
== END 2024-09-07 14:07 | disposition home or self-care (01) ==
LOC: HO.US 14:06
PROVIDERS: PCP Internal Medicine; Visit Provider Surgery Vascular Surgery
DX: I73.9 Peripheral vascular disease, unspecified (principal)
CPT/HCPCS: 93922; 93925

== ENCOUNTER → 2024-09-07 14:08 | Outpatient (BNV) | payer MEDICARE, OTHER, SELFPAY | PROVIDERS: PCP Internal Medicine; Visit Provider Radiology Diagnostic Radiology | DX: I73.9 Peripheral vascular disease, unspecified (principal) | CPT/HCPCS: 93922; 93925 ==

== ENCOUNTER 2024-09-26 09:05 | Outpatient (AMB) | payer MEDICARE, OTHER, SELFPAY ==
--- NOTE | 2024-09-26 09:11 | A.OFFVIS_ITS ---
Intake Visit Reasons: follow up s/p Arterial US 09/07/24 Intake Note: Patient presents for s/p arterial US performed on 09/07/24. Patient has swelling on both legs. Patient states he went to [facility] ED and was released on WednesdaySeptember 22. Accompanied by: Spouse Allergies No Known Allergies Allergy (Verified 09/26/24 09:15) [facility] HPI follow up s/p Arterial US 09/07/24: Details: The patient is a 79-year-old male presenting with arterial testing follow-up. Recently, the patient underwent noninvasive arterial testing. The patient's significant medical history includes lumbar back pain, worsened by recent hospitalization for severe episodes. Prostate cancer management is actively pursued under oncological surveillance. Swelling in the legs commenced post-ch emotherapy, prompting diuretic therapy with Lasix. Furthermore, the patient underwent Transcatheter Aortic Valve Replacement as part of cardiac intervention, following cardiology consultation due to a hospitalization incident involving back pain. He reports current use of gabapentin, successfully alleviating leg pain, aggravated by general swelling post-ultrasound. He also wears mild level of compression. He now presents for vascular follow-up. Review of Systems Const All systems reviewed & are unremarkable except as noted in HPI and below Reports no additional complaints ENT Reports Normal hearing present Card Denies chest pain, Denies chest pain at rest, Denies chest pain with activity and Denies pedal edema Resp Denies cough GI Denies abdominal pain Musc Denies abnormal gait, Denies muscle cramps and Denies radiating pain into limb Skin/Breast Denies skin ulcer and Denies wounds Neuro Reports Normal hearing present and Denies abnormal gait Psych Reports no additional complaints Physical Exam Const General: cooperative, healthy appearing and comfortable Orientation/consciousness: oriented to person, oriented to place and oriented to time HEENT Head: Yes normal to inspection Neck Neck: Yes normal visual inspection Carotids: no bruits Chest Chest palpation & inspection: normal inspection of the chest Resp Effort & Inspection: normal respiratory effort and able to speak in complete sentences Auscultation: clear to auscultation bilaterally, no crackles, no rales, no rhonchi and no wheezes Cardio Other: Bilateral DP signals Rate: regular rate Rhythm: regular rhythm Heart sounds: S1 normal heart sound present and S2 normal heart sound present Bruits: no carotid bruits Peripheral pulses: Peripheral pulses 2+ throughout GI Inspection: Yes normal to inspection Skin Wounds: no wounds Hair: normal Neuro General: oriented to person, oriented to place and oriented to time Cranial nerves: Yes CN's II-XII intact bilaterally and Yes Normal hearing present Cognition (Neuro): normal cognition Motor exam (neuro): 5/5 motor strength present throughout Extrem Other: venous exam: +1 edema General: No clubbing, No cyanosis and Yes edema Psych Appearance: grossly normal Mental Status: mental status grossly normal Speech and movement: Normal speech and movement present Results Reviewed Results Reviewed: Noninvasive arterial testing dated 09/07/2024 demonstrates MAKSIM on the right of 0.97 and on the left of 0.71. Written report and images were reviewed. Assessment & Plan Assessment & Plan (1) PAD (peripheral artery disease): Comment: 11/17/2017 - diagnostic angiogram Code(s): I73.9 - Peripheral vascular disease, unspecified Category: Medical Plan: I discussed with the patient that for his vascular health, we will be focusing on the arterial circulation issues mainly affecting his left leg. While the circulation tested within acceptable range on the right, a planned re-evaluation will follow in six months to ensure his left leg circulation is monitored, given the diagnosis of Peripheral Artery Disease. Benefits and efficacy of Gabapentin were affirmed as managing neuropathic pain effectively, with a plan to continue treatment. We discussed alternatives to standard compression stockings due to patient difficulty in application, suggesting travel socks for mild compression. Coordination with his cardiology and oncology team is vital to assure aligned management across his complex health needs. Emphasizing the current care direction, I recommended a cardiac and oncology team review before addressing elective vascular interventions. Plan Patient was informed and verbally consented to the use of an ambient scribe for clinic note documentation during this visit. Orders: Orders US arterial duplex LE BI 6 Months I73.9 - Peripheral vascular disease, unspecified Patient Instructions: - Continue taking gabapentin as prescribed for leg pain. - Use compression stockings or travel socks for leg swelling. - Attend follow-up appointment in six months for reevaluation of leg circulation. - Coordinate care with Dr. Conte and ensure regular check-ups for prostate cancer. - Monitor for any increased swelling or pain in the legs and report any significant changes. - Notify your healthcare team about any new or worsening symptoms. Coding Level of Care Code Est Pt Level 4 (15316) Complex EM visit Add On G2211 Diagnoses PAD (peripheral artery disease) I73.9
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
--- OUTSIDE RECORDS SUMMARY | 2024-09-26 09:58 | XMS_ITS ---
Author Organization [facility] Address [address] [place] [address] Phone Care Team Providers Care Cycle Touring Guide Name Role Phone Júnior Crawley MD Primary Care Provider Active Problems Problem Noted Date Diagnosed Date Symptomatic anemia 09/20/2024 Neutropenic sepsis 09/01/2024 Acquired arteriovenous malfo rmation [...] Medications Current Day (Day 1 , Cycle 5 - Planned for 09/28/2024) Next Day (Day 2, Cycle 5 - Planned for 09/29/2024) DOCEtaxel (TAXOTERE)DOCEtaxe l (TAXOTERE) chemo IVPB 250 [...] treatments are documented for this patient in [facility]. Treatments may have been administered in [...]
--- OUTSIDE RECORDS SUMMARY | 2024-09-26 09:58 | XMS_ITS | Encounter Summary ---
Author Organization [facility] Address [address] [place] [address] Care Team Providers Care Furnace Combustion Tester Name Role Phone Júnior Crawley MD Primary Care Provider [phone] Encounter Details Date Type Department Care Team (Latest Contact Info) Description 09/22/2024 10:00 AM EDT - 09/22/2024 11:59 PM EDT Hospital Encounter [facility] Radiation Oncology [address] [phone] Alma Floyd NP [address] [place] [address] Discharge Disposition: Home or Self Care Social [...] for your loved ones. For example, child specialist or elderly care for an older [...] this encounter Medications at Time of Discharge acetaminophen (TYLENOL) 500 mg tablet Take 2 tablets (1,000 mg total) by mouth 2 (two) times a day for 10 days. 40 each 09/22/2024 5 cholecalciferol (VITAMIN D-3) 25 mcg (1,000 unit) tablet Take 1 tablet (1,000 Units total) by mouth 1 (one) time each day. fenofibrate micronized (LOFIBRA) 134 mg capsule Take 1 Capsule by mouth daily. folic acid (FOLVITE) 400 mcg tablet Take 1 tablet (400 mcg total) by mouth 1 (one) time each day. furosemide (LASIX) 20 mg tablet Take 1 tablet (20 mg total) by mouth 1 (one) time each day. 30 each 09/22/2024 5 gabapentin (NEURONTIN) 600 mg tablet Take 1 tablet (600 mg total) by mouth 3 (three) times a day. 90 each 2 07/13/2024 iron,carbonyl-vi tamin C (Vitron-C) 65 mg iron- 125 mg tablet,delayed release (DR/EC) Take 1 tablet by mouth 1 (one) time each day. lidocaine 4 % patch Apply 1 patch topically 1 (one) time each day. Apply to low back daily, remove at bedtime 30 each 09/23/2024 5 lisinopriL (PRINIVIL,ZESTRI L) 20 mg tablet Take 1 tablet (20 mg total) by mouth 1 (one) time each day. metFORMIN (GLUCOPHAGE) 500 mg tablet Take 0.5 tablets (250 mg total) by mouth 1 (one) time each day with breakfast. omeprazole (PriLOSEC) [address] capsuleIndicatio ns:Melena Take 1 capsule (40 mg total) by mouth 2 (two) times a day. Do not crush or chew. 60 each 11 05/04/2024 5 rosuvastatin (CRESTOR) 20 mg tablet Take 1 Tablet by mouth daily. terazosin (HYTRIN) 5 mg capsule Take 1 Capsule by mouth at bedtime. dexAMETHasone (DECADRON) 4 mg tablet Take 1 tablet (4 mg total) by mouth 2 (two) times a day. 60 each 09/22/2024 5 DOCETAXEL IV Infuse into a venous catheter. Every 22 days leuprolide acetate (ELIGARD SUBQ) oxyCODONE (ROXICODONE) 5 mg immediate release tablet Take 1 tablet (5 mg total) by mouth every 6 (six) hours if needed for severe pain. 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 60 tablet 3 07/06/2024 sod picosulf-mag ox-citric ac (Clenpiq) 10 mg-3.5 gram- 12 gram/175 mL solutionIndicati ons:Gastrointest inal bleeding,Melena, Proctitis Take 175 mL by mouth 2 (two) times a day. 350 mL 07/20/2024 documented as of this encounter Discharge Disposition Disposition Code Departure Means Destination Home or Self Care documented in this encounter Plan of Treatment Upcoming Encounters Date Type Department Care Team (Late st Contact Info) Description 09/27/2024 9:00 AM EDT Office Visit [facility] Hematology Oncology [address] [place] [address] Jeffrey Conte MD [address] [place] [address] 09/29/2024 8:00 AM EDT Appointment [facility] Infusion Center [address] [place] [phone] 10/19/2024 9:00 AM EDT Appointment [facility] Infusion Center [address] [place] [phone] 02/20/2025 8:00 AM EDT Ancillary Procedure [facility] [address] [facility] [address] [place] [phone] 03/01/2025 8:40 AM EDT Office Visit [facility] - [facility] Center [address] [place] [phone] Marcela Chris NP [address] [place] [address] Dr [address] [place] [address] documented as of this encounter Visit Diagnoses Not on filedocumented in this encounter Care Teams Furnace Combustion Tester Relationship Specialty Start Date End Date Júnior Crawley MD [address] [place] [address] PCP - General Internal Medicine 05/02/24 documented as of this encounter
--- OUTSIDE RECORDS SUMMARY | 2024-09-26 09:58 | XMS_ITS | Encounter Summary ---
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) Prostate cancer ([facility]/HCC) Jeffrey Conte MD [address] [place] [phone] Phone: tel: fax: [facility] [address] [place] [phone] Phone: tel: fax: Referral ID Status Reason Start Date Expiration Date Visits Re quested Visits Authorized [id number] Closed 04/24/2024 04/24/2025 1 22 Encounter Details Date Type Department Care Team (Latest Contact Info) Description 09/20/2024 9:15 AM EDT - 09/20/2024 11:59 PM EDT Hospital Encounter [facility] Infusion Center [address] [place] [phone] Jeffrey Conte MD [address] [place] [address] 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) (Primary Dx); Prostate cancer ([facility]/HCC) Discharge Disposition: Home or Self Care Social [...] Sign Reading Time Taken Comments Blood Pressure 169/73 09/20/2024 5:50 PM EDT Pulse 90 09/20/2024 5:50 PM EDT Temperature 36.6 ??C (97.9 ??F) 09/20/2024 5:50 PM ED T Respiratory Rate 20 09/20/2024 5:50 PM EDT Oxygen Saturation 94% 09/20/2024 5:50 PM EDT Inhaled Oxygen Concentration - - Weight - - Height - - Body Mass Index - - documented in this encounter Medications at Time of Discharge acetaminophen (TYLENOL) 500 mg tablet Take 2 tablets (1,000 mg total) by mouth 2 (two) times a day for 10 days. 40 each 09/22/2024 cholecalciferol (VITAMIN D-3) 25 mcg (1,000 unit) tablet Take 1 tablet (1,000 Units total) by mouth 1 (one) time each day. dexAMETHasone (DECADRON) 4 mg tablet Take 1 tablet (4 mg total) by mouth 2 (two) times a day. 60 each 09/22/2024 DOCETAXEL IV Infuse into a venous catheter. Every 22 days fenofibrate micronized (LOFIBRA) 134 mg capsule Take 1 Capsule by mouth daily. folic acid (FOLVITE) 400 mcg tablet Take 1 tablet (400 mcg total) by mouth 1 (one) time each day. furosemide (LASIX) 20 mg tablet Take 1 tablet (20 mg total) by mouth 1 (one) time each day. 30 each 09/22/2024 gabapentin (NEURONTIN) 600 mg tablet Take 1 tablet (600 mg total) by mouth 3 (three) times a day. 90 each 2 07/13/2024 iron,carbonyl-vi tamin C (Vitron-C) 65 mg iron- 125 mg tablet,delayed release (DR/EC) Take 1 tablet by mouth 1 (one) time each day. leuprolide acetate (ELIGARD SUBQ) lidocaine 4 % patch Apply 1 patch topically 1 (one) time each day. Apply to low back daily, remove at bedtime 30 each 09/23/2024 lisinopriL (PRINIVIL,ZESTRI L) 20 mg tablet Take [...] crush or chew. 60 each 11 05/04/2024 oxyCODONE (ROXICODONE) 5 mg immediate release tablet [...] Take 1 Capsule by mouth at bedtime. 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 Start the day after IV chemotherapy. Take on days 2-21 of each cycle with food. 60 each 11 07/07/2024 documented as of this encounter Discharge Disposition Disposition Code Departure Means Destination Home or Self Care documented in this encounter Progress Notes * Monet Huber RN - 09/20/2024 9:30 AM EDTEncounter addended by: Monet Huber RN on: 09/21/2024 9:21 AM Actions taken: Flowsheet accepted * Monet Huber RN - 09/20/2024 9:30 AM EDT Pat arrives via wheelchair with partner Sondra for a scheduled blood transfusion today - had labs drawn on 09/18 with Hgb 7.5, will draw STAT labs and administer 1 unit today, once labs result will make decision about second unit . Patient is aware and ok with the plan. Patient states that he has been having back pain that has been severe at times over the past few days - at times patient does appear uncomfortable - continues to report black stools on occasion - otherwise stable assessment completed at this time. Port in right chest accessed per protocol with no difficulty, +brisk blood return noted - labs drawn and sent STAT. Consent signed - patient resting in recliner with call singh in reach. CTM. 1044 - Medicated for pain with 5 mg oxy - pain reported at 10/28. 1045 - 1 Unit PRBC up on pump. Patient resting with no voiced needs currently. 1137 - labs back - new HGB today is 6.5 - MD Conte is aware via secure messaging - will give additional unit of PRBC and lasix to patient. 1237 - 1st infusion completed - lasix given as ordered. Patient with good appetite for lunch. Up tobathroom with slow but steady gait - uncomfortable appearing when ambulating back to chair. 1300 - Second unit PRBC up on pump. 1505 -Second unit completed - patient tolerated infusion - having pain increasing with many positional changes throughout infusion. Patient up to bathroom - visibly uncomfortable and this RN called to chairside - patient very uncomfortable - pale - taking very short shallow breaths - bp 190/91, hr 112 - MD Conte paged via secure messaging. 1550 - MD Conte at chairside - patient current BP 174/76, hr 88 - verbal order for 0.5 mg dilaudid for 8/10 back pain. Patient will also be admitted for pain control and additional testing - patient and family aware and good with plan. 1605 - patient medicated with 0.5 mg dilaudid for 8/10 back pain. Patient still visibly uncomfortable - awaiting inpt placement. 1630 - Report to Mary RIVERA. 1710 - verbal report to Mago RIVERA on Urology - room 561. 1715 - patient taken via wheelchair by Mary RIVERA to inpatient assignment. * Mary Urias RN - 09/20/2024 9:30 AM EDT 1720- Pt transported via wheelchair with at side to room. Patient assisted into hipolito and madecomfortable in bed. Pt did report 10/10 pain with movement. Somewhat better after repositioning andsitting up in bed. Call singh within reach. PCT, Dorian, made aware and working with patient in room obtaining vitals. Fall risk precautions in place. at side. Dr Conte made aware of pain level and will see patient soon to provide inpatient orders. documented in this encounter Plan of Treatment Upcoming Encounters Date Type Department Care Team (Late st Contact Info) Description 09/27/2024 9:00 AM EDT Office Visit [facility] Hematology Oncology [address] [place] [phone] Jeffrey Conte MD [address] [place] [phone] 09/29/2024 8:00 AM EDT Appointment [facility] Infusion Center [address] [facility] [address]nd [place] [address] 10/19/2024 9:00 AM EDT Appointment [facility] Infusion Center [address] [place] [address] 02/20/2025 8:00 AM EDT Ancillary Procedure [facility] Cardiology [facility] [address] [place] [address] 03/01/2025 8:40 AM EDT Office Visit [facility] [address] [place] [address] Marcela Chris, SAL [address] [facility] [address] [place] [address] documented as of this encounter Procedures Procedure Name Priority Date/Time Associated Diagnosis Comments TRANSFUSE RED BLOOD CELLS Routine 09/20/2024 1:00 PM EDT 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) Prostate cancer (CMS/HCC) PREPARE RBC Routine 09/20/2024 11:39 AM EDT 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) Prostate cancer (CMS/HCC) TRANSFUSE RED BLOOD CELLS Routine 09/20/2024 10:45 AM EDT 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) Prostate cancer (CMS/HCC) MANUAL DIFFERENTIAL - SYSMEX WAM STAT 09/20/2024 10:11 AM EDT Prostate cancer (CMS/HCC) CBC WITH AUTO DIFFERENTIAL STAT 09/20/2024 10:11 AM EDT Prostate cancer (CMS/HCC) CBC AND DIFFERENTIAL STAT 09/20/2024 10:11 AM EDT Prostate cancer (CMS/HCC) PREPARE RBC Routine 09/20/2024 9:26 AM EDT 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) Prostate cancer (CMS/HCC) documented in this encounter Results * Transfuse RBC (09/20/2024 3:23 PM EDT) us Jeffrey Conte MD BLOOD TRANSFUSION ORDERABLES F inal Result * Transfuse RBC: 1 Units (09/20/2024 3:23 PM EDT) us Jeffrey Conte MD BLOOD TRANSFUSION ORDERABLES F inal Result * Transfuse RBC (09/20/2024 12:37 PM EDT) us Jeffrey Conte MD BLOOD TRANSFUSION ORDERABLES F inal Result * Transfuse RBC: 1 Units (09/20/2024 12:37 PM EDT) us Jeffrey Conte MD BLOOD TRANSFUSION ORDERABLES F inal Result * Prepare RBC: 1 Units (09/20/2024 11:39 AM EDT) [facility] Signature Product Code [id number] 09/20/2024 12:55 PM EDT [facility] Unit Number [id number] 09/21/19 12:55 PM EDT [facility] Crossmatch Compatible 09/20/2024 12:15 PM EDT [facility] Dispense Status Transfused 09/20/2024 12:55 PM EDT [facility] Unit ABO Rh OPOS 09/20/2024 12:55 PM EDT [facility] Unit Expiration Date Time [id number] 09/20/2024 12:55 PM EDT [facility] Unit Blood Type 5100 09/20/2024 12:55 PM EDT [facility] Blood Venous blood specimen / Unknown 09/20/2024 11:39 AM EDT 09/18/2024 1:36 PM EDT us Jeffrey Conte MD BLOOD BANK PRODUCT ORDERABLES Final Result [facility] [address] [place] [address], * (ABNORMAL) Manual differential (09/20/2024 10:11 AM EDT) Neutrophils % 69.0 % LAB HEMETOLOGY METHOD 5 11:17 AM EDT [facility] Bands % 6.0 % LAB HEMETOLOGY METHOD 5 11:17 AM EDT [facility] Lymphocytes % 7.0 % LAB HEMETOLOGY METHOD 5 11:17 AM EDT [facility] Monocytes % 6.0 % LAB HEMETOLOGY METHOD 5 11:17 AM [facility] Eosinophils % 1.0 % LAB HEMETOLOGY METHOD 5 11:17 AM [facility] Basophils % 1.0 % [facility] Metamyelocytes % 3.0(H) % LAB HEMETOLOGY METHOD 5 11:17 AM [facility] Myelocytes % 4.0(H) % LAB HEMETOLOGY METHOD 5 11:17 AM EDT [facility] Promyelocytes % 3.0(H) % LAB HEMETOLOGY METHOD 5 11:17 AM [facility] Neutrophils Absolute Manual 10.35(H) 1.50 - 7.00 K/mcL LAB HEMETOLOGY METHOD 5 11:17 AM [facility] Bands Absolute Manual 0.90(H) 0.00 - 0.00 K/mcL LAB HEMETOLOGY METHOD 5 11:17 AM EDT [facility] Lymphocytes Absolute 1.05 1.00 - 5.00 K/mcL LAB [facility]OLOGY [facility] Monocytes Absolute Manual 0.90 0.20 - 1.00 K/mcL LAB HEMETOLOGY METHOD 5 11:17 AM [facility] Eosinophils Absolute Manual 0.15 0.00 - 0.50 K/mcL LAB HEMETOLOGY METHOD 5 11:17 AM [facility] Basophils Absolute Manual 0.15 0.00 - 0.20 K/mcL LAB HEMETOLOGY METHOD 5 11:17 AM [facility] Metamyelocytes Absolute Manual 0.45(H) 0.00 - 0.00 K/mcL LAB HEMETOLOGY METHOD 5 11:17 AM [facility] Myelocytes Absolute Manual 0.60(H) 0.00 - 0.00 K/mcL LAB HEMETOLOGY METHOD 5 11:17 AM [facility] Promyelocytes Absolute Manual 0.45(H) 0.00 - 0.00 K/mcL LAB [facility]EMETOLOGY METHOD 5 11:[facility] Rbc Morphology Consistent with indices Consistent with indices, Normal for Mchenry LAB HEMETOLOGY METHOD 5 11:[facility] Platelet Morphology - WAM Normal Normal LAB HEMETOLOGY METHOD 5 11:17 AM [facility] Basophilic Stippling Present Present(A) (none) LAB HEMETOLOGY METHOD 5 11:17 AM [facility] Blood Blood sample taken from central line / Unknown Existing Catheter / Unknown 09/20/2024 10:11 AM EDT 09/20/2024 10:24 AM EDT us Jeffrey Conte MD LAB BLOOD ORDERABLES Final Res ult [facility] [address] [place] [address], * (ABNORMAL) CBC auto differential (09/20/2024 10:11 AM EDT) WBC 15.0(H) 4.8 - 10.8 K/mcL LAB HEMETOLOGY METHOD 09/20/2024 11:17 AM EDT [facility] RBC 2.10(L) 4.50 - 5.50 M/mcL LAB HEMETOLOGY METHOD 09/20/2024 11:17 AM [facility] Hemoglobin 6.5(L) 13.5 - 17.5 g/dL LAB HEMETOLOGY METHOD 09/20/2024 11:17 AM [facility] Hematocrit 21.6(L) 42.0 - 54.0 % LAB HEMETOLOGY METHOD 09/20/2024 11:17 AM [facility] MCV 100.9(H) 79.0 - 98.0 FL LAB HEMETOLOGY METHOD 09/20/2024 11:17 AM [facility] MCH 30.4 27.0 - 32.0 pcg LAB HEMETOLOGY METHOD 09/20/2024 11:17 AM [facility] MCHC 30.1(L) 32.0 - 37.0 g/dL LAB HEMETOLOGY METHOD 09/20/2024 11:17 AM [facility] RDW 20.8(H) 11.0 - 15.0 % LAB HEMETOLOGY METHOD 09/20/2024 11:17 AM [facility] Platelets 186 130 - 400 K/mcL LAB HEMETOLOGY METHOD 09/20/2024 11:17 AM [facility] MPV 11.6(H) 7.0 - 11.0 FL LAB HEMETOLOGY METHOD 09/20/2024 11:17 AM EDT [facility] NRBC 0.8 <1.0 % LAB HEMETOLOGY METHOD 09/20/2024 11:17 AM EDT [facility] NRBC Absolute 0.12(H) <0.10 K/mcL LAB HEMETOLOGY METHOD 09/20/2024 11:17 AM EDT [facility] Blood Blood sample taken from central line / Unknown Existing Catheter / Unknown 09/20/2024 10:11 AM EDT 09/20/2024 10:24 AM EDT Jeffrey Conte MD LAB BLOOD ORDERABLES Final Res ult [facility] [address] [place] [address], * Prepare RBC: 1 Units (09/20/2024 9:26 AM EDT) Product Code [id number] 09/20/2024 10:42 AM [facility] Unit Number [id number] 09/21/19 10:42 AM [facility] Crossmatch Compatible 09/20/2024 9:27 AM EDT [facility] Dispense Status Transfused 09/20/2024 10:42 AM [facility] Unit ABO Rh OPOS 09/20/2024 10:42 AM [facility] Unit Expiration Date Time [id number] 09/20/2024 10:42 AM [facility] Unit Blood Type 5100 09/20/2024 10:42 AM [facility] Blood Venous blood specimen / Unknown 09/20/2024 9:26 AM EDT 09/18/2024 1:36 PM EDT Jeffrey Conte MD BLOOD BANK PRODUCT ORDERABLES Final Result [facility] [address] [place] [address], documented in this encounter Visit Diagnoses Diagnosis 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)- Primary Prostate cancer (CMS/HCC) Malignant neoplasm of prostate documented in this encounter Administered Medications Inactive Administered Medications - up to 3 most recent administrations Medication Order MAR Action Action Date Dose Rate Site furosemide (LASIX) injection 20 mg 20 mg, intravenous, Once, On Wed09/20/24 at 1300, For 1 dose, Administer in between units.Indications: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),Prostate cancer (CMS/HCC) Given 09/20/2024 12:39 PM EDT 20 mg HYDROmorphone (PF) (DILAUDID) injection 0.5 mg 0.5 mg, intravenous, Once, On Wed09/20/24 at 1615, For 1 dose Given 09/20/2024 4:05 PM EDT 0.5 mg HYDROmorphone (PF) (DILAUDID) injection 1 mg 1 mg, intravenous, Once, On Wed09/20/24 at 1700, For 1 dose Given 09/20/2024 4:38 PM EDT 1 mg oxyCODONE (ROXICODONE) immediate release tablet 5 mg 5 mg, oral, Once, On Wed09/20/24 at 1045, For 1 dose Given 09/20/2024 10:44 AM EDT 5 mg documented in this encounter Care Teams Extension Specialist Relationship Specialty Start Date End Date Júnior Crawley MD [address] [place] [address] PCP - General Internal Medicine 05/02/24 documented as of this encounter
--- OUTSIDE RECORDS SUMMARY | 2024-09-26 09:58 | XMS_ITS | Encounter Summary ---
[facility] Organization [facility] Address [address] [place] [address] Care Team Providers Care Safety Officer Name Role Phone Júnior Crawley MD Primary Care Provider + [phone] Reason for Referral * Home Health (Routine) - Closed Specialty Diagnoses / Procedures Referred By Socorro valladares Referred To Contact Home Health Services Diagnoses Acute congestive heart failure, unspecified heart failure type (CMS/HCC) Prostate cancer (CMS/HCC) Anahi Guan PA [address] [place] [id number] Phone: tel: fax: [facility] [place] [address] [facility] , [address] [place] [address] Phone: tel: fax: Referral ID Status Reason Start Date Expiration Date V isits Requested Visits Authorized [id number] Closed Consult and Treat 09/22/2024 09/22/2025 1 1 Reason for Visit * Auth/Cert (Routine) Specialty Diagnoses / Procedures Referred By Socorro valladares Referred To Contact Diagnoses Metastatic Prostate CA Procedures [facility] IP/OBS CARE ADMIT/DISCHARGE SAME DATE MODERATE LEVEL Donte Wilde MD [address] [place] [address] Phone: tel: fax: [facility] [address] [place] [address] Phone: tel: Referral ID Status Reason Start Date Expiration Date Visits Re quested Visits Authorized [id number] 1 1 Encounter Details Date Type Department Care Team (Latest Contact Info) Description 09/20/2024 4:45 PM EDT - 09/22/2024 6:28 PM EDT Hospital Encounter [facility] [address] [place] [address] Donte Wilde MD [address] [place] [address] Crystal Milligan MD [address] [place] [address] Acute congestive heart failure, unspecified heart failure type (CMS/HCC) (Primary Dx); Prostate cancer (CMS/HCC) Discharge Disposition: Home-Health Care Svc Social History Tobacco Use Types Packs/Day Years [...] for your loved ones. For example, child advocate or elderly care for an older adult? [...] Sign Reading Time Taken Comments Blood Pressure 133/60 09/22/2024 11:01 AM EDT Pulse 87 09/22/2024 11:01 AM EDT Temperature 36.4 ??C (97.5 ??F) 09/22/2024 11:01 AM E DT Respiratory Rate 17 09/22/2024 11:01 AM EDT Oxygen Saturation 93% 09/22/2024 11:01 AM EDT Inhaled Oxygen Concentration - - Weight 85.4 kg (188 lb 3.2 oz) 09/22/2024 5:00 A M EDT Height 165.1 cm (5' 5 ) 09/21/2024 9:54 AM EDT Body Mass Index 31.32 09/21/2024 9:54 AM EDT documented in this encounter Discharge Instructions * Discharge Instructions* LIO Welsh - 09/22/2024 1:29 PM EDT For pain control- Use Tylenol 1 g twice daily, lidocaine patch to the low back daily, remove at bedtime. Provided oxycodone 5 mg every 6 hours as needed for severe pain. May break tablets in half. Begin Lasix 20 mg daily Take dexamethasone 4 mg twice daily. Stop taking prednisone as you were started on dexamethasone Follow up for repeat labs at cancer center wednesday. Follow up with Dr. Conte wednesday Wear compression socks daily, remove at bedtime Return to the ED with any new or worsening symptoms. Follow up with primary care within 1-2 weeks upon discharge. Follow a low salt diet Monitor your weight daily. Notify provider of increase of 3 lbs in 1 day or 5 lbs in 1 week documented in this encounter Medications at Time [...] mL 07/20/2024 documented as of this encounter Ordered Prescriptions Prescription Sig Dispense Quantity Refills Last Filled Start Date End Date oxyCODONE (ROXICODONE) 5 mg immediate release tablet Take 1 tablet (5 mg total) by mouth every 6 (six) hours if needed for severe pain. Max Daily Amount: 20 mg 12 tablet 09/22/2024 lidocaine 4 % patch Apply 1 patch topically 1 (one) time each day. Apply to low back daily, remove at bedtime 30 each 09/23/2024 5 furosemide (LASIX) 20 mg tablet Take 1 tablet (20 mg total) by mouth 1 (one) time each day. 30 each 09/22/2024 5 acetaminophen (TYLENOL) 500 mg tablet Take 2 tablets (1,000 mg total) by mouth 2 (two) times a day for 10 days. 40 each 09/22/2024 5 dexAMETHasone (DECADRON) 4 mg tablet Take 1 tablet (4 mg total) by mouth 2 (two) times a day. 60 each 09/22/2024 5 documented in this encounter Discharge Disposition Disposition Code Departure Means Destination Comment s Home-Health Care [facility] [place] documented in this encounter Progress Notes * Tee Carnes MD - 09/22/2024 3:20 PM EDT I spoke with Dr. Conte today. He thinks it is hard to say how long the patient can live with this metastatic cancer. He could live a couple of more years. And he tells me he has a active fulfilling life with family, friends, playing golf. The patient is tolerating the pain somewhat better today with medication. He took a walk down the [place] and back and on the way back he was in a lot of pain again. It is hard to say what is causing the discomfort. Not clearly due to the findings on the abdominal and pelvic CT. The patient of course was winded when he was walking in part because of the discomfort which was pretty bad His electrolytes remain normal creatinine 1.28 and BUN 24. High-sensitivity troponin 428 today. He came in at 556 and went down to 428. BNP level was elevated on the second . In July it [id number] hemoglobin 8.3 hematocrit 26. On exam today his lungs are clear. He is more comfortable sitting up in a chair. He looks more vibrant. Cheeks are pink. Mucous membranes moist Holosystolic murmur of AAS across the chest No significant wheezes or rhonchi or rales No peripheral edema. Extremities are warm and dry. Impression: I will eventually speak with his premix operator concentrate Dr. Rocco Donald in our group about proceeding with TAVR workup. It is difficult to assess whether he will truly benefit from this procedure but it does seem as though he has significant dyspnea on exertion and a very high aortic valve gradient. He also has known AVMs in has had GI bleeding in the past requiring transfusion. That has to befactored into any decision about TAVR. I will speak with Dr. Donald. He may need to speak with oncology. If it is decided to proceed with cardiac catheterization and TAVR workup there will then be a heart team meeting about this case. Agree with p.o. furosemide 20 mg a day on discharge. * Linda Benson RN - 09/22/2024 1:47 PM EDT 09/22/24 1347 Initial Transition Plan Initial Transition Plan Home Health Care Back up Transition Plan Back up Transition plan Home Health Care Transportation Transportation at discharge Family What day is the transport expected? 09/22/24 Final Discharge Disposition Home Health Care Services Per MD patient cleared for discharge to home with [facility]. Family to provide transport. * Jeffrey Conte MD - 09/22/2024 10:29 AM EDT CHIEF COMPLAINT: No chief complaint on file. IDENTIFIER:Luke Turpin is a 79 y.o. male. HPI: Luke Turpin is a 79 y.o. male. Being admitted for hospital evaluation of new onset severe right-sided lumbar sacral pain known history of metastatic carcinoma the prostate. Known history of right adrenal involvement. HPI:Metastatic carcinoma prostate transitioning to docetaxel/prednisone with very good tolerance oftreatment. Metastatic carcinoma the prostate previously on Eligard enzalutamide.. Colonic AVM GI bleed Metastatic carcinoma the prostate currently on Eligard abiraterone prednisone.. Colonic AVM GI bleed Transition to therapy of docetaxel prednisone June 2024 Prior testing from [place] [address] demonstrates no tumor related somatic alterations MSI high not detected Originally seen in this clinic in August [...] routine follow-up with GI regardinghis prior AVM Tolerated initiation of enzalutamide and Lupron. Ultimately required transition to abiraterone prednisone most recently docetaxel No actionable biomarker was noted on [facility] evaluation. MRI from 01/24/2022 metastatic disease involving left acetabulum as well as sacrum heterogeneous massleft pelvis enhancement of nerve roots neural foramina S2 soft tissue mass involving acetabular roof posterior aspect of left acetabulum. He has also tolerated RT his PSA [...] Adrenal biopsy ultimately demonstrating metastatic prostate cancer on the right WBC 5.3 hemoglobin 7.1 platelet count 249,000 iron 123 ferritin 238 creatinine 1.2 PSA 22.6 no significant abnormality regarding LFTs. CT scan chest abdomen pelvis right adrenal metastasis [id number] mm 43 mm otherwise unchanged lesions within L4 and pelvis. Patient also had recent CBC 7.3 requiring transfusional therapy. He has been followed by Dr. Zelaya GI service. He has had prior cautery of vascular lesions. Radiographic assessment stable pelvic disease, slight progression of adrenal lesion. PSA remains stable lytic metastasis left acetabulum mixed lytic blastic lesion left sacrum similar to prior studies soft tissue mass tracks into epidural space along sacral foramina. CT laboratory data reviewed concern regarding new lesions within the ribs on the left. Pain syndrome improved initially with gabapentin Following up with GI persistent difficulties of the occult GI blood loss with AVM. CT scan reviewed further progression of disease 09/01. Follow-up evaluation repeat CBC hemoglobin less than [...] Zelaya upper lower endoscopy. Evidence of AVM Patient has experienced musculoskeletal discomfort particular over the last 3 days. No difficulty with loss of sensation or motor skill lower extremity. No prior history of trauma or musculoskeletal strain. Patient has been on docetaxel with very good response with regard to his metastatic prostate cancerPSA down to 18. He has tolerated this therapy quite well. Pain improved with use of steroid. Cardiac eval ongoing patient does have critical . Await evaluation from RT. PAST MEDICAL HISTORY: Past Medical History: Diagnosis [...] No family status information on file. Current Facility-Administered Medications: acetaminophen (TYLENOL) tablet 1,000 mg, 1,000 mg, oral, BID, LIO Welsh, 1,000 mg at 09/22/24 0859 atorvastatin (LIPITOR) tablet 80 mg, 80 mg, oral, Nightly, LIO Anderson, 80 mg at 09/21/242054 barium sulfate (READI-CAT 2) 2 % (w/v) suspension 450 mL, 450 mL, oral, Once, LIO Anderson dexAMETHasone (DECADRON) injection 4 mg, 4 mg, intravenous, q6h CHANG, LIO Welsh, 4 mg at09/22/24 0629 dextrose (D50W) 50% injection 12.5 g, 12.5 g, intravenous, q15 min PRN, Anahi Guan PA dextrose (D50W) 50% injection 25 g, 25 g, intravenous, q15 min PRN, Anahi Guan, LIO dextrose 15 gram/60 mL oral solution 15 g, 15 g, oral, q15 min PRN, LIO Welsh dextrose 15 gram/60 mL oral solution 30 g, 30 g, oral, q15 min PRN, Anahi Stovallt, PA doxazosin (CARDURA) tablet 4 mg, 4 mg, oral, Nightly, LIO Anderson, 4 mg at 09/21/242054 fenofibrate (TRICOR) tablet 145 mg, 145 mg, oral, Daily, LIO Anderson, 145 mg at 09/22/24 0900 folic acid (FOLVITE) tablet 1 mg, 1 mg, oral, Daily, LIO Anderson, 1 mg at 09/22/24 0859 [Held by provider] furosemide (LASIX) injection 20 mg, 20 mg, intravenous, BID -, LIO Anderson, 20 mg at 09/21/24 1627 gabapentin (NEURONTIN) capsule 600 mg, 600 mg, oral, q8h CHANG, LIO Anderson, 600 mg at 09/22/24 0629 Glucagon HCl (rDNA) injection 1 mg, 1 mg, intramuscular, Once PRN, LIO Welsh HYDROmorphone (DILAUDID) liquid 2 mg, 2 mg, oral, q4h PRN, LIO Welsh, 2 mg at 09/21/24 205 HYDROmorphone (PF) (DILAUDID) injection 1 mg, 1 mg, intravenous, q4h PRN, Donte Wilde MD, 1 mg at 09/21/24 1434 insulin lispro injection 1-6 Units, 1-6 Units, subcutaneous, TID AC, LIO Welsh, 1 Unitsat 09/22/24 0900 lidocaine 4 % patch 1 patch, 1 patch, Topical, Daily, LIO Welsh, 1 patch at 09/22/24 0900 lisinopriL (PRINIVIL,ZESTRIL) tablet 20 mg, 20 mg, oral, Daily, LIO Anderson, 20 mg at 09/22/24 0859 pantoprazole (PROTONIX) EC tablet 40 mg, 40 mg, oral, BID AC, LIO Anderson, 40 mg at 09/22/24 0632 [Held by provider] predniSONE (DELTASONE) tablet 5 mg, 5 mg, oral, Daily, LIO Anderson, 5 mgat 09/21/24 0842 prochlorperazine (COMPAZINE) tablet 10 mg, 10 mg, oral, q8h PRN, LIO Anderson No Known Allergies ROS: GENERAL: No malaise, [...] non contributory PHYSICAL EXAM: Visit Vitals BP 118/69 (BP Location: Left arm, Patient Position: Lying) Pulse 80 Temp 36.2 ??C (97.1 ??F) (Temporal) Resp 18 Ht 1.651 m (65 ) Wt 85.4 kg (188 lb 3.2 oz) SpO2 94% BMI 31.32 kg/m?? Smoking Status Former BSA 1.93 m?? @PAINSCOREFLOW@ APPEARANCE: Alert and in no acute distress EYES: PERRL, conjunctiva pink and sclera are Normal without icterus NECK: Neck supple, no adenopathy HEART: RRR with normal S1 and S2, no murmurs, no gallops, no JVD appreciated LUNG: clear to auscultation bilaterally LYMPH NODES: No palpable superficial adenopathy ABDOMEN: Bowel sounds normoactive, no bruits, soft, non-tender, without organomegaly or palpable masses EXTREMITIES: 1+ edema NEURO: Oriented X 3, no focal weakness; sensation is normal IMPRESSION: 1. Acute congestive heart failure, unspecified heart failure type (CMS/HCC) PLAN: Problem List Items Addressed This Visit None Visit Diagnoses Acute congestive heart failure, unspecified heart failure type (CMS/HCC) - Primary Relevant Medications lisinopriL (PRINIVIL,ZESTRIL) 20 mg tablet fenofibrate (TRICOR) tablet 145 mg doxazosin (CARDURA) tablet 4 mg atorvastatin (LIPITOR) tablet 80 mg lisinopriL (PRINIVIL,ZESTRIL) tablet 20 mg furosemide (LASIX) injection 20 mg (Completed) furosemide (LASIX) injection 20 mg barium sulfate (READI-CAT 2) 2 % (w/v) suspension 450 mL barium sulfate (READI-CAT 2) 2 % (w/v) suspension 450 mL (Completed) lidocaine 4 % patch 1 patch iopamidoL (ISOVUE-370) 370 mg iodine /mL (76 %) injection 90 mL (Completed) acetaminophen (TYLENOL) tablet 1,000 mg dextrose 15 gram/60 mL oral solution 15 g dextrose 15 gram/60 mL oral solution 30 g Glucagon HCl (rDNA) injection 1 mg insulin lispro injection 1-6 Units Other Relevant Orders Transthoracic echocardiogram (TTE) complete with PRN contrast, bubble, strain, and 3D order panel (Completed) Remains on docetaxel for prostate cancer steady improvement of PSA Evaluation by RT pending. Uncertain whether patient is candidate for further RT to lumbar spine. Responded to dexamethasone therapy. Improvement in pain mobility. Tapered as discussed with hospitalist team. Follow-up 09/25/2024. Discussed at length with cardiology. Patient does have critical will continue to follow-up with cardiology regarding further workup. Need to monitor plateau regarding prostate cancer. Monitoring glucose. He is on metformin. Continue close follow-up H&H given history AVM Jeffrey Conte MD * Linda Benson RN - 09/22/2024 9:56 AM EDT 09/22/24 0955 Initial Transition Plan Initial Transition Plan Home Back up Transition Plan Back up Transition plan Home Health Care Discharge Planning Living Arrangements Spouse/significant other Type of Residence Private residence ([facility]) Assistive Devices None Support Systems Spouse/significant other Medication Coverage Has Med Coverage Under Insurance Plan Yes Medication Affordability No concerns related to payment for meds Anticipated Discharge Needs Discipline following for SNF placement Decal Cutter Informed Choice Informed Choice Given? Yes OSCAR: 09/22 Plan: home self vs VNA Barriers: prostate ca w met, trop 428. HH 02/13, card cons ? TAVR-pending GOC with Dr De Anda, PT eval Therapy Eval: pend Referral status: entered Auth status: na Last BM: unk Pharmacy: [facility] HCP: Yes Support Persons and Availability: Significant Other PCP: Júnior Crawley MD * Sandro Velez - 09/21/2024 10:[address] [facility] Physical Therapy Evaluation & Treatment PT Discharge Recommendations: Home PT Staff Recommendations for safe patient handling: Min A bed mobility, SBA ambulation, SPV transfers AM-PAC 6 Clicks Scoring Form: Unable: 1 A Lot: 2 A Little: 3 None: 4 How much difficulty does the patient currently have? Turning over in bed (including adjustment of bedclothes, sheets, and blankets) [] [] [] [x] Sitting down on and standing up from a chair with arms (wheelchair, bedside commode etc [] [] [] [x] Moving from lying on back to sitting on the side of the bed [] [] [x] [] How much help from another person does the patient currently need? Moving to and from a bed to a chair ( including a wheelchair) [] [] [] [x] To walk in hospital room [] [] [] [x] Climbing 3-5 steps with a railing [] [] [x] [] Score: 22 /24 score indicates the pt is appropriate for discharge home with therapy recommendation above Precautions Safety Interventions: Chair alarm, Call singh within reach, ID band on RUE Weight Bearing Status: Full LUE Weight Bearing Status: Full RLE Weight Bearing Status: Full LLE Weight Bearing Status: Full Fall prevention education provided including use of call light in hospital, use of appropriate assistive device, safe mobility techniques, and safety measures at home. PT Received On: 09/21/24 PT Start Time: 1000 PT Stop Time: 1030 PT Time Calculation (min): 30 min General Family/Caregiver Present: Yes Precautions Safety Interventions: Chair alarm, Call singh within reach, ID band on RUE Weight Bearing Status: Full LUE Weight Bearing Status: Full RLE Weight Bearing Status: Full LLE Weight Bearing Status: Full Cognition Overall Cognitive Status: Within Functional Limits Arousal/Alertness: Appropriate responses to stimuli Orientation Level: Oriented X4 Following Commands: Follows all commands and directions without difficulty Hearing: Intact Vision: Intact Speech: Intact Integumentary: Unremarkable History of Present Illness: Patient is a 79 y.o. male admitted to [facility] on 09/20/2024. 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 Neutropenic sepsis (CMS/HCC) Symptomatic anemia Past Medical History: Diagnosis Date Anemia DX:Anemia [...] HISTORY 05/11/2023 capsule endoscopy: angioectasias Social History Home Living Environment: Home Living Type of Home: House Lives With: Significant other Home Adaptive Equipment: Walker - rolling, Shower chair Home Layout: One level ([place]) Home Access: Stairs to enter with rails Entrance Stairs-Rails: Rail on the right going up Entrance Stairs-Number of Steps: 6 Prior Function Level of Menard: Independent with mobility and functional transfers Ambulation Status: Community ambulator Receives Help From: Family Indoor Mobility Assistance: Independent Stairs Assistance : Independent Prior Device Use: No prior device use Which is your dominant hand?: Right General Assessment 09/21/24 1000 PT Last Visit PT Received On 09/21/24 General Family/Caregiver Present Yes PT Time Calculation PT Start Time 1000 PT Stop Time 1030 PT Time Calculation (min) 30 min Precautions Safety Interventions Chair alarm;Call singh within reach;ID band on RUE Weight Bearing Status Full LUE Weight Bearing Status Full RLE Weight Bearing Status Full LLE Weight Bearing Status Full Vital Signs Patient Identification Yes Oxygen Therapy Oxygen Therapy Supplemental oxygen O2 Delivery Method Nasal cannula O2 Flow Rate (L/min) 2 L/min (Pt desat to 87% off O2 during activity. With cues for breathing pt [id number] to 94%.) Pain Assessment Pain Assessment 0-10 Pain Score 8 Pain Type Chronic pain Pain Location Back Pain Orientation Mid Cognition Overall Cognitive Status WFL Arousal/Alertness Appropriate responses to stimuli Orientation Level Oriented X4 Following Commands Follows all commands and directions without difficulty Home Living Type of Home House Lives With Significant other Home Adaptive Equipment Walker - rolling;Shower chair Home Layout One level ([place]) Home Access Stairs to enter with rails Entrance Stairs-Rails Rail on the right going up Entrance Stairs-Number of Steps 6 Prior Function Level of Menard Independent with mobility and functional transfers Ambulation Status Community ambulator Receives Help From Family Indoor Mobility Assistance Independent Stairs Assistance Independent Prior Device Use No prior device use Activity Tolerance Endurance Tolerates 20 - 30 min activity with multiple rests Sensation Light Touch No apparent deficits Static Sitting Balance Static Sitting-Level of Assistance Independent Static Sitting-Balance Support Feet supported Static Standing Balance Static Standing-Level of Assistance Supervision Static Standing-Balance Support Left upper extremity supported;Right upper extremity supported Dynamic Standing Balance Dynamic Standing-Level of Assistance Standby assistance Dynamic Standing-Balance Ambulation Dynamic Standing-Balance Support Left upper extremity supported;Right upper extremity supported Bed Mobility Lying to Sitting Assistance Minimum assistance Lying to Sitting Deficit Assist to push upper body to upright;Supervision/safety awareness;Verbal cueing;Increased time to complete Transfers Sit to Stand Assistance Supervision Sit to Stand Deficit Supervision/safety awareness Ambulation Walking Assistance Standby assistance Walking Deficit Supervision/safety awareness;Steadying;Increased time to complete;Limited endurance Device Rolling walker Distance Ambulated (ft) 20 (20' x2) Stairs 4 steps: Assistance Contact guard 4 steps: Deficit LE weakness;Limited endurance;Increased time to complete;Supervision/safety awareness;Verbal cueing Rails Bilateral Number of Stairs 6 RUE Assessment RUE Assessment Within Functional Limits LUE Assessment LUE Assessment Within Functional Limits RLE Assessment RLE Assessment Within Functional Limits LLE Assessment LLE Assessment Within Functional Limits PT Assessment PT Assessment Results Decreased strength;Decreased endurance;Decreased mobility;Pain Prognosis Good Evaluation/Treatment Tolerance Patient tolerated treatment well Comments Pt had good tolerance to therapy session. Pt was independent prior to recent back flare upwith all functional mobility and transfers. Pt is below baseline secondary to decreased endurance, strength and pain. Pt noted that getting up and moving made his back feel a lot better pain nelson. Ptwould be safe to return home with home therapy to address deficits and return to PLOF. Pt educated on continuing with outpatient PT if back problems continue to limit ADLs. Medical Staff Made Aware Yes Plan Treatment/Interventions Functional transfer training;LE strengthening/ROM;Endurance training;Equipment eval/education;Bed mobility;Gait training;Balance training PT Plan Skilled PT PT Frequency 2-5 days per week PT Discharge Recommendations Home PT PT - Evaluation Status Complete PT Evaluation Time Entry PT Evaluation (Moderate) Time Entry 30 Treatment performed during evaluation: None performed ADDITIONAL COMMENTS: Chart reviewed. RN clears pt for session. Pt agrees to participate and presented in supine upon PT arrival. All lines in place. Gait belt utilized throughout treatment to maximize safety. Medical precautions observed appropriately. Initiated education on the importance of PT, bed mobility safety, Transfer Safety, Ambulation Safety , Therapy Plan of Care, Home Safety, Energy Conservations strategies, and importance of OOB activity . Pt verbalized understanding. EXIT STATUS: Session ended with patient seated, tray table and call light within reach, and RN made aware. Physical Therapy Assessment/Plan Luke Turpin is a 79 y.o. male admitted to [facility] on 09/20/2024 for Symptomatic anemia [D64.9] . Pt presents with decreased BLE strength, balance deficits, decreased activity tolerance, and far below functional baseline. Pt performed bed mobility Minimal assist, Bedrail and Therapist assist, Transfers with Supervision, None and ambulates Stand by assist with FWW 20 ft . Pt will benefit from skilled acute PT during hospital stay to improve the deficits listed above and optimize function. PT recommends Home PT when medically stable for safe discharge and to optimize functional mobility and independence. Goals Encounter Problems Encounter Problems (Active) Template: Physical Therapy Problem: PT Short Term Goals Dates: Start: 09/21/24 Goal: Pt will ascend/descend 6 stairs with supervision Dates: Start: 09/21/24 Expected End: 09/24/24 Goal: Pt will ambulate 100' with RW modified independently Dates: Start: 09/21/24 Expected End: 09/24/24 Encounter Problems (Resolved) There are no resolved problems. Education Documentation Body Mechanics, taught by Sandro Velez at 09/21/2024 11:53 AM. Learner: Significant Other, Patient Readiness: Acceptance Method: Explanation Response: Verbalizes Understanding Comment: Pt educated on log roll technique for back. Pt educated on the importance of movement and gentle ROM to allievate back pain. Discussed home PT and outpatient PT to work on deficits Home Exercise Program, taught by Sandro Velez at 09/21/2024 11:53 AM. Learner: Significant Other, Patient Readiness: Acceptance Method: Explanation Response: Verbalizes Understanding Comment: Pt educated on log roll technique for back. Pt educated on the importance of movement and gentle ROM to allievate back pain. Discussed home PT and outpatient PT to work on deficits Mobility Training, taught by Sandro Velez at 09/21/2024 11:53 AM. Learner: Significant Other, Patient Readiness: Acceptance Method: Explanation Response: Verbalizes Understanding Comment: Pt educated on log roll technique for back. Pt educated on the importance of movement and gentle ROM to allievate back pain. Discussed home PT and outpatient PT to work on deficits Education Comments No comments found. Sandro Velez Cosigned by Bri Nelson PT at 09/21/2024 12:35 PM EDT Associated attestation - Bri Nelson PT - 09/21/2024 12:35 PM EDT PT was integrally and physically involved in the decision making, delivery of interventions and ongoing assessment during the patient's care session . * Fatmata Rogel RN - 09/21/2024 1:48 AM EDT Provider Vincenzo Hoyt was notified re; abnormal Troponin. EKG done as ordered. Order in to transfer pt to [facility] the gang supervisor aware, Pt resting quietly denied chest pain, sob, or dizziness. documented in this encounter H&P Notes * LIO Anderson - 09/20/2024 6:23 PM EDT Images from the original note were not included. [facility] HISTORY AND PHYSICAL Please contact author [LIO Anderson] via FFWD/uBeam. Patient: Luke Turpin Admission Date/Time: 09/20/2024 4:45 PM : 1945 [79 y.o.] Patient's PCP: Júnior Crawley MD Attending Provider: Donte Wilde MD CHIEF COMPLAINT Back pain, shortness of breath HISTORY OF PRESENT ILLNESS Mr. 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 Patient reports he was seen earlier today at the cancer center for his typical infusion of packed red blood cells f or his anemia. He had labs performed on 09/18 with hemoglobin of 7.5 so he was administered 1 unit of blood and repeat labs ordered for today. Since he was 6.5 he was ordered a second unit and Lasix following. He was having increased pain and was visibly uncomfortable when getting up and ambulating to the bathroom. He was medicated with pain medication but was still reporting a lot of pain so his oncologist decided to have him come in for further evaluation. Per oncology note he was recommendingCT of the abdomen and pelvis to start and considering MRI. I saw the patient at bedside who denied any fevers or chills, chest pain, abdominal pain, diarrhea, melena (although he does report to previous nurse that he had intermittent episodes of melena). He states he has had intermittent nausea with dry heaves. He did have endoscopy and colonoscopy in July with Dr. Zelaya and had angioectasias which were treated with APC. He does note that he was a little short of breath when his back pain is severe. He denies any saddle anesthesia, bladder or bowel incontinence. He denies any decrease sen sation down his legs. He does note that he has noticed swelling in his lower extremities which is new since chemotherapy. He does have aortic stenosis and follows with Dr. Elizabeth in outpatient with last visit in March. He is due for repeat echo this year. He of note was admitted in august for neutropenic fever from the to the and was treated with cefepime and discharged on levaquin. Vitals are as follows: Temperature of 36.6, pulse of 90, respirate of 20, blood pressure of 169/73 and pulse ox of 94% on room air. Labs are notable for hemoglobin this morning of 6.5 and hematocrit of 21.6 and repeat 8.5 and 27.3. Review of Systems Review of Systems 10 point review of systems negative as otherwise stated in the HPI MEDICAL HISTORY Past Medical History Past Medical History: Diagnosis Date ??? Anemia DX:Anemia ??? GERD (gastroesophageal reflux disease) DX:GERD (gastroesophageal reflux disease) ??? Osteoarthritis DX:Osteoarthritis; COMMENT: INVOLVING MULTIPLE JOINTS ??? Prostate cancer (CMS/HCC) DX:Prostate cancer (HCC) ??? Prostate cancer (CMS/HCC) DX:Prostate cancer (HCC) ??? Type 2 diabetes mellitus (CMS/HCC) DX:Type 2 diabetes mellitus (HCC) Past Surgical History Past Surgical History: Procedure Laterality Date ??? CHOLECYSTECTOMY ??? COLONOSCOPY 07/06/2023 multiple large patchy angiobysplastic lesions-cauterized. ??? COLONOSCOPY 05/10/2024 multiple non-bleeding colonic angioectasias, treated with bipolar cautery. TAx1 ??? ESOPHAGOGASTRODUODENOSCOPY 07/06/2023 nonbleeding gastric ulcer ??? ESOPHAGOGASTRODUODENOSCOPY 05/10/2024 erosive gastropathy without evidence of recent bleeding ??? OTHER SURGICAL HISTORY 05/11/2023 capsule endoscopy. angioectasias ??? OTHER SURGICAL HISTORY 05/11/2023 capsule endoscopy: angioectasias Social History reports that he quit smoking about 12 years ago. His smoking use included cigarettes. He has never used smokeless tobacco. He reports that he does not drink alcohol and does not use drugs. Family History family history is not on file. Allergies has No Known Allergies. Home Medications Current Facility-Administered Medications on File Prior to Encounter Medication Dose Route Frequency Provider Last Rate Last Admin ??? [COMPLETED] furosemide (LASIX) injection 20 mg 20 mg intravenous Once Jeffrey Conte MD 20 mg at 09/20/24 1239 ??? [COMPLETED] HYDROmorphone (PF) (DILAUDID) injection 0.5 mg 0.5 mg intravenous Once Jeffrey Conte MD 0.5 mg at 09/20/24 1605 ??? [COMPLETED] HYDROmorphone (PF) (DILAUDID) injection 1 mg 1 mg intravenous Once Jeffrey Conte MD 1 mg at 09/20/24 1638 ??? [COMPLETED] oxyCODONE (ROXICODONE) immediate release tablet 5 mg 5 mg oral Once Jeffrey Conte MD 5 mg at 09/20/24 1044 Current Outpatient Medications on File Prior to Encounter Medication Sig Dispense Refill ??? cholecalciferol (VITAMIN D-3) 25 mcg (1,000 unit) tablet Take 1 tablet (1,000 Units total) by mouth 1 (one) time each day. ??? fenofibrate micronized (LOFIBRA) 134 mg capsule Take 1 Capsule by mouth daily. ??? folic acid (FOLVITE) 400 mcg tablet Take 1 tablet (400 mcg total) by mouth 1 (one) time each day. ??? gabapentin (NEURONTIN) 600 mg tablet Take 1 tablet (600 mg total) by mouth 3 (three) times a day. 90 each 2 ??? iron,carbonyl-vitamin C (Vitron-C) 65 mg iron- 125 mg tablet,delayed release (DR/EC) Take 1 tablet by mouth 1 (one) time each day. ??? lisinopriL (PRINIVIL,ZESTRIL) 20 mg tablet Take 1 tablet (20 mg total) by mouth 1 (one) time each day. ??? metFORMIN (GLUCOPHAGE) 500 mg tablet Take 0.5 tablets (250 mg total) by mouth 1 (one) time eachday with breakfast. ??? omeprazole (PriLOSEC) [address] capsule Take 1 capsule (40 mg total) by mouth 2 (two) times a day. Do not crush or chew. 60 each 11 ??? predniSONE (DELTASONE) 5 mg tablet Take 2 tablets (10 mg total) by mouth 1 (one) time each day.Start the day after IV chemotherapy. Take on days 2-21 of each cycle with food. (Patient taking differently: Take 1 tablet (5 mg total) by mouth 1 (one) time each day. Start the day after IV chemotherapy. Take on days 2-21 of each cycle with food.) 60 each 11 ??? rosuvastatin (CRESTOR) 20 mg tablet Take 1 Tablet by mouth daily. ??? terazosin (HYTRIN) 5 mg capsule Take 1 Capsule by mouth at bedtime. ??? DOCETAXEL IV Infuse into a venous catheter. Every 22 days ??? leuprolide acetate (ELIGARD SUBQ) ??? prochlorperazine (COMPAZINE) 10 mg tablet Take 1 tablet (10 mg total) by mouth every 6 (six) hours if needed for nausea or vomiting. 60 tablet 3 ??? sod picosulf-mag ox-citric ac (Clenpiq) 10 mg-3.5 gram- 12 gram/175 mL solution Take 175 mL by mouth 2 (two) times a day. (Patient not taking: Reported on 09/20/2024) 350 mL 0 OBJECTIVE Vitals Visit Vitals BP (!) 147/69 (BP Location: Left arm) Pulse 86 Temp 36.5 ??C (97.7 ??F) (Oral) Resp 19 Temp (24hrs), Av.3 ??C (97.3 ??F), Min:36.2 ??C (97.1 ??F), Max:36.6 ??C (97.9 ??F) Body mass index is 31.98 kg/m??. No results found for: PTWT , PTHT Physical Examination Physical Exam General: older gentleman sitting upright in the stretcher in no acute distress, calm Skin: Appropriate tone for ethnicity, warm, dry, no rashes or wounds HEENT: normocephalic, atraumatic, sclera nonicteric, CESAR Pulmonary: Lungs clear to auscultation in all lung lafleur bilaterally. No wheezes railes or rhonchiappreciated, no respiratory distress, no accessory muscle use. Cardiac: S1 and S2 appreciated, no murmurs, rubs or gallops, dorsalis pedis 2+ and equal bilaterally, 2+ peripheral edema Abdomen: Soft, non-tender, nondistended, no guarding or rebound tenderness appreciated. Bowel sounds normoactive. MSK: Full range of motion in upper and lower extremities with strength 5/5 and equal bilaterally dorsiflexion, plantarflexion. Intact sensation to the lower extremities, no drift noted bilaterally Neuro: Alert and oriented x4. No focal neurological deficits appreciated. No facial droop. Psych: Normal affect. ECG: Was ECG Performed? No EKG Performed. Sinus Rhythm? N/A. Signs of acute ischemia? N/A Further Interpretation: EKG ordered LAB RESULTS (most recent) HEMATOLOGY Lab Results Component Value Date WBC 17.9 (H) 09/20/2024 HGB 8.5 (L) 09/20/2024 HCT 27.3 (L) 09/20/2024 MCV 99.6 (H) 09/20/2024 PLT 198 09/20/2024 CHEMISTRY Lab Results Component Value Date GLUCOSE 108 (H) 09/18/2024 NA 148 (H) 09/18/2024 K 3.7 09/18/2024 CO2 29 09/18/2024 CL 111 (H) 09/18/2024 BUN 20 09/18/2024 CREATININE 1.14 09/18/2024 EGFR 66 09/18/2024 CALCIUM 8.3 (L) 09/18/2024 MG 2.3 08/06/2024 ANIONGAP 8 09/18/[address] Abdomen Pelvis w Contrast (Results Pending) XR Chest 1 View (Results Pending) ASSESSMENT & PLAN Symptomatic anemia Shortness of breath -Patient was seen today with complaint of -vitals are stable -Labs are notable for h/h this morning of 6.5 and hematocrit of 21.6 and repeat after transfusions 8.5 and 27.3. -was given lasix after transfusion, he has new peripheral edema, shortness of breath, will also check bnp, chest xray, if elevated echo and diuresis. Peripheral edema could be related to hypoalbuminemia, steroids or could be heart failure ---Bnp elevated, pulmonary vascular congestion on xray given another dose of lasix, monitor I&os, daily weight. Will repeat echo. -am labs Back pain -no weakness or sensory deficit appreciated on exam, no bowel or bladder incontinence saddle anesthesia -per oncology will start with ct abdomen and pelvis and consider MRI -continue with pain management -pt eval Leukocytosis -patient had wbcc 15 and 17.9 -will check cxray given shortness of breath, respiratory panel, ua. Could be secondary to steroids Prostate cancer with metastatsis -follows with Dr. Conte on docetaxel reports last infusion was a few weeks ago -continue with 5mg prednisone daily -will consult oncology Diabetes mellitus type II -hold metformin -low dose sliding scale -poc ac, diabetic diet History of avm of GI tract -denies any recent dark stool, had colonoscopy and endoscopy with Dr. Zelaya in July and was found to have angioectasias which were treated with APC -check stool occult -continue with PPI Severe aortic stenosis -seen by Dr. Elizabeth in March, plan for echo in the future (appears to be February of this year) Hyperlipidemia -continue fenofibrate, statin Hypertension -continue lisinopril Admission checklist [x] Code status: Full Code - Confirmed [x] VTE Prophylaxis: scd [x] Diet order on admission: Dietary Orders (From admission, onward) Start Ordered 09/20/24 173 Adult diet [facility]; General; Regular Diet effective now Question Answer Comment Location [facility] Diet Type (req) General General Diet Regular 09/20/24 1738 [x] Lines, tubes, drains: iv access, port a cath (Dr. Wilde did not want to use so peripheral placed) [x] Medication reconciliation Health Care proxy with Phone number Sondra Hendrix, , present at bedside and updated onplan of care Cosigned by Donte Wilde MD at 09/24/2024 7:08 AM EDT Associated attestation - Donte Wilde MD - 09/24/2024 7:08 AM EDT This is a split/shared visit with LIO Andreson. I personally performed the medical decision making (MDM) for the care of this patient on 09/20/24 as documented below I have personally reviewed medical records and interpreted vital signs data labs and radiology findings for this patient. Have discussed the case with the emergency room provider as well as Beatriz Garcia. I agree with physical exam assessment and plan as outlined in her note. 9-year-old male with multiple medical problems including metastasized prostate cancer currently with symptomatic anemia. Agree with blood transfusion and Lasix in between. Chronic management as above. Leukocytosis. At this point in time there is no obvious site of infection. Chest x-ray is negative respiratory panel is pending. It could be secondary to steroids. Donte Wilde MD 09/24/24 7:06 AM EDT documented in this encounter Consult Notes * Valentino Guerin MD - 09/22/2024 9:58 AM EDTAssociated Order(s): IP CONSULT TO RADIATION ONCOLOGY Images from the original note were not included. [address] [phone] Radiation Oncology Inpatient Consult Staff Physician: Alma Floyd NP Requesting Physician: Jeffrey Conte MD Date of Service: 09/20/2024 Accompanied by: self Diagnosis: 1. Acute congestive heart failure, unspecified heart failure type (CMS/HCC) Transthoracic echocardiogram (TTE) complete with PRN contrast, bubble, strain, and 3D order panel Transthoracic echocardiogram (TTE) complete with PRN contrast, bubble, strain, and 3D order panel Stage: Stage IV adenocarcinoma of the prostate. Assessment/Plan IMPRESSION: 79-year-old male with Metastatic prostate cancer to the right adrenal and sacrum. Medical history of symptomatic anemia, hypertension, type 2 diabetes, severe aortic stenosis, and AVM of the gastrointestinal tract. He has had treatments in the past with [facility] and [facility]. Currently no paresthesia or loss of bowel or bladder. Denies any blood in his urine or stools recently. Patient is eager to get his pain under control. Addendum: Met with Mr. Turpin on the floor. Was sitting in chair. Pain was tolerable. Mostly confined to the left hip. This morning he was having some pain in the mid L spine area. That tends to comeand go. PLAN: Will discuss with Dr. Valentino Guerin to see if he is a candidate for more radiation. Addendum: Unfortunately Mr. Turpin received a significant dose of radiation to that area in the recent past. It would not be to retreat that area. If he develops other areas of pain we would be happyto see him back. Electronically signed by Alma Floyd NP Subjective HISTORY OF PRESENT ILLNESS: Luke Turpin is a 79 y.o. male who presents with metastatic carcinoma of the prostate and is seen in consultation today for consideration of radiation to the sacrum. In 1999 he was treated for localized prostate cancer with brachytherapy and external beam radiation at [facility]. In 2014 he had a biochemical recurrence. He started androgen deprivation therapy. In October of 2018 he was started on enzalutamide and continued with Eligard. In January of 2022 MRI showed metastatic disease involving sacrum. He did radiation therapy with Dr. Falcon. On 09/20/2024 [facility] for transfusion of PRBCs. He was noted to be uncomfortable with ambulation even post analgesics so Dr. Conte had him admitted for evaluation. Unfortunately CT of the abdomen and pelvis show a large metastatic lesion in the spinal canal at L4 which is causing severe spinal stenosis. He denies any loss of sensation in his lower extremities, loss of bowel/bladder control, or bleeding in his urine or stools. He states when he came into the hospital his pain was a 10/10. At this moment his pain is a 6-7/10 but worsens with any ambulation. He denies any balance issues or using assistive devices for ambulation. PRIOR RT: EBRT and brachytherapy with Dr. Mtz/Dr. Maynard at [facility]. Received 4500 cGy in 25 fx to the prostate via 4 field box. After EBXT he received 108 GY to the prostate via brachytherapy. 02/2022 800 cGy in [address] Falcon. VMAT PRIOR CHEMO: enzalutamide/lupron. 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 Neutropenic sepsis (CMS/HCC) Symptomatic anemia PAST MEDICAL HISTORY: Past Medical History: Diagnosis Date Anemia DX:Anemia GERD (gastroesophageal reflux disease) DX:GERD (gastroesophageal reflux disease) Osteoarthritis DX:Osteoarthritis; COMMENT: INVOLVING MULTIPLE JOINTS Prostate cancer (CMS/HCC) DX:Prostate cancer (HCC) Prostate cancer (CMS/HCC) DX:Prostate cancer (HCC) Type 2 diabetes mellitus (CMS/HCC) DX:Type 2 diabetes mellitus (HCC) PAST SURGICAL HISTORY: Past Surgical History: Procedure Laterality Date CHOLECYSTECTOMY COLONOSCOPY 07/06/2023 multiple large patchy angiobysplastic lesions-cauterized. COLONOSCOPY 05/10/2024 multiple non-bleeding colonic angioectasias, treated with bipolar cautery. TAx1 ESOPHAGOGASTRODUODENOSCOPY 07/06/2023 nonbleeding gastric ulcer ESOPHAGOGASTRODUODENOSCOPY 05/10/2024 erosive gastropathy without evidence of recent bleeding OTHER SURGICAL HISTORY 05/11/2023 capsule endoscopy. angioectasias OTHER SURGICAL HISTORY 05/11/2023 capsule endoscopy: angioectasias FAMILY HISTORY: No family history on file. SOCIAL HISTORY: Social History Socioeconomic History Marital status: Spouse name: Not on file Number of children: Not on file Years of education: Not on file Highest education level: Not on file Occupational History Not on file Tobacco Use Smoking status: Former Current packs/day: 0.00 Types: Cigarettes Quit date: 06/21/2012 Years since quittin.2 Smokeless tobacco: Never Substance and Sexual Activity Alcohol use: No Drug use: No Sexual activity: Defer Other Topics Concern Not on file Social History Narrative Not on file ALLERGIES: Allergies as of 09/20/2024 (No Known Allergies) MEDICATIONS: Current Facility-Administered Medications Medication Dose Route Frequency Provider Last Rate Last Admin acetaminophen (TYLENOL) tablet 1,000 mg 1,000 mg oral BID LIO Welsh 1,000 mg at 09/22/24 0859 atorvastatin (LIPITOR) tablet 80 mg 80 mg oral Nightly LIO Anderson 80 mg at 09/21/242054 barium sulfate (READI-CAT 2) 2 % (w/v) suspension 450 mL 450 mL oral Once LIO Anderson dexAMETHasone (DECADRON) injection 4 mg 4 mg intravenous q6h CHANG LIO Welsh 4 mg at 09/22/24 0629 dextrose (D50W) 50% injection 12.5 g 12.5 g intravenous q15 min PRN LIO Welsh dextrose (D50W) 50% injection 25 g 25 g intravenous q15 min PRN LIO Welsh dextrose 15 gram/60 mL oral solution 15 g 15 g oral q15 min PRN LIO Welsh dextrose 15 gram/60 mL oral solution 30 g 30 g oral q15 min PRN LIO Welsh doxazosin (CARDURA) tablet 4 mg 4 mg oral Nightly LIO Anderson 4 mg at 09/21/24 205 fenofibrate (TRICOR) tablet 145 mg 145 mg oral Daily LIO Anderson 145 mg at 09/22/24 0900 folic acid (FOLVITE) tablet 1 mg 1 mg oral Daily LIO Anderson 1 mg at 09/22/24 0859 [Held by provider] furosemide (LASIX) injection 20 mg 20 mg intravenous BID LIO Anderson 20 mg at 09/21/24 162 gabapentin (NEURONTIN) capsule 600 mg 600 mg oral q8h CHANG LIO Anderson 600 mg at 09/22/24 0629 Glucagon HCl (rDNA) injection 1 mg 1 mg intramuscular Once PRN LIO Welsh HYDROmorphone (DILAUDID) liquid 2 mg 2 mg oral q4h PRN LIO Welsh 2 mg at 09/21/24 205 HYDROmorphone (PF) (DILAUDID) injection 1 mg 1 mg intravenous q4h PRN Donte Wilde MD 1 mg at 09/21/24 1434 insulin lispro injection 1-6 Units 1-6 Units subcutaneous TID AC LIO Welsh 1 Units at 09/22/24 0900 lidocaine 4 % patch 1 patch 1 patch Topical Daily LIO Welsh 1 patch at 09/22/24 0900 lisinopriL (PRINIVIL,ZESTRIL) tablet 20 mg 20 mg oral Daily LIO Anderson 20 mg at 09/22/24 0859 pantoprazole (PROTONIX) EC tablet 40 mg 40 mg oral BID AC LIO Anderson 40 mg at 09/22/24 0632 [Held by provider] predniSONE (DELTASONE) tablet 5 mg 5 mg oral Daily LIO Anderson 5 mg at 09/21/24 0842 prochlorperazine (COMPAZINE) tablet 10 mg 10 mg oral q8h PRN LIO Anderson REVIEW OF SYSTEMS: Review of Systems Gastrointestinal: Negative for blood in stool. Genitourinary: Negative for difficulty urinating and hematuria. Musculoskeletal: Positive for back pain (Low back pain.). Negative for gait problem. Neurological: Negative for extremity weakness, gait problem and numbness. The Karnofsky performance scale today is 60, Requires occasional assistance, but is able to care for most of his personal needs (ECOG equivalent 2). PHYSICAL EXAM: Visit Vitals BP 118/69 (BP Location: Left arm, Patient Position: Lying) Pulse 80 Temp 36.2 ??C (97.1 ??F) (Temporal) Resp 18 Ht 1.651 m (65 ) Wt 85.4 kg (188 lb 3.2 oz) SpO2 94% BMI 31.32 kg/m?? Smoking Status Former BSA 1.93 m?? Body mass index is 31.32 kg/m??. Pain Score: 6 Physical Exam Constitutional: General: He is not in acute distress. Comments: Resting in bed comfortably. Musculoskeletal: Comments: KEVAN extremity strength 5/5 Skin: General: Skin is warm and dry. Neurological: Mental Status: He is alert and oriented to person, place, and time. Motor: No weakness. Psychiatric: Mood and Affect: Mood normal. Behavior: Behavior normal. Behavior is cooperative. Thought Content: Thought content normal. Judgment: Judgment normal. DIAGNOSTIC REPORTS REVIEWED: Imaging: CT of the abdomen/pelvis 09/21/2024 FINDINGS: LOWER THORAX: Air-filled cyst in the right lower lobe. Trace bilateral pleural effusions and associated volume loss. Valvular and coronary artery calcifications. HEPATOBILIARY: No focal liver lesions stable cyst adjacent to the caudate.. No cholelithiasis or biliary duct dilatation. SPLEEN: No focal lesion. PANCREAS: Stable postsurgical changes of the pancreatic tail. ADRENALS: Stable large right adrenal mass measuring 6.5 x 5.1 cm as well as tiny left adrenal nodules. KIDNEYS/URETERS: Bilateral renal cysts. No hydronephrosis. PELVIC ORGANS/BLADDER: Prostate brachytherapy seeds. Mild distention of the bladder with mild bladder wall thickening presumably on the basis of chronic outlet obstruction. Stable large left pelvic sidewall metastasis measuring 4.8 x 4 cm PERITONEUM / RETROPERITONEUM: Stable cyst adjacent to the stomach. Nonspecific presacral stranding. VESSELS: Significant atherosclerotic plaque with prominent calcific burden at the level of the celiac origin which results in significant stenosis. GI TRACT: No bowel distention or wall thickening. Normal appendix. BONES AND SOFT TISSUES: Prominent lesion involving the left iliac bone near the left pelvic sidewall. Probable left sacral metastasis with pathologic fracturing, unchanged. Stable bilateral L4 transverse process fractures. There is a prominent stable sclerosis involving the L4 vertebral body with stable soft tissue component causing severe spinal stenosis at this level. There is also similar probable spinal canal metastatic foci in the sacrum and involving the left sacroiliac.. Soft tissues areunremarkable. IMPRESSION: Large metastatic lesion in the spinal canal at L4 causing severe spinal stenosis. Otherwise, similar findings to prior examination 09/01/2024. * Tee Carnes MD - 09/21/2024 5:25 PM EDTAssociated Order(s): IP CONSULT TO CARDIOLOGY This nice gentleman is 79 years old with a long history of prostate cancer. He now has metastatic prostate cancer with anemia requiring blood transfusions. He was at the infusion center today when hedeveloped pain in the right flank near the mid axillary line and when he got up to walk it was verypainful and radiated up the back. He was so uncomfortable that they had to bring him to the emergency room. He is known to have aortic valve stenosis and is following with Dr. Elizabeth and Dr. Donald. He has hypertension, diabetes, and ex-smoker quitting 10 years ago. He has had seed implants for his prostate 20 years ago but otherwise no operations. [facility] He has some discomfort in the legs while walking. He is a diabetic on metformin. He has been short of breath. For his metastatic prostate cancer he is now getting docetaxel and prednisone. He has colonic AVMs with GI bleeding. Iron studies have been normal. And he does have bony metastases. An adrenal biopsyshowed metastatic prostate cancer. An echo was done yesterday. He has had other echoes. There is mild LVH systolic function low normalat about 50% hypokinesis of the basal inferior wall. Right ventricle normal. Right atrium poorly visualized. Chemotherapy port visible in the right atrium. The aortic valve has severe/critical stenosis. The peak velocity 5 m/s. VTI ratio 0.22. Mean gradient 58. There is mild mitral stenosis with amean gradient of 7. Home meds include vitamin D, fenofibrate and folic acid. Gabapentin 600 3 times daily. Iron. Metformin 250 daily. Prilosec 20. Prednisone 10 mg total daily start the day after IV chemotherapy. Crestor 20. Clenpiq which seems to be some sort of mag ox citric acid supplement. Hytrin 5 daily lisinopril 20 daily. Electrolytes BUN and creatinine normal calcium low at 8.4 total protein and albumin low. High-sensitivity troponin 546 yesterday 567. Ferritin elevated. Iron is low. Iron binding saturation low normal. TIBC is low. Haptoglobin normal. Hemoglobin 8.2 hematocrit 25. Platelet count 178 white count 14.8. Vascular duplex from May 2024 on the left leg showed moderate stenosis above the knee popliteal artery. No left lower extremity DVT that was back in April 2024 The patient is resting in bed comfortably in no distress. His blood pressures 134/65And his heart rate 85. O2 sat 95%. 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 He has a loud holosystolic murmur of aortic stenosis audible everywhere including his back. Carotid upstrokes are diminished He has trace pretibial edema His skin is warm and dry. The feet are warm. I do not feel pedal pulses. But nailbeds are pink. His neuroexam is normal. His EKG shows sinus tach with a PVC. Right axis deviation. I think they misplaced the leads becauseon September 20 the axis was normal. CT of the abdomen shows large metastatic lesion in the spinal canal at L4 causing severe spinal stenosis. Air-filled cyst in the right lower lobe of the lung. Trace bilateral pleural effusions and volume loss. Stable large left pelvic sidewall metastasis 4.8 x 4 cm. Lesion in the left iliac bone. Probable left sacral metastases with pathologic fracture unchanged. This unfortunate gentleman has severe critical aortic stenosis and what seems like advanced prostate cancer. We need to discuss his prognosis with Dr. Conte before even pursuing a TAVR workup. We need to know if we can give him antiplatelet agents. And if his prognosis is quite short we might need to consider palliative care for him. I will speak with Dr. Conte tomorrow documented in this encounter Plan of Treatment Upcoming Encounters Date Type Department Care Team (Late st Contact Info) Description 09/27/2024 9:00 AM EDT Office Visit [facility] Hematology Oncology [address] [place] [phone] Jeffrey Conte MD [address] [place] [phone] 09/29/2024 8:[address] [facility] [address] [place] [phone] 10/19/2024 9:00 AM EDT Appointment [address] [phone] 02/20/2025 8:00 AM EDT Ancillary Procedure [facility] Cardiology [facility] [address] [place] [address] 03/01/2025 8:40 AM EDT Office Visit [facility] Cardiology [facility] [address] [place] [address] Marcela Chris NP [address] [place] [address] [address] [place] [address] Scheduled Referrals Name Type Priority Associated Diagnoses Order Schedule Ambulatory referral to Home Health Outpatient Referral Routine Acute congestive heart failure, unspecified heart failure type (CMS/HCC) Prostate cancer (CMS/HCC) 1 Occurrences starting 09/22/2024 until 09/22/2025 documented as of this encounter Procedures Procedure Name Priority Date/Time Associated Diagnosis Comments ECG ANNOTATED 09/23/2024 POCT GLUCOSE BLOOD Routine 09/22/2024 11 :02 AM EDT POCT GLUCOSE BLOOD Routine 09/22/2024 7: 43 AM EDT TROPONIN I HIGH SENSITIVITY Routine 09/22/2024 6:14 AM EDT MANUAL DIFFERENTIAL - SYSMEX WAM Routine 09/22/2024 6:14 AM EDT CBC WITH AUTO DIFFERENTIAL Routine 09/22/2024 6:14 AM EDT CBC AND DIFFERENTIAL Routine 09/22/2024 6:14 AM EDT BASIC METABOLIC PANEL Routine 09/22/2024 6:14 AM EDT POCT GLUCOSE BLOOD Routine 09/21/2024 8: 36 PM EDT URINALYSIS WITH REFLEX MICROSCOPIC AND CULTURE Routine 09/21/2024 6:30 PM EDT CARPENTER URINE CULTURE TUBE Routine 09/21/2024 6:30 PM EDT URINALYSIS WITH REFLEX MICROSCOPIC AND CULTURE Routine 09/21/2024 6:30 PM EDT POCT GLUCOSE BLOOD Routine 09/21/2024 5: [address] ABDOMEN PELVIS W CONTRAST STAT 09/21/2024 3:22 PM EDT TRANSTHORACIC ECHOCARDIOGRAM (TTE) COMPLETE Routine 09/21/2024 9:54 AM EDT Acute congestive heart failure, unspecified heart failure type (CMS/HCC) LIPID PANEL WITH REFLEX TO DIRECT LDL Routine 09/21/2024 6:15 AM EDT COMPLETE BLOOD COUNT Routine 09/21/2024 6:15 AM EDT BASIC METABOLIC PANEL Routine 09/21/2024 6:15 AM EDT ECG 12-LEAD Routine 09/21/2024 1:30 AM EDT ECG 12-LEAD STAT 09/21/2024 1:30 AM EDT TROPONIN I HIGH SENSITIVITY Routine 09/21/2024 1:28 AM EDT TROPONIN I HIGH SENSITIVITY Routine 09/20/2024 11:50 PM EDT XR CHEST 1 VIEW STAT 09/20/2024 8:35 PM EDT B-TYPE NATRIURETIC PEPTIDE Routine 09/20/2024 8:28 PM EDT ECG 12-LEAD Routine 09/20/2024 8:14 PM EDT COMPLETE BLOOD COUNT STAT 09/20/2024 6:11 PM EDT documented in this encounter Results * ECG-Annotated (09/23/2024) us Provider Onbase MD ECG ORDERABLES Final Result * (ABNORMAL) POCT Glucose, blood (09/22/2024 11:02 AM EDT) Glucose POCT 191(H) 70 - 100 mg/dL 09/22/2024 11:03 AM EDT [facility] Blood Capillary blood specimen / Unknown 09/22/2024 11:02 AM EDT 09/22/2024 11:04 AM EDT Crystal Milligan MD LAB POINT OF CARE TE ST DOCKED DEVICE UNSOLICITED RESULTS Final Result [facility] [address] [place] [address], [place] [phone] * (ABNORMAL) POCT Glucose, blood (09/22/2024 7:43 AM EDT) Glucose POCT 196(H) 70 - 100 mg/dL 09/22/2024 7:43 AM EDT [facility] Blood Capillary blood specimen / Unknown 09/22/2024 7:43 AM EDT 09/22/2024 7:44 AM EDT Crystal Mliligan MD LAB POINT OF CARE TE ST DOCKED DEVICE UNSOLICITED RESULTS Final Result [facility] [address] [place] [address], * (ABNORMAL) Manual differential (09/22/2024 6:14 AM EDT) Neutrophils % 89.0 % LAB HEMETOLOGY METHOD 09/22/2024 7:[address] [facility] Bands % 2.0 % LAB HEMETOLOGY METHOD 09/22/2024 7:[address] [facility] Lymphocytes % 6.0 % LAB HEMETOLOGY METHOD 09/22/2024 7:[address] [facility] Monocytes % 2.0 % LAB HEMETOLOGY METHOD 09/22/2024 7:[address] [facility] Eosinophils % 0.0 % LAB HEMETOLOGY METHOD 09/22/2024 7:[address] [facility] Basophils % 0.0 % LAB HEMETOLOGY METHOD 09/22/2024 7:[address] [facility] Myelocytes % 1.0(H) % LAB HEMETOLOGY METHOD 09/22/2024 7:[address] [facility] Neutrophils Absolute Manual 8.37(H) 1.50 - 7.00 K/mcL LAB HEMETOLOGY METHOD 09/22/2024 7:[address] [facility] Bands Absolute Manual 0.19(H) 0.00 - 0.00 K/mcL LAB HEMETOLOGY METHOD 09/22/2024 7:41 AM EDT [facility] Lymphocytes Absolute 0.56(L) 1.00 - 5.00 K/mcL LAB HEMETOLOGY METHOD 09/22/2024 7:41 AM EDT [facility] Monocytes Absolute Manual 0.19(L) 0.20 - 1.00 K/mcL LAB HEMETOLOGY METHOD 09/22/2024 7:41 AM EDT [facility] Eosinophils Absolute Manual 0.00 0.00 - 0.50 K/[facility] LAB HEMETOLOGY METHOD 09/22/2024 7:41 AM EDT [facility] Basophils Absolute Manual 0.00 0.00 - 0.20 K/mcL LAB HEMETOLOGY METHOD 09/22/2024 7:41 AM EDT [facility] Myelocytes Absolute Manual 0.09(H) 0.00 - 0.00 K/mcL LAB HEMETOLOGY METHOD 09/22/2024 7:41 AM EDT [facility] Rbc Morphology Consistent with indices Consistent with indices, Normal for [place] LAB HEMETOLOGY METHOD 09/22/2024 7:41 AM EDT [facility] Platelet Morphology - WAM Normal Normal LAB HEMETOLOGY METHOD 09/22/2024 7:[address] [facility] Blood Venous blood specimen / Unknown Venipuncture / Unknown 09/22/2024 6:14 AM EDT 09/22/2024 6:25 AM EDT us Anahi VACA LAB BLOOD ORDERABLES Final Result [facility] [address] [place] [address], * (ABNORMAL) CBC auto differential (09/22/2024 6:14 AM EDT) WBC 9.4 4.8 - 10.8 K/mcL LAB HEMETOLOGY METHOD 09/22/2024 7:[address] [facility] RBC 2.70(L) 4.50 - 5.50 M/mcL LAB HEMETOLOGY METHOD 09/22/2024 7:[address] [facility] Hemoglobin 8.3(L) 13.5 - 17.5 g/dL LAB HEMETOLOGY METHOD 09/22/2024 7:[address] [facility] Hematocrit 26.3(L) 42.0 - 54.0 % LAB HEMETOLOGY METHOD 09/22/2024 7:[address] [facility] MCV 99.2(H) 79.0 - 98.0 FL LAB HEMETOLOGY METHOD 09/22/2024 7:[address] [facility] MCH 31.3 27.0 - 32.0 pcg LAB HEMETOLOGY METHOD 09/22/2024 7:[address] [facility] MCHC 31.6(L) 32.0 - 37.0 g/dL LAB HEMETOLOGY METHOD 09/22/2024 7:[address] [facility] RDW 19.9(H) 11.0 - 15.0 % LAB HEMETOLOGY METHOD 09/22/2024 7:[address] [facility] Platelets 162 130 - 400 K/mcL LAB HEMETOLOGY METHOD 09/22/2024 7:[address] [facility] MPV 12.1(H) 7.0 - 11.0 FL LAB HEMETOLOGY METHOD 09/22/2024 7:[address] [facility] NRBC 0.4 <1.0 % LAB HEMETOLOGY METHOD 09/22/2024 7:[address] [facility] NRBC Absolute 0.04 <0.10 K/mcL LAB HEMETOLOGY METHOD 09/22/2024 7:[address] [facility] Blood Venous blood specimen / Unknown Venipuncture / Unknown 09/22/2024 6:14 AM EDT 09/22/2024 6:25 AM EDT Anahi VACA LAB BLOOD ORDERABLES Final Result [facility] [address] [place] [address], * (ABNORMAL) Basic metabolic panel (09/22/2024 6:14 AM EDT) Sodium 142 133 - 145 mmol/L LAB CHEMISTRY METHOD 09/22/2024 6:[address] [facility] Potassium 3.8 3.5 - 5.5 mmol/L LAB CHEMISTRY METHOD 09/22/2024 6:[address] [facility] Chloride 104 96 - 110 mmol/L LAB CHEMISTRY METHOD 09/22/2024 6:[address] [facility] CO2 32 21 - 32 mmol/L LAB CHEMISTRY METHOD 09/22/2024 6:[address] [facility] Anion Gap 6 3 - 11 LAB CHEMISTRY METHOD 09/22/2024 6:[address] [facility] Glucose 164(H) 70 - 100 mg/dL LAB CHEMISTRY METHOD 09/22/2024 6:[address] [facility] BUN 24 5 - 25 mg/dL LAB CHEMISTRY METHOD 09/22/2024 6:[address] [facility] Creatinine 1.28 0.70 - 1.30 mg/dL LAB CHEMISTRY METHOD 09/22/2024 6:[address] [facility] eGFR 57(L) >=60 mL/min/1. 73m2 LAB CHEMISTRY METHOD 09/22/2024 6:[address] [facility] Comment:Calculation based on the??Chronic Kidney Disease Epidemiology Collaboration (CKD-EPI) equation refit??without adjustment for race. BUN/Creatinine Ratio 18.8 LAB CHEMISTRY METHOD 09/22/2024 6:57 AM EDT [facility] Calcium 8.4(L) 8.5 - 10.5 mg/dL LAB CHEMISTRY METHOD 09/22/2024 6:57 AM EDT [facility] Blood Venous blood specimen / Unknown Venipuncture / Unknown 09/22/2024 6:14 AM EDT 09/22/2024 6:25 AM EDT Anahi VACA LAB BLOOD ORDERABLES Final Result Performing Organization Address [facility]/ZIP Co de Phone Number [facility] [address] [place] [address], * (ABNORMAL) Troponin I high sensitivity (09/22/2024 6:14 AM EDT) [facility] High Sensitivity Troponin I 428(HH) <=79 ng/L LAB CHEMISTRY METHOD 09/22/2024 7:19 AM EDT [facility] Blood Venous blood specimen / Unknown Venipuncture / Unknown 09/22/2024 6:14 AM EDT 09/22/2024 6:25 AM EDT Narrative [facility] - 09/22/2024 7:19 AM EDT High levels of biotin in samples may falsely decrease hsTroponin values. ??Use caution when interpreting hsTroponin results in patients taking biotin who exhibit renal impairment (eGFR <60) or in patients taking more than 20 mg/day of biotin. Vincenzo VACA LAB BLOOD ORDERABLES Final Res ult Performing Organization Address [facility]/ZIP Co de Phone Number [facility] [address] [place] [address], [place] [phone] * (ABNORMAL) POCT Glucose, blood (09/21/2024 8:36 PM EDT) Pathologist [facility] Glucose POCT 130(H) 70 - 100 mg/dL 09/21/2024 8:36 PM EDT [facility] Blood Capillary blood specimen / Unknown 09/21/2024 8:36 PM EDT 09/21/2024 8:37 PM EDT Crystal Milligan MD LAB POINT OF CARE TE ST DOCKED DEVICE UNSOLICITED RESULTS Final Result Performing Organization Address [facility]/ZIP Co de Phone Number [facility] [address] [place] [address], [place] [phone] * Carpenter urine culture tube (09/21/2024 6:30 PM EDT) [facility] Extra Tube Hold for add-ons. 09/21/2024 8:01 PM EDT [facility] Comment:Auto resulted. Urine Urine specimen obtained by clean catch procedure / Unknown Non-blood Collection / Unknown 09/21/2024 6:30 PM EDT 09/21/2024 6:36 PM EDT Anahi VACA LAB URINE ORDERABLES Final Result Performing Organization Address [facility] [[email or web address]] de Phone Number [facility] [address] [place] [address], [place] [phone] * (ABNORMAL) Urinalysis with reflex microscopic and culture (09/21/2024 6:30 PM EDT) [facility] Specific [place] Urine 1.015 1.003 - 1.030 LAB URINALYSIS - AUTOMATED METHOD 09/21/2024 7:00 PM EDT [facility] pH, Urine 6.0 5.0 - 8.0 pH LAB URINALYSIS - AUTOMATED METHOD 09/21/2024 7:00 PM EDT [facility] Leukocytes, Urine Negative Negative LAB URINALYSIS - AUTOMATED METHOD 09/21/2024 7:00 PM EDT [facility] Nitrite, Urine Negative Negative LAB URINALYSIS - AUTOMATED METHOD 09/21/2024 7:[address] [facility] Protein, Urine Negative <=Trace mg/dL LAB URINALYSIS - AUTOMATED METHOD 09/21/2024 7:[address] [facility] Glucose, Urine Negative Negative mg/dL LAB URINALYSIS - AUTOMATED METHOD 09/21/2024 7:[address] [facility] Ketones, Urine Negative Negative mg/dL LAB URINALYSIS - AUTOMATED METHOD 09/21/2024 7:[address] [facility] Urobilinogen, Urine 0.2 0.2 - 1.0 mg/dL LAB URINALYSIS - AUTOMATED METHOD 09/21/2024 7:[address] [facility] Bilirubin, Urine Negative Negative LAB URINALYSIS - AUTOMATED METHOD 09/21/2024 7:[address] [facility] Blood, Urine Small(A) Negative LAB URINALYSIS - AUTOMATED METHOD 09/21/2024 7:[address] [facility] RBC, Urine 10.4(H) 0 - 4 /HPF LAB URINALYSIS - AUTOMATED METHOD 09/21/2024 7:[address] [facility] WBC, Urine 0.6 0 - 4 /HPF LAB URINALYSIS - AUTOMATED METHOD 09/21/2024 7:[address] [facility] Squamous Epithelial, Urine 2 0 - 60 /LPF LAB URINALYSIS - AUTOMATED METHOD 09/21/2024 7:[address] [facility] Bacteria, Urine Negative Negative /HPF LAB URINALYSIS - AUTOMATED METHOD 09/21/2024 7:[address] [facility] Hyaline Casts, Urine 0.0 0 - 3 /LPF LAB URINALYSIS - AUTOMATED METHOD 09/21/2024 7:[address] [facility] Urine Urine specimen obtained by clean catch procedure / Unknown Non-blood Collection / Unknown 09/21/2024 6:30 PM EDT 09/21/2024 6:36 PM EDT Anahi VACA LAB URINE ORDERABLES Final Result Performing Organization Address [facility]/ZIP Co de Phone Number [facility] [address] [place] [address], [place] [phone] * (ABNORMAL) POCT Glucose, blood (09/21/2024 5:55 PM EDT) Pathologist [facility] Glucose POCT 129(H) 70 - 100 mg/dL 09/21/2024 5:57 PM EDT [facility] Blood Capillary blood specimen / Unknown 09/21/2024 5:55 PM EDT 09/21/2024 5:58 PM EDT Crystal Milligan MD LAB POINT OF CARE TE ST DOCKED DEVICE UNSOLICITED RESULTS Final Result Performing Organization Address [facility] [[email or web address]] de Phone Number [facility] [address] [place] [address], [place] [phone] * CT Abdomen Pelvis w Contrast (09/21/2024 3:22 PM EDT) Anatomical Region Laterality Modality Body Computed Tomogra phy 09/21/2024 4:00 PM EDT Impressions 09/21/2024 4:18 PM EDT Large metastatic lesion in the spinal canal at L4 causing severe spinal stenosis. ??Otherwise, similar findings to prior examination 09/01/2024. -------- FINAL REPORT -------- Dictated By: Amber Robison Dictated Date: 09/21/2024 16:00 ET Assigned Physician: Amber Robison Reviewed and Electronically Signed By: Amber Robison Signed Date: 09/21/2024 16:18 ET Workstation ID: [id number] Transcribed By: Self Edit Transcribed Date: 09/21/2024 16:00 ET Narrative 09/21/2024 4:18 PM EDT PROCEDURE: CT ABDOMEN/PELVIS WITH CONTRAST INDICATION: back pain, prostate cancer with soft tissue mets, avm TECHNIQUE: CT of the abdomen and pelvis following the intravenous administration of 90cc Isovue 370. Multiplanar reformats. The examination was performed utilizing dose reduction techniques. Total DLP 1247 COMPARISON: ??09/01/2024 FINDINGS: ?? LOWER THORAX: Air-filled cyst in the right lower lobe. ??Trace bilateral pleural effusions and associated volume loss. ??Valvular and coronary artery calcifications. HEPATOBILIARY: No focal liver lesions stable cyst adjacent to the caudate.. No cholelithiasis or biliary duct dilatation. SPLEEN: No focal lesion. PANCREAS: Stable postsurgical changes of the pancreatic tail. ADRENALS: Stable large right adrenal mass measuring 6.5 x 5.1 cm as well as tiny left adrenal nodules. KIDNEYS/URETERS: Bilateral renal cysts. ??No hydronephrosis. PELVIC ORGANS/BLADDER: Prostate brachytherapy seeds. ??Mild distention of the bladder with mild bladder wall thickening presumably on the basis of chronic outlet obstruction. ??Stable large left pelvic sidewall metastasis measuring 4.8 x 4 cm PERITONEUM / RETROPERITONEUM: Stable cyst adjacent to the stomach. ??Nonspecific presacral stranding. VESSELS: Significant atherosclerotic plaque with prominent calcific burden at the level of the celiac origin which results in significant stenosis. GI TRACT: No bowel distention or wall thickening. Normal appendix. BONES AND SOFT TISSUES: Prominent lesion involving the left iliac bone near the left pelvic sidewall. ??Probable left sacral metastasis with pathologic fracturing, unchanged. ??Stable bilateral L4 transverse process fractures. ??There is a prominent stable sclerosis involving the L4 vertebral body with stable soft tissue component causing severe spinal stenosis at this level. ??There is also similar probable spinal canal metastatic foci in the sacrum and involving the left sacroiliac.. Soft tissues are unremarkable. Procedure Note Amber Robison MD - 09/21/2024 PROCEDURE: CT ABDOMEN/PELVIS WITH CONTRAST INDICATION: back pain, prostate cancer with soft tissue mets, avm TECHNIQUE: CT of the abdomen and pelvis following the intravenousadministration of 90cc Isovue 370. Multiplanar reformats. The examinationwas performed utilizing dose reduction techniques. Total DLP 1247 COMPARISON: 09/01/2024 FINDINGS: LOWER THORAX: Air-filled cyst in the right lower lobe. Trace bilateralpleural effusions and associated volume loss. Valvular and coronaryartery calcifications. HEPATOBILIARY: No focal liver lesions stable cyst adjacent to thecaudate.. No cholelithiasis or biliary duct dilatation. SPLEEN: No focal lesion. PANCREAS: Stable postsurgical changes of the pancreatic tail. ADRENALS: Stable large right adrenal mass measuring 6.5 x 5.1 cm as wellas tiny left adrenal nodules. KIDNEYS/URETERS: Bilateral renal cysts. No hydronephrosis. PELVIC ORGANS/BLADDER: Prostate brachytherapy seeds. Mild distention ofthe bladder with mild bladder wall thickening presumably on the basis ofchronic outlet obstruction. Stable large left pelvic sidewall metastasismeasuring 4.8 x 4 cm PERITONEUM / RETROPERITONEUM: Stable cyst adjacent to the stomach.Nonspecific presacral stranding. VESSELS: Significant atherosclerotic plaque with prominent calcific burdenat the level of the celiac origin which results in significant stenosis. GI TRACT: No bowel distention or wall thickening. Normal appendix. BONES AND SOFT TISSUES: Prominent lesion involving the left iliac bonenear the left pelvic sidewall. Probable left sacral metastasis withpathologic fracturing, unchanged. Stable bilateral L4 transverse processfractures. There is a prominent stable sclerosis involving the [id number] body with stable soft tissue component causing severe spinalstenosis at this level. There is also similar probable spinal canalmetastatic foci in the sacrum and involving the left sacroiliac.. Softtissues are unremarkable. IMPRESSION: Large metastatic lesion in the spinal canal at L4 causing severe spinalstenosis. Otherwise, similar findings to prior examination 09/01/2024. -------- FINAL REPORT -------- Dictated By: Amber Robison Dictated Date: 09/21/2024 16:00 ET Assigned Physician: Amber Robison Reviewed and Electronically Signed By: Amber Robison Signed Date: 09/21/2024 16:18 ET Workstation ID: [id number] Transcribed By: Self Edit Transcribed Date: 09/21/2024 16:00 ET us Beatriz VACA IMG CT PROCEDURES Final Resul t * (ABNORMAL) TRANSTHORACIC ECHOCARDIOGRAM (TTE) COMPLETE (09/21/2024 9:54 AM EDT) BSA 2 m2 CV PACS LV EDV (A2C) 143 mL CV PACS LV EDV (A4C) 166 mL CV PACS LV Diastolic Volume (BP) 162(A) 62 - 150 mL CV PACS LV ESV (A2C) 70 mL CV PACS LV ESV (A4C) 79 mL CV PACS LV Systolic Volume (BP) 77(A) 21 - 61 mL CV PACS IVSD 1.2(A) 0.6 - 1.0 cm CV PACS LVIDD 6.0(A) 4.2 - 5.8 cm CV PACS LVIDS 4.2(A) 2.5 - 4.0 cm CV PACS LVOT Diameter 2.4 cm CV PACS LVOT Mean Yeison 0.8 m/s CV PACS LVOT Mean Grad 3 mmHg CV PACS LVOT Peak VTI 27.2 cm CV PACS LVOT Peak Yeison 1.1 m/s CV PACS LVOT Peak Gradient 5 mmHg CV PACS LVPWD 1.2(A) 0.6 - 1.0 cm CV PACS MV E' Tissue Velocity Lateral 10 cm/s CV PACS MV E' Tissue Velocity Septal 7 cm/s CV PACS GLS -15.2 % CV PACS Ejection Fraction (A2C) 51 % CV PACS Ejection Fraction (A4C) 53 % CV PACS Ejection Fraction (BP) 52 % CV PACS LVOT Area 4.5 cm2 CV PACS LVOT Stroke Volume 123 mL CV PACS Left Atrium Minor Melstone 6.5 cm CV PACS Left Atrium Major Melstone 6.3 cm CV PACS LA Area Sys (A2C) 26 cm2 CV PACS LA Area Sys (A4C) 25 cm2 CV PACS LA Volume (BP) 82 mL CV PACS RA Area 18.4 cm2 CV PACS RA 2D Volume 50 mL CV PACS AV Mean Gradient 58 mmHg CV PACS Ao VTI 122.0 cm CV PACS AV Peak Yeison 5.0 m/s CV PACS AV Peak Gradient 100 mmHg CV PACS AV Area Continuity Equation 1.0 cm2 CV PACS AV Area Peak Velocity 1.0 cm2 CV PACS Aortic Sinus Valsalva 4.0 cm CV PACS Ascending Aorta 3.7 cm CV PACS MV Deceleration Berg[place] 8.2 m/s2 CV PACS E Wave Deceleration Time 176 119 - 242 ms CV PACS MV PHT 51 ms CV PACS MV Peak A Yeison 1.40 m/s CV PACS MV Peak E Yeison 1.20 m/s CV PACS MV Area PHT 5.2 cm2 CV PACS RV Diastolic Basal Dimension 3.5 2.5 - 4.1 cm CV PACS RV S' 20 cm/s CV PACS RV Free Wall Longitudinal Strain -22 % CV PACS TAPSE 24 mm CV PACS TR Peak Velocity 3.20 m/s CV PACS TR Peak Gradient 41 mmHg CV PACS LV ESV Index (A4C) 41 mL/m2 CV PACS LV EDV Index (A4C) 85 mL/m2 CV PACS E/E' Ratio Septal 17 CV PACS E/E' Ratio Averaged 15 CV PACS LVOT Stroke Index 63 mL/m2 CV PACS Relative Wall Thickness ratio 0.40 0.24 - 0.42 CV PACS LVOT:AV VTI Index 0.22 CV PACS FS 30 % CV PACS LV Mass 2D 314(A) 96 - 200 g CV PACS Ascending Aorta Index 1.90 cm/m2 CV PACS LVOT flow 362 mL/s CV PACS RA 2D Volume Index 26 18 - 32 mL/m2 CV PACS RIAZ Index (VTI) 0.52 cm2/m2 CV PACS RIAZ Index (Pk Yeison) 0.51 cm2/m2 CV PACS LVIDD Index 3.08 cm/m2 CV PACS LVIDS Index 2.15 cm/m2 CV PACS AV Velocity Ratio 0.22 CV PACS E/A Ratio 0.9 0.8 - 2.0 CV PACS E/E' Ratio Lateral 12 CV PACS LV Systolic Volume Index (BP) 39(A) 11 - 31 mL/m2 CV PACS LV Diastolic Volume Index (BP) 83(A) 34 - 74 mL/m2 CV PACS LA Volume Index (BP) 42 mL/m2 CV PACS LV Mass Index 2D 161 50 - 102 g/m2 CV PACS LV EDV Index (A2C) 73 mL/m2 CV PACS LV ESV Index (A2C) 36 mL/m2 CV PACS LA Volume (A-L) 79 mL CV PACS LA Volume Index (A-L) 41 mL/m2 CV PACS RV Free Wall Peak S' 20 cm/s CV PACS RA Major Melstone 5.9 cm CV PACS RA Major Melstone Index 3.0(A) 2.1 - 2.7 cm/m2 CV PACS MV Mean Gradient 7 mmHg CV PACS MV Peak Gradient 10 mmHg CV PACS MV VTI 34.1 cm CV PACS MV VTI:LVOT VTI ratio 1.3 CV PACS MV Area Continuity Equation 3.6 cm2 CV PACS AV Area 2D 1.0 cm2 CV PACS RIAZ Index (2D) 0.51 cm2/m2 CV PACS LV EF MOD 2C 51 % CV PACS LV EF 4C A-L 53 % CV PACS LV EDV 4C A-L 167 mL CV PACS LV Length Sys (A4C) 7.5 cm CV PACS LV Length Davies (A4C) 8.8 cm CV PACS AV Area Index 0.5 CV PACS Left Ventricular Stroke Volume by 2-D Biplane-MOD 85 mL CV PACS Right Ventricular Peak Systolic Pressure 44 mmHg CV PACS Est. RA Pressure 3 mmHg CV PACS Anatomical Region Laterality Modality Ultrasound Narrative 09/21/2024 12:00 PM EDT ?Left??Ventricle: Left ventricle cavity is mildly dilated. There is mild concentric hypertrophy. Systolic function is low normal. The quantitative EF by 2D Robles biplane is 52%. LV global longitudal strain is reduced. Global longitudinal strain is -15.2%. There is hypokinesis of the basal inferior wall. There is Grade I (mild) diastolic dysfunction. ?Right??Ventricle: Right ventricle cavity appears normal. Systolic function is normal. ??Normal RV free wall peak strain at -22%. Normal TAPSE (> 17 mm). ?Right??Atrium: A poorly visualized echodensity is noted in the right atrium which may represent a catheter tip given the patient's known history of a Port-A-Cath in place. ?Aortic??Valve: There is evidence of very severe (critical) aortic valve stenosis. The aortic valve peak velocity is 5.0 m/s. The velocity ratio is 0.22. The mean gradient is 58 mmHg. ?Mitral??Valve: There is mild regurgitation. There is mild stenosis. MV mean gradient is 7 mmHg. ?Tricuspid??Valve: There is mild - moderate regurgitation. The right ventricular systolic pressure is mildly ??elevated. Estimated RA pressure is 3 mmHg. The RVSP is estimated at 44 mmHg. Left Ventricle Left ventricle cavity is mildly dilated. There is mild concentric hypertrophy. Systolic function is low normal. The quantitative EF by 2D Robles biplane is 52%. LV global longitudal strain is reduced. Global longitudinal strain is -15.2%. There is hypokinesis of the basal inferior wall. There is Grade I (mild) diastolic dysfunction. Right Ventricle Right ventricle cavity appears normal. Systolic function is normal. Normal RV free wall peak strain at -22%. Normal TAPSE (> 17 mm). Left Atrium Left atrium cavity is moderately dilated. Right Atrium Right atrium cavity is normal. A poorly visualized echodensity is noted in the right atrium which may represent a catheter tip given the patient's known history of a Port-A-Cath in place. IVC/SVC Inferior vena cava structure is normal. RA pressures is estimated to be 3 mmHg (IVC diameter <21 mm and decreases >50% during inspiration). Mitral Valve The leaflets are mildly thickened. There is moderate anterior annular calcification. There is mild calcification of the anterior leaflet subvalvular apparatus. There is mild calcification of the posterior leaflet subvalvular apparatus. There is mild regurgitation. There is mild stenosis. MV mean gradient is 7 mmHg. Tricuspid Valve The leaflets exhibit normal excursion. There is mild - moderate regurgitation. There is no evidence of tricuspid valve stenosis. The right ventricular systolic pressure is mildly elevated. Estimated RA pressure is 3 mmHg. The RVSP is estimated at 44 mmHg. Aortic Valve Number of aortic valve cusps cannot be determined. The leaflets are moderately calcified. Aortic annular calcification. There is no regurgitation. There is evidence of very severe (critical) aortic valve stenosis. The aortic valve peak velocity is 5.0 m/s. The velocity ratio is 0.22. The mean gradient is 58 mmHg. Pulmonic Valve The pulmonic valve was not well visualized. There is no regurgitation or stenosis. Ascending Aorta The aorta appears normal in size. Pericardium There is an anterior fat pad. There is no pericardial effusion. Study Details Overall the study quality was technically difficult. Additional technique includes myocardial strain. us Beatriz VACA CV ECHO PROCEDURES Final Resu lt * Lipid panel with reflex to direct LDL (09/21/2024 6:15 AM EDT) Cholesterol 120 0 - 200 mg/dL LAB CHEMISTRY METHOD 09/21/2024 7:46 AM EDT [facility] Triglycerides 93 0 - 150 mg/dL LAB CHEMISTRY METHOD 09/21/2024 7:46 AM EDT [facility] HDL 40 >=40 mg/dL LAB CHEMISTRY METHOD 09/21/2024 7:46 AM EDT [facility] LDL Calculated 61 0 - 100 mg/dL [facility] VLDL Cholesterol Alon 18.6 mg/dL LAB [facility]STR[facility] Non HDL Chol. (LDL+VLDL) 80 <145 mg/dL LAB CHEMISTRY METHOD 09/21/2024 7:[address] [facility] Chol/HDL Ratio 3.0 0.0 - 4.4 LAB CHEMISTRY METHOD 09/21/2024 7:[address] [facility] Blood Venous blood specimen / Unknown Venipuncture / Unknown 09/21/2024 6:15 AM EDT 09/21/2024 6:59 AM EDT us Vincenzo VACA LAB BLOOD ORDERABLES Final Res ult [facility] [address] [place] [address], * (ABNORMAL) Complete blood count (09/21/2024 6:15 AM EDT) WBC 14.9(H) 4.8 - 10.8 K/mcL LAB HEMETOLOGY METHOD 09/21/2024 7:14 AM EDT [facility] RBC 2.60(L) 4.50 - 5.50 M/mcL LAB HEMETOLOGY METHOD 09/21/2024 7:[address] [facility] Hemoglobin 8.2(L) 13.5 - 17.5 g/dL LAB HEMETOLOGY METHOD 09/21/2024 7:[address] [facility] Hematocrit 25.2(L) 42.0 - 54.0 % LAB HEMETOLOGY METHOD 09/21/2024 7:[address] [facility] MCV 96.9 79.0 - 98.0 FL LAB HEMETOLOGY METHOD 09/21/2024 7:[address] [facility] MCH 31.5 27.0 - 32.0 pcg LAB HEMETOLOGY METHOD 09/21/2024 7:[address] [facility] MCHC 32.5 32.0 - 37.0 g/dL LAB HEMETOLOGY METHOD 09/21/2024 7:[address] [facility] RDW 20.1(H) 11.0 - 15.0 % LAB HEMETOLOGY METHOD 09/21/2024 7:[address] [facility] Platelets 178 130 - 400 K/mcL LAB HEMETOLOGY METHOD 09/21/2024 7:[address] [facility] MPV 12.0(H) 7.0 - 11.0 FL LAB HEMETOLOGY METHOD 09/21/2024 7:[address] [facility] NRBC 0.6 <1.0 % LAB HEMETOLOGY METHOD 09/21/2024 7:[address] [facility] NRBC Absolute 0.09 <0.10 K/mcL LAB HEMETOLOGY METHOD 09/21/2024 7:[address] [facility] Blood Venous blood specimen / Unknown Venipuncture / Unknown 09/21/2024 6:15 AM EDT 09/21/2024 7:00 AM EDT us Nermina Bukalo MD LAB BLOOD ORDERABLES Final Res ult [facility] [address] [place] [address], * (ABNORMAL) Basic metabolic panel (09/21/2024 6:15 AM EDT) Sodium 146(H) 133 - 145 mmol/L LAB CHEMISTRY METHOD 09/21/2024 7:[address] [facility] Potassium 3.9 3.5 - 5.5 mmol/L LAB CHEMISTRY METHOD 09/21/2024 7:[address] [facility] Chloride 110 96 - 110 mmol/L LAB CHEMISTRY METHOD 09/21/2024 7:[address] [facility] CO2 29 21 - 32 mmol/L LAB CHEMISTRY METHOD 09/21/2024 7:[address] [facility] Anion Gap 7 3 - 11 LAB CHEMISTRY METHOD 09/21/2024 7:[address] [facility] Glucose 84 70 - 100 mg/dL LAB CHEMISTRY METHOD 09/21/2024 7:[address] [facility] BUN 22 5 - 25 mg/dL LAB CHEMISTRY METHOD 09/21/2024 7:[address] [facility] Creatinine 1.16 0.70 - 1.30 mg/dL LAB CHEMISTRY METHOD 09/21/2024 7:[address] [facility] eGFR 64 >=60 mL/min/1. 73m2 LAB CHEMISTRY METHOD 09/21/2024 7:[address] [facility] Comment:Calculation based on the??Chronic Kidney Disease Epidemiology Collaboration (CKD-EPI) equation refit??without adjustment for race. BUN/Creatinine Ratio 19.0 LAB CHEMISTRY METHOD 09/21/2024 7:[address] [facility] Calcium 8.4(L) 8.5 - 10.5 mg/dL LAB CHEMISTRY METHOD 09/21/2024 7:46 AM EDT [facility] Blood Venous blood specimen / Unknown Venipuncture / Unknown 09/21/2024 6:15 AM EDT 09/21/2024 6:59 AM EDT Donte Wilde MD LAB BLOOD ORDERABLES Final Res ult Performing Organization Address [facility]/ZIP Co de Phone Number [facility] ([facility]) [facility] [address] [place] [address], [place] [phone] * ECG 12 lead (09/21/2024 1:30 AM EDT) Ventricular Rate ECG 102 BPM GEMUSE Atrial Rate 102 BPM GEMUSE P-R Interval 168 ms GEMUSE QRS Duration 96 ms GEMUSE Q-T Interval 362 ms GEMUSE QTc 471 ms GEMUSE P Wave Melstone 96 degrees GEMUSE R Melstone -172 degrees GEMUSE T Melstone 146 degrees GEMUSE ECG Interpretation Suspect arm lead reversal, interpretation assumes no reversal Sinus tachycardia with occasional Premature ventricular complexes Abnormal ECG When compared with ECG of 21-SEP-2024 01:30, (unconfirmed) No significant change was found Confirmed by Lisseth ONEILL YUFENG ([id number]) on 09/21/2024 7:18:10 PM GEMUSE 09/21/2024 1:30 AM EDT 09/21/2024 7:18 PM EDT Vincenzo VACA ECG ORDERABLES Final Result Performing Organization Address [facility] Co de Phone Number GEMUSE * ECG 12 lead (09/21/2024 1:30 AM EDT) Ventricular Rate ECG 99 BPM GEMUSE Atrial Rate 99 BPM GEMUSE P-R Interval 166 ms GEMUSE QRS Duration 98 ms GEMUSE Q-T Interval 358 ms GEMUSE QTc 459 ms GEMUSE P Wave Melstone 92 degrees GEMUSE R Melstone -173 degrees GEMUSE T Melstone 142 degrees GEMUSE ECG Interpretation Suspect arm lead reversal, interpretation assumes no reversal Sinus rhythm with occasional Premature ventricular complexes Abnormal ECG When compared with ECG of 20-SEP-2024 20:14, (unconfirmed) Premature ventricular complexes are now Present Suspect arm lead reversal Confirmed by Lisseth ONEILL YUFENG ([id number]) on 09/21/2024 7:17:42 PM GEMUSE 09/21/2024 1:30 AM EDT 09/21/2024 7:17 PM EDT Beatriz VACA ECG ORDERABLES Final Result Performing Organization Address [facility]/ZIP Co de Phone Number GEMUSE * (ABNORMAL) Troponin I high sensitivity (09/21/2024 1:28 AM EDT) [facility] High Sensitivity Troponin I 546(HH) <=79 ng/L LAB CHEMISTRY METHOD 09/21/2024 2:13 AM EDT [facility] Blood Venous blood specimen / Unknown Venipuncture / Unknown 09/21/2024 1:28 AM EDT 09/21/2024 1:33 AM EDT Narrative [facility] - 09/21/2024 2:13 AM EDT High levels of biotin in samples may falsely decrease hsTroponin values. ??Use caution when interpreting hsTroponin results in patients taking biotin who exhibit renal impairment (eGFR <60) or in patients taking more than 20 mg/day of biotin. Beatriz VACA LAB BLOOD ORDERABLES Final Re sult Performing Organization Address City/[facility]/ZIP Co de Phone Number [facility] [address] [place] [address], * (ABNORMAL) Troponin I high sensitivity (09/20/2024 11:50 PM EDT) Pathologist [facility] High Sensitivity Troponin I 556(HH) <=79 ng/L LAB CHEMISTRY METHOD 09/21/2024 1:11 AM EDT [facility] Blood Venous blood specimen / Unknown Venipuncture / Unknown 09/20/2024 11:50 PM EDT 09/21/2024 12:22 AM EDT [facility]ative [facility] [place] ([facility]) [facility] - 09/21/2024 1:11 AM EDT High levels of biotin in samples may falsely decrease hsTroponin values. ??Use caution when interpreting hsTroponin results in patients taking biotin who exhibit renal impairment (eGFR <60) or in patients taking more than 20 mg/day of biotin. us Beatriz VACA LAB BLOOD ORDERABLES Final Re sult [facility]) [facility] [address] [place] [address], * XR Chest 1 View (09/20/2024 8:35 PM EDT) Anatomical Region Laterality Modality Body Radiographic Luci ging 09/21/2024 9:58 AM EDT Impressions 09/21/2024 9:59 AM EDT FINDINGS/IMPRESSION: Right chest wall Port-A-Cath terminates near the cavoatrial junction. ??Low lung volumes with cardiac silhouette enlargement and pulmonary vascular congestion. ??No pleural effusion or pneumothorax. ??Degenerative changes seen throughout the bones. -------- FINAL REPORT -------- Dictated By: AGUSTIN WOOD Dictated Date: 09/21/2024 09:58 ET Assigned Physician: AGUSTIN WOOD Reviewed and Electronically Signed By: AGUSTIN WOOD Signed Date: 09/21/2024 09:59 ET Workstation ID: [id number] Transcribed By: Self Edit Transcribed Date: 09/21/2024 09:58 ET Narrative 09/21/2024 9:59 AM EDT XR CHEST 1 VIEW INDICATION: ??Shortness of breath TECHNIQUE: XR CHEST 1 VIEW COMPARISON: 09/01/2024 Procedure Note Agustin Wood MD - 09/21/2024 XR CHEST 1 VIEW INDICATION: Shortness of breath TECHNIQUE: XR CHEST 1 VIEW COMPARISON: 09/01/2024 IMPRESSION: FINDINGS/IMPRESSION: Right chest wall Port-A-Cath terminates near thecavoatrial junction. Low lung volumes with cardiac silhouette enlargementand pulmonary vascular congestion. No pleural effusion or pneumothorax.Degenerative changes seen throughout the bones. -------- FINAL REPORT -------- Dictated By: AGUSTIN WOOD Dictated Date: 09/21/2024 09:58 ET Assigned Physician: AGUSTIN WOOD Reviewed and Electronically Signed By: AGUSTIN WOOD Signed Date: 09/21/2024 09:59 ET Workstation ID: [id number] Transcribed By: Self Edit Transcribed Date: 09/21/2024 09:58 ET Beatriz VACA IMG XR PROCEDURES Final Resul t * (ABNORMAL) B-type natriuretic peptide (09/20/2024 8:28 PM EDT) Pathologist [facility] BNP 567(H) <=100 pcg/mL LAB CHEMISTRY METHOD 09/20/2024 9:44 PM EDT [facility] Blood Venous blood specimen / Unknown Venipuncture / Unknown 09/20/2024 8:28 PM EDT 09/20/2024 8:38 PM EDT Beatriz VACA LAB BLOOD ORDERABLES Final Re sult [facility] [address] [place] [address], * ECG 12 lead (09/20/2024 8:14 PM EDT) Pathologist [facility] Ventricular Rate ECG 85 BPM GEMUSE Atrial Rate 85 BPM GEMUSE P-R Interval 162 ms GEMUSE QRS Duration 92 ms GEMUSE Q-T Interval 384 ms GEMUSE QTc 456 ms GEMUSE P Wave Melstone 52 degrees GEMUSE R Melstone 4 degrees GEMUSE T Melstone 49 degrees GEMUSE ECG Interpretation Normal sinus rhythm Normal ECG When compared with ECG of 01-SEP-2024 17:16, No significant change was found Confirmed by Lisseth ONEILL YUFENG ([id number]) on 09/21/2024 7:17:12 PM GEMUSE 09/20/2024 8:14 PM EDT 09/21/2024 7:17 PM EDT us Beatriz VACA ECG ORDERABLES Final Result GEMUSE * (ABNORMAL) Complete blood count (09/20/2024 6:11 PM EDT) WBC 17.9(H) 4.8 - 10.8 K/mcL LAB HEMETOLOGY METHOD 09/20/2024 7:29 PM EDT [facility] RBC 2.70(L) 4.50 - 5.50 M/mcL LAB HEMETOLOGY METHOD 09/20/2024 7:29 PM EDT [facility] Hemoglobin 8.5(L) 13.5 - 17.5 g/dL LAB HEMETOLOGY METHOD 09/20/2024 7:29 PM EDT [facility] Hematocrit 27.3(L) 42.0 - 54.0 % LAB HEMETOLOGY METHOD 09/20/2024 7:[address] [facility] MCV 99.6(H) 79.0 - 98.0 FL LAB HEMETOLOGY [facility] MCH 31.0 27.0 - 32.0 pcg LAB HEMETOLOGY METHOD [facility]/20[facility]2024 [facility] MCHC 31.1(L) 32.0 - 37.0 g/dL LAB HEMETOLOGY METHOD 09/20/2024 7:[address] [facility] RDW 19.9(H) 11.0 - 15.0 % LAB HEMETOLOGY METHOD 09/20/2024 7:[address] [facility] Platelets 198 130 - 400 K/mcL LAB HEMETOLOGY METHOD 09/20/2024 7:29 PM EDT [facility] MPV 12.4(H) 7.0 - 11.0 FL LAB HEMETOLOGY METHOD 09/20/2024 7:29 PM EDT [facility] NRBC 0.9 <1.0 % LAB HEMETOLOGY METHOD 09/20/2024 7:29 PM EDT [facility] NRBC Absolute 0.16(H) <0.10 K/mcL LAB HEMETOLOGY METHOD 09/20/2024 7:29 PM EDT [facility] Blood Venous blood specimen / Unknown Venipuncture / Unknown 09/20/2024 6:11 PM EDT 09/20/2024 7:10 PM EDT us Donte Wilde MD LAB BLOOD ORDERABLES Final Res ult [facility] [address] [place] [address], documented in this encounter Visit Diagnoses Diagnosis Acute congestive heart failure, unspecified heart failure type (CMS/HCC)- Primary Prostate cancer (CMS/HCC) Malignant neoplasm of prostate Symptomatic anemia documented in this encounter Admitting Diagnoses Diagnosis Symptomatic anemia documented in this encounter Administered Medications Inactive Administered Medications - up to 3 most recent administrations Medication Order MAR Action Action Date Dose Rate Site acetaminophen (TYLENOL) tablet 1,000 mg 1,000 mg, oral, 2 times daily, First dose on Wed09/21/24 at 2100 Given 09/22/2024 8:59 AM EDT 1,000 mg Given 09/21/2024 8:55 PM EDT 1,000 mg atorvastatin (LIPITOR) tablet 80 mg 80 mg, oral, Nightly, First dose on Wed09/20/24 at 2100 Given 09/21/2024 8:55 PM EDT 80 mg Given 09/20/2024 10:02 PM EDT 80 mg barium sulfate (READI-CAT 2) 2 % (w/v) suspension 450 mL 450 mL, oral, Once, On Wed09/21/24 at 0330, For 1 dose Given 09/21/2024 7:46 AM EDT 450 mL dexAMETHasone (DECADRON) injection 4 mg 4 mg, intravenous, Every 6 hours scheduled, First dose on Wed09/21/24 at 1800 Given 09/22/2024 12:20 PM EDT 4 mg Given 09/22/2024 6:29 AM EDT 4 mg Given 09/22/2024 1:34 AM EDT 4 mg dextrose (D50W) 50% injection 12.5 g 12.5 g, intravenous, Every 15 min PRN, low blood sugar, moderate hypoglycemia *Patient is Unconscious, NPO, unable to swallow: BG 54 - 69 mg/dl*, Starting on Wed09/21/24 at 1701 dextrose (D50W) 50% injection 25 g 25 g, intravenous, Every 15 min PRN, low blood sugar, severe hypoglycemia *Patient is Unconscious, NPO, unable to swallow: BG LESS than 54 mg/dL*, Starting on Wed09/21/24 at 1701 dextrose 15 gram/60 mL oral solution 15 g 15 g, oral, Every 15 min PRN, low blood sugar, hypoglycemia *Patient conscious AND able to drink and swallow safely*, Starting on Wed09/21/24 at 1701 dextrose 15 gram/60 mL oral solution 30 g 30 g, oral, Every 15 min PRN, low blood sugar, hypoglycemia *Patient conscious AND able to drink and swallow safely*, Starting on Wed09/21/24 at 1701 doxazosin (CARDURA) tablet 4 mg 4 mg, oral, Nightly, First dose on Wed09/20/24 at 2100 Given 09/21/2024 8:55 PM EDT 4 mg Given 09/20/2024 10:01 PM EDT 4 mg fenofibrate (TRICOR) tablet 145 mg 145 mg, oral, Daily, First dose on Wed09/20/24 at 2100 Given 09/22/2024 9:00 AM EDT 145 mg Given 09/20/2024 10:01 PM EDT 145 mg folic acid (FOLVITE) tablet 1 mg 1 mg, oral, Daily, First dose on Wed09/21/24 at 0900 Given 09/22/2024 8:59 AM EDT 1 mg Given 09/21/2024 8:42 AM EDT 1 mg furosemide (LASIX) injection 20 mg 20 mg, intravenous, Once, On Wed09/20/24 at 2315, For 1 dose Given 09/21/2024 12:06 AM EDT 20 mg furosemide (LASIX) injection 20 mg 20 mg, intravenous, BID Diuretic, First dose on Wed09/21/24 at 0900, On hold since Wed09/22/2024 at 0800 until manually unheld Given 09/21/2024 4:27 PM EDT 20 mg Given 09/21/2024 8:43 AM EDT 20 mg furosemide (LASIX) tablet 20 mg 20 mg, oral, Daily, First dose on Wed09/22/24 at 1300 Given 09/22/2024 1:51 PM EDT 20 mg gabapentin (NEURONTIN) capsule 600 mg 600 mg, oral, Every 8 hours scheduled, First dose on Wed09/21/24 at 0600 Given 09/22/2024 1:51 PM EDT 600 mg Given 09/22/2024 6:29 AM EDT 600 mg Given 09/21/2024 9:00 PM EDT 600 mg Glucagon HCl (rDNA) injection 1 mg 1 mg, intramuscular, Once as needed, low blood sugar, severe hypoglycemia, Starting on Wed09/21/24 at 1701, For 1 dose HYDROmorphone (DILAUDID) liquid 2 mg 2 mg, oral, Every 4 hours PRN, moderate pain, Starting on Wed09/21/24 at 1614 Given 09/21/2024 8:57 PM EDT 2 mg HYDROmorphone (PF) (DILAUDID) injection 1 mg 1 mg, intravenous, Every 4 hours PRN, severe pain, Starting on Wed09/20/24 at 1739 Given 09/22/2024 1:51 PM EDT 1 mg Given 09/21/2024 2:34 PM EDT 1 mg Given 09/21/2024 8:43 AM EDT 1 mg insulin lispro injection 1-6 Units 1-6 Units, subcutaneous, 3 times daily before meals, First dose on Wed09/21/24 at 1730, Indication: Total Daily Dose (TDD) LESS than 40 units Correction Scale: Low Dose Administer with meal and/or mealtime dose of insulin to correct high blood glucose If mealtime insulin dose not given (e.g. patient NPO or not eating), still administer correction factor for high blood glucose Given 09/22/2024 12:20 PM EDT 1 Units Left Upper Arm (Back ) Given 09/22/2024 9:00 AM EDT 1 Units Le ft Upper Arm (Back) iopamidoL (ISOVUE-370) 370 mg iodine /mL (76 %) injection 90 mL 90 mL, intravenous, Once in imaging, Starting on Wed09/21/24 at 1515, For 1 dose Given 09/21/2024 3:21 PM EDT 90 mL lidocaine 4 % patch 1 patch 1 patch, Topical, Administer over 12 Hours, Daily, First dose on Wed09/21/24 at 0945, Apply to low back and remove at bedtime Patch Applied 09/22/2024 9:00 AM EDT 1 patch Back Patch Applied 09/21/2024 10:16 AM EDT 1 patch Back lisinopriL (PRINIVIL,ZESTRIL) tablet 20 mg 20 mg, oral, Daily, First dose on Wed09/21/24 at 0900 Given 09/22/2024 8:59 AM EDT 20 mg Given 09/21/2024 8:42 AM EDT 20 mg pantoprazole (PROTONIX) EC tablet 40 mg 40 mg, oral, 2 times daily before meals, First dose on Wed09/21/24 at 0730, Do not crush, chew, or split. Given 09/22/2024 6:32 AM EDT 40 mg Given 09/21/2024 4:27 PM EDT 40 mg Given 09/21/2024 6:20 AM EDT 40 mg predniSONE (DELTASONE) tablet 5 mg 5 mg, oral, Daily, First dose on Wed09/21/24 at 0900, For 290 days, On hold since Wed09/21/2024 at 1702 until manually unheld Given 09/21/2024 8:42 AM EDT 5 mg prochlorperazine (COMPAZINE) tablet 10 mg 10 mg, oral, Every 8 hours PRN, nausea, vomiting, Starting on Wed09/20/24 at 1917 sodium chloride 0.9 % flush 10 mL 10 mL, intravenous, Once, On Wed09/21/24 at 1545, For 1 dose Given 09/21/2024 3:21 PM EDT 10 mL documented in this encounter Discontinued Medications Medication Sig Discontinue Reason Start Date End Da te predniSONE (DELTASONE) 5 mg tabletIndications: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 Start the day after IV chemotherapy. Take on days 2-21 of each cycle with food. Stop Taking at Discharge 07/07/2024 09/22/2024 documented as of this encounter Historical Medications * This list may reflect changes made after this encounter. lisinopriL (PRINIVIL,ZESTRIL ) 20 mg tablet Take 1 tablet (20 mg total) by mouth 1 (one) time each day. added in this encounter Active and Recently Administered Medications Times are shown in EDT. Scheduled Medication Order 09/20/2024 09/21/2024 09/22/2024 acetaminophen (TYLENOL) tablet 1,000 mg 1,000 mg, oral, 2 times daily, First dose on Wed09/21/24 at 2100 2055 (Given - Provider: Linda Marcos RN) 0859 (Given - Provider: Darlin Garcia, NICOLE) atorvastatin (LIPITOR) tablet 80 mg 80 mg, oral, Nightly, First dose on Wed09/20/24 at 2100 2202 (Given - Provider: Fatmata Rogel RN) 2054 (Given - Provider: Linda Marcos RN) barium sulfate (READI-CAT 2) 2 % (w/v) suspension 450 mL 450 mL, oral, Once, On Wed09/21/24 at 0330, For 1 dose 0952 (Not Given - Provider: Darlin Garcia RN - Reason: Patient/Resident/Age nt refused - education provided ) barium sulfate (READI-CAT 2) 2 % (w/v) suspension 450 mL (COMPLETED) 450 mL, oral, Once, On Wed09/21/24 at 0330, For 1 dose 0746 (Given - Provider: Alina Moore RN) dexAMETHasone (DECADRON) injection 4 mg 4 mg, intravenous, Every 6 hours scheduled, First dose on Wed09/21/24 at 1800 1817 (Given - Provider: Darlin Garcia RN) 0134 (Given - Provider: Linda Marcos RN)0629 (Given - Provider: Linda Marcos RN)1220 (Given - Provider: Darlin Garcia RN)1800 (Canceled Entry - Provider: Automatic Discharge Provider - Comment: Automatically canceled at discontinue of medication order) doxazosin (CARDURA) tablet 4 mg 4 mg, oral, Nightly, First dose on Wed09/20/24 at 2100 2201 (Given - Provider: Fatmata Rogel, NICOLE) 2055 (Given - Provider: Linda Marcos, NICOLE) fenofibrate (TRICOR) tablet 145 mg 145 mg, oral, Daily, First dose on Wed09/20/24 at 2100 2201 (Given - Provider: Fatmata Rogel, NICOLE) 0900 (Given - Provider: Darlin Garcia, NICOLE) folic acid (FOLVITE) tablet 1 mg 1 mg, oral, Daily, First dose on Wed09/21/24 at 0900 0842 (Given - Provider: Darlin Garcia RN) 0859 (Given - Provider: Darlin Garcia RN) furosemide (LASIX) injection 20 mg (COMPLETED) 20 mg, intravenous, Once, On Wed09/20/24 at 2315, For 1 dose 0006 (Given - Provider: Fatmata Rogel RN) furosemide (LASIX) injection 20 mg (CANCELED) 20 mg, intravenous, BID Diuretic, First dose on Wed09/21/24 at 0900, On hold since Wed09/22/2024 at 0800 until manually unheld 0843 (Given - Provider: Darlin Garcia RN)1627 (Given - Provider: Darlin Garcia RN) 0800 (Held by provider - Provider: LIO Welsh - Reason: Other)0900 (Dose Auto Held - Provider: LIO Welsh)1236 (Unheld by provider - Provider: LIO Welsh) furosemide (LASIX) tablet 20 mg 20 mg, oral, Daily, First dose on Wed09/22/24 at 1300 1351 (Given - Provid er: Darlin Garcia RN) gabapentin (NEURONTIN) capsule 600 mg 600 mg, oral, Every 8 hours scheduled, First dose on Wed09/21/24 at 0600 0617 (Given - Provider: Alina Moore RN)1429 (Given - Provider: Darlin Garcia RN)2100 (Given - Provider: Linda Marcos RN) 0629 (Given - Provider: Linda Marcos RN)1351 (Given - Provider: Darlin Garcia RN) insulin lispro injection 1-6 Units 1-6 Units, subcutaneous, 3 times daily before meals, First dose on Wed09/21/24 at 1730, Indication: Total Daily Dose (TDD) LESS than 40 units Correction Scale: Low Dose Administer with meal and/or mealtime dose of insulin to correct high blood glucose If mealtime insulin dose not given (e.g. patient NPO or not eating), still administer correction factor for high blood glucose 1815 (Not Given - Provider: Darlin Garcia RN - Reason: Order parameters not met) 0900 (Given - Provider: Darlin Garcia RN)1220 (Given - Provider: Darlin Garcia RN)1630 (Canceled Entry - Provider: Automatic Discharge Provider - Comment: Automatically canceled at discontinue of medication order) iopamidoL (ISOVUE-370) 370 mg iodine /mL (76 %) injection 90 mL (COMPLETED) 90 mL, intravenous, Once in imaging, Starting on Wed09/21/24 at 1515, For 1 dose 1521 (Given - Provider: Araceli Burdick) lidocaine 4 % patch 1 patch 1 patch, Topical, Administer over 12 Hours, Daily, First dose on Wed09/21/24 at 0945, Apply to low back and remove at bedtime 1016 (Patch Applied - Provider: Darlin Garcia RN) 0000 (Patch Removed - Provider: Linda Marcos RN)0900 (Patch Applied - Provider: Darlin Garcia RN)1828 (Due: Patch Removed - Provider: Automatic Discharge Provider - Comment: Time automatically adjusted from order being discontinued) lisinopriL (PRINIVIL,ZESTRIL) tablet 20 mg 20 mg, oral, Daily, First dose on Wed09/21/24 at 0900 0842 (Given - Provider: Darlin Garcia RN) 0859 (Given - Provider: Darlin Garcia RN) pantoprazole (PROTONIX) EC tablet 40 mg 40 mg, oral, 2 times daily before meals, First dose on Wed09/21/24 at 0730, Do not crush, chew, or split. 0620 (Given - Provider: Alina Moore RN)1627 (Given - Provider: Darlin Garcia RN) 0632 (Given - Provider: Linda Marcos RN)1630 (Canceled Entry - Provider: Automatic Discharge Provider - Comment: Automatically canceled at discontinue of medication order) predniSONE (DELTASONE) tablet 5 mg 5 mg, oral, Daily, First dose on Wed09/21/24 at 0900, For 290 days, On hold since Wed09/21/2024 at 1702 until manually unheld 0842 (Given - Provider: Darlin Garcia RN)1702 (Held by provider - Provider: LIO Welsh - Reason: Other) 0900 (Dose Auto Held - Provider: LIO Welsh)2027 (Unheld by provider - Provider: Automatic Discharge Provider) sodium chloride 0.9 % flush 10 mL (COMPLETED) 10 mL, intravenous, Once, On Wed09/21/24 at 1545, For 1 dose 1521 (Given - Provider: Araceli Burdick) PRN Medication Order 09/20/2024 09/21/2024 09/22/2024 dextrose (D50W) 50% injection 12.5 g 12.5 g, intravenous, Every 15 min PRN, low blood sugar, moderate hypoglycemia *Patient is Unconscious, NPO, unable to swallow: BG 54 - 69 mg/dl*, Starting on Wed09/21/24 at 1701 dextrose (D50W) 50% injection 25 g 25 g, intravenous, Every 15 min PRN, low blood sugar, severe hypoglycemia *Patient is Unconscious, NPO, unable to swallow: BG LESS than 54 mg/dL*, Starting on Wed09/21/24 at 1701 dextrose 15 gram/60 mL oral solution 15 g 15 g, oral, Every 15 min PRN, low blood sugar, hypoglycemia *Patient conscious AND able to drink and swallow safely*, Starting on Anjana 09/21/24 at 1701 dextrose 15 gram/60 mL oral solution 30 g 30 g, oral, Every 15 min PRN, low blood sugar, hypoglycemia *Patient conscious AND able to drink and swallow safely*, Starting on Anjana 09/21/24 at 1701 Glucagon HCl (rDNA) injection 1 mg 1 mg, intramuscular, Once as needed, low blood sugar, severe hypoglycemia, Starting on Anjana 09/21/24 at 1701, For 1 dose HYDROmorphone (DILAUDID) liquid 2 mg 2 mg, oral, Every 4 hours PRN, moderate pain, Starting on Anjana 09/21/24 at 1614 2057 (Given - Provider: Linda Marcos RN) HYDROmorphone (PF) (DILAUDID) injection 1 mg 1 mg, intravenous, Every 4 hours PRN, severe pain, Starting on Wed09/20/24 at 1739 1945 (Not Given - Provider: Yanci Hernandez RN - Reason: Other - Comment: Not given,pt wants to hold off)2202 (Given - Provider: Fatmata Rogel RN) 0843 (Given - Provider: Darlin Garcia RN)1434 (Given - Provider: Darlin Garcia RN) 1351 (Given - Provider: Darlin Garcia RN) prochlorperazine (COMPAZINE) tablet 10 mg 10 mg, oral, Every 8 hours PRN, nausea, vomiting, Starting on Wed09/20/24 at 1917 documented in this encounter Orders Medications Ordered That Casa ht Not Have Been Administered Count Last Ordered Date First Ordered Date barium sulfate (READI-CAT 2) 2 % (w/v) suspension 450 mL 3 09/21/2024 09/20/2024 dextrose (D50W) 50% injection 12.5 g 1 08/2024 dextrose (D50W) 50% injection 25 g 1 2024 dextrose 15 gram/60 mL oral solution 15 g 1 09/21/2024 dextrose 15 gram/60 mL oral solution 30 g 1 09/21/2024 Glucagon HCl (rDNA) injection 1 mg 1 2024 barium sulfate (READI-CAT 2) 2.1 % (w/v), 2.0 % (w/w) suspension 450 mL 2 09/20/2024 HYDROmorphone (PF) injection 0.5 mg 1 09/20 ondansetron (PF) (ZOFRAN) injection 4 mg 1 09/20/2024 prochlorperazine (COMPAZINE) tablet 10 mg 2 09/20/2024 Nursing Count Last Ordered Date First Orde red Date BLADDER SCAN 1 09/21/2024 Consult Count Last Ordered Date First Orde red Date IP CONSULT TO CARDIOLOGY 1 09/21/2024 IP CONSULT TO RADIATION ONCOLOGY 1 09/22/19 25 Admission Count Last Ordered Date First Orde red Date ADMIT TO INPATIENT 1 09/20/2024 Transfer Count Last Ordered Date First Orde red Date TRANSFER PATIENT TO NEW UNIT 1 09/21/2024 Discharge Count Last Ordered Date First Orde red Date DISCHARGE PATIENT 1 09/22/2024 documented in this encounter Care Teams Safety Officer Relationship Specialty Start Date End Date Júnior Crawley MD [address] [place] [address] PCP - General Internal Medicine 05/02/24 documented as of this encounter
--- OUTSIDE RECORDS SUMMARY | 2024-09-26 09:59 | XMS_ITS | Encounter Summary ---
Author Organization [facility] [place] [address] Care Team Providers Care Lawn Care Worker Name Role Phone Unavailable Primary Care Provider [...] your loved ones. For example, child care assistant or elderly care for an older adult? [...] Description 09/27/2024 9:00 AM EDT Office Visit [facility] Hematology Oncology [address] [place] [phone] Jeffrey Conte MD [address] [place] [phone] 09/29/2024 8:00 AM EDT Appointment [facility] [address] [place] [phone] 10/19/2024 9:00 AM EDT Appointment [facility] [address] [place] [phone] 02/20/2025 8:00 AM EDT Ancillary Procedure [facility] Cardiology [facility] - [address] [place] [address] 03/01/2025 8:40 AM EDT Office Visit [facility] Cardiology [facility] - [address] [place] [address] Marcela Chris NP [address] [place] [address] Dr White [address] [place] [address] documented as of this encounter Visit Diagnoses Diagnosis Iron deficiency anemia secondary to blood loss (chronic) documented in this encounter Additional Health Concerns Infection Onset Date Last Indicated Resolved Time Respiratory Rule-Out 09/01/2024 09/01/2024 025 8:03 PM EDT COVID-19 Rule-Out 09/01/2024 09/01/2024 09/01/2024 8:03 PM EDT documented as of this encounter
--- OUTSIDE RECORDS SUMMARY | 2024-09-26 09:59 | XMS_ITS | Encounter Summary ---
Author Organization [facility] Address [address] [place] [address] Care Team Providers Care Shell Freezing Machine Operator Name Role Phone Unavailable Primary Care Provider Unavailabl e Encounter Details Date Type Department Care Team (Late st Contact Info) Description 04/12/2024 8:44 AM EDT Hospital Encounter TH HISTORIC ENCOUNTERS EASTERN CONVERSION ONLY Jeffrey Conte MD [address] [place] [address] Social History Tobacco Use Types [...] loved ones. For example, child and adolescent psychologist or elderly care for an older adult? [...] had??no constitutional difficulties he had??recently returned from [place]. ??His laboratory data shows hemoglobin of 8.1 [...] his primary care physician as well as patient services representative in chart traveling for vacation. Following [...] Description 09/27/2024 9:00 AM EDT Office Visit Hematology Oncology [address] [place] [phone] Jeffrey Conte MD [address] [place] [phone] 09/29/2024 8:00 AM EDT Appointment [address] [phone] 10/19/2024 9:00 AM EDT Appointment [address] [phone] 02/20/2025 8:00 AM EDT Ancillary Procedure [facility] Cardiology [facility] [address] [place] [phone] 03/01/2025 8:40 AM EDT Office Visit [facility] Cardiology [facility] Center [address] [place] [address] Marcela Chris NP [address] [place] [address] [address] [place] [address] documented as of this encounter Procedures Procedure [...]
--- OUTSIDE RECORDS SUMMARY | 2024-09-26 09:59 | XMS_ITS | Encounter Summary ---
Author Organization [facility] Address [address] [place] [address] Care Team Providers Care Outsole Tacker Name Role Phone Júnior Crawley MD Primary Care Provider Encounter Details Date Type Department Care Team (Late Contact Info) Description 07/01/2024 Treatment [facility] Hematology Oncology [address] [place] [phone] Jeffrey Conte MD [address] [place] [address] Social History Tobacco Use Types [...] Description 09/27/2024 9:00 AM EDT Office Visit [facility] Hematology Oncology [address] [place] [phone] Jeffrey Conte MD [address] [place] [phone] 09/29/2024 8:00 AM EDT Appointment [facility] Center [address] [phone] 10/19/2024 9:00 AM EDT Appointment [facility] Infusion Center [address] [phone] 02/20/2025 8:00 AM EDT Ancillary Procedure [facility] Cardiology [facility] - [address] [place] [address] 03/01/2025 8:40 AM EDT Office Visit [facility] Cardiology [facility] - [address] [place] [address] Marcela Chris NP [address] [place] [address] Dr Christopher [address] [place] [address] documented as of this encounter Visit Diagnoses Not on filedocumented in this encounter Additional Health Concerns Infection Onset Date Last Indicated Resolved Time Respiratory Rule-Out 09/01/2024 09/01/2024 025 8:03 PM EDT COVID-19 Rule-Out 09/01/2024 09/01/2024 09/01/2024 8:03 PM EDT documented as of this encounter Care Teams Outsole Tacker Relationship Specialty Start Date End Date Júnior Crawley MD [address] [place] [address] PCP - General Internal Medicine 05/02/24 documented as of this encounter
--- OUTSIDE RECORDS SUMMARY | 2024-09-26 09:59 | XMS_ITS | Encounter Summary ---
Author Organization [facility] Address [address] [place] [address] Care Team Providers Care Information Technology Program Manager Name Role Phone Unavailable Primary Care Provider Unavailabl e Encounter Details Date Type Department Care Team (Late st Contact Info) Description 03/22/2024 9:06 AM EDT Hospital Encounter TH HISTORIC ENCOUNTERS EASTERN CONVERSION ONLY Jeffrey Conte MD [address] [place] [address] Social History Tobacco Use Types [...] your loved ones. For example, child care aide or elderly care for an older [...] CHIEF COMPLAINT: No chief complaint on file. IDENTIFIER:uLke Turpin is a 78 y.o. male. HPI:Metastatic carcinoma the prostate??previously??on Eligard enzalutamide..??Colonic AVM GI bleed Metastatic carcinoma the prostate currently on Eligard??abiraterone prednisone..??Colonic AVM GI bleed ?? 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 [...] 09/27/2024 9:00 AM EDT Office Visit [facility] Hematology Oncology [address] [place] [phone] Jeffrey Conte MD [address] [place] [address] 09/29/2024 8:00 AM EDT Appointment [address] [phone] 10/19/2024 9:00 AM EDT Appointment [facility] Infusion Center [address] [place] [phone] 02/20/2025 8:00 AM EDT Ancillary Procedure [facility] Cardiology [facility] [address] [facility] [address] [place] [address] 03/01/2025 8:40 AM EDT Office Visit [facility] [address] [place] [address] Dr Arevalo [address] [place] [phone] Marcela Chris NP [address] [place] [address] Dr White [address] [place] [phone] documented as of this encounter Procedures Procedure [...]
--- OUTSIDE RECORDS SUMMARY | 2024-09-26 09:59 | XMS_ITS | Encounter Summary ---
Author Organization [facility] [place] [address] Care Team Providers Care Cover Stitch Machine Operator Name Role Phone Unavailable Primary [...] for your loved ones. For example, children's nursery assistant or elderly care for an older [...] Description 09/27/2024 9:00 AM EDT Office Visit [facility] Hematology Oncology [address] [place] [phone] Jeffrey Conte MD [address] [place] [phone] 09/29/2024 8:00 AM EDT Appointment [facility] Infusion Center [address] [place] [phone] 10/19/2024 9:00 AM EDT Appointment [facility] Infusion Center [address] 2[address] [place] [address] 02/20/2025 8:00 AM EDT Ancillary Procedure [facility] Cardiology [facility] - [address] [place] [address] 03/01/2025 8:40 AM EDT Office Visit [facility] [address] [place] [address] Marcela Chris NP [address] [place] [address] Dr Christopher [address] [place] [address] documented as of this encounter Procedures Procedure [...]
--- OUTSIDE RECORDS SUMMARY | 2024-09-26 09:59 | XMS_ITS | Encounter Summary ---
Author Organization [facility] Address [address] [place] [address] Care Team Providers Care Resident Care Coordinator Name Role Phone Unavailable Primary Care Provider Unavailabl e Encounter Details Date Type Department Care Team (Late st Contact Info) Description 04/12/2024 9:00 AM EDT Hospital Encounter TH HISTORIC ENCOUNTERS EASTERN CONVERSION ONLY Jeffrey Conte MD [address] [place] [address] Social History Tobacco Use Types [...] Visit [facility] Hematology Oncology [address] [place] [address] Jeffrey Conte MD [address] [place] [address] 09/29/2024 8:00 AM EDT Appointment [facility] [address] [facility] [address] [place] [address] 10/19/2024 9:00 AM EDT Appointment [facility] [address] [facility] [address] [place] [address] 02/20/2025 8:00 AM EDT Ancillary Procedure [facility] Cardiology [facility] - [address] [place] [address] 03/01/2025 8:40 AM EDT Office Visit [facility] [address] [place] [address] Marcela Chris NP [address] [place] [address] Dr [address] [place] [address] documented as of this encounter Visit Diagnoses Not on filedocumented in this encounter Additional Health Concerns Infection Onset Date Last Indicated Resolved Time Respiratory Rule-Out 09/01/2024 09/01/2024 025 8:03 PM EDT COVID-19 Rule-Out 09/01/2024 09/01/2024 09/01/2024 8:03 PM EDT documented as of this encounter
--- OUTSIDE RECORDS SUMMARY | 2024-09-26 09:59 | XMS_ITS | Clinical Summary ---
Author Organization [facility] Address [address] [place] [address] Phone Care Team Providers Care Keno Dealer Name Role Phone Júnior Crawley MD Primary Care Provider [phone] Allergies No known active allergies Medications fenofibrate micronized (LOFIBRA) 134 mg capsule Take 1 Capsule by mouth daily. Active leuprolide acetate (ELIGARD SUBQ) Activ e metFORMIN (GLUCOPHAGE) 500 mg tablet Take 0.5 [...] not crush or chew. 60 each 11 4 025 Active prochlorperazi ne (COMPAZINE) 10 mg tabletIndicati [...] Active Additional Information Patient not taking.Reported on 09/20/2024 iron,carbonyl- vitamin C (Vitron-C) 65 mg iron- 125 mg tablet,delayed release (DR/EC) Take 1 tablet by mouth 1 (one) time each day. Active folic acid (FOLVITE) 400 mcg tablet Take 1 tablet (400 mcg total) by mouth 1 (one) time each day. Active DOCETAXEL IV Infuse into a venous catheter. Every 22 days Active lisinopriL (PRINIVIL,ZEST RIL) 20 mg tablet Take 1 tablet (20 mg total) by mouth 1 (one) time each day. Active dexAMETHasone (DECADRON) 4 mg tablet Take 1 tablet (4 mg total) by mouth 2 (two) times a day. 60 each 5 025 Active acetaminophen (TYLENOL) 500 mg tablet Take 2 tablets (1,000 mg total) by mouth 2 (two) times a day for 10 days. 40 each 5 025 Active furosemide (LASIX) 20 mg tablet Take 1 tablet (20 mg total) by mouth 1 (one) time each day. 30 each 5 025 Active lidocaine 4 % patch Apply 1 patch topically 1 (one) time each day. Apply to low back daily, remove at bedtime 30 each 5 025 Active oxyCODONE (ROXICODONE) 5 mg immediate release tablet Take 1 tablet (5 mg total) by mouth every 6 (six) hours if needed for severe pain. Max Daily Amount: 20 mg 12 tablet 5 Active lisinopriL (PRINIVIL,ZEST RIL) 20 mg tablet Take 1 Tablet by mouth daily. 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 Start the day after IV chemotherapy. Take on days 2-21 of each cycle with food. 60 each 11 5 Discontinu ed(Stop Taking at Discharge) trimethoprim-p olymyxin b (POLYTRIM) ophthalmic solution Administer 1 drop into both eyes 4 (four) times a day for 7 days. 10 mL 5 Discontinu ed(Stop Taking at Discharge) levoFLOXacin (LEVAQUIN) 500 mg tablet Take 1 tablet (500 mg total) by mouth 1 (one) time each day for 5 days. 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) 09/22/2024 10:00 AM EDT - 09/22/2024 11:59 PM EDT Hospital Encounter [facility] Radiation Oncology [address] [place] [phone] Alma Floyd NP Discharge Disposition: Home or Self Care 09/20/2024 4:45 PM EDT - 09/22/2024 6:28 PM EDT Hospital Encounter [facility] B [address] [place] [phone] Donte Wilde MD Nasser, Nada S, MD Acute congestive heart failure, unspecified heart failure type (CMS/HCC) (Primary Dx); Prostate cancer (CMS/HCC) Discharge Disposition: [place] [facility] [place]/20/2024 9:15 AM EDT - 09/20/2024 11:59 PM EDT Hospital Encounter [address] [phone] Jeffrey Conte MD 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) (Primary Dx); Prostate cancer (CMS/HCC) Discharge Disposition: Home or Self Care 09/13/2024 10:00 AM EDT - 09/13/2024 11:59 PM EDT Hospital Encounter [address] [phone] Jeffrey Conte MD 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) (Primary Dx); Prostate cancer (CMS/HCC) Discharge Disposition: Home or Self Care 09/13/2024 9:30 AM EDT Office Visit [facility] Hematology Oncology [address] [place] [phone] Jeffrey Conte MD Prostate cancer (CMS/HCC) (Primary Dx) 09/13/2024 Telephone [facility] Hematology Oncology [address] [place] [phone] [place] 09/11/2024 9:16 AM EDT - 09/11/2024 11:59 PM EDT Hospital Encounter [address] [phone] Jefrfey Conte MD 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) (Primary Dx); Prostate cancer (CMS/HCC) Discharge Disposition: Home or Self Care 09/08/2024 7:53 AM EDT - 09/08/2024 11:59 PM EDT Hospital Encounter [address] [phone] Jeffrey Conte MD 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) (Primary Dx) Discharge Disposition: Home or Self Care 09/07/2024 10:40 AM EDT Lab Draw Station - [address] [phone] 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) (Primary Dx); Malignant neoplasm of prostate (CMS/HCC); Iron deficiency anemia secondary to blood loss (chronic); Iron deficiency anemia due to chronic blood loss; Elevated prostate specific antigen (PSA); Prostate cancer (CMS/HCC) 09/01/2024 3:36 PM EDT - 09/04/2024 12:33 PM EDT Hospital Encounter [facility] Medical Surgical Unit [address] [place] [phone] Bergman, Ting Ho DO Julius Rivera Christopher, MD Rasul, Yar M, MD Alam, Aroosa, MD Neutropenic fever ([facility]/HCC) (Primary Dx); Acute respiratory failure with hypoxia ([facility]/HCC) Discharge Disposition: Home or Self Care 08/30/2024 10:08 AM EDT - 08/30/2024 11:59 PM EDT Hospital Encounter [address] [phone] Jeffrey Conte MD 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) ([facility]/HCC) (Primary Dx); Prostate cancer (CMS/HCC) Discharge Disposition: Home or Self Care 08/30/2024 9:45 AM EDT Office Visit [facility] Hematology Oncology [address] [place] [phone] Jeffrey Conte MD Prostate cancer ([facility]/HCC) (Primary Dx) 08/29/2024 11:10 AM EDT Lab Draw Station - [address] [phone] Malignant neoplasm of prostate ([facility]/HCC); Iron deficiency anemia secondary to blood loss (chronic); Iron deficiency anemia due to chronic blood loss; Elevated prostate specific antigen (PSA) 08/29/[address] [phone] Layne Stauffer RN 08/25/2024 9:50 AM EST Office Visit [facility] - [facility] [address] [place] [phone] Jatinder Elizabeth MD Severe aortic stenosis (Primary Dx) 08/22/2024 12:48 PM EST - 08/22/2024 11:59 PM EST Hospital Encounter [address] [phone] Jeffrey Conte MD 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) ([facility]/HCC) (Primary Dx); Prostate cancer ([facility]/HCC) Discharge Disposition: Home or Self Care 08/21/2024 11:05 AM EST Lab Draw Station - [address] [phone] Malignant neoplasm of prostate (CMS/HCC); Iron deficiency anemia secondary to blood loss (chronic) 08/18/2024 1:00 PM EST Office Visit [facility] Hematology Oncology [address] [place] [phone] Hannah Mathew PA Bacterial conjunctivitis (Primary Dx); Prostate cancer (CMS/HCC); Anemia due to GI blood loss 08/18/2024 8:43 AM EST - 08/18/2024 11:59 PM EST Hospital Encounter [facility] Infusion [facility] [address] [place] [phone] Jeffrey Conte MD 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) (Primary Dx); Prostate cancer (CMS/HCC) Discharge Disposition: Home or Self Care 08/15/2024 11:09 AM EST - 08/15/2024 11:59 PM EST Hospital Encounter [facility] [address] [place] [phone] Jeffrey Conte MD 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) (Primary Dx); Prostate cancer (CMS/HCC) Discharge Disposition: Home or Self Care 08/14/2024 Telephone [facility] Hematology Oncology [address] [place] [phone] Jeffrey Conte MD 08/09/2024 9:15 AM EST Office Visit [facility] Hematology Oncology [address] [place] [phone] Jeffrey Conte MD Iron deficiency anemia due to chronic blood loss (Primary Dx); Elevated prostate specific antigen (PSA) 08/08/2024 7:39 AM EST - 08/08/2024 11:59 PM EST Hospital Encounter [facility] Ultrasound [address] [place] [phone] Pain of upper abdomen Discharge Disposition: Home or Self Care 08/08/2024 Telephone [facility] [address] [place] [phone] Mary Urias RN neutrapenic precautions 08/08/2024 Telephone [facility] [address] [place] [phone] Jatinder Elizabeth MD 08/08/2024 Telephone [facility] Hematology Oncology [address] [place] [phone] Jeffrey Conte MD 08/05/2024 7:22 AM EST - 08/06/2024 2:37 PM EST Hospital Encounter [facility] B [address] [place] [phone] Jeffery Ramos MD Flores, Carlos M, MD Zipagan, James T, MD Iron deficiency anemia due to chronic blood loss (Primary Dx); Stable angina pectoris (CMS/HCC); Chest pain due to myocardial ischemia, unspecified ischemic chest pain type Discharge Disposition: Home or Self Care 08/03/2024 7:31 AM EST Anesthesia Event [facility] Endoscopy [address] [place] [phone] Dm Rodas MD 08/03/2024 6:41 AM EST - 08/03/2024 11:59 PM EST Hospital Encounter [facility] Endoscopy [address] [place] [phone] Héctor Zelaya MD Dusza, Sara, CRNA Korobkov, Vitaliy, DO Gastrointestinal bleeding; Melena; Proctitis Discharge Disposition: Home or Self Care 08/01/2024 8:00 AM EST - 08/01/2024 11:59 PM EST Hospital Encounter [facility] [address] [place] [phone] Jeffrey Conte MD Prostate cancer (CMS/HCC) (Primary Dx); 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) Discharge Disposition: Home or Self Care 07/31/2024 Telephone [facility] [address] [place] [phone] Josefa Kam RN 07/28/2024 9:50 AM EST - 07/28/2024 11:59 PM EST Hospital Encounter [facility] Xray [address] [place] [phone] Discharge Disposition: Home or Self Care 07/28/2024 9:48 AM EST - 07/28/2024 11:59 PM EST Hospital Encounter [facility] Xray [address] [place] [phone] Discharge Disposition: Home or Self Care 07/28/2024 8:26 AM EST - 07/28/2024 11:59 PM EST Hospital Encounter [address] [phone] Jeffrey Conte MD 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) (Primary Dx); Prostate cancer (CMS/HCC) Discharge Disposition: Home or Self Care 07/27/2024 8:33 AM EST - 07/27/2024 11:59 PM EST Hospital Encounter [facility] [address] [place] [phone] Jeffrey Conte MD 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) (Primary Dx); Prostate cancer (CMS/HCC) Discharge Disposition: Home or Self Care 07/20/2024 8:20 AM EST Office Visit Gastroenterology - [address] [phone] Roseanna Bray PA Iron deficiency anemia due to chronic blood loss (Primary Dx) 07/20/2024 Telephone Gastroenterology - [address] [phone] Héctor Zelaya MD 07/19/2024 8:00 AM EST - 07/19/2024 11:59 PM EST Hospital Encounter [facility] [address] [place] [phone] Jeffrey Conte MD 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) (Primary Dx); Prostate cancer (CMS/HCC) Discharge Disposition: Home or Self Care 07/18/2024 Telephone [facility] [address] [place] [phone] Mary Urias RN 07/12/2024 11:00 AM EST Office Visit [facility] Hematology Oncology [address] [place] [phone] Jeffrey Conte MD Prostate cancer (CMS/HCC) (Primary Dx) 07/12/2024 10:48 AM EST - 07/12/2024 11:59 PM EST Hospital Encounter [facility] [address] [place] [phone] Jeffrey Conte MD 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) (Primary Dx); Prostate cancer (CMS/HCC) Discharge Disposition: Home or Self Care 07/11/2024 12:05 PM EST Lab Draw Station - [address] [phone] Malignant neoplasm of prostate ([facility]/HCC); Iron deficiency anemia secondary to blood loss (chronic) 07/11/2024 Telephone [facility] Hematology Oncology [address] [place] [phone] Jeffrey Conte MD 07/06/2024 10:08 AM EST - 07/06/2024 11:59 PM EST Hospital Encounter [facility] [address] [place] [phone] Jeffrey Conte MD Prostate cancer (CMS/HCC) (Primary Dx); 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) ([facility]/HCC) Discharge Disposition: Home or Self Care 07/04/2024 7:32 AM EST - 07/04/2024 11:59 PM EST Hospital Encounter [facility] Interventional Radiology [address] [place] [phone] Prostate cancer ([facility]/HCC) Discharge Disposition: Home or Self Care 07/01/2024 Treatment [facility] Hematology Oncology [address] [place] [phone] Jeffrey Conte MD 06/28/2024 8:48 AM EST - 06/28/2024 11:59 PM EST Hospital Encounter [facility] [address] [facility] [address] [place] [phone] Jeffrey Conte MD Distant metastasis to bone [...] your loved ones. For example, early childhood or elderly care for an [...] Mass Index 31.32 09/21/2024 9:54 AM EDT Plan of Treatment Upcoming Encounters Date Type Department Care Team (Late st Contact Info) Description 09/27/2024 9:00 AM EDT Office Visit [facility] Hematology Oncology [address] [place] [phone] Jeffrey Conte MD [address] [place] [phone] 09/29/2024 8:00 AM EDT Appointment [facility] [address] [place] [phone] 10/19/2024 9:00 AM EDT Appointment [facility] [address] [place] [phone] 02/20/2025 8:00 AM EDT Ancillary Procedure [facility] [address] [facility] [address] [place] [phone] 03/01/2025 8:40 AM EDT Office Visit [facility] [address] [place] [phone] Marcela Chris NP [address] [place] [address] [address] [place] [address] Health Maintenance Due Date Last Done Comments Diabetes: Annual Foot Exam 1956 Diabetes: Annual Retina Eye Exam 1955 DTaP,Tdap,and Td Vaccines (1 - Tdap) 1965 RSV Immunization Adult Patients (1 - 1-dose 75+ series) 2021 Depression Screening 05/28/2022 Hepatitis C Screening 05/28/2022 Medicare Annual Wellness Visit 12/25/2023 12/24/2022 Diabetes: Annual Urine Albumin-Creatinine Ratio (uACR) 05/04/2024 Diabetes: Blood Sugar Control Test (HGBA1C) 05/04/2024 Social Influencers of Health Screening 09/02/2025 09/02/2024 Diabetes: Annual GFR (Glomerular Filtration Rate) 09/25/2025 09/25/2024, 09/22/2024, 09/21/2024, Additional history exists Falls Risk Assessment 09/25/2025 09/25/2024 Hypertension/CHF/CAD Annual BMP Blood Test 09/25/2025 09/25/2024, 09/22/2024, 09/21/2024, Additional history exists Cholesterol Screening (Lipid Panel) 09/21/2029 09/21/2024 Pneumococcal Vaccine: 50+ Years Completed 04/12/2020, 03/31/2019, [...] age to complete this topic Meningococcal B Vaccine Aged Out No l onger eligible based on patient's age to complete this topic RSV Immunization Patients Under 20 months Aged Out No longer eligible based on patient's age to complete this topic Varicella Vaccines Aged Out No longer eligible based on patient's age to complete this topic Medical Devices Implanted Type Area [employer] Bi [employer] Device Identifier Shelf Expiration Date Model / Serial / Lot Port Pwr Isp Attach 6f Interm Purnima - [id number] - [id number] Implanted:Qty: 1 on 07/04/2024 at [facility]/Precious pheral Catheters and Ports Right: Chest Wall CR BARD PERIPHERAL VASCULAR [id number] 04/20/2025 [id number] / [id number] / [id number] Procedures Procedure Name Priority Date/Time Associated Diagnosis [...] 09/25/2024 9:59 AM EDT Prostate cancer (CMS/HCC) ECG ANNOTATED 09/23/2024 POCT GLUCOSE BLOOD Routine 09/22/2024 11 :02 AM EDT POCT GLUCOSE BLOOD Routine 09/22/2024 7: 43 AM EDT MANUAL DIFFERENTIAL - SYSMEX WAM Routine 09/22/2024 6:14 AM EDT CBC WITH AUTO DIFFERENTIAL Routine 09/22/2024 6:14 AM EDT BASIC METABOLIC PANEL Routine 09/22/2024 6:14 AM EDT CBC AND DIFFERENTIAL Routine 09/22/2024 6:14 AM EDT TROPONIN I HIGH SENSITIVITY Routine 09/22/2024 6:14 AM EDT POCT GLUCOSE BLOOD Routine 09/21/2024 8: 36 PM EDT CARPENTER URINE CULTURE TUBE Routine 09/21/2024 6:30 PM EDT URINALYSIS WITH REFLEX MICROSCOPIC AND CULTURE Routine 09/21/2024 6:30 PM EDT URINALYSIS WITH [...] BLOOD COUNT STAT 09/20/2024 6:11 PM EDT TRANSFUSE RED BLOOD CELLS Routine 09/20/2024 1:00 [...] (CMS/HCC) MANUAL DIFFERENTIAL - [employer] WAM Routine 09/18/2024 1:23 PM EDT Malignant neoplasm of prostate (CMS/HCC) Iron deficiency anemia secondary to blood loss (chronic) CBC WITH AUTO DIFFERENTIAL Routine 09/18/2024 1:23 PM EDT Malignant neoplasm of prostate (CMS/HCC) Iron deficiency anemia secondary to blood loss (chronic) TYPE AND SCREEN Routine 09/18/2024 1:23 PM EDT Malignant neoplasm of prostate (CMS/HCC) Iron deficiency anemia secondary to blood loss (chronic) IRON AND TIBC Routine 09/18/2024 1:23 PM EDT Malignant neoplasm of prostate (CMS/HCC) Iron deficiency anemia secondary to blood loss (chronic) PROSTATE SPECIFIC ANTIGEN DIAGNOSTIC Routine 09/18/2024 1:23 PM EDT Malignant neoplasm of prostate (CMS/HCC) Iron deficiency anemia secondary to blood loss (chronic) FERRITIN Routine 09/18/2024 1:23 PM EDT Malignant neoplasm of prostate (CMS/HCC) Iron deficiency anemia secondary to blood loss (chronic) CBC AND DIFFERENTIAL Routine 09/18/2024 1:23 PM EDT Malignant neoplasm of prostate (CMS/HCC) Iron deficiency anemia secondary to blood loss (chronic) COMPREHENSIVE METABOLIC PANEL Routine 09/18/2024 1:23 PM EDT Malignant neoplasm of prostate (CMS/HCC) Iron deficiency anemia secondary to blood loss (chronic) TRANSFUSE RED BLOOD CELLS Routine 09/13/2024 11:45 AM EDT 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) Prostate cancer (CMS/HCC) PREPARE RBC Routine 09/13/2024 10:56 AM EDT 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) Prostate cancer (CMS/HCC) MANUAL DIFFERENTIAL - [facility] WAM Routine 09/13/2024 8:41 AM EDT Iron deficiency anemia due to chronic blood loss URIC ACID STAT 09/13/2024 8:41 AM EDT Prostate cancer (CMS/HCC) CBC WITH AUTO DIFFERENTIAL Routine 09/13/2024 8:41 AM EDT Iron deficiency anemia due to chronic blood loss CBC AND DIFFERENTIAL Routine 09/13/2024 8:41 AM EDT Iron deficiency anemia due to chronic blood loss COMPREHENSIVE METABOLIC PANEL Routine 09/13/2024 8:41 AM EDT Iron deficiency anemia due to chronic blood loss PROSTATE SPECIFIC ANTIGEN DIAGNOSTIC Routine 09/13/2024 8:41 AM EDT Iron deficiency anemia due to chronic blood loss Elevated prostate specific antigen (PSA) IRON AND TIBC Routine 09/13/2024 8:41 AM EDT Malignant neoplasm of prostate (CMS/HCC) Iron deficiency anemia secondary to blood loss (chronic) FERRITIN Routine 09/13/2024 8:41 AM EDT Malignant neoplasm of prostate (CMS/HCC) Iron deficiency anemia secondary to blood loss (chronic) CBC WITH AUTO DIFFERENTIAL STAT 09/11/2024 9:42 AM EDT Prostate cancer (CMS/HCC) TYPE AND SCREEN STAT 09/11/2024 9:42 AM EDT Prostate cancer (CMS/HCC) COMPREHENSIVE METABOLIC PANEL STAT 09/11/2024 9:42 AM EDT Prostate cancer (CMS/HCC) CBC AND DIFFERENTIAL STAT 09/11/2024 9:42 AM EDT Prostate cancer (CMS/HCC) CBC WITH AUTO DIFFERENTIAL Routine 09/07/2024 10:37 [...] PM EDT CARPENTER URINE CULTURE TUBE STAT 09/01/2024 9:49 PM EDT URINALYSIS WITH [...] of prostate (pM1b) (CMS/HCC) Prostate cancer (CMS/HCC) from Last 3 Months Results * Transfuse RBC (09/25/2024 2:00 PM EDT) Only the most recent of20 resultswithin the time period is included. Jeffrey Conte MD BLOOD TRANSFUSION ORDERABLES F inal Result * Prepare RBC: 1 Units (09/25/2024 10:44 AM EDT) Only the most recent of18 resultswithin the time period is included. Product Code [id number] 09/25/2024 11:45 AM EDT [facility] Unit Number [id number] 09/26/19 11:45 AM EDT [facility] Crossmatch Compatible 09/25/2024 11:21 AM EDT [facility] Dispense Status Transfused 09/25/2024 11:45 AM EDT [facility] Unit ABO Rh OPOS 09/25/2024 11:45 AM EDT [facility] Unit Expiration Date Time [id number] 09/25/2024 11:45 AM EDT [facility] Unit Blood Type 5100 09/25/2024 11:45 AM EDT [facility] Blood Venous blood specimen / Unknown 09/25/2024 10:44 AM EDT 09/25/2024 10:05 AM EDT Jeffrey Conte MD BLOOD BANK PRODUCT ORDERABLES Final Result [facility] [address] [place] [address], * (ABNORMAL) CBC auto differential (09/25/2024 9:59 AM EDT) Only the most recent of24 resultswithin the time period is included. WBC 10.8 4.8 - 10.8 K/[facility] HEMETOLOGY METHOD 09/25/2024 10:12 AM EDT [facility] RBC 2.50(L) 4.50 - 5.50 M/[facility] HEMETOLOGY METHOD 09/25/2024 10:12 AM EDT [facility] Hemoglobin 7.9(L) 13.5 - 17.5 g/dL LAB HEMETOLOGY METHOD 09/25/2024 10:12 AM EDT [facility] Hematocrit 25.4(L) 42.0 - 54.0 % LAB HEMETOLOGY METHOD 09/25/2024 10:12 AM [facility] MCV 101.2(H) 79.0 - 98.0 FL LAB HEMETOLOGY METHOD 09/25/2024 10:12 AM [facility] MCH 31.5 27.0 - 32.0 pcg LAB HEMETOLOGY METHOD 09/25/2024 10:12 AM [facility] MCHC 31.1(L) 32.0 - 37.0 g/dL LAB HEMETOLOGY METHOD 09/25/2024 10:12 AM [facility] RDW 19.7(H) 11.0 - 15.0 % LAB HEMETOLOGY METHOD 09/25/2024 10:12 AM [facility] Platelets 171 130 - 400 K/mcL LAB HEMETOLOGY METHOD 09/25/2024 10:12 AM [facility] MPV 12.0(H) 7.0 - 11.0 FL LAB HEMETOLOGY METHOD 09/25/2024 10:12 AM [facility] NRBC 0.5 <1.0 % LAB HEMETOLOGY METHOD 09/25/2024 10:12 AM [facility] NRBC Absolute 0.05 <0.10 K/mcL LAB HEMETOLOGY METHOD 09/25/2024 10:12 AM [facility] Neutrophils Relative 82.6 % LAB HEMETOLOGY METHOD 09/25/2024 10:12 AM [facility] Lymphocytes Relative 8.5 % LAB HEMETOLOGY METHOD 09/25/2024 10:12 AM [facility] Monocytes Relative 5.8 % LAB HEMETOLOGY METHOD 09/25/2024 10:12 AM [facility] Eosinophils Relative 0.0 % LAB HEMETOLOGY METHOD 09/25/2024 10:12 AM EDT [facility] Basophils Relative 0.8 % LAB HEMETOLOGY METHOD 09/25/2024 10:12 AM EDT [facility] Immature Granulocytes Relative 2.3 % LAB HEMETOLOGY METHOD 09/25/2024 10:12 AM EDT [facility] Neutrophils Absolute 8.89(H) 1.50 - 7.00 K/mcL LAB HEMETOLOGY METHOD 09/25/2024 10:12 AM EDT [facility] Lymphocytes Absolute 0.91(L) 1.00 - 5.00 K/mcL LAB HEMETOLOGY METHOD 09/25/2024 10:12 AM EDT [facility] Monocytes Absolute 0.62 0.20 - 1.00 K/mcL LAB HEMETOLOGY METHOD 09/25/2024 10:12 AM EDT [facility] Eosinophils Absolute 0.00 0.00 - 0.50 K/mcL LAB HEMETOLOGY METHOD 09/25/2024 10:12 AM EDT [facility] Basophils Absolute 0.09 0.00 - 0.20 K/mcL LAB HEMETOLOGY METHOD 09/25/2024 10:12 AM EDT [facility] Immature Granulocytes Absolute 0.25(H) 0.00 - 0.03 K/mcL LAB HEMETOLOGY METHOD 09/25/2024 10:12 AM T [facility] LAB Blood Blood sample taken from central line / Unknown Existing Catheter / Unknown 09/25/2024 9:59 AM EDT 09/25/2024 10:05 AM EDT us Jeffrey Conte MD LAB BLOOD ORDERABLES Final Res ult [facility] [address] [place] [address], * Type and screen (09/25/2024 9:59 AM EDT) Only the most recent of16 resultswithin the time period is included. ABO Group O 09/25/2024 11:18 AM EDT [facility] Rh Type Positive 09/25/2024 11:18 AM EDT [facility] Antibody Screen Negative 09/25/2024 11:18 AM T [facility] Blood Blood sample taken from central line / Unknown Existing Catheter / Unknown 09/25/2024 9:59 AM EDT 09/25/2024 10:05 AM EDT Jeffrey Conte MD LAB BLOOD BANK TEST ORDERABLES Final Result [facility] [address] [place] [address], * (ABNORMAL) Comprehensive metabolic panel (09/25/2024 9:59 AM EDT) Only the most recent of16 resultswithin the time period is included. Pathologist [facility] [place] Sodium 142 133 - 145 mmol/L LAB CHEMISTRY METHOD 09/25/2024 10:40 AM [facility] Potassium 3.7 3.5 - 5.5 mmol/L LAB CHEMISTRY METHOD 09/25/2024 10:40 AM [facility] Chloride 106 96 - 110 mmol/L LAB CHEMISTRY METHOD 09/25/2024 10:40 AM [facility] CO2 31 21 - 32 mmol/L LAB CHEMISTRY METHOD 09/25/2024 10:40 AM [facility] Anion Gap 5 3 - 11 LAB CHEMISTRY METHOD 09/25/2024 10:40 AM [facility] Glucose 100 70 - 100 mg/dL LAB CHEMISTRY METHOD 09/25/2024 10:40 AM [facility] BUN 34(H) 5 - 25 mg/dL LAB CHEMISTRY METHOD 09/25/2024 10:40 AM [facility] Creatinine 1.17 0.70 - 1.30 mg/dL LAB CHEMISTRY METHOD 09/25/2024 10:40 AM [facility] eGFR 64 >=60 mL/min/1. 73m2 LAB CHEMISTRY METHOD 09/25/2024 10:40 AM [facility] Comment:Calculation based on the??Chronic Kidney Disease Epidemiology Collaboration (CKD-EPI) equation refit??without adjustment for race. BUN/Creatinine Ratio 29.1 LAB CHEMISTRY METHOD 09/25/2024 10:40 AM [facility] Calcium 8.6 8.5 - 10.5 mg/dL LAB CHEMISTRY METHOD 09/25/2024 10:40 AM [facility] AST (SGOT) 26 10 - 42 unit/L LAB CHEMISTRY METHOD 09/25/2024 10:40 AM [facility] ALT (SGPT) 12 10 - 60 unit/L LAB CHEMISTRY METHOD 09/25/2024 10:40 AM [facility] Alkaline Phosphatase 53 42 - 121 unit/L LAB CHEMISTRY METHOD 09/25/2024 10:40 AM [facility] Total Protein 6.1 6.0 - 8.0 g/dL LAB CHEMISTRY METHOD 09/25/2024 10:40 AM [facility] Albumin 2.7(L) 3.2 - 5.0 g/dL LAB CHEMISTRY METHOD 09/25/2024 10:40 AM [facility] Total Bilirubin 0.5 0.0 - 1.4 mg/dL LAB CHEMISTRY METHOD 09/25/2024 10:40 AM [facility] Blood Blood sample taken from central line / Unknown Existing Catheter / Unknown 09/25/2024 9:59 AM EDT 09/25/2024 10:06 AM EDT us Jeffrey Conte MD LAB BLOOD ORDERABLES Final Res ult [facility] [address] [place] [address], * ECG-Annotated (09/23/2024) Only the most recent of3 resultswithin the time period is included. us Provider Onbase ECG ORDERABLES Final Result * (ABNORMAL) POCT Glucose, blood (09/22/2024 11:02 AM EDT) Only the most recent of16 resultswithin the time period is included. Glucose POCT 191(H) 70 - 100 mg/dL 09/22/2024 11:03 AM EDT [facility] Blood Capillary blood specimen / Unknown 09/22/2024 11:02 AM EDT 09/22/2024 11:04 AM EDT Crystal Milligan MD LAB POINT OF CARE TE ST DOCKED DEVICE UNSOLICITED RESULTS Final Result Performing Organization Address [facility]/ZIP Co de Phone Number [facility] [address] [place] [address], * (ABNORMAL) Troponin I high sensitivity (09/22/2024 6:14 AM EDT) Only the most recent of6 resultswithin the time period is included. [facility] High Sensitivity Troponin I 428(HH) <=79 ng/L LAB CHEMISTRY METHOD 09/22/2024 7:19 AM EDT [facility] Blood Venous blood specimen / Unknown Venipuncture / Unknown 09/22/2024 6:14 AM EDT 09/22/2024 6:25 AM EDT Narrative [facility] - 09/22/2024 7:19 AM EDT High levels of biotin in samples may falsely decrease hsTroponin values. ??Use caution when interpreting hsTroponin results in patients taking biotin who exhibit renal impairment (eGFR <60) or in patients taking more than 20 mg/day of biotin. Vincenzo VACA LAB BLOOD ORDERABLES Final Res ult [facility] [address] [place] [address], [place] [phone] * (ABNORMAL) Manual differential (09/22/2024 6:14 AM EDT) Only the most recent of12 resultswithin the time period is included. Neutrophils % 89.0 % LAB HEMETOLOGY METHOD 09/22/2024 7:41 AM EDT [facility] Bands % 2.0 % LAB HEMETOLOGY METHOD 09/22/2024 7:41 AM [facility] Lymphocytes % 6.0 % LAB HEMETOLOGY METHOD 09/22/2024 7:41 AM [facility] Monocytes % 2.0 % LAB HEMETOLOGY METHOD 09/22/2024 7:41 AM [facility] Eosinophils % 0.0 % LAB HEMETOLOGY METHOD 09/22/2024 7:41 AM [facility] Basophils % 0.0 % LAB HEMETOLOGY METHOD 09/22/2024 7:41 AM [facility] Myelocytes % 1.0(H) % LAB HEMETOLOGY METHOD 09/22[facility]24 [facility] Neutrophils Absolute Manual 8.37(H) 1.50 - 7.00 K/mcL LAB HEMETOLOGY METHOD 09/22/2024 7:41 AM [facility] Bands Absolute Manual 0.19(H) 0.00 - 0.00 K/mcL LAB HEMETOLOGY METHOD 09/22/2024 7:41 AM [facility] Lymphocytes Absolute 0.56(L) 1.00 - 5.00 K/mcL LAB HEMETOLOGY METHOD 09/22/2024 7:41 AM EDT [facility] Monocytes Absolute Manual 0.19(L) 0.20 - 1.00 K/[facility] LAB HEMETOLOGY METHOD 09/22/2024 7:41 AM EDT [facility] Eosinophils Absolute Manual 0.00 0.00 - 0.50 K/[facility] LAB HEMETOLOGY METHOD 09/22/2024 7:41 AM EDT [facility] Basophils Absolute Manual 0.00 0.00 - 0.20 K/[facility] LAB HEMETOLOGY METHOD 09/22/2024 7:41 AM EDT [facility] Myelocytes Absolute Manual 0.09(H) 0.00 - 0.00 K/[facility] LAB HEMETOLOGY METHOD 09/22/2024 7:41 AM EDT [facility] Rbc Morphology Consistent with indices Consistent with indices, Normal for LAB HEMETOLOGY METHOD 09/22/2024 7:41 AM EDT [facility] Platelet Morphology - WAM Normal Normal [facility] 09/22/2024 7:41 AM [facility] Blood Venous blood specimen / Unknown Venipuncture / Unknown 09/22/2024 6:14 AM EDT 09/22/2024 6:25 AM EDT us Anahi VACA LAB BLOOD ORDERABLES Final Result [facility] [address] [place] [address], * (ABNORMAL) Basic metabolic panel (09/22/2024 6:14 AM EDT) Only the most recent of6 resultswithin the time period is included. Sodium 142 133 - 145 mmol/L LAB CHEMISTRY METHOD 09/22/2024 6:57 AM EDT [facility] Potassium 3.8 3.5 - 5.5 mmol/L LAB CHEMISTRY METHOD 09/22/2024 6:57 AM [facility] Chloride 104 96 - 110 mmol/L LAB CHEMISTRY METHOD 09/22/2024 6:57 AM [facility] CO2 32 21 - 32 mmol/L LAB CHEMISTRY METHOD 09/22/2024 6:57 AM [facility] Anion Gap 6 3 - 11 LAB CHEMISTRY METHOD 09/22/2024 6:57 AM [facility] Glucose 164(H) 70 - 100 mg/dL LAB CHEMISTRY METHOD 09/22/2024 6:57 AM [facility] BUN 24 5 - 25 mg/dL LAB CHEMISTRY METHOD 09/22/2024 6:57 AM [facility] Creatinine 1.28 0.70 - 1.30 mg/dL LAB CHEMISTRY METHOD 09/22/2024 6:57 AM [facility] eGFR 57(L) >=60 mL/min/1. 73m2 LAB CHEMISTRY METHOD 09/22/2024 6:57 AM [facility] Comment:Calculation based on the??Chronic Kidney Disease Epidemiology Collaboration (CKD-EPI) equation refit??without adjustment for race. BUN/Creatinine Ratio 18.8 LAB CHEMISTRY METHOD 09/22/2024 6:57 AM [facility] Calcium 8.4(L) 8.5 - 10.5 mg/dL LAB CHEMISTRY METHOD 09/22/2024 6:57 AM [facility] Blood Venous blood specimen / Unknown Venipuncture / Unknown 09/22/2024 6:14 AM EDT 09/22/2024 6:25 AM EDT us Anahi VACA LAB BLOOD ORDERABLES Final Result [facility] [address] [place] [address], * (ABNORMAL) Urinalysis with reflex microscopic and culture (09/21/2024 6:30 PM EDT) Only the most recent of2 resultswithin the time period is included. Specific [place] Urine 1.015 1.003 - 1.030 LAB URINALYSIS - AUTOMATED METHOD 09/21/2024 7:00 PM [facility] pH, Urine 6.0 5.0 - 8.0 pH LAB URINALYSIS - AUTOMATED METHOD 09/21/2024 7:00 PM [facility] Leukocytes, Urine Negative Negative LAB URINALYSIS - AUTOMATED METHOD 09/21/2024 7:00 PM [facility] Nitrite, Urine Negative Negative LAB URINALYSIS - AUTOMATED METHOD 09/21/2024 7:00 PM [facility] Protein, Urine Negative <=Trace mg/dL LAB URINALYSIS - AUTOMATED METHOD 09/21/2024 7:00 PM [facility] Glucose, Urine Negative Negative mg/dL LAB URINALYSIS - AUTOMATED METHOD 09/21/2024 7:00 PM [facility] Ketones, Urine Negative Negative mg/dL LAB URINALYSIS - AUTOMATED METHOD 09/21/2024 7:00 PM [facility] Urobilinogen, Urine 0.2 0.2 - 1.0 mg/dL LAB URINALYSIS - AUTOMATED METHOD 09/21/2024 7:00 PM [facility] Bilirubin, Urine Negative Negative LAB URINALYSIS - AUTOMATED METHOD 09/21/2024 7:00 PM [facility] Blood, Urine Small(A) Negative LAB URINALYSIS - AUTOMATED METHOD 09/21/2024 7:00 PM [facility] RBC, Urine 10.4(H) 0 - 4 /HPF LAB URINALYSIS - AUTOMATED METHOD 09/21/2024 7:00 PM [facility] WBC, Urine 0.6 0 - 4 /HPF LAB URINALYSIS - AUTOMATED METHOD 09/21/2024 7:00 PM EDT [facility] Squamous Epithelial, Urine 2 0 - 60 /LPF LAB URINALYSIS - AUTOMATED METHOD 09/21/2024 7:00 PM EDT [facility] Bacteria, Urine Negative Negative /HPF LAB URINALYSIS - AUTOMATED METHOD 09/21/2024 7:00 PM EDT [facility] Hyaline Casts, Urine 0.0 0 - 3 /LPF LAB URINALYSIS - AUTOMATED METHOD 09/21/2024 7:00 PM EDT [facility] Urine Urine specimen obtained by clean catch procedure / Unknown Non-blood Collection / Unknown 09/21/2024 6:30 PM EDT 09/21/2024 6:36 PM EDT us Anahisa Joan Guan PA LAB URINE ORDERABLES Final Result Performing Organization Address City/[facility]/ZIP Co de Phone Number [facility] [address] [place] [address], [place] [phone] * Carpenter urine culture tube (09/21/2024 6:30 PM EDT) Only the most recent of2 resultswithin the time period is included. Extra Tube Hold for add-ons. 09/21/2024 8:01 PM EDT [facility] Comment:Auto resulted. Urine Urine specimen obtained by clean catch procedure / Unknown Non-blood Collection / Unknown 09/21/2024 6:30 PM EDT 09/21/2024 6:36 PM EDT us Anahi Joan Stovallt PA LAB URINE ORDERABLES Final Result Performing Organization Address [facility]/ZIP Co de Phone Number [facility] [address] [place] [address], [place] [phone] * CT Abdomen Pelvis w Contrast (09/21/2024 3:22 PM EDT) Only the most recent of2 resultswithin the time period is included. 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 with stable soft tissue component causing [...] Signed Date: 09/21/2024 16:18 ET Workstation ID: [id number] Transcribed By: Self Edit Transcribed Date: 09/21/2024 [...] 123 mL CV PACS Left Atrium Minor Durham 6.5 cm CV PACS Left Atrium Major Durham 6.3 cm CV PACS LA Area Sys [...] Aorta 3.7 cm CV PACS MV Deceleration Phillips 8.2 m/s2 CV PACS E Wave Deceleration [...] S' 20 cm/s CV PACS RA Major Durham 5.9 cm CV PACS RA Major [place] Index 3.0(A) 2.1 - 2.7 cm/m2 CV [...] mg/dL LAB CHEMISTRY METHOD 09/21/2024 7:46 AM [facility] Triglycerides 93 0 - 150 mg/dL LAB CHEMISTRY METHOD 09/21/2024 7:46 AM [facility] HDL 40 >=40 mg/dL LAB CHEMISTRY METHOD 09/21/2024 7:46 AM [facility] LDL Calculated 61 0 - 100 mg/dL LAB CHEMISTRY METHOD 09/21/2024 7:46 AM [facility] VLDL Cholesterol Alon 18.6 mg/dL LAB CHEMISTRY METHOD 09/21/2024 7:46 AM [facility] Non HDL Chol. (LDL+VLDL) 80 <145 mg/dL LAB CHEMISTRY METHOD 09/21/2024 7:46 AM [facility] Chol/HDL Ratio 3.0 0.0 - 4.4 LAB CHEMISTRY METHOD 09/21/2024 7:46 AM [facility] Blood Venous blood specimen / Unknown Venipuncture / Unknown 09/21/2024 6:15 AM EDT 09/21/2024 6:59 AM EDT Vincenzo VACA LAB BLOOD ORDERABLES Final Res ult [facility] [address] [place] [address], * (ABNORMAL) Complete blood count (09/21/2024 6:15 AM EDT) Only the most recent of3 resultswithin the time period is included. WBC 14.9(H) 4.8 - 10.8 K/mcL LAB HEMETOLOGY METHOD 09/21[facility]2024 7:[facility] RBC 2.60(L) 4.50 - 5.50 M/mcL LAB HEMETOLOGY METHOD 09/21/2024 7:14 AM [facility] Hemoglobin 8.2(L) 13.5 - 17.5 g/dL LAB HEMETOLOGY METHOD 09/21/2024 7:14 AM [facility] Hematocrit 25.2(L) 42.0 - 54.0 % LAB HEMETOLOGY METHOD 09/21/2024 7:14 AM [facility] MCV 96.9 79.0 - 98.0 FL LAB HEMETOLOGY METHOD 09/21/2024 7:14 [facility] MCH 31.5 27.0 - 32.0 pcg LAB HEMETOLOGY METHOD 09/21/2024 7:14 AM [facility] MCHC 32.5 32.0 - 37.0 g/dL LAB HEMETOLOGY METHOD 09/21/2024 7:14 AM [facility] RDW 20.1(H) 11.0 - 15.0 % LAB HEMETOLOGY METHOD 09/21/2024 7:14 AM EDT [facility] Platelets 178 130 - 400 K/mcL LAB HEMETOLOGY METHOD 09/21/2024 7:14 AM EDT [facility] MPV 12.0(H) 7.0 - 11.0 FL LAB HEMETOLOGY METHOD 09/21/2024 7:14 AM EDT [facility] NRBC 0.6 <1.0 % LAB HEMETOLOGY METHOD 09/21/2024 7:14 AM EDT [facility] NRBC Absolute 0.09 <0.10 K/mcL LAB HEMETOLOGY METHOD 09/21/2024 7:14 AM EDT [facility] Blood Venous blood specimen / Unknown Venipuncture / Unknown 09/21/2024 6:15 AM EDT 09/21/2024 7:00 AM EDT us Donte Wilde MD LAB BLOOD ORDERABLES Final Res ult [facility] [address] [place] [address], [place] [phone] * ECG 12 lead (09/21/2024 1:30 AM EDT) Only the most recent of6 resultswithin the time period is included. Ventricular Rate ECG 102 BPM GEMUSE Atrial Rate 102 BPM GEMUSE P-R Interval 168 ms GEMUSE QRS Duration 96 ms GEMUSE Q-T Interval 362 ms GEMUSE QTc 471 ms GEMUSE P Wave Durham 96 degrees GEMUSE R Durham -172 degrees GEMUSE T Durham 146 degrees GEMUSE ECG Interpretation Suspect arm lead reversal, interpretation assumes no reversal Sinus tachycardia with occasional Premature ventricular complexes Abnormal ECG When compared with ECG of 21-SEP-2024 01:30, (unconfirmed) No significant change was found Confirmed by Lisseth ONEILL YUFENG ([id number]) on 09/21/2024 7:18:10 PM GEMUSE 09/21/2024 1:30 AM EDT 09/21/2024 7:18 PM EDT us Vincenzo VACA ECG ORDERABLES Final Result GEMUSE * XR Chest 1 View (09/20/2024 8:35 [...] Signed Date: 09/21/2024 09:59 ET Workstation ID: [id number] Transcribed By: Self Edit Transcribed Date: 09/21/2024 [...] Signed Date: 09/21/2024 09:59 ET Workstation ID: [id number] Transcribed By: Self Edit Transcribed Date: 09/21/2024 09:58 ET Beatriz VACA IMG XR PROCEDURES Final Resul t * (ABNORMAL) B-type natriuretic peptide (09/20/2024 8:28 PM EDT) Only the most recent of2 resultswithin the time period is included. BNP 567(H) <=100 pcg/mL LAB CHEMISTRY METHOD 09/20/2024 9:44 PM EDT [facility] Blood Venous blood specimen / Unknown Venipuncture / Unknown 09/20/2024 8:28 PM EDT 09/20/2024 8:38 PM EDT Beatriz VACA LAB BLOOD ORDERABLES Final Re sult Performing Organization Address [facility]/ZIP Co de Phone Number [facility] [address] [place] [address], * (ABNORMAL) Prostate specific antigen diagnostic (09/18/2024 1:23 PM EDT) Only the most recent of11 resultswithin the time period is included. PSA 18.27(H) 0.00 - 4.00 ng/mL LAB CHEMISTRY METHOD 09/18/2024 4:19 PM EDT [facility] Blood Venous blood specimen / Unknown Venipuncture / Unknown 09/18/2024 1:23 PM EDT 09/18/2024 1:37 PM EDT Narrative [facility] - 09/18/2024 4:19 PM EDT The Siemens Advia Centaur Chemiluminescent Immunoassay is used. Results obtained with different assay methods or kits cannot be used interchangeably. Results cannot be interpreted as absolute evidence of the presence or absence of malignant disease. Jeffrey Conte MD LAB BLOOD ORDERABLES Final Res ult Performing Organization Address [facility]/ZIP Co de Phone Number [facility] [address] [place] [address], [place] [phone] * (ABNORMAL) Iron and TIBC (09/18/2024 1:23 PM EDT) Only the most recent of10 resultswithin the time period is included. Iron 48(L) 50 - 160 mcg/dL LAB CHEMISTRY METHOD 09/18/2024 3:11 PM EDT [facility] TIBC 216(L) 250 - 450 mcg/dL LAB CHEMISTRY METHOD 09/18/2024 3:11 PM EDT [facility] Iron Saturation 22 20 - 50 % LAB CHEMISTRY METHOD 09/18/2024 3:11 PM EDT [facility] Blood Venous blood specimen / Unknown Venipuncture / Unknown 09/18/2024 1:23 PM EDT 09/18/2024 1:37 PM EDT us Jeffrey Conte MD LAB BLOOD ORDERABLES Final Res ult [facility] [address] [place] [address], [place] [phone] * (ABNORMAL) Ferritin (09/18/2024 1:23 PM EDT) Only the most recent of10 resultswithin the time period is included. Ferritin 1,590(H) 26 - 388 ng/mL LAB CHEMISTRY METHOD 09/18/2024 3:29 PM EDT [facility] Blood Venous blood specimen / Unknown Venipuncture / Unknown 09/18/2024 1:23 PM EDT 09/18/2024 1:37 PM EDT us Jeffrey Conte MD LAB BLOOD ORDERABLES Final Res ult [facility] [address] [place] [address], [place] [phone] * Uric acid (09/13/2024 8:41 AM EDT) Pathologist [facility] [place] Uric Acid 7.3 3.7 - 9.2 mg/dL LAB CHEMISTRY METHOD 09/13/2024 1:52 PM EDT [facility] Blood Venous blood specimen / Unknown Venipuncture / Unknown 09/13/2024 8:41 AM EDT 09/13/2024 8:48 AM EDT Jeffrey Conte MD LAB BLOOD ORDERABLES Final Res ult [facility] [address] [place] [address], * Culture urine (09/01/2024 9:49 PM EDT) [facility] Culture, Urine No growth 09/03/2024 9:42 AM EDT [facility] Urine Urine specimen obtained by clean catch procedure / Unknown Non-blood Collection / Unknown 09/01/2024 9:49 PM EDT 09/01/2024 10:23 PM EDT Noemy Bergman DO LAB MICROBIOLOGY - GENERA L ORDERABLES Final Result [facility] [address] [place] [address], [place] [phone] * MRSA molecular study (09/01/2024 8:08 PM EDT) [facility] MRSA Screen PCR Not Detected Not Detected LAB MICROBIOLOGY METHOD 09/01/2024 10:47 PM EDT [facility] Swab Both anterior nares / Unknown Non-blood Collection / Unknown 09/01/2024 8:08 PM EDT 09/01/2024 8:29 PM EDT Davin Madrid MD LAB MICROBIOLOGY - GENERAL ORDERABLES Final Result [facility] [address] [place] [address], * Respiratory virus panel molecular study (09/01/2024 6:40 PM EDT) Adenovirus Detection by PCR Not Detected Not Detected LAB MICROBIOLOGY METHOD 09/01/2024 8:03 PM EDT [facility] Influenza A PCR Not Detected Not Detected LAB MICROBIOLOGY METHOD 09/01/2024 8:03 PM EDT [facility] Influenza B PCR Not Detected Not Detected LAB MICROBIOLOGY METHOD 09/01/2024 8:03 PM EDT [facility] Coronavirus 229E Not Detected Not Detected LAB MICROBIOLOGY METHOD 09/01/2024 8:03 PM EDT [facility] Coronavirus HKU1 Not Detected Not Detected LAB MICROBIOLOGY METHOD 09/01/2024 8:03 PM EDT [facility] Coronavirus OC43 Not Detected Not Detected LAB MICROBIOLOGY METHOD 09/01/2024 8:03 PM EDT [facility] Coronavirus NL63 Not Detected Not Detected LAB MICROBIOLOGY METHOD 09/01/2024 8:03 PM EDT [facility] Parainfluenza Virus 1 Not Detected Not Detected LAB MICROBIOLOGY METHOD 09/01/2024 8:03 PM EDT [facility] Parainfluenza Virus 2 Not Detected Not Detected LAB MICROBIOLOGY METHOD 09/01/2024 8:03 PM EDT [facility] Parainfluenza Virus 3 Not Detected Not Detected LAB MICROBIOLOGY METHOD 09/01/2024 8:03 PM EDT [facility] Parainfluenza Virus 4 Not Detected Not Detected LAB MICROBIOLOGY METHOD 09/01/2024 8:03 PM EDT [facility] RSV PCR Not Detected Not Detected LAB MICROBIOLOGY METHOD 09/01/2024 8:03 PM EDT [facility] Human Metapneumovirus A and B Not Detected Not Detected LAB MICROBIOLOGY METHOD 09/01/2024 8:03 PM EDT [facility] Rhinovirus/Entero virus Not Detected Not Detected LAB MICROBIOLOGY METHOD 09/01/2024 8:03 PM EDT [facility] Bordetella pertussis Not Detected Not Detected LAB MICROBIOLOGY METHOD 09/01/2024 8:03 PM EDT [facility] Bordetella parapertussis Not Detected Not Detected LAB MICROBIOLOGY METHOD 09/01/2024 8:03 PM EDT [facility] Mycoplasma pneumo by PCR Not Detected Not Detected LAB MICROBIOLOGY METHOD 09/01/2024 8:03 PM EDT [facility] Chlamydia pneumoniae Not Detected Not Detected LAB MICROBIOLOGY METHOD 09/01/2024 8:03 PM EDT [facility] SARS COV-2 Not Detected Not Detected LAB MICROBIOLOGY METHOD 09/01/2024 8:03 PM EDT [facility] Swab Nasopharyngeal structure / Unknown Non-blood Collection / Unknown 09/01/2024 6:40 PM EDT 09/01/2024 7:04 PM EDT Narrative [facility] - 09/01/2024 8:03 PM EDT Testing was performed using the [employer] Respiratory Pathogen PCR Assay. All results must [...] MICROBIOLOGY - GENERA L ORDERABLES Final Result [facility] [address] [place] [address], * Blood culture (09/01/2024 6:01 PM EDT) Only the most recent of2 resultswithin the time period is included. Culture, Blood No growth at 5 days 09/06/2024 7:01 PM EDT [facility] Blood Venous blood specimen / Unknown Venipuncture / Unknown 09/01/2024 6:01 PM EDT 09/01/2024 6:16 PM EDT us Noemy Tommy Miguel Pacheco DO LAB MICROBIOLOGY - GENERA L ORDERABLES Final Result [facility] [address] [place] [address], [place] [phone] * XR Chest 2 Views (09/01/2024 5:10 [...] Signed Date: 09/01/2024 17:34 ET Workstation ID: [id number] Transcribed By: Self Edit Transcribed Date: 09/01/2024 [...] Signed Date: 09/01/2024 17:34 ET Workstation ID: [id number] Transcribed By: Self Edit Transcribed Date: 09/01/2024 17:30 ET us Noemy Bergman DO IMG XR PROCEDURES Final R esult * Lactate (09/01/2024 4:47 PM EDT) Lactate 0.8 0.4 - 2.0 mmol/L LAB CHEMISTRY METHOD 09/01/2024 5:33 PM EDT [facility] Blood Venous blood specimen / Unknown Venipuncture / Unknown 09/01/2024 4:47 PM EDT 09/01/2024 5:00 PM EDT Noemy Bergman LAB BLOOD ORDERABLES Stefany l Result Performing Organization Address City/[facility]/ZIP Co de Phone Number [facility] [address] [place] [address], [place] [phone] * APTT (09/01/2024 3:57 PM EDT) Only the most recent of2 resultswithin the time period is included. aPTT 34.8 24.1 - 39.3 sec LAB COAGULATION METHOD 09/01/2024 4:24 PM EDT [facility] Blood Venous blood specimen / Unknown Venipuncture / Unknown 09/01/2024 3:57 PM EDT 09/01/2024 4:08 PM EDT Noemy Bergman LAB BLOOD ORDERABLES Stefany l Result Performing Organization Address [facility] Co de Phone Number [facility] [address] [place] [address], [place] [phone] * Protime-INR (09/01/2024 3:57 PM EDT) Only the most recent of2 resultswithin the time period is included. Protime 13.6 10.6 - 13.9 sec LAB COAGULATION METHOD 09/01/2024 4:24 PM EDT [facility] INR 1.1 LAB COAGULATION METHOD 09/01/2024 4:24 PM EDT [facility] Blood Venous blood specimen / Unknown Venipuncture / Unknown 09/01/2024 3:57 PM EDT 09/01/2024 4:08 PM EDT Noemy Bergman LAB BLOOD ORDERABLES Stefany l Result Performing Organization Address City/[facility]/ZIP Co de Phone Number [facility] [address] [place] [address], [place] [phone] * US Abdomen Complete (08/08/2024 8:41 AM [...] Bilateral renal cysts again noted. [place] PA ([id number]) -------- FINAL REPORT -------- Dictated By: Enedina Oliveros Dictated Date: 08/14/2024 16:33 ET Assigned Physician: Enedina Oliveros Reviewed and Electronically Signed By: Enedina Oliveros Signed Date: 08/14/2024 16:41 ET Workstation ID: [id number] Transcribed By: Self Edit Transcribed Date: 08/14/2024 [...] obstruction. 4. Bilateral renal cysts again noted. Romana VACA ([id number]) -------- FINAL REPORT -------- Dictated By: Enedina Oliveros Dictated Date: 08/14/2024 16:33 ET Assigned Physician: Enedina Oliveros Reviewed and Electronically Signed By: Enedina Oliveros Signed Date: 08/14/2024 16:41 ET Workstation ID: [id number] Transcribed By: Self Edit Transcribed Date: 08/14/2024 16:33 ET us Jeffrey Conte MD IMG US PROCEDURES Final Result * (ABNORMAL) Hemoglobin and hematocrit (08/06/2024 12:37 PM EST) Only the most recent of2 resultswithin the time period is included. Hemoglobin 7.8(L) 13.5 - 17.5 g/dL LAB HEMETOLOGY METHOD 08/06/2024 1:20 PM EST [facility] Hematocrit 23.6(L) 42.0 - 54.0 % LAB HEMETOLOGY METHOD 08/06/2024 1:20 PM EST [facility] Blood Venous blood specimen / Unknown Venipuncture / Unknown 08/06/2024 12:37 PM EST 08/06/2024 1:20 PM EST Jatinder Molina MD LAB BLOOD ORDERABLES Final Re sult Performing Organization Address [facility]/ZIP Co de Phone Number [facility] [address] [place] [address], [place] [phone] * Magnesium (08/06/2024 4:35 AM EST) Only the most recent of2 resultswithin the time period is included. [facility] Magnesium 2.3 1.9 - 2.6 mg/dL LAB CHEMISTRY METHOD 08/06/2024 5:12 AM EST [facility] Blood Venous blood specimen / Unknown Venipuncture / Unknown 08/06/2024 4:35 AM EST 08/06/2024 4:40 AM EST Jj Ledbetter MD LAB BLOOD ORDERABLES Final Re sult Performing Organization Address City/[facility]/ZIP Co de Phone Number [facility] [address] [place] [address], [place] [phone] * (ABNORMAL) Lipase (08/05/2024 7:16 AM EST) Pathologist [facility] Lipase 197(H) 13 - 75 unit/L LAB CHEMISTRY METHOD 08/05/2024 8:04 AM EST [facility] Blood Venous blood specimen / Unknown Venipuncture / Unknown 08/05/2024 7:16 AM EST 08/05/2024 7:27 AM EST Kelley James MD LAB BLOOD ORDERABLES Fin al Result Performing Organization Address [facility] Co de Phone Number [facility] ([facility] [address] [place] [address], [place] [phone] * Pathology review, blood smear (08/03/2024 9:47 AM EST) Pathologist Review Blood Smear Normocytic anemia with prominent anisocytosis (post transfusion); smear not diagnostic of etiology. (See note.) Many hyposegmented neutrophils, including occasional Reovus-Lbij-mesi forms - consider medication/toxin- related changes (including docetaxel), myelodysplasia or other etiologies. Note: ??Prior to the patient's recent transfusions, the patient's red blood cells were mildly macrocytic, a finding that can be associated with medication/treatm ent effects, nutritional deficiency, liver disease, myelodysplasia, hypothyroidism, or other causes. 08/03/2024 4:24 PM EST [facility] Blood Venous blood specimen / Unknown Venipuncture / Unknown 08/03/2024 9:47 AM EST 08/03/2024 11:21 AM EST Héctor Zelaya MD LAB BLOOD ORDERABLES Final Resu lt Performing Organization Address [facility] Co de Phone Number [facility] [address] [place] [address], * COLONOSCOPY Anesthesia - MAC; [facility] ENDOSCOPY (08/03/2024 8:14 AM EST) Anatomical Region [...] present medications. Narrative 08/03/2024 8:16 AM EST [facility] Patient Name: Luke Turpin Procedure Date: [...] Procedure Code(s): ? --- Professional --- ? 19731, Colonoscopy, flexible; with control of ? bleeding, any method Diagnosis Code(s): ? --- Professional --- ? K55.21, Angiodysplasia of colon with hemorrhage ? R19.5, Other fecal abnormalities CPT copyright 2020 [employer]. All rights reserved. The codes documented in this report are preliminary and upon guide winder review may be revised to meet current compliance requirements. MD Héctor Malhotra MD 08/03/2024 8:16:43 AM This report has been signed electronically.Héctor Zelaya MD Number of Addenda: 0 Note Initiated On: 08/03/2024 7:45 AM Scope In: Scope Out: ? Endoscopy Department at [facility] - [address] [place] [address], ? [place] [phone] Procedure Note Héctor Zelaya MD - 08/03/2024 [facility] Patient Name: Luke Turpin Procedure Date: 08/03/2024 7:45 AM Date of : 1945 Age: 79 Gender: Male Note Status: Finalized Attending MD: Héctor Zelaya MD, Procedure Date No Time: 08/03/2024 Procedure: Colonoscopy Indications: Gastrointestinal occult blood loss Providers: Hcétor Zelaya MD Referring MD: Héctor Zelaya MD [...] without abnormality. Procedure Code(s): --- Professional --- 54774, Colonoscopy, flexible; with control of bleeding, any method Diagnosis Code(s): --- Professional --- K55.21, Angiodysplasia of colon with hemorrhage R19.5, Other fecal abnormalities CPT copyright 2020 [employer]. All rights reserved. The codes documented in this report are preliminary and upon guide winder reviewmay be revised to meet current compliance requirements. MD Héctor Malhotra MD 08/03/2024 8:16:43 AM This report has been signed electronically.Héctor Zelaya MD Number of Addenda: 0 Note Initiated On: 08/03/2024 7:45 AM Scope In: Scope Out: Endoscopy Department at [facility] - [address] [place] [phone] IMPRESSION: - Preparation of the colon was [...] Final R esult * EGD Anesthesia - MAC; [facility] ENDOSCOPY (08/03/2024 8:14 AM EST) Anatomical Region [...] present medications. Narrative 08/03/2024 8:18 AM EST [facility] Patient Name: Luke Turpin Procedure Date: [...] Procedure Code(s): ? --- Professional --- ? 82894, Esophagogastroduodenoscopy, flexible, ? transoral; with control of bleeding, any method Diagnosis Code(s): ? --- Professional --- ? K31.811, Angiodysplasia of stomach and duodenum with ? bleeding ? 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 All rights reserved. The codes documented in this report are preliminary and upon guide winder review may be revised to meet current compliance requirements. MD Héctor Malhotra MD 08/03/2024 8:18:08 AM This report has been signed electronically.Héctor Zelaya MD Number of Addenda: 0 Note Initiated On: 08/03/2024 7:31 AM Scope In: Scope Out: ? Endoscopy Department at [facility] - [address] [place] [address], ? [place] [address] Procedure Note Héctor Zelaya MD - 08/03/2024 [facility] Patient Name: Luke Turpin Procedure Date: [...] without abnormality. Procedure Code(s): --- Professional --- 88357, Esophagogastroduodenoscopy, flexible, transoral; with control of bleeding, any method Diagnosis Code(s): --- Professional --- K31.811, Angiodysplasia of stomach and duodenumwith bleeding D50.0, Iron deficiency anemia secondary to bloodloss (chronic) CPT copyright 2020 [employer]. All rights reserved. The codes documented in this report are preliminary and upon guide winder reviewmay be revised to meet current compliance requirements. MD Héctor Malhotra MD 08/03/2024 8:18:08 AM This report has been signed electronically.Héctor Zelaya MD Number of Addenda: 0 Note Initiated On: 08/03/2024 7:31 AM Scope In: Scope Out: Endoscopy Department at [facility] - [address] [place] [phone] IMPRESSION: - A single bleeding angioectasia in [...] metacarpals consistent with previous shrapnel injury. Code 39088 -------- FINAL REPORT -------- Dictated By: Alek Figueroa Dictated Date: 07/28/2024 11:16 ET Assigned Physician: Alek Figueroa Reviewed and Electronically Signed By: Alek Figueroa Signed Date: 07/28/2024 11:18 ET Workstation ID: [id number] Transcribed By: Self Edit Transcribed Date: 07/28/2024 [...] metacarpals consistent with previous shrapnel injury. Code 04678 -------- FINAL REPORT -------- Dictated By: Alek Figueroa Dictated Date: 07/28/2024 11:16 ET Assigned Physician: Alek Figueroa Reviewed and Electronically Signed By: Alek Figueroa Signed Date: 07/28/2024 11:18 ET Workstation ID: [id number] Transcribed By: Self Edit Transcribed Date: 07/28/2024 11:16 ET Jeffrey Conte MD IMG XR PROCEDURES Final Result * XR Ribs w Chest 3+ Views Right (07/28/2024 10:35 AM EST) Anatomical Region Laterality Modality Body Right Radiographic Luci ging 07/28/2024 11:0 8 AM EST Impressions 07/28/2024 11:11 AM EST No acute pulmonary disease. There is no pneumothorax, pleural fluid, or right rib fracture. Code 37463 -------- FINAL REPORT -------- Dictated By: Alek Figueroa Dictated Date: 07/28/2024 11:08 ET Assigned Physician: Alek Figueroa Reviewed and Electronically Signed By: Alek Figueroa Signed Date: 07/28/2024 11:11 ET Workstation ID: [id number] Transcribed By: Self Edit Transcribed Date: 07/28/2024 [...] The study demonstrates that a right internal qxqvcriEadn-Q-Oitr has been placed since the prior examination [...] pneumothorax, pleural fluid, orright rib fracture. Code 84984 -------- FINAL REPORT -------- Dictated By: Alek Figueroa Dictated Date: 07/28/2024 11:08 ET Assigned Physician: Alek Figueroa Reviewed and Electronically Signed By: Alek Figueroa Signed Date: 07/28/2024 11:11 ET Workstation ID: [id number] Transcribed By: Self Edit Transcribed Date: 07/28/2024 [...] Signed Date: 07/04/2024 15:56 ET Workstation ID: [id number] Transcribed By: Self Edit Transcribed Date: 07/04/2024 [...] and placed within the pocket. An 8 Setswana peel-away sheath with a hemostatic valve placed [...] Signed Date: 07/04/2024 15:56 ET Workstation ID: [id number] Transcribed By: Self Edit Transcribed Date: 07/04/2024 15:56 ET Jeffrey Conte MD [facility] [place] [facility] PROCEDURES Final Result from Last 3 [place] [id number] [facility] [place] [id number] Advance Directives Documents on File Type Date Recorded Patient Butcher Head Expl anation Health Care Decision (hx) 07/02/2023 [...] on File) Date Activated Date Inactivated Comments 09/20/2024 7:43 PM 09/22/2024 8:33 PM This code stat us was ascertained in the following way: Code status discussion: discussion with patient and hcp/ To update the patient's code status, place a code status order. Do not modify or discontinue any currently active code status orders. * Full Code - Default Date Activated Date Inactivated Comments 09/20/2024 5:38 PM 09/20/2024 7:43 PM This is order is used when code status has not been discussed with the patient, or code status is otherwise unknown/unconfirmed To update the patient's code status, place a code status order. Do not modify or discontinue any currently active code status orders. * Full Code - Confirmed Date Activated Date Inactivated Comments 09/01/2024 9:25 [...] currently active code status orders. Care Teams Keno Dealer Relationship Specialty Start Date End Date Júnior Crawley MD [address] [place] [address] PCP - General Internal Medicine 05/02/24
--- OUTSIDE RECORDS SUMMARY | 2024-09-26 09:59 | XMS_ITS ---
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 Current Oncology Plans [facility] LEUPROLIDE 22.5MG (ELIGARD) EVERY 3 MONTHS* Plan Start Date:02/08/2024 Plan Provider:Jeffrey Conte MD Linked Problems Prostate cancer (HCC)Iron de ficiency anemia due to chronic blood loss Treatment Medications leuprolide (ELIGARD) Past Plans ONCOLOGY INFUSION THERAPY Plan Name Start Date Discontinue Date Treatment Medications Discontinue Reason Plan Provider [facility] 22.5MG (ELIGARD) EVERY 3 MONTHS & [facility] DENOSUMAB 120MG (XGEVA) 02/24/2023 02/07/2024 denosumab (XGEVA)iron sucrose (VENOFER)leuprol walter (ELIGARD) Therapy Complete Jeffrey Conte MD Radiation Treatments * No radiation treatments are documented for this patient in [facility]. Treatments may have been administered in another system.
--- OUTSIDE RECORDS SUMMARY | 2024-09-26 09:59 | XMS_ITS | Encounter Summary ---
Author Organization [facility] Address [address] [place] [address] Care Team Providers Care Pier Runner Name Role Phone Júnior Crawley MD Primary Care Provider Encounter Details Date Type Department Care Team Description 04/10/2024 Nurse Only [facility] Oncology Services [address] [place] [address] Lori Syed RN Social History Tobacco Use [...] on filedocumented in this encounter Care Teams Pier Runner Relationship Specialty Start Date End Date Júnior Crawley MD PCP - General Internal Medicine 05/12/17 documented as of this encounter
--- OUTSIDE RECORDS SUMMARY | 2024-09-26 09:59 | XMS_ITS | Clinical Summary ---
Author Organization [facility] Address [address] [place] [address] Care Team Providers Care Air Table Operator Name Role Phone Júnior Crawley MD Primary Care Provider [phone] Allergies No known active allergies Medications Medication [...] age to complete this topic Care Teams Air Table Operator Relationship Specialty Start Date End Date Júnior Crawley MD PCP - General Internal Medicine 05/12/17
--- OUTSIDE RECORDS SUMMARY | 2024-09-26 09:59 | XMS_ITS | Encounter Summary ---
Author Organization [facility] Address [address] [place] [address] Care Team Providers Care Promotions Associate Name Role Phone Júnior Crawley MD Primary Care Provider Encounter Details Date Type Department Care Team Description 11/26/2021 Nurse Only [facility] Oncology Services [address] [place] [address] Lori Syed RN Social History Tobacco Use [...] Order: [facility] Molecular Tumor Profiling on SP# [id number] Test request and clinicals submitted for processing. Testing Turnaround Time on average is 14 days but may take longer. Final Report will be scanned into [employer] when completed. documented in this encounter Plan of Treatment Not on file documented as of this encounter Visit Diagnoses Not on filedocumented in this encounter Care Teams Promotions Associate Relationship Specialty Start Date End Date Júnior Crawley MD PCP - General Internal Medicine 05/12/17 documented as of this encounter
== END 2024-09-26 09:46 | disposition home or self-care (01) ==
LOC: HO.HVS 09:05
PROVIDERS: PCP Internal Medicine; Visit Provider Surgery Vascular Surgery
DX: I73.9 Peripheral vascular disease, unspecified (principal)
CPT/HCPCS: 99214; G2211

== ENCOUNTER → 2024-09-26 09:05 | Outpatient (BNVA) | payer MEDICARE, OTHER, SELFPAY | PROVIDERS: PCP Internal Medicine; Visit Provider Surgery Vascular Surgery | DX: I73.9 Peripheral vascular disease, unspecified (principal) | CPT/HCPCS: 99212 ==

== ENCOUNTER 2024-12-12 14:14 | Outpatient (AMB) | payer MEDICARE, OTHER, SELFPAY ==
--- NOTE | 2024-12-12 14:20 | MHC.OFFVIS ---
Intake Visit Reasons: Add-on per Namrata/ LE changes Intake Note: Patient presents for LE changes per Dr Crawley. Accompanied by: Spouse Allergies No Known Allergies Allergy (Verified 12/12/24 14:21) [facility] HPI Add-on per Namrata/ LE changes: Details: The patient is a 79-year-old male presenting with leg pain and rest pain. He reports severe leg pain that prevents him from sleeping at night, describing it as a stabbing sensation rebecca to a knife. The pain is exacerbated when the leg is elevated, and he finds some relief when sitting up with the leg down. The patient has a history of peripheral artery disease, and an angiogram was performed a couple of years ago, which showed clear arteries at that time. He has not undergone any recent interventions for this condition, and the current symptoms suggest progression. Additionally, the patient experiences back pain, which has worsened recently. He takes gabapentin three times a day and has been prescribed OxyContin by his oncologist for pain management. He had actually seen us in August and at that time appeared to be doing fairly well. It appears that his symptoms have progressed. He had seen his primary care doctor and was sent back for re-evaluation. Review of Systems Const All systems reviewed & are unremarkable except as noted in HPI and below Reports no additional complaints ENT Reports Normal hearing present Card Denies chest pain, Denies chest pain at rest, Denies chest pain with activity and Denies pedal edema Resp Denies cough GI Denies abdominal pain Musc Denies abnormal gait, Denies muscle cramps and Denies radiating pain into limb Skin/Breast Denies skin ulcer and Denies wounds Neuro Reports Normal hearing present and Denies abnormal gait Psych Reports no additional complaints Physical Exam Const General: cooperative, healthy appearing and comfortable Orientation/consciousness: oriented to person, oriented to place and oriented to time HEENT Head: Yes normal to inspection Neck Neck: Yes normal visual inspection Carotids: no bruits Chest Chest palpation & inspection: normal inspection of the chest Resp Effort & Inspection: normal respiratory effort and able to speak in complete sentences Auscultation: clear to auscultation bilaterally, no crackles, no rales, no rhonchi and no wheezes Cardio Other: Bilateral DP signals Rate: regular rate Rhythm: regular rhythm Heart sounds: S1 normal heart sound present and S2 normal heart sound present Bruits: no carotid bruits Peripheral pulses: Peripheral pulses 2+ throughout GI Inspection: Yes normal to inspection Skin Wounds: no wounds Hair: normal Neuro General: oriented to person, oriented to place and oriented to time Cranial nerves: Yes CN's II-XII intact bilaterally and Yes Normal hearing present Cognition (Neuro): normal cognition Motor exam (neuro): 5/5 motor strength present throughout Extrem Other: venous exam: +1 edema General: No clubbing, No cyanosis and No edema Psych Appearance: grossly normal Mental Status: mental status grossly normal Speech and movement: Normal speech and movement present Results Reviewed Results Reviewed: Noninvasive arterial testing dated 09/07/2024 demonstrates MAKSIM on the right of 0.97 and on the left of 0.71 with concerns popliteal artery disease. Assessment & Plan Assessment & Plan (1) PAD (peripheral artery disease): Comment: 11/17/2017 - diagnostic angiogram Code(s): I73.9 - Peripheral vascular disease, unspecified Category: Medical Plan: Patient notes leg pain when walking distances. I have discussed the pathophysiology of peripheral vascular disease with the patient. I have also discussed risk factor modification. I have reviewed the patient's arterial testing which reveals left MAKSIM of 0.71 with concerns of popliteal disease. the patient would benefit from a left leg endovascular peripheral angiogram with possible angioplasty, stent, and/or atherectomy. This has been discussed in detail with the patient along with risks, benefits, and complications. This includes but is not limited to bleeding, infection, heart attack, need for emergent surgical repair, limb ischemia, blood vessel damage, bleeding, puncture, kidney injury, bruising, allergic reaction, and skin reaction. The patient demonstrates a clear understanding. We will schedule for the next appropriate time. Thank you for allowing us to assist in this patient's care. Coding Level of Care Code Est Pt Level 4 (95839) Complex EM visit Add On G2211 Diagnoses PAD (peripheral artery disease) I73.9
== END 2024-12-12 14:45 | disposition home or self-care (01) ==
LOC: HO.HVS 14:15
PROVIDERS: PCP Internal Medicine; Visit Provider Surgery Vascular Surgery
DX: I73.9 Peripheral vascular disease, unspecified (principal)
CPT/HCPCS: 99214; G2211

== ENCOUNTER → 2024-12-12 14:14 | Outpatient (BNVA) | payer MEDICARE, OTHER, SELFPAY | PROVIDERS: PCP Internal Medicine; Visit Provider Surgery Vascular Surgery | DX: I73.9 Peripheral vascular disease, unspecified (principal) | CPT/HCPCS: 99212 ==

== ENCOUNTER 2024-12-20 07:33 | Day surgery (SDC) | payer MEDICARE, OTHER, SELFPAY ==
[2024-12-20] VITALS (23 sets, daily range): BP systolic 109–135; BP diastolic 48–60; PULSE 75–89; RESP 12–20; TEMP 36.1–36.5; O2SAT 92–98; BMI 28.9
[2024-12-20 08:52] LABS: MANUAL DIFF FLAG NO
[2024-12-20 08:58] LABS: Hematocrit 25.4 % (42.0-52.0); Hemoglobin 8.0 g/dl (14.0-18.0); Imm Gran Abs Auto 0.03 X10*3/uL (0.00-0.03); Imm Gran Pct Auto 0.5 % (0.0-0.4); Lymphocytes Absolute Auto 1.0 X10*3/uL (1.2-4.9); Mean Corpuscular HGB Conc 31.5 g/dl (31.0-36.0); Mean Corpuscular Hemoglobin 31.3 pg (27.0-33.0); Mean Corpuscular Volume 99.2 fL (80.0-98.0); NRBC Abs Auto 0.000 X10*3/uL (0.0-0.012); NRBC Pct Auto 0.0 /100WBC (0.0-0.2); Platelet Count 269 X10*3/uL (160-400); Red Blood Count 2.56 X10*6/uL (4.60-5.80); White Blood Count 6.1 X10*3/uL (4.8-10.8)
[2024-12-20 09:08] LABS: Blood Urea Nitrogen 29 mg/dL (9-16); Creatinine Clr Calc Pharmacy 40.3; Estimated Glomerular Filt Rate 47
[2024-12-20 09:17] LABS: Glucose, Whole Blood 86 mg/dL (60-115)
[2024-12-20] MEDS: Heparin Sodium,Porcine 10,000 UNIT/10 ML VIAL 6000 UNIT IVPUSH (09:57)
[2024-12-20] MEDS: Heparin Sodium,Porcine 10,000 UNIT/10 ML VIAL 1000 UNIT IVPUSH (10:07)
--- NOTE | 2024-12-20 10:58 | W.PM.OPN ---
Operative Note Operative Note Date of Service: 12/20/24 Narrative: Angiogram report from [facility] Preoperative diagnosis: Atherosclerosis of left lower extremity with activity limiting claudication Postoperative diagnosis: Same Procedure: 1. Ultrasound-guided right common femoral access 2. Aortogram with bilateral lower extremity runoff 3. Left popliteal atherectomy and plasty Surgeon:Markos Ott M.D., FACS, RPVI Plastic Parts Designer:None Anesthesia: Local with moderate conscious sedation. Total intraservice moderate sedation time was 60 minutes. I monitored the patient's level of consciousness and physiologic status continuously throughout the procedure. Specimens:none Drains:none Estimated blood loss: Less than 10 ml Radiation Dose: 227.5 mGy Implant: Medtronic Impact DCB 5 x 40 Indications: 79-year-old gentleman with severe activity limiting claudication. He has left lower extremity pain which has been disabling for him. He now presents for endovascular intervention The patient has signed the informed consent after reviewing risks, complications, benefits, and alternatives previously discussed with the patient. The patient was given the opportunity to ask any additional questions or voice any concerns. All questions were answered to the patient's satisfaction. Procedure in detail: Patient was brought to the angiography suite prior to which a time-out was called for patient identification and site verification. Bilateral groins were prepped and draped in the standard surgical fashion. Under ultrasound guidance right common femoral was punctured with micro puncture needle and wire. Subsequently a precision 5 [place] sheath was then placed. Bentson wire was advanced to the level of the aorta. 5 [place] Flush catheter was brought up and parked at the level of the renal arteries. Aortogram was then undertaken. Catheter was brought down to the level of the iliac bifurcation. Iliacs and runoff was performed through the flush catheter that was parked at the bifurcation and a power injection was performed to visualize bilateral runoff vessels. Subsequently the catheter was then brought in up and over to the left side SFA. At this time we did recognize he had severe popliteal disease. We were able to cross this with an 035 glidewire Advantage. We then exchanged out for an up and over 6 [place] sheath. Prior to that we administered 6000 units of heparin plus an additional 1000 units of heparin. Once this was accomplished we then confirmed true lumen beyond this stenosis with a trail Blazer catheter instilled with contrast. Once this was accomplished we then exchanged out for a 6 [place] spider wire. Over this we used a Hawk 1 atherectomy device in the left popliteal artery. Multiple unidirectional passes were undertaken. There was increase in luminal diameter but there was still some residual stenosis. At this time we brought in a 5 x 40 drug coated balloon. This was brought into position in under 3 minutes and insufflated for a total of 3 minutes in duration. Catheter wire sheath was brought back to the ipsilateral side. We exchanged out the 6 [place] long sheath for a 6 [place] short sheath and then we used a CELT 6 [place] closure device. Adequate hemostasis was achieved patient tolerated the procedure well returned to recovery with stable vitals. Interpretation of films: 1. Ultrasound demonstrates appropriate femoral access site. Vessel was patent with minimal stenosis. Needle entry was visualized. Image of ultrasound was saved. 2. Aortogram demonstrates appropriate caliber aorta. Minimal disease. Aorta was extremely calcified Appropriate take-off of the renals. 3. Iliac images demonstrate minimal disease but calcified 4. Left Leg Common femoral artery: No significant disease Profundus Femoris: No significant disease Superficial femoral artery: Minimal disease Popliteal artery (p1,p2,p3): High-grade stenosis extremely calcified at the P1 going into the P2 segment. Distal P2 and P3 segment were patent Anterior tibial artery: No significant disease Peroneal artery: No significant Posterior tibial artery: No significant disease Dorsalis pedis/plantar arch: Incomplete 5. Right Leg Common femoral artery: No significant disease Profundus Femoris: No significant disease Superficial femoral artery: Minimal disease Popliteal artery (p1,p2,p3): No significant disease Anterior tibial artery: No significant disease Peroneal artery: No significant Posterior tibial artery: No significant disease Dorsalis pedis/plantar arch: Poorly visualized Conclusion: 1. Successful left leg atherectomy and plasty 2. Anticoagulation status: 6 months of aspirin and Plavix This note is constructed using voice recognition software. While every effort has been made to ensure accuracy, field service manager errors may have been included. Thank you for allowing me to participate in the care of your patient. Yours sincerely, Markos Ott MD, FACS, R.P.V.I.
[2024-12-21 09:15] LABS: ACT 145 Celite s (79-173)
[2024-12-21 09:15] LABS: ACT 200 Celite s (79-173)
[2024-12-21 09:15] LABS: ACT 164 Celite s (79-173)
== END 2024-12-20 12:27 | disposition home or self-care (01) ==
PROVIDERS: PCP Internal Medicine; Visit Provider Surgery Vascular Surgery
DX: I70.212 Atherosclerosis of native arteries of extremities with intermittent claudication, left leg (principal); M79.662 Pain in left lower leg; M54.9 Dorsalgia, unspecified; Z79.899 Other long term (current) drug therapy; Z87.891 Personal history of nicotine dependence
CPT/HCPCS: 36415; 37225; 76937; 82565; 82947; 84520; 85025; 85347; 99152; 99153; C1714; C1725; C1760; C1769; C1887; C1894; C2623; J1644; J2250; J2270; J3010; Q9967

== ENCOUNTER → 2024-12-20 07:33 | Outpatient (BNV) | payer MEDICARE, OTHER, SELFPAY | PROVIDERS: PCP Internal Medicine; Visit Provider Surgery Vascular Surgery | DX: I70.212 Atherosclerosis of native arteries of extremities with intermittent claudication, left leg (principal) | CPT/HCPCS: 37225; 75630; 76937; 99152 ==

== ENCOUNTER 2025-01-04 12:52 | Outpatient (AMB) | payer MEDICARE, OTHER, SELFPAY ==
--- NOTE | 2025-01-04 12:58 | A.OFFVIS_ITS ---
Intake Visit Reasons: 2 week follow up s/p L Leg angio 12/20/24 Intake Note: 2 week follow up Left Angio 12/20/24. Pt states nocturnal pain, no changes from before procedure. Not taking ASA, only taking plavix [employer] Required: No Accompanied by: Spouse Allergies No Known Allergies Allergy (Verified 01/04/25 13:02) HPI HPI 2 week follow up s/p L Leg angio 12/20/24: Details: 79-year-old gentleman for routine postprocedure follow-up status post left lower extremity endovascular intervention. This was done on 12/20/2024. He underwent left popliteal atherectomy and plasty. In general reports improvement overall. Better balance when walking. He still does have bilateral lower extremity weakness. Of note postprocedure he was placed on aspirin and Plavix. He did require blood transfusion after all of this. He is now being maintained on Plavix only. Now presents for routine postprocedure follow-up. [facility] Medical History Port-A-Cath in place S/P angiogram of extremity PAD (peripheral artery disease) Prostate cancer Anemia GERD (gastroesophageal reflux disease) HTN (hypertension) Surgical History H/O colonoscopy H/O skin graft Social History Patient Tobacco Use Status: Former Tobacco user Review of Systems Const All systems reviewed & are unremarkable except as noted in HPI and below Reports no additional complaints ENT Reports Normal hearing present Card Denies chest pain, Denies chest pain at rest, Denies chest pain with activity and Denies pedal edema Resp Denies cough GI Denies abdominal pain Musc Denies abnormal gait, Denies muscle cramps and Denies radiating pain into limb Skin/Breast Denies skin ulcer and Denies wounds Neuro Reports Normal hearing present and Denies abnormal gait Psych Reports no additional complaints Physical Exam Const General: cooperative, healthy appearing and comfortable Orientation/consciousness: oriented to person, oriented to place and oriented to time HEENT Head: Yes normal to inspection Neck Neck: Yes normal visual inspection Carotids: no bruits Chest Chest palpation & inspection: normal inspection of the chest Resp Effort & Inspection: normal respiratory effort and able to speak in complete sentences Auscultation: clear to auscultation bilaterally, no crackles, no rales, no rhonchi and no wheezes Cardio Other: Bilateral DP signals Rate: regular rate Rhythm: regular rhythm Heart sounds: S1 normal heart sound present and S2 normal heart sound present Bruits: no carotid bruits Peripheral pulses: Peripheral pulses 2+ throughout GI Inspection: Yes normal to inspection Skin Wounds: no wounds Hair: normal Neuro General: oriented to person, oriented to place and oriented to time Cranial nerves: Yes CN's II-XII intact bilaterally and Yes Normal hearing present Cognition (Neuro): normal cognition Motor exam (neuro): 5/5 motor strength present throughout Extrem Other: venous exam: No significant superficial varicosities or spider telangiectasias, minimal edema General: No clubbing, No cyanosis and No edema Psych Appearance: grossly normal Mental Status: mental status grossly normal Speech and movement: Normal speech and movement present Assessment & Plan Assessment & Plan (1) PAD (peripheral artery disease): Comment: 11/17/2017 - diagnostic angiogram 12/20/2024 - left popliteal atherectomy and plasty Code(s): I73.9 - Peripheral vascular disease, unspecified Category: Medical Plan: In short patient has stable claudication. He appears to be doing well status post left lower extremity endovascular intervention I did review the patho physiology of peripheral vascular disease with the patient. In addition we did discuss routine conservative measures including a healthy diet and the importance of exercise and ambulation. We did discuss risk factor modification. The patient will continue to to follow-up with surveillance follow-up in approximately 3 months. Thank you for allowing us to participate in this patient's care. If there are any questions or concerns please do not hesitate to contact us. Orders: Orders US arterial duplex LE BI 3 Months I73.9 - Peripheral vascular disease, unspecified Coding Level of Care Code Est Pt Level 4 (83680) Complex EM visit Add On G2211 Diagnoses PAD (peripheral artery disease) I73.9
--- OUTSIDE RECORDS SUMMARY | 2025-01-04 13:16 | XMS_ITS ---
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 08/06/2024 Type 2 diabetes mellitus ([facility] V24, [facility] V 28) 05/04/2024 Prostate cancer ([facility] V24, [facility] V28) 04/24 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 He denies any lightheadedness or dizziness. Presently he continues on lisinopril 10 mg once a day. If he develops any lightheadedness and dizziness I would stop the lisinopril. Assessment & Plan (11/18/2024 1:03 PM EDT): BP 100/56. Patient reports some lightheadedness. Reducing lisinopril to 10mg daily and repeating labs. Hypercholesterolemia 07/21/2023 Peripheral arterial disease ([facility] V24) 2023 Severe aortic stenosis 07/21/2023 Assessment & Plan (11/28/2024 12:09 PM EDT): Patient's history of severe aortic stenosis and is being evaluated by our TAVR team. Unfortunately due to issues with anemia this has been on hold. At the last office visit I increased his furosemide to 20 mg daily and his leg edema has improved. Will continue to manage him conservatively since he is unable to have surgery at this point. His renal function has declined with a creatinine of 2.0. He does not follow with nephrology and I have referred him to nephrology today. Patient's legs are still slightly edematous and he will increase his furosemide for just a few days to twice a day and then back to 20 mg once a day. Assessment & Plan (11/18/2024 1:03 PM EDT): Patient has history of aortic stenosis. He has been evaluated by our TAVR team and due to issues with anemia this has been on hold. He presently does not present with any clinical symptoms of heart failure or worsening aortic stenosis symptoms. We will continue to manage conservatively for now. 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 Past Plans Oncology Treatment Plan Name Start Date Discontinue Date Treatment Medications Discontinue Reason Plan Provider Cycles DOCEtaxel / PredniSONE 5 12/28/2024 DOCEtaxel (TAXOTERE)DOCE taxel (TAXOTERE) chemo IVPB 250 mL NS - Therapy Complete Jeffrey Conte MD 6 of 9 cycles started Radiation Treatments * No radiation treatments are documented for this patient in [facility]. Treatments may have been administered in another system. Lifetime Dose Tracking * Chemical Lifetime Dose Automatic Entry Manual Entr y Fluoro Time 0.6 minutes 0.6 minutes 0 minutes Air Kerma 5 mGy 5 mGy 0 mGy Resolved Problems Problem Noted Date Diagnosed Date Resolved Date Symptomatic anemia 08/05/2024 DM type 2 with diabetic amyo trophy ([facility] V24, [facility] V28) 05/04/2024 05/04/2024
--- OUTSIDE RECORDS SUMMARY | 2025-01-04 13:16 | XMS_ITS | Encounter Summary ---
Author Organization [facility] Address [address] [place] [address] Care Team Providers Care Manager Zone Name Role Phone Júnior Crawley MD Primary Care Provider Encounter Details Date Type Department Care Team Description 11/26/2021 Nurse Only [facility] [address] [place] [address] Lori Syed RN Social History Tobacco Use [...] Order: [facility] Molecular Tumor Profiling on SP# [id number] Test request and clinicals submitted for processing. Testing Turnaround Time on average is 14 days but may take longer. Final Report will be scanned into [facility] when completed. documented in this encounter Plan of Treatment Not on file documented as of this encounter Visit Diagnoses Not on filedocumented in this encounter Care Teams Manager Zone Relationship Specialty Start Date End Date Júnior Crawley MD PCP - General Internal Medicine 05/12/17 documented as of this encounter
== END 2025-01-04 14:28 | disposition home or self-care (01) ==
LOC: HO.HVS 12:53
PROVIDERS: PCP Internal Medicine; Visit Provider Surgery Vascular Surgery
DX: I73.9 Peripheral vascular disease, unspecified (principal)
CPT/HCPCS: 99214; G2211

== ENCOUNTER → 2025-01-04 12:52 | Outpatient (BNVA) | payer MEDICARE, OTHER, SELFPAY | PROVIDERS: PCP Internal Medicine; Visit Provider Surgery Vascular Surgery | DX: I73.9 Peripheral vascular disease, unspecified (principal) | CPT/HCPCS: 99212 ==